=== PATIENT | male | born 1955 | race Caucasian/White ===

== ENCOUNTER 2020-05-30 18:34 | Emergency (ER) | payer OTHER ==
[2020-05-30] MEDS ORDERED: ACETAMINOPHEN 500 MG TAB ONE (20:31)
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
--- NOTE | 2020-05-30 21:30 | RAD REPORT ---
EXAM DESCRIPTION: CT - Thoracic Spine W/o Cont - 05/30/2020 9:15 pm CLINICAL HISTORY: Radiculopathy. trauma COMPARISON: Head C Spine Mpr Wo Con dated 05/30/2020 TECHNIQUE: Axial CT imaging through the thoracic spine was performed with coronal and sagittal re-fo rmatted images. All CT scans are performed using dose optimization technique as appropriate and may include automated exposure control or mA/KV adjustment according to patient size. FINDINGS: The examination is significantly limited by body habitus artifact. Vertebral body heights are largely maintained. No evidence of a compression fracture or significant m alalignment. Thoracic spine alignment is within normal limits. No paraspinal masses or hematoma. IMPRESSION: No gross acute abnormality seen.
--- NOTE | 2020-05-30 21:32 | RAD REPORT ---
EXAM DESCRIPTION: CT - Spine Lumbar Wo Con - 05/30/2020 9:15 pm CLINICAL HISTORY: Radiculopathy. trauma COMPARISON: No comparisons TECHNIQUE: Axial noncontrast CT imaging of the lumbar spine was performed with coronal and sagittal re-formatted images. All CT scans are performed using dose optimization technique as appropriate and may include automated exposure control or mA/KV adjustment according to patient size. FINDINGS: Examination is limited by body habitus artifact. No gross acute lumbar spine fracture seen. No aggressive marrow pattern or malalignment. Paraspinal tissues are normal in thickness. No paraspinal abscess or hematoma seen. Moderate lower janet mbar spondylosis. IMPRESSION: No gross acute abnormality seen.
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
[2020-05-30 22:25] VITALS: TEMP 98
[2020-05-30 22:26] VITALS: BP 179/79; O2SAT 98
--- OUTSIDE RECORDS SUMMARY | 2020-06-02 09:03 | XMS REPORT | Continuity of Care Document ---
:[address] [facility] t Address [address] [place] [address] Care Team Providers Name Role Phone UNKNOWN Primary Care Physician Unavailable MAGAN Attending Clinician Unavailable MAGAN Admitting Clinician Unavailable Problems This patient has no known problems. Allergies, Adverse Reactions, Alerts This patient has no known allergies or adverse reactions. Medications This patient has no known medications. Procedures This patient has no known procedures. Results Test Description Test Time Test Comments Results Result Comments Source POC Glucose, Blood 2017-03-29 08:04:00 Test Item Value Reference Range Interpretation Comme nts POC Glucose (test code = 119 mg/dL 70-115 H Not bola RN or MDIf you consider your POCGLUC) patient critica manuela ill, the [employer] Accu-Chek Infor mII metershould not be used for Glucos e determinations.Draw a venous Glucose and send to the Main Lab for Analysi s.
== END 2020-05-30 22:12 | disposition home or self-care (01) ==
LOC: ER 18:34
DX: S16.1XXA Strain of muscle, fascia and tendon at neck level, initial encounter (principal); S20.229A Contusion of unspecified back wall of thorax, initial encounter; S90.02XA Contusion of left ankle, initial encounter; I10 Essential (primary) hypertension; E11.9 Type 2 diabetes mellitus without complications; I50.9 Heart failure, unspecified; W17.89XA Other fall from one level to another, initial encounter; Y93.89 Activity, other specified; Y92.9 Unspecified place or not applicable; Z79.4 Long term (current) use of insulin; Z79.01 Long term (current) use of anticoagulants; Z88.1 Allergy status to other antibiotic agents; Z88.3 Allergy status to other anti-infective agents; Z88.8 Allergy status to other drugs, medicaments and biological substances; Z86.718 Personal history of other venous thrombosis and embolism
CPT/HCPCS: 70450; 72125; 72128; 72131; 99284

== ENCOUNTER 2021-06-20 23:39 | Inpatient (IN) | payer OTHER ==
[2021-06-21 00:35] LABS: Absolute Lymphocytes (CBC) 1.9 K/uL (0.7-4.9); Basophils % 0.6 % (0-1.3); Hematocrit 27.9 % (39.6-49.0); Lymphocytes % 15.1 % (15.3-44.8); MPV 7.5 fL (7.6-11.3); RBC Red Blood Cell Count 3.11 M/uL (4.33-5.43)
[2021-06-21 00:36] LABS: Protime INR 2.83
--- NOTE | 2021-06-21 00:59 | ER ---
Nurse's Notes [facility] Name: Shaheen Dos Santos Age: 66 yrs Sex: Male : 1955 Arrival Date: 06/20/2021 Time: 23:45 Bed 13 Private MD: Diagnosis: Chest pain, unspecified;Anemia, unspecified;Weakness;Obesity, unspecified;Other acute kidney failure Presentation: 06/21 00:02 Chief complaint:. df1 00:14 Chief complaint: Spouse and/or significant other states: Spouse states weakness/N/V x 3 df1 days. Coronavirus screen: Vaccine status: Patient reports receiving the 2nd dose of the covid vaccine. At this time, the client does not indicate any symptoms associated with coronavirus-19. The client reports previous COVID testing was negative. Date of collection: August 2020. Ebola Screen: Patient negative for fever greater than or equal to 101.5 degrees Fahrenheit, and additional compatible Ebola Virus Disease symptoms Patient denies exposure to infectious person. Patient denies travel to an Ebola-affected area in the 21 days before illness onset. Initial Sepsis Screen: Does the patient meet any 2 criteria? No. Patient's initial sepsis screen is negative. Does the patient have a suspected source of infection? Yes: Bone or joint infection. Risk Assessment: Do you want to hurt yourself or someone else? Patient reports no desire to harm self or others. Note Spouse stated pt being treated for wound to LLE x 1 year. Pt started taking terbinafine for this wound 3 days ago. Onset of symptoms was June 18, 2021. 00:14 Method Of Arrival: EMS: [facility] df1 00:14 Acuity: SAMINA 3 df1 02:57 Note Pt resting with eyes closed. Spouse at bedside. Pt has tried to give urine sample df1 but unable to at this time. Pt refusing straight cath and Gibson. Pt has h/o PTSD and states previous bad experience with catheters. RN on second floor informed. Triage Assessment: 00:24 General: Appears in no apparent distress. Behavior is calm, cooperative. Pain: Denies df1 pain. Historical: - Allergies: 00:24 Bactrim; df1 00:24 Erythromycin; df1 00:24 Zocor; df1 00:24 Zofran; df1 02:13 cholecalciferol (vit D3)(bulk); df1 02:13 cholecalciferol (vitamin D3); df1 - Home Meds: 00:47 quetiapine 100 mg oral tab 1 tab nightly [Active]; df1 00:49 cetirizine 10 mg Oral tab 1 tab once daily [Active]; cyanocobalamin (vitamin B-12) 500 df1 mcg Oral tab [Active]; gabapentin 100 mg Oral cap 2 caps twice a day [Active]; hydralazine 50 mg Oral tab 1 tab 2 times per day [Active]; metoprolol tartrate 100 mg Oral tab 1 tab 2 times per day [Active]; Novolin N 100 unit/mL Sub-Q susp 55 unit twice a day [Active]; tramadol 50 mg Oral tab 1 tab every 4-6 hours [Active]; 02:13 B complex-minerals Oral [Active]; Eliquis 5 mg Oral tab 1 tab 2 times per day [Active]; df1 Lasix 40 mg Oral tab 1 tab once daily [Active]; nifedipine 90 mg Oral TbER 1 tab once daily [Active]; allopurinol 100 mg Oral tab 1 tab nightly [Active]; omeprazole 20 mg oral TbEC 20 mg twice a day [Active]; - PMHx: 00:24 CHF; COPD; Diabetes - IDDM; DVT; Hypertension; Myocardial infarction; PE; IVC Filter; df1 02:27 renal failure; GERD; Gout; df1 - PSHx: 00:24 Cholecystectomy; left foot surgery x 2 for infection to bone; df1 - Immunization history:: Client reports receiving the 2nd dose of the Covid vaccine, Last tetanus immunization: up to date Pneumococcal vaccine is up to date, Flu vaccine is not up to date. - Social history:: Smoking status: Patient denies any tobacco usage or history of. - Family history:: not pertinent. Screenin:23 Abuse screen: Denies threats or abuse. Nutritional screening: No deficits noted. df1 Tuberculosis screening: No symptoms or risk factors identified. Fall Risk None identified. Assessment: 02:28 General: Appears uncomfortable, Behavior is calm, cooperative, Smells of. Pain: Denies df1 pain. Neuro: Level of Consciousness is awake, alert, obeys commands, Oriented to person, place, time, situation, Emergency Manager are weak bilaterally Weakness Gait is Did not ambulate. Speech is normal, Facial symmetry appears normal, Pupils are PERRLA, Intact Reports weakness. Cardiovascular: Rhythm is first degree block on EKG. Respiratory: Airway is patent Trachea midline Respiratory effort is even, unlabored, Respiratory pattern is regular, symmetrical, Breath sounds are diminished. GI: Abdomen is round obese, Bowel sounds present X 4 quads. Abd is soft and non tender Reports nausea. : No deficits noted. Derm: Wound noted left calf, left Achilles, left mckoy and anterior aspect of left ankle. Vital Signs: 00:14 BP 118 / 50; Pulse 69; Resp 18; Temp 98.3; Pulse Ox 96% on R/A; Weight 182.8 kg; Height df1 6 ft. 1 in. (185.42 cm); Pain 0/10; 01:00 BP 120 / 58; Pulse 65; Resp 18; Pulse Ox 98% on R/A; df1 02:24 BP 127 / 54; Pulse 68; Resp 18; Pulse Ox 96% on R/A; df1 02:56 BP 123 / 51; Pulse 65; Resp 18; Pulse Ox 95% on R/A; df1 00:14 Body Mass Index 53.17 (182.80 kg, 185.42 cm) df1 ED Course: 06/20 23:45 Patient arrived in ED. cs9 06/21 00:01 Harper Fierro is Primary Nurse. df1 00:04 Can Pena MD is Attending Physician. [facility] 00:23 Triage completed. df1 00:23 Patient has correct armband on for positive identification. Placed in gown. Bed in low df1 position. Call light in reach. Side rails up X 1. Adult w/ patient. boilermaker loftsman on. Pulse ox on. NIBP on. Noise minimized. Lights dimmed. Warm blanket given. 00:24 Arm band placed on right wrist. df1 00:24 No provider procedures requiring assistance completed. df1 00:37 Liver (Hepatic) Function Sent. df1 00:37 Magnesium Sent. df1 00:37 NT PRO-BNP Sent. df1 00:37 Basic Metabolic Panel Sent. df1 00:37 CBC with Automated Diff Sent. df1 00:38 Lipase Sent. df1 00:38 Lactate Sent. df1 00:38 Basic Metabolic Panel Sent. df1 00:38 NT PRO-BNP Sent. df1 00:40 Magnesium Sent. df1 00:40 LFT's Sent. df1 00:40 CBC with Diff Sent. df1 00:41 Inserted saline lock: 20 gauge in right antecubital area, using aseptic technique. df1 00:49 XRAY Chest (1 view) In Process Unspecified. EDMS 00:57 Alexander Hernandez DO is Hospitalizing Provider. carmen 01:10 AMMONIA Sent. df1 02:26 Head Brain Wo Cont Sent. df1 02:58 Patient admitted, IV remains in place. df1 Administered Medications: 01:19 Drug: NS 0.9% 1000 ml Route: IV; Rate: 125 ml/hr; Site: right antecubital; df1 01:19 Drug: Rocephin (cefTRIAXone) 1 grams Route: IV; Rate: per protocol; Site: right df1 antecubital; 02:26 Follow up: Response: No adverse reaction df1 01:19 Drug: Pepcid (famotidine) 20 mg Route: IVP; Site: right antecubital; df1 02:26 Follow up: Response: No adverse reaction df1 Outcome: 00:59 Decision to Hospitalize by Provider. carmen 02:58 Admitted to Tele accompanied by tech. df1 02:58 Condition: stable 02:58 Instructed on the need for admit. 03:36 Patient left the ED. df1 Signatures: Dispatcher [employer] EDMS Can Pena MD MD cha Furlich, Dawn df1 Rosina Ruiz cs9 Corrections: (The following items were deleted from the chart) 00:50 00:24 Home Meds: allopurinol 100 mg Oral tab 1 tab 2 times per day [Inactive]; df1 df1 00:50 00:24 Home Meds: cetirizine 10 mg Oral tab 1 tab once daily [Inactive]; df1 df1 00:50 00:24 Home Meds: cyanocobalamin (vitamin B-12) 500 mcg Oral tab [Inactive]; df1 df1 00:50 00:24 Home Meds: Eliquis 5 mg Oral tab 1 tab 2 times per day [Inactive]; df1 df1 00:50 00:24 Home Meds: gabapentin 100 mg Oral cap 2 caps twice a day [Inactive]; df1 df1 00:50 00:24 Home Meds: hydralazine 50 mg Oral tab 1 tab 2 times per day [Inactive]; df1 df1 00:50 00:24 Home Meds: Lasix 40 mg Oral tab 1 tab 2 times per day [Inactive]; df1 df1 00:50 00:24 Home Meds: metoprolol tartrate 50 mg Oral tab 1 tab 2 times per day [Inactive]; df1 df1 00:50 00:24 Home Meds: nifedipine 90 mg Oral TbER 1 tab once daily [Inactive]; df1 df1 00:50 00:24 Home Meds: Novolin N 100 unit/mL Sub-Q susp [Inactive]; df1 df1 00:50 00:24 Home Meds: omeprazole 10 mg Oral cpDR 2 caps once daily [Inactive]; df1 df1 00:50 00:24 Home Meds: tramadol 50 mg Oral tab [Inactive]; df1 df1 00:50 00:41 Home Meds: allopurinol 100 mg Oral tab 1 tab nightly [Inactive]; df1 df1 00:50 00:41 Home Meds: hydralazine 50 mg Oral tab 1 tab 2 times per day [Inactive]; df1 df1 00:50 00:41 Home Meds: metoprolol tartrate 100 mg oral tab 1 tab 2 times per day [Inactive]; df1 df1 00:50 00:41 Home Meds: Novolin N 100 unit/mL Sub-Q susp 55 unit twice a day [Inactive]; df1 df1 00:50 00:41 Home Meds: tramadol 50 mg Oral tab 1 tab every 4-6 hours [Inactive]; df1 df1 00:50 00:41 Home Meds: quetiapine 100 mg oral tab 1 tab nightly; df1 df1 02:20 00:24 Home Meds: amitriptyline 10 mg Oral tab 2 tabs at bedtime [Inactive]; df1 df1 02:20 00:24 Home Meds: B complex-minerals oral Oral [Inactive]; df1 df1 02:20 00:24 Home Meds: escitalopram oxalate 10 mg Oral tab 1 tab once daily [Inactive]; df1 df1 02:20 00:24 Home Meds: esomeprazole magnesium 40 mg Oral cpDR 1 cap once daily [Inactive]; df1df1 02:20 00:24 Home Meds: glipizide 5 mg Oral tr24 2 tabs once daily [Inactive]; df1 df1 02:20 00:24 Home Meds: losartan 50 mg Oral tab 1 tab once daily [Inactive]; df1 df1 02:20 00:24 Home Meds: metformin 850 mg Oral tab 1 tab 2 times per day [Inactive]; df1 df1 02:20 00:24 Home Meds: Novolog 100 unit/mL Sub-Q soln [Inactive]; df1 df1 02:20 00:24 Home Meds: potassium chloride 20 mEq Oral TbER 1 tab once daily [Inactive]; df1 df1 02:20 00:41 Home Meds: Eliquis 5 mg Oral tab 1 tab 2 times per day [Inactive]; df1 df1 02:20 00:41 Home Meds: Lasix 40 mg Oral tab 1 tab once daily [Inactive]; df1 df1 02:20 00:41 Home Meds: nifedipine 90 mg Oral TbER 1 tab once daily [Inactive]; df1 df1 02:20 00:47 Home Meds: allopurinol 100 mg Oral tab 1 tab nightly [Inactive]; df1 df1 02:20 00:49 Home Meds: omeprazole 10 mg Oral cpDR 2 caps once daily; df1 df1
--- NOTE | 2021-06-21 00:59 | EDPHYS ---
Physician Documentation [facility] Name: Shaheen Dos Santos Age: 66 yrs Sex: Male : 1955 Arrival Date: 06/20/2021 Time: 23:45 Bed 13 Private MD: ED Physician Can Pena HPI: 06/21 00:50 This 66 yrs old Male presents to ER via EMS with complaints of cp, weakness. carmen 00:50 The patient or guardian reports chest pain that is located primarily in the substernal carmen area. Onset: last night. weak, increased urination, weakntss. The patient presents with confusion, trouble concentrating. Onset: The symptoms/episode began/occurred last night. Possible causes: CVA or TIA, head injury, low blood sugar, sepsis. Associated signs and symptoms: Pertinent positives: chest pain, dizziness, gait abnormality. Associated signs and symptoms: Pertinent positives: cough, nausea, shortness of breath. Historical: - Allergies: 00:24 Bactrim; df1 00:24 Erythromycin; df1 00:24 Zocor; df1 00:24 Zofran; df1 02:13 cholecalciferol (vit D3)(bulk); df1 02:13 cholecalciferol (vitamin D3); df1 - Home Meds: 00:47 quetiapine 100 mg oral tab 1 tab nightly [Active]; df1 00:49 cetirizine 10 mg Oral tab 1 tab once daily [Active]; cyanocobalamin (vitamin B-12) 500 df1 mcg Oral tab [Active]; gabapentin 100 mg Oral cap 2 caps twice a day [Active]; hydralazine 50 mg Oral tab 1 tab 2 times per day [Active]; metoprolol tartrate 100 mg Oral tab 1 tab 2 times per day [Active]; Novolin N 100 unit/mL Sub-Q susp 55 unit twice a day [Active]; tramadol 50 mg Oral tab 1 tab every 4-6 hours [Active]; 02:13 B complex-minerals Oral [Active]; Eliquis 5 mg Oral tab 1 tab 2 times per day [Active]; df1 Lasix 40 mg Oral tab 1 tab once daily [Active]; nifedipine 90 mg Oral TbER 1 tab once daily [Active]; allopurinol 100 mg Oral tab 1 tab nightly [Active]; omeprazole 20 mg oral TbEC 20 mg twice a day [Active]; - PMHx: 00:24 CHF; COPD; Diabetes - IDDM; DVT; Hypertension; Myocardial infarction; PE; IVC Filter; df1 02:27 renal failure; GERD; Gout; df1 - PSHx: 00:24 Cholecystectomy; left foot surgery x 2 for infection to bone; df1 - Immunization history:: Client reports receiving the 2nd dose of the Covid vaccine, Last tetanus immunization: up to date Pneumococcal vaccine is up to date, Flu vaccine is not up to date. - Social history:: Smoking status: Patient denies any tobacco usage or history of. - Family history:: not pertinent. ROS: 00:50 Constitutional: Negative for fever, chills, and weight loss, Eyes: Negative for injury, carmen pain, redness, and discharge, ENT: Negative for injury, pain, and discharge, Neck: Negative for injury, pain, and swelling, Cardiovascular: Negative for chest pain, palpitations, and edema, Abdomen/GI: Negative for abdominal pain, nausea, vomiting, diarrhea, and constipation, Back: Negative for injury and pain, : Negative for injury, bleeding, discharge, and swelling, MS/Extremity: Negative for injury and deformity, Skin: Negative for injury, rash, and discoloration, Psych: Negative for depression, anxiety, suicide ideation, homicidal ideation, and hallucinations, Allergy/Immunology: Negative for hives, rash, and allergies, Endocrine: Negative for neck swelling, polydipsia, polyuria, polyphagia, and marked weight changes, Hematologic/Lymphatic: Negative for swollen nodes, abnormal bleeding, and unusual bruising. 00:50 Respiratory: Positive for cough, shortness of breath. 00:50 Neuro: Positive for altered mental status, weakness. Exam: 00:50 Constitutional: This is a well developed, well nourished patient who is awake, alert, carmen and in no acute distress. Head/Face: Normocephalic, atraumatic. Eyes: Pupils equal round and reactive to light, extra-ocular motions intact. Lids and lashes normal. Conjunctiva and sclera are non-icteric and not injected. Cornea within normal limits. Periorbital areas with no swelling, redness, or edema. ENT: Nares patent. No nasal discharge, no septal abnormalities noted. Tympanic membranes are normal and external auditory canals are clear. Oropharynx with no redness, swelling, or masses, exudates, or evidence of obstruction, uvula midline. Mucous membranes moist. Neck: Trachea midline, no thyromegaly or masses palpated, and no cervical lymphadenopathy. Supple, full range of motion without nuchal rigidity, or vertebral point tenderness. No Meningismus. Chest/axilla: Normal chest wall appearance and motion. Nontender with no deformity. No lesions are appreciated. Cardiovascular: Regular rate and rhythm with a normal S1 and S2. No gallops, murmurs, or rubs. Normal PMI, no JVD. No pulse deficits. Respiratory: Lungs have equal breath sounds bilaterally, clear to auscultation and percussion. No rales, rhonchi or wheezes noted. No increased work of breathing, no retractions or nasal flaring. Back: No spinal tenderness. No costovertebral tenderness. Full range of motion. Male : Normal genitalia with no discharge or lesions. Skin: Warm, dry with normal turgor. Normal color with no rashes, no lesions, and no evidence of cellulitis. Psych: Awake, alert, with orientation to person, place and time. Behavior, mood, and affect are within normal limits. 00:50 ECG was reviewed by the Attending Physician. 00:50 Abdomen/GI: Inspection: distension, Bowel sounds: normal, Liver: no appreciated palpable abnormalities, Hernia: not appreciated. Vital Signs: 00:14 BP 118 / 50; Pulse 69; Resp 18; Temp 98.3; Pulse Ox 96% on R/A; Weight 182.8 kg; Height df1 6 ft. 1 in. (185.42 cm); Pain 0/10; 01:00 BP 120 / 58; Pulse 65; Resp 18; Pulse Ox 98% on R/A; df1 02:24 BP 127 / 54; Pulse 68; Resp 18; Pulse Ox 96% on R/A; df1 02:56 BP 123 / 51; Pulse 65; Resp 18; Pulse Ox 95% on R/A; df1 00:14 Body Mass Index 53.17 (182.80 kg, 185.42 cm) df1 MDM: 00:04 Patient medically screened. [facility] 00:54 Differential diagnosis: abnormal EKG, acute myocardial infarction, anxiety, coronary carmen artery disease chest wall pain, cholecystitis, hiatal hernia, pancreatitis, pleurisy, pneumonia, pulmonary embolus, stable angina, unstable angina. Differential Diagnosis altered mental status, sepsis. HEART Score: History: Slightly Suspicious (0), ECG: Non specific repolarization disturbance / LBTB / PM (1), Age: > or = 65 years (2), Risk Factors: > or = 3 Risk factors for atherosclerotic disease (2), [Hypercholesterolemia] [Hypertension] [DM] [+ Family HX] [Obesity] Troponin: < or = 1 x Normal Limit (0). Differential Diagnosis: CVA, electrolyte abnormality, hypoglycemia, pneumonia, sepsis, TIA, UTI, volume depletion. The patient was not given aspirin in the Emergency Department. Not indicated due to patient's past medical history. The patient's deep vein thrombosis risk score was calculated as follows: Total Score: 0. This patient was found to be at low risk for a deep vein thrombosis by using the Well's assessment criteria. The patient's pulmonary embolism risk score was calculated as follows: Total Score: 0-2 points. This patient was found to be at low risk for a pulmonary embolism by using the Well's assessment criteria. AMANDA Risk Score: 1 - patient's age is greater or equal to 65 years, 1 - Three or more CAD risk factors, 1- Known CAD, TOTAL SCORE = 3. Data reviewed: vital signs, nurses notes, lab test result(s), EKG, radiologic studies, CT scan, plain films. Data interpreted: teletypesetter monitor: rate is 69 beats/min, rhythm is regular, Pulse oximetry: on room air is 96 %. Test interpretation: by ED physician or midlevel provider: ECG, plain radiologic studies. Counseling: I had a detailed discussion with the patient and/or guardian regarding: the historical points, exam findings, and any diagnostic results supporting the discharge/admit diagnosis, lab results, radiology results, the need for further work-up and treatment in the hospital. 06/21 00:14 Order name: Basic Metabolic Panel carmen 06/21 00:14 Order name: CBC with Diff carmen 06/21 00:14 Order name: LFT's carmen 06/21 00:14 Order name: Magnesium carmen 06/21 00:14 Order name: NT PRO-BNP carmen 06/21 00:14 Order name: PT-INR; Complete Time: 00:48 [facility] 06/21 00:14 Order name: Troponin (emerg Dept Use Only); Complete Time: 01:24 [facility] 06/21 00:14 Order name: Blood Culture Adult (2) [facility] 06/21 00:14 Order name: Lipase; Complete Time: 01:24 [facility] 06/21 00:14 Order name: Lactate; Complete Time: 01:24 [facility] 06/21 00:14 Order name: SARS-COV-2 RT PCR (Document "Date of Onset" if Symptomatic) [facility] 06/21 00:15 Order name: Basic Metabolic Panel; Complete Time: 01:24 EDME 06/21 00:15 Order name: CBC with Automated Diff; Complete Time: 00:48 EDME 06/21 00:15 Order name: Liver (Hepatic) Function; Complete Time: 01:24 EDME 06/21 00:14 Order name: XRAY Chest (1 view) [facility] 06/21 00:14 Order name: EKG; Complete Time: 00:15 [facility] 06/21 00:14 Order name: Cardiac monitoring; Complete Time: 00:38 [facility] 06/21 00:14 Order name: EKG - Nurse/Tech; Complete Time: 00:38 [facility] 06/21 00:14 Order name: IV Saline Lock; Complete Time: 00:38 [facility] 06/21 00:14 Order name: Labs collected and sent; Complete Time: 00:38 [facility] 06/21 00:14 Order name: O2 Per Protocol; Complete Time: 00:38 [facility] 06/21 00:14 Order name: O2 Sat Monitoring; Complete Time: 00:38 [facility] 06/21 00:14 Order name: Urine Dipstick-Ancillary (obtain specimen) [facility] 06/21 00:15 Order name: Magnesium; Complete Time: 01:24 [facility] 06/21 00:15 Order name: NT PRO-BNP; Complete Time: 01:24 EDME 06/21 00:49 Order name: AMMONIA [facility] 06/21 00:52 Order name: Head Brain Wo Cont EDMS EC:50 Rate is 70 beats/min. Rhythm is regular. QRS [place] is Normal. [place] interval is prolonged carmen at 300 msec. QRS interval is normal. QT interval is normal. No Q waves. T waves are Normal. No ST changes noted. Clinical impression: Normal ECG and No evidence of ischemia. Interpreted by me. Reviewed by me. Administered Medications: :19 Drug: NS 0.9% 1000 ml Route: IV; Rate: 125 ml/hr; Site: right antecubital; df1 01:19 Drug: Rocephin (cefTRIAXone) 1 grams Route: IV; Rate: per protocol; Site: right df1 antecubital; 02:26 Follow up: Response: No adverse reaction df1 01:19 Drug: Pepcid (famotidine) 20 mg Route: IVP; Site: right antecubital; df1 02:26 Follow up: Response: No adverse reaction df1 Disposition Summary: 06/21/21 00:59 Hospitalization Ordered Hospitalization Status: Observation carmen Provider: Alexander Hernandez cha Location: Telemetry/MedSurg (observation) carmen Condition: Stable carmen Problem: new carmen Symptoms: have improved carmen Bed/Room Type: Standard [facility] Room Assignment: 215(06/21/21 01:59) mw Diagnosis - Chest pain, unspecified carmen - Anemia, unspecified carmen - Weakness carmen - Obesity, unspecified carmen - Other acute kidney failure carmen Forms: - Medication Reconciliation Form carmen - SBAR form carmen Signatures: Dispatcher [employer] EDMS Carli Rhodes RN RN mw Anderson, Corey, MD MD cha Attema, Lee, CIVIL ENGINEERING SPECIALIST-C CIVIL ENGINEERING SPECIALIST-Harper Barreto df1 Corrections: (The following items were deleted from the chart) 00:50 00:24 Home Meds: allopurinol 100 mg Oral tab 1 tab 2 times per day [Inactive]; df1 df1 00:50 00:24 Home Meds: cetirizine 10 mg Oral tab 1 tab once daily [Inactive]; df1 df1 00:50 00:24 Home Meds: cyanocobalamin (vitamin B-12) 500 mcg Oral tab [Inactive]; df1 df1 00:50 00:24 Home Meds: Eliquis 5 mg Oral tab 1 tab 2 times per day [Inactive]; df1 df1 00:50 00:24 Home Meds: gabapentin 100 mg Oral cap 2 caps twice a day [Inactive]; df1 df1 00:50 00:24 Home Meds: hydralazine 50 mg Oral tab 1 tab 2 times per day [Inactive]; df1 df1 00:50 00:24 Home Meds: Lasix 40 mg Oral tab 1 tab 2 times per day [Inactive]; df1 df1 00:50 00:24 Home Meds: metoprolol tartrate 50 mg Oral tab 1 tab 2 times per day [Inactive]; df1 df1 00:50 00:24 Home Meds: nifedipine 90 mg Oral TbER 1 tab once daily [Inactive]; df1 df1 00:50 00:24 Home Meds: Novolin N 100 unit/mL Sub-Q susp [Inactive]; df1 df1 00:50 00:24 Home Meds: omeprazole 10 mg Oral cpDR 2 caps once daily [Inactive]; df1 df1 00:50 00:24 Home Meds: tramadol 50 mg Oral tab [Inactive]; df1 df1 00:50 00:41 Home Meds: allopurinol 100 mg Oral tab 1 tab nightly [Inactive]; df1 df1 00:50 00:41 Home Meds: hydralazine 50 mg Oral tab 1 tab 2 times per day [Inactive]; df1 df1 00:50 00:41 Home Meds: metoprolol tartrate 100 mg oral tab 1 tab 2 times per day [Inactive]; df1 df1 00:50 00:41 Home Meds: Novolin N 100 unit/mL Sub-Q susp 55 unit twice a day [Inactive]; df1 df1 00:50 00:41 Home Meds: tramadol 50 mg Oral tab 1 tab every 4-6 hours [Inactive]; df1 df1 00:50 00:41 Home Meds: quetiapine 100 mg oral tab 1 tab nightly; df1 df1 01:59 00:59 carmen mw 02:20 00:24 Home Meds: amitriptyline 10 mg Oral tab 2 tabs at bedtime [Inactive]; df1 df1 02:20 00:24 Home Meds: B complex-minerals oral Oral [Inactive]; df1 df1 02:20 00:24 Home Meds: escitalopram oxalate 10 mg Oral tab 1 tab once daily [Inactive]; df1 df1 02:20 00:24 Home Meds: esomeprazole magnesium 40 mg Oral cpDR 1 cap once daily [Inactive]; df1df1 02:20 00:24 Home Meds: glipizide 5 mg Oral tr24 2 tabs once daily [Inactive]; df1 df1 02:20 00:24 Home Meds: losartan 50 mg Oral tab 1 tab once daily [Inactive]; df1 df1 02:20 00:24 Home Meds: metformin 850 mg Oral tab 1 tab 2 times per day [Inactive]; df1 df1 02:20 00:24 Home Meds: Novolog 100 unit/mL Sub-Q soln [Inactive]; df1 df1 02:20 00:24 Home Meds: potassium chloride 20 mEq Oral TbER 1 tab once daily [Inactive]; df1 df1 02:20 00:41 Home Meds: Eliquis 5 mg Oral tab 1 tab 2 times per day [Inactive]; df1 df1 02:20 00:41 Home Meds: Lasix 40 mg Oral tab 1 tab once daily [Inactive]; df1 df1 02: 00:41 Home Meds: nifedipine 90 mg Oral TbER 1 tab once daily [Inactive]; df1 df1 02:20 00:47 Home Meds: allopurinol 100 mg Oral tab 1 tab nightly [Inactive]; df1 df1 02:20 00:49 Home Meds: omeprazole 10 mg Oral cpDR 2 caps once daily; df1 df1
[2021-06-21 01:03] LABS: ALT/SGPT 24 U/L (12-78); AST/SGOT 21 U/L (15-37); Albumin 2.4 g/dL (3.4-5.0); Alkaline Phosphatase 87 U/L (45-117); BUN Blood Urea Nitrogen 50 mg/dL (7-18); Bicarbonate 22 mmol/L (21-32); Bilirubin Direct 0.3 mg/dL (0-0.2); Bilirubin Total 0.8 mg/dL (0.2-1.0); Glucose Level 216 mg/dL (74-106); Lipase 34 U/L (73-393); Magnesium 1.8 mg/dL (1.8-2.4); NT PRO-BNP 1902 pg/mL (<125); Potassium 3.6 mmol/L (3.5-5.1); Protein, Total 7.7 g/dL (6.4-8.2); Sodium Level 137 mmol/L (136-145); Troponin (Emerg Dept Use Only) < 0.02 ng/mL (0.0-0.045)
[2021-06-21] MEDS ORDERED: FAMOTIDINE 20 MG/2 ML VIAL IV ONE (01:29)
[2021-06-21] MEDS ORDERED: CEFTRIAXONE 1000 MG/VIAL ONE (01:29)
[2021-06-21] MEDS ORDERED: NA CHLORIDE 0.9% 1,000 ML ONE (01:29)
--- NOTE | 2021-06-21 04:26 | P.HP ---
Certification for Inpatient Patient admitted to: Observation With expected LOS: <2 Midnights Patient will require the following post-hospital care: None Practitioner: I am a practitioner with admitting privileges, knowledge of patient current condition, hospital course, and medical plan of care. Services: Services provided to patient in accordance with Admission requirements found in Title 42 Section 412.3 of the Code of Federal Regulations Patient History Date of Service: 06/21/21 Reason for admission: Chest pain History of Present Illness: 66-year-old on chronic anticoagulation therapy with IVC filter in place, hypertension, CKD 3 presents the emergency department for chest pain and weakness. Patient reports that he has been having intermittent chest pain over the course of last few days as well as feeling very weak and unable to get out of bed. 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 Black. Patient was evaluated in the emergency department, labs were significant for INR 2.83 white blood cell count 12.8 hemoglobin 9.0 hematocrit 27.9 creatinine 2.26 GFR 29 BUN 50 glucose 216 BNP 1902 EKG without acute changes chest x-ray without significant findings pending radiology interpretation. Patient with mild acute kidney injury superimposed on his CKD 3, baseline creatinine 1.9 currently 2.2. Patient also with some chest pain, ED provider wishes to admit under observation for ACS rule out. Allergies erythromycin base Allergy (Verified 02/03/21 14:29) Nausea/Vomiting ondansetron [From Zofran] Allergy (Verified 02/03/21 14:29) Nausea/Vomiting simvastatin Allergy (Verified 02/03/21 14:29) Nausea/Vomiting sulfamethoxazole [From Bactrim] Allergy (Verified 02/03/21 14:29) Nausea/Vomiting trimethoprim [From Bactrim] Allergy (Verified 02/03/21 14:29) Nausea/Vomiting Home Medications: Acetaminophen with Codeine [Acetaminophen-Cod #3 Tablet] 60 mg PO BID PRN 02/03/21 Apixaban [Eliquis] 5 mg PO BID 02/03/21 Cyanocobalamin [B12 Injection] 1,000 mcg IM SEECOM 02/03/21 Ergocalciferol (Vitamin D2) [Drisdol] 1,250 mcg PO EVERY 7TH DAY 02/03/21 Escitalopram Oxalate 10 mg PO DAILY 02/03/21 Furosemide 80 mg PO DAILY 02/03/21 Insulin -Regular Human [Novolin -R*] 30 unit SQ BID 02/03/21 Metoprolol Tartrate 50 mg PO BID 02/03/21 NIFEdipine [Nifedipine ER] 60 mg PO DAILY 02/03/21 Omeprazole 40 mg PO DAILY 02/03/21 Potassium Gluconate [Potassium] 99 mg PO DAILY 02/03/21 Quetiapine Fumarate [Seroquel] 50 mg PO BEDTIME 02/03/21 Tramadol HCl [Ultram] 50 mg PO BID PRN 02/03/21 - Past Medical/Surgical History -: Diabetes mellitus type 2 -: CHFunknown EF -: COPD -: 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 moist/pink, EOMI, Sclerae nonicteric Neck: Supple, 2+ carotid pulse no bruit, No LAD, Without JVD or thyroid abnormality Respiratory: Clear to auscultation bilaterally, Normal air movement Cardiovascular: Regular rate/rhythm, Normal S1 S2 Gastrointestinal: Normal bowel sounds, No tenderness Musculoskeletal: No tenderness Integumentary: No rashes Neurological: Normal speech, Normal strength at 5/5 x4 extr, Normal tone, Normal affect - Studies Laboratory Data (last 24 hrs) 06/21/21 00:22: WBC 12.80 H, Hgb 9.0 L, Hct 27.9 L, Plt Count 240 06/21/21 00:22: Sodium 137, Potassium 3.6, BUN 50 H, Creatinine 2.26 H, Glucose 216 H, Magnesium 1.8, Total Bilirubin 0.8, AST 21, ALT 24, Alkaline Phosphatase 87, Lipase 34 L 06/21/21 00:14: PT 32.9 H, INR 2.83 Assessment and Plan - Plan Assessment: Chest pain rule out ACS Acute on chronic CHFunknown EF Diabetes mellitus type 2 NAV superimposed on CKD 3 Normocytic anemiasuspect anemia of chronic disease 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 Cardiology consult in place. Continue home medications including Eliquis, possibly related to exacerbation of CHF, give IV Lasix for diuresis as well. Appreciate further input from cardiology. Acute on chronic CHFunknown EF: No previous echocardiogram available for review, will order echocardiogram to determine patient's function, cardiology consult also in place. Continue other home medications, 1500 cc/day flu restriction, daily weights. Diabetes mellitus type 2: A [facility] Accu-Chek, sliding scale insulin therapy. Obtain and continue patient's home dose insulin when obtained. NAV superimposed on CKD 3: Nephrology consulted, will continue with diuresis for now, only mild increase in creatinine from previous. Appreciate further input from nephrology. Normocytic anemiasuspect anemia of chronic disease: Transfuse to maintain hemoglobin greater than 8. 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 DVT PPX: Eliquis Code status: Full Discharge Plan: Home Plan to discharge in: 24 Hours - Advance Directives Does patient have a Living Will: No Does patient have a Durable POA for Healthcare: No - Code Status/Comfort Care Code Status Assessed: Yes (full code) Critical Care: No Time Spent Managing Pts Care (In Minutes): 55
[2021-06-21] MEDS ORDERED: TRAMADOL HCL 50 MG TAB PO PRN (05:26)
[2021-06-21] MEDS ORDERED: GLUCAGON 1 MG/VIAL IM PRN (05:26)
[2021-06-21] MEDS ORDERED: D50W 25 GM/50 ML SYRINGE IV PRN (05:26)
--- NOTE | 2021-06-21 06:04 | P.PN ---
Subjective Date of Service: 06/21/21 Primary Care Provider: [facility] Chief Complaint: Chest pain Subjective: Improving, Doing well Physical Examination - Vital Signs Temperature: 98.3 F Blood Pressure: 123/51 Pulse: 65 Respirations: 18 - Studies Laboratory Data (last 24 hrs) 06/21/21 00:22: WBC 12.80 H, Hgb 9.0 L, Hct 27.9 L, Plt Count 240 06/21/21 00:22: Sodium 137, Potassium 3.6, BUN 50 H, Creatinine 2.26 H, Glucose 216 H, Magnesium 1.8, Total Bilirubin 0.8, AST 21, ALT 24, Alkaline Phosphatase 87, Lipase 34 L 06/21/21 00:14: PT 32.9 H, INR 2.83 Assessment & Plan Discharge Plan: Home Plan to discharge in: 24 Hours Physician Review Additional Text: COVID: negative CXR: COMPARISON: No comparisons FINDINGS: Lines: None. Lungs: No evidence of edema or pneumonia. Pleural: No significant pleural effusions or pneumothorax. Cardiac: The heart size is within normal limits. Bones: No acute fractures. IMPRESSION: No acute cardiopulmonary disease. CT head: Unremarkable Physical exam: General: Alert, In no apparent distress, Oriented x3 HEENT: Atraumatic, PERRLA, Mucous membr. moist/pink, EOMI, Sclerae nonicteric Neck: Supple, 2+ carotid pulse no bruit, No LAD, Without JVD or thyroid abnormality Respiratory: Clear to auscultation bilaterally, Normal air movement Cardiovascular: Regular rate/rhythm, Normal S1 S2 Gastrointestinal: Normal bowel sounds, No tenderness Musculoskeletal: No tenderness Integumentary: No rashes Neurological: Normal speech, Normal strength at 5/5 x4 extr, Normal tone, Normal affect Assessment: Chest pain rule out ACS Acute on chronic CHFunknown EF Diabetes mellitus type 2 NAV superimposed on CKD 3 Normocytic anemia likely of chronic disease Depression Gout Chronic pain GERD 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 Echocardiogram pending. Case discussed at length with cardiology. No intervention required at this time. Teach on CHF. Recommend 1500 cc/day fluid restriction and low-salt diet. Continue with diuresis. Will discharge home today. Acute on chronic CHFunknown EF: Obtain echocardiogram. Teach on CHF and fluid restriction. Continue 1500 cc/day fluid restriction. Monitor daily weight. Continue with diuresisLasix. Diabetes mellitus type 2: Continue Accu-Cheks and sliding scale. Hypertension: Restart home medications of nifedipine ER 90 mg daily, hydralazine 50 mg 1 pill twice daily, and metoprolol 100 mg 1 pill twice daily. NAV superimposed on CKD 3: This appears stable at this time. Nephrology consulted. Await recommendations. Normocytic anemia likely of chronic disease: Overall stable. Will monitor closely. 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 Patient with history of IVC filter. Depression: Continue with Seroquel 100 mg at bedtime Gout: Continue with allopurinol 100 mg daily. Chronic pain: Continue with tramadol 50 mg every 6 hours as needed for pain. GERD: Continue with Prilosec 20 mg daily. Obesity, BMI 50.8: Continue with lifestyle modification education. DVT PPX: Eliquis Code status: Full Discharge Plan: Home Time Spent Managing Pts Care (In Minutes): 55
[2021-06-21 06:18] LABS: Urine Appearance CLEAR (Clear); Urine Bilirubin NEGATIVE (Negative); Urine Blood NEGATIVE (Negative); Urine Color YELLOW (Yellow); Urine Glucose NEGATIVE (Negative); Urine Protein NEGATIVE (Negative); Urine Urobilinogen 0.2 mg/dL (0.2-1.0)
[2021-06-21 06:39] LABS: Urine Microscopic Reflex NO UMIC
[2021-06-21 06:50] LABS: HDL Cholesterol 37 mg/dL (40-60); LDL Cholesterol, Calculated 60 (<130); Thyroid Stimulating Hormone 0.979 uIU/mL (0.360-3.740); Troponin I < 0.02 ng/mL (0.0-0.045)
--- NOTE | 2021-06-21 07:10 | RAD REPORT ---
EXAM DESCRIPTION: RAD - Chest Single View - 06/21/2021 12:49 am CLINICAL HISTORY: COUGH COMPARISON: No comparisons FINDINGS: Lines: None. Lungs: No evidence of edema or pneumonia. Pleural: No significant pleural effusions or pneumothorax. Cardiac: The heart size is within normal limits. Bones: No acute fractures. Other: IMPRESSION: No acute cardiopulmonary disease.
[2021-06-21] MEDS: INSULIN -REGULAR HUMAN 50 UNIT/0.5 ML ML SQ SCH ×4 (07:30→19:36)
[2021-06-21] MEDS ORDERED: PNEUMOCOCCAL VACCINE 0.5 ML IMVAC ONE (08:00)
[2021-06-21] MEDS ORDERED: INFLUENZA VACCINE (for 6+ mo) 0.5 ML DOSE IMVAC ONE (08:00)
--- NOTE | 2021-06-21 08:56 | P.DS ---
Admission Date: 06/21/21 Discharge Date: 06/22/21 Primary Care Provider: [facility] Disposition: ROUTINE DISCHARGE Discharge Condition: GOOD Reason for Admission: Chest pain Consultations: Cardiology-Dr. Garces Nephrology-Dr. Huffman Procedures: COVID: negative CXR: COMPARISON: No comparisons FINDINGS: Lines: None. Lungs: No evidence of edema or pneumonia. Pleural: No significant pleural effusions or pneumothorax. Cardiac: The heart size is within normal limits. Bones: No acute fractures. IMPRESSION: No acute cardiopulmonary disease. CT head: COMPARISON: 05/30/2020 FINDINGS: Multiple transaxial tomograms of the brain were obtained from the base of the skull to the vertex without contrast. 2-D multiplanar reformats and the coronal and sagittal plane were performed and reviewed. This exam was performed according to our departmental dose-optimization protocol, which includes automated exposure control, adjustment of the mA and/or kV according to patient size and/or use of iterative reconstruction technique. Brain parenchyma demonstrate mild prominence of this was and gyri are corresponding to cerebral and cerebellar atrophy. There is minimal periventricular white matter changes of microvascular ischemia. There is no midline shift and/or mass effect. There is no evidence for acute hemorrhage. Lateral ventricles and cisterns displace normal appearance. No intra or extra axial fluid collections were seen. The calvarium is intact with no evidence for fracture. The visualized portions of the paranasal sinuses and orbits demonstrate to be clear. IMPRESSION: No acute intracranial hemorrhage identified. Mild brain atrophy with minimal periventricular white matter changes of microvascular ischemia. 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 Patient has had chest pain for several days. Patient reports last heart catheterization 3 years ago which was unremarkable. He sees cardiologyDr. Black. In the ER patient was evaluated. Patient was admitted for evaluation and treatment. Hospital Course: Patient presented with chest pain. Patient with history of diabetes, hypertension, chronic renal disease and CHF. Patient was monitored overnight. Patient given IV Lasix for his CHF along with the addition of Aldactone. Patient seen and evaluated by cardiology. Cardiology recommends echocardiogram to further evaluate his CHF. No further intervention cardiac crane needed at this time. Recommend to continue with home medications. Recommend follow-up with cardiology in 1 to 2 weeks to follow-up his hospitalization and continue his care. Patient may require outpatient cardiac stress test to further evaluate. Patient with acute on chronic CHF likely diastolic. Echocardiogram to be obtained. Compliance with 1500 cc/day fluid restriction addressed in detail. Patient is to monitor his weight daily. If his weight increases by more than 5 pounds he is to contact his PCP for further recommendation. Further changes can be done by cardiology as well. At discharge recommend to continue Lasix 40 mg 1 pill twice daily and Aldactone 25 mg daily. Recommend follow-up with cardiology or nephrology to further monitor and adjust his medication. Patient with diabetes mellitus type 2. Overall stable. At discharge patient will continue with Novolin N 55 units subcu twice daily. Recommend to maintain blood sugar less than 140 fasting and less than 200 after meals. If blood sugar remains above 200 consistently further adjustment may be required. This can be done with the help of his PCP. Recommend to recheck hemoglobin A1c every 3 months to monitor his progress. Recommend follow-up with PCP within 1 week to further monitor his care. Patient with hypertension. Overall stable. At discharge patient will continue with nifedipine ER 90 mg daily, hydralazine 50 mg 1 pill twice daily, and metopr olol 100 mg 1 pill twice daily. Recommend to maintain blood pressure less than 130/80. If blood pressure remains above 140/90 consistently further adjustment may be required. This can be done with the help of his PCP. Patient with chronic renal disease stage III. Overall stable. Nephrology consulted to further evaluate. No further use of nonsteroidal anti- inflammatories. Future medications may to be renally dosed. Recommend to recheck labBMP in 1 week to monitor his progress. Follow-up with nephrology as directed. Patient with depression. At discharge patient will continue with Seroquel 100 mg at bedtime. Patient with gout. At discharge patient will continue with allopurinol 100 mg daily. Patient with chronic pain. At discharge patient may continue with tramadol 50 mg 3 times a day as needed for pain. Patient with GERD. At discharge patient will continue with Prilosec 20 mg daily. Patient with history of DVT/PE on chronic anticoagulation therapy with prior IVC filter in place. At discharge patient will continue with Eliquis 5 mg 1 pill twice daily. Patient with obesity, BMI 50.8. Lifestyle modification education provided. Vital Signs/Physical Exam: Temp Pulse Resp BP Pulse Ox 98.3 F 65 18 123/51 L 06/21/21 08:55 06/21/21 08:55 06/21/21 08:55 06/21/21 08:55 General: Alert, In no apparent distress, Oriented x3, Cooperative HEENT: Atraumatic Neck: Supple Respiratory: Clear to auscultation bilaterally, Normal air movement Cardiovascular: Normal pulses, Regular rate/rhythm Gastrointestinal: Normal bowel sounds, No ascites, No tenderness, No masses, No rebound, No guarding Musculoskeletal: No erythema, No tenderness, No warmth Integumentary: No tenderness/swelling, No erythema Neurological: Normal speech, Normal strength at 5/5 x4 extr, Normal tone Laboratory Data at Discharge: WBC 12.80 K/uL (4.3-10.9) H 06/21/21 00:22 Hgb 9.0 g/dL (13.6-17.9) L 06/21/21 00:22 Hct 27.9 % (39.6-49.0) L 06/21/21 00:22 Plt Count 240 K/uL (152-406) 06/21/21 00:22 PT 32.9 SECONDS (9.5-12.5) H 06/21/21 00:14 INR 2.83 06/21/21 00:14 Sodium 137 mmol/L (136-145) 06/21/21 00:22 Potassium 3.6 mmol/L (3.5-5.1) 06/21/21 00:22 BUN 50 mg/dL (7-18) H 06/21/21 00:22 Creatinine 2.26 mg/dL (0.55-1.3) H 06/21/21 00:22 Glucose 216 mg/dL (74-106) H 06/21/21 00:22 Magnesium 1.8 mg/dL (1.8-2.4) 06/21/21 00:22 Total Bilirubin 0.8 mg/dL (0.2-1.0) 06/21/21 00:22 AST 21 U/L (15-37) 06/21/21 00:22 ALT 24 U/L (12-78) 06/21/21 00:22 Alkaline Phosphatase 87 U/L (45-117) 06/21/21 00:22 Troponin I < 0.02 ng/mL (0.0-0.045) 06/21/21 06:17 Triglycerides 62 mg/dL (<150) 06/21/21 06:17 Cholesterol 109 mg/dL (<200) 06/21/21 06:17 HDL Cholesterol 37 mg/dL (40-60) L 06/21/21 06:17 Cholesterol/HDL Ratio 2.95 06/21/21 06:17 Lipase 34 U/L (73-393) L 06/21/21 00:22 Home Medications: Apixaban [Eliquis] 5 mg PO BID 02/03/21 Metoprolol Tartrate 100 mg PO BID 02/03/21 Omeprazole 20 mg PO DAILY 02/03/21 Quetiapine Fumarate [Seroquel] 100 mg PO BEDTIME 02/03/21 Tramadol HCl [Ultram] 50 mg PO Q4HP PRN 02/03/21 Allopurinol 100 mg PO BEDTIME 06/21/21 Cholecalciferol (Vitamin D3) [Vitamin D3] 50 mcg PO DAILY 06/21/21 Hydralazine HCl [Apresoline] 50 mg PO BID 06/21/21 Insulin NPH Human Isophane [Novolin N] 55 unit SQ BID 06/21/21 NIFEdipine [Nifedipine ER] 90 mg PO DAILY 06/21/21 Triamcinolone 0.1% Crm [Kenalog 0.1% Cream*] 1 appl TOP DAILY 06/21/21 Vitamin B Complex [Vitamin B Complex*] 1 cap PO DAILY 06/21/21 Furosemide [Lasix] 40 mg PO BIDL #60 tab 06/22/21 Spironolactone [Aldactone*] 25 mg PO DAILY #30 tab 06/22/21 New Medications: Spironolactone [Aldactone*] 25 mg PO DAILY #30 tab Furosemide [Lasix] 40 mg PO BIDL #60 tab Physician Discharge Instructions: Patient presented with chest pain. Patient with history of diabetes, hypertension, chronic renal disease and CHF. Patient was monitored overnight. Patient given IV Lasix for his CHF along with the addition of Aldactone. Patient seen and evaluated by cardiology. Cardiology recommends echocardiogram to further evaluate his CHF. No further intervention cardiac crane needed at this time. Recommend to continue with home medications. Recommend follow-up with cardiology in 1 to 2 weeks to follow-up his hospitalization and continue his care. Patient may require outpatient cardiac stress test to further evaluate. Patient with acute on chronic CHF likely diastolic. Echocardiogram to be obtained. Compliance with 1500 cc/day fluid restriction addressed in detail. Patient is to monitor his weight daily. If his weight increases by more than 5 pounds he is to contact his PCP for further recommendation. Further changes can be done by cardiology as well. At discharge recommend to continue Lasix 40 mg 1 pill twice daily and Aldactone 25 mg daily. Recommend follow-up with cardio logy or nephrology to further monitor and adjust his medication. Patient with diabetes mellitus type 2. Overall stable. At discharge patient will continue with Novolin N 55 units subcu twice daily. Recommend to maintain blood sugar less than 140 fasting and less than 200 after meals. If blood sugar remains above 200 consistently further adjustment may be required. This can be done with the help of his PCP. Recommend to recheck hemoglobin A1c every 3 months to monitor his progress. Recommend follow-up with PCP within 1 week to further monitor his care. Patient with hypertension. Overall stable. At discharge patient will continue with nifedipine ER 90 mg daily, hydralazine 50 mg 1 pill twice daily, and metoprolol 100 mg 1 pill twice daily. Recommend to maintain blood pressure less than 130/80. If blood pressure remains above 140/90 consistently further adjustment may be required. This can be done with the help of his PCP. Patient with chronic renal disease stage III. Overall stable. Nephrology consulted to further evaluate. No further use of nonsteroidal anti- inflammatories. Future medications may to be renally dosed. Recommend to recheck labBMP in 1 week to monitor his progress. Follow-up with nephrology as directed. Patient with depression. At discharge patient will continue with Seroquel 100 mg at bedtime. Patient with gout. At discharge patient will continue with allopurinol 100 mg daily. Patient with chronic pain. At discharge patient may continue with tramadol 50 mg 3 times a day as needed for pain. Patient with GERD. At discharge patient will continue with Prilosec 20 mg daily. Patient with history of DVT/PE on chronic anticoagulation therapy with prior IVC filter in place. At discharge patient will continue with Eliquis 5 mg 1 pill twice daily. Patient with obesity, BMI 50.8. Lifestyle modification education provided. Diet: AHA Activity: Fall precautions Followup: NONE,NONE [Primary Care Provider] - Time spent managing pt's care (in minutes): 55
[2021-06-21] MEDS: FUROSEMIDE 40 MG/4 ML VIAL IV SCH ×2 (09:44→16:43)
[2021-06-21] MEDS: APIXABAN 5 MG TABLET PO SCH ×2 (09:45→20:37)
[2021-06-21] MEDS: VITAMIN D 1000 UNIT TAB PO SCH (09:45)
[2021-06-21] MEDS: VITAMIN B COMPLEX 1 CAP PO SCH (09:45)
[2021-06-21] MEDS: HYDRALAZINE HCL 25 MG TABLET PO SCH ×2 (09:45→20:37)
[2021-06-21] MEDS: METOPROLOL TAR 50 MG TAB PO SCH ×2 (09:46→20:37)
[2021-06-21] MEDS: NIFEDIPINE XL 90 MG TABLET PO SCH (09:46)
[2021-06-21] MEDS: PANTOPRAZOLE 40MG TABLET PO SCH (09:46)
[2021-06-21] MEDS: TRAMADOL HCL 50 MG TAB PO PRN ×3 (09:51→21:58)
[2021-06-21 11:08] VITALS: O2SAT 97
--- NOTE | 2021-06-21 12:28 | RAD REPORT ---
EXAM DESCRIPTION: CT - Head Brain Wo Cont - 06/21/2021 7:21 am CLINICAL HISTORY: 66 years, Male, altered mental status COMPARISON: 05/30/2020 FINDINGS: Multiple transaxial tomograms of the brain were obtained from the base of the skull to the vertex without contrast. 2-D multiplanar reformats and the coronal and sagittal plane were performed and reviewed. This exam was performed according to our departmental dose-optimization protocol, which includes auto mated exposure control, adjustment of the mA and/or kV according to patient size and/or use of iterat caden reconstruction technique. Brain parenchyma demonstrate mild prominence of this was and gyri are corresponding to cerebral and c erebellar atrophy. There is minimal periventricular white matter changes of microvascular ischemia. T here is no midline shift and/or mass effect. There is no evidence for acute hemorrhage. Lateral gris tricles and cisterns displace normal appearance. No intra or extra axial fluid collections were see n. The calvarium is intact with no evidence for fracture. The visualized portions of the paranasal si nuses and orbits demonstrate to be clear. IMPRESSION: No acute intracranial hemorrhage identified. Mild brain atrophy with minimal periventricular white matter changes of microvascular ischemia. Electronically signed by: Devonte Andrade MD 06/21/2021 2:02 AM CDT Due to temporary technical issues with the PACS/Fluency reporting system, reports are being signed by the in house radiologists without review as a courtesy to insure prompt reporting. The interpreting radiologist is fully responsible for the content of the report.
--- NOTE | 2021-06-21 13:32 | CON ---
Reason For Consultation: Fluid management. History Of Present Illness: This is a 66-year-old gentleman with significant past medical history of hypertension, hyperlipidemia, chronic lymphedema, chronic kidney disease stage 3, baseline creatinine 1.9 as by lab this month, vitamin D deficiency, iron deficiency anemia, congestive heart failure secondary to hypertension and nonischemic according to the family, follows up with Dr. Black, Cardiology at [facility]. The patient was in his regular state of health. According to the family, the patient was started on Terbinafine for fungus infection and also visit with [facility] few days ago. At that time, compression wrap has been applied for both legs. The patient continued on the same dose of Lasix. Gradually, the patient started developing some shortness of breath and worsening his orthopnea. For that reason, he reported to the hospital. Upon arrival to the hospital, creatinine was 2.6 with GFR 29, which is slightly lower than 2 weeks ago when it was 1.9 with GFR of 34. The patient denied taking any nonsteroidal. No recent IV contrast exposure. Past Medical History: Includes; 1. Diabetes complicated with retinopathy and nephropathy. 2. Congestive heart failure, nonischemic. 3. COPD. 4. DVT with IVC filter. 5. Vitamin D deficiency. 6. Iron deficiency anemia. Home Medications: Include Tylenol, Eliquis, B12, ergocalciferol, citalopram, Lasix 80 daily, insulin, nifedipine, omeprazole, KCl, and tramadol. Family History: Positive for cancer. Social History: Denied smoking. Denied drinking. Denied drug abuse. Review of Systems: Head and Neck: No red eye. No ear pain. GI: No nausea. No vomiting. : No polyuria. No dysuria. No hematuria. Supervisory Geographer: Not applicable. Respiratory: Has shortness of breath. Cardiovascular: Has orthopnea. Neuro: Has neuropathy and altered mental status. Musculoskeletal: Low back pain. Physical Examination: Vital Signs: When I saw the patient; blood pressure 123/51, pulse of 65, afebrile. Chest: Crackles bilateral. Heart: S1, S2. Systolic murmur. Abdomen: Soft, nontender. Extremity: +2 edema with varicose vein in both lower extremities, compression dressing on the right leg. Neurologic: Alert. No focality. Laboratory Data: Chest x-ray; cardiomegaly with congestion, bilateral. WBC 12.8, H and H 05/22.9. Sodium 137, potassium 3.6, bicarb 22, BUN 50, creatinine 2.2, GFR 29, glucose 216, calcium 8.6. BNP 1900. TSH 0.9. Current Medications: The patient on include; 1. Nifedipine. 2. Metoprolol. 3. Hydralazine. 4. Eliquis. 5. Pantoprazole. 6. Allopurinol. 7. Tramadol. 8. Cholecalciferol. Assessment And Plan: 1. Acute kidney injury on chronic kidney disease secondary to cardiorenal, over volume. I agree with current increment on the Lasix dose and we will watch the patient for 24 hours. If kidney function stays around this range, the patient okay to be discharged on the 80 mg orally after establishing better fluid status. 2. Hypertension. We will utilize blood pressure for more diuresis. 3. Hypokalemia. Given the history of peripheral edema, morbid obesity, possible component of pulmonary hypertension, supported with the insist of Cardiology to have calcium channel clarisse, I am going to go ahead and start the patient on Aldactone and we will continue to monitor the patient. We will follow up the patient as outpatient. We will request the Cardiology report of from Dr. Black. 4. Anasarca mostly secondary to venous stasis and pulmonary hypertension. Continue calcium channel clarisse for the time being and we will add spironolactone. TSH and protein were within normal limit. We will send for PC ratio to evaluate. 5. Chronic obstructive pulmonary disease. Continue as by primary. Thank you, Dr. Hernandez for allowing us to participate in the care of your patient. time spent exam the patient face to face placing order , reviewing the date lab and radiology , discussing with nursing stafe and discussing the case with other child development consultant ICU and hospitalist [employer] CELINA Voice ID: [id number] Report ID: [id number] ALMAS
--- NOTE | 2021-06-21 16:08 | EKG ---
Test Date: 2021-06-20 Test Time: 23:54:32 Statistical Machine Mechanic: BAIRON MEASUREMENT RESULTS: Intervals: Rate: 70 GA: 300 QRSD: 92 QT: 424 QTc: 457 [place]: P: 32 GA: 300 QRS: -13 T: 35 INTERPRETIVE STATEMENTS: Sinus rhythm with 1st degree AV block Cannot rule out Anterior infarct, age undetermined Abnormal ECG No previous ECG available for comparison Electronically Signed On 06-21-21 16:07:03 CDT by Ty Garces
[2021-06-21] MEDS: ACETAMINOPHEN 500 MG TAB PO PRN (18:02)
[2021-06-21] MEDS ORDERED: QUETIAPINE 100MG TAB PO SCH (21:00)
[2021-06-21] MEDS ORDERED: allopurinoL 100 MG TAB PO SCH (21:00)
[2021-06-22] MEDS: TRAMADOL HCL 50 MG TAB PO PRN ×2 (04:08→09:08)
[2021-06-22 04:54] VITALS: BP 137/65
[2021-06-22 04:57] LABS: Absolute Lymphocytes (CBC) 1.6 K/uL (0.7-4.9); Basophils % 0.5 % (0-1.3); Hematocrit 27.1 % (39.6-49.0); Lymphocytes % 11.6 % (15.3-44.8); MPV 7.3 fL (7.6-11.3); Protime INR 2.34; RBC Red Blood Cell Count 3.07 M/uL (4.33-5.43)
[2021-06-22 05:21] LABS: Albumin 2.2 g/dL (3.4-5.0); Bilirubin Total 0.6 mg/dL (0.2-1.0); Phosphorus 3.3 mg/dL (2.5-4.9); Potassium 3.6 mmol/L (3.5-5.1); Protein, Total 7.5 g/dL (6.4-8.2)
[2021-06-22 05:25] VITALS: BMI 50.7
--- NOTE | 2021-06-22 07:21 | ECHO ---
HEIGHT: 6 ft 1 in WEIGHT: 384 lb 4.8 oz DATE OF STUDY: 06/21/[address]: Hunter Garduno NP 2-DIMENSIONAL: YES M.MODE: YES DOPPLER: YES COLOR FLOW: YES TDS: YES PORTABLE: NO DEFINITY: NO BUBBLE STUDY: NO DIAGNOSIS: CONGESTIVE HEART FAILURE CARDIAC HISTORY: CATHERIZATION: SURGERY: PROSTHETIC VALVE: PACEMAKER: MEASUREMENTS (cm) DIASTOLIC (NORMALS) SYSTOLIC (NORMALS) IVSd 1.2 (0.6-1.2) LA Diam 4.6 (1.9-4.0) LVEF 69% LVIDd 5.3 (3.5-5.7) LVIDs 3.2 (2.0-3.5) %FS 39% LVPWd 1.3 (0.6-1.2) Ao Diam 3.4 (2.0-3.7) 2 DIMENSIONAL ASSESSMENT: RIGHT ATRIUM: NORMAL LEFT ATRIUM: DILATED RIGHT VENTRICLE: NORMAL LEFT VENTRICLE: NORMAL TRICUSPID VALVE: NORMAL MITRAL VALVE: MITRAL ANNLUAR CALCIFICATION PULMONIC VALVE: NORMAL AORTIC VALVE: NORMAL PERICARDIAL EFFUSION: NONE AORTIC ROOT: NORMAL LEFT VENTRICULAR WALL MOTION: NORMAL DOPPLER/COLOR FLOW: NORMAL COMMENTS: NORMAL LEFT VENTRICULAR SIZE AND FUNCTION. NO WALL MOTION ABNORMALITY. NO EFFSUION. MITRAL ANNLUAR CALCIFICATION. TECHNOLOGIST: Susan RODRIGEZ
[2021-06-22] MEDS: INSULIN -REGULAR HUMAN 50 UNIT/0.5 ML ML SQ SCH (07:30)
[2021-06-22] MEDS ORDERED: SPIRONOLACTONE 25 MG TABLET PO SCH (09:00)
[2021-06-22] MEDS: FUROSEMIDE 40 MG/4 ML VIAL IV SCH (09:07)
[2021-06-22] MEDS: APIXABAN 5 MG TABLET PO SCH (09:07)
[2021-06-22] MEDS: PANTOPRAZOLE 40MG TABLET PO SCH (09:07)
[2021-06-22] MEDS: NIFEDIPINE XL 90 MG TABLET PO SCH (09:07)
[2021-06-22] MEDS: VITAMIN D 1000 UNIT TAB PO SCH (09:07)
[2021-06-22] MEDS: METOPROLOL TAR 50 MG TAB PO SCH (09:07)
[2021-06-22] MEDS: HYDRALAZINE HCL 25 MG TABLET PO SCH (09:07)
[2021-06-22] MEDS: ACETAMINOPHEN 500 MG TAB PO PRN (09:08)
[2021-06-22] MEDS: VITAMIN B COMPLEX 1 CAP PO SCH (09:08)
[2021-06-22 10:36] VITALS: TEMP 97.9
--- NOTE | 2021-06-22 12:36 | PN ---
Date of Progress Note: 06/22/2021 Subjective: The patient was admitted with acute kidney injury secondary to cardiorenal, over volume. After diuresis, kidney function has been improved. The patient had good urine output. Yesterday placed the patient on Lasix 40 b.i.d. IV and adding spironolactone. Physical Examination: Vital Signs: Blood pressure 137/67, pulse of 77, afebrile. The patient lost almost 20 pounds since admission. Chest: Decreased entry bilateral base. Heart: S1, S2. Systolic murmur. Abdomen: Morbidly obese. Could not appreciate any organomegaly. Extremity: Varicose vein, bilateral trace edema, compression dressing on the right leg. Laboratory Data: Chest x-ray; cardiomegaly with congestion. WBC 13.8, H and H 9.1/27.1. Sodium 138, potassium 3.6, bicarb 24, BUN 40, creatinine 1.9, GFR of 39, calcium 8.3, phosphorus 3.3. Echocardiogram; ejection fraction of 69, no significant pulmonary hypertension was mentioned. Assessment And Plan: 1. Acute kidney injury on chronic kidney disease secondary to cardiorenal, over volume, recovering very well, back to baseline. I am going to back to Lasix 40 b.i.d. and spironolactone 25 daily and we will continue to monitor the patient. 2. Hypokalemia. The patient was placed on spironolactone. We will follow up as outpatient. 3. Vitamin D deficiency. We will start the patient on supplement. 4. Edema secondary to venous stasis, varicose vein. We will continue on the diuresis. 5. Coronary artery disease, congestive heart failure diastolic as by Cardiology. The patient cleared from the Renal standpoint for discharge planning to follow up in the office in 2-3 weeks. time spent exam the patient face to face placing order , reviewing the date lab and radiology , discussing with nursing stafe and discussing the case with other farm consultant ICU and hospitalist [employer] ERICA/GWENDOLYN Voice ID: [id number] Report ID: [id number] ALMAS
--- NOTE | 2021-06-25 10:28 | CON ---
Date of Consultation: 06/21/[address] Hernandez' service on 06/21/2021. I saw the patient on 06/21/2021. Reason For Consultation: Possible congestive heart failure. History Of Present Illness: Mr. Dos Santos is a 66-year-old gentleman has a history of chronic lymphedema , chronic renal disease, stage 3. Basically at baseline creatinine of 1.9. Has hypertension, dyslip idemia, anemia, vitamin D deficiency. He has pulmonary hypertension. He sees Dr. Black for chronic diastolic congestive heart failure and nonischemic cardiomyopathy according to the patient and the fa jesus. He has been using compression wrap for both of his legs. Came in with shortness of breath, or thopnea, worsening kidney function with a creatinine of 2.6 and a GFR of 29. Denied any chest pain. Denied any nausea, vomiting, diaphoresis, PND, or OP or palpitation. Denied any syncope or fever or chills. Past Medical History: Include; 1.Diabetes. 2.Chronic congestive heart failure, diastolic. 3.COPD. 4.DVT with IVC filter. 5.Vitamin D deficiency. 6.Iron deficiency. 7.Hypertension. 8.Dyslipidemia. Medications: At home include Tylenol, Eliquis, B12, citalopram, Lasix 80 daily, insulin, nifedipine, omeprazole, potassium, and tramadol, metoprolol, hydralazine, pantoprazole, allopurinol. Social History: Negative. Review of Systems: Negative. Family History: Noncontributory. Physical Examination: Vital Signs: Stable. Afebrile. HEENT: Negative. Neck: Supple without any bruit, lymphadenopathy, JVD, or thyromegaly. Chest: Clear to auscultation and percussion. Cardiac: Revealed a regular rhythm and rate. No murmurs, gallops, or rubs. Abdomen: Benign. Extremities: Revealed severe edema. Diagnostic Data: Include echocardiogram that showed normal ejection fraction with some mitral annula r calcification. EKG was unremarkable. Head CT was unremarkable. Chest x-ray was unremarkable. Impression And Plan: Congestive heart failure, acute on chronic diastolic with edema. I think it is secondary to venous insufficiency, pulmonary hypertension. Dr. Huffman is following the patient. Again his echocardiogram showed a normal ejection fraction. The patient is known to have a nonischem ic cardiomyopathy with normal catheterization in the past by Dr. Black. I agree with his present reg imen and he need to be diuresed, and need to see the [facility] for his c hronic edema. I do not recommend any further cardiac workup on him at this point. I will continue t o follow him on an as-needed basis. REDD/GWENDOLYN Voice ID: [id number] Report ID: [id number]
== END 2021-06-22 11:59 | disposition home or self-care (01) | DRG 291 ==
LOC: ER 23:39 → 2ND 06-21 05:19 → OBSVTOIN 06-21 14:51
PROVIDERS: ADMIT Family Medicine; ATTEND Family Medicine
DX: I13.0 Hypertensive heart and chronic kidney disease with heart failure and stage 1 through stage 4 chronic kidney disease, or unspecified chronic kidney disease (principal); I50.33 Acute on chronic diastolic (congestive) heart failure; N17.9 Acute kidney failure, unspecified; Z68.43 Body mass index [BMI] 50.0-59.9, adult; N18.30 Chronic kidney disease, stage 3 unspecified; E11.22 Type 2 diabetes mellitus with diabetic chronic kidney disease; R07.9 Chest pain, unspecified; D63.1 Anemia in chronic kidney disease; F32.A Depression, unspecified; E66.9 Obesity, unspecified; E11.21 Type 2 diabetes mellitus with diabetic nephropathy; E87.6 Hypokalemia; J44.9 Chronic obstructive pulmonary disease, unspecified; I25.10 Atherosclerotic heart disease of native coronary artery without angina pectoris; M10.9 Gout, unspecified; G89.29 Other chronic pain; K21.9 Gastro-esophageal reflux disease without esophagitis; Z86.718 Personal history of other venous thrombosis and embolism; Z79.01 Long term (current) use of anticoagulants; Z20.822 Contact with and (suspected) exposure to COVID-19
CPT/HCPCS: 36415; 70450; 71045; 80048; 80053; 80061; 80069; 80076; 81003; 82140; 82947; 83605; 83690; 83735; 83880; 84439; 84443; 84484; 85025; 85610; 87040; 93005; 93306; 96374; 96375; 97116; 97161; 99285; G0378; J1940; J7030; U0003

== ENCOUNTER 2021-06-27 08:43 | Emergency (ER) | payer OTHER ==
--- NOTE | 2021-06-27 09:21 | RAD REPORT ---
EXAM DESCRIPTION: CT - CTHCSPWOC - 06/27/2021 9:05 am CLINICAL HISTORY: Trauma, head and neck injury. PAIN COMPARISON: Thoracic Spine W/o Cont dated 05/30/2020; Head C Spine Mpr Wo Con dated 05/30/2020 TECHNIQUE: Axial 5 mm thick images of the head were obtained. Axial 2 mm thick images of the cervical spine were obtained with sagittal and coronal reconstruction images generated and reviewed. All CT scans are performed using dose optimization technique as appropriate and may include automated exposure control or mA/KV adjustment according to patient size. FINDINGS: CT HEAD WITHOUT CONTRAST: No acute hemorrhage, hydrocephalus or extra-axial collection is identified.No areas of brain edema or midline shift. The paranasal sinuses and mastoids are clear.The calvarium is intact. CT CERVICAL SPINE WITHOUT CONTRAST: No fracture or subluxation.No prevertebral soft tissues swelling is identified. IMPRESSION: No acute intracranial or cervical spine findings.
[2021-06-27 09:32] LABS: Absolute Lymphocytes (CBC) 1.4 K/uL (0.7-4.9); Basophils % 0.8 % (0-1.3); Hematocrit 27.8 % (39.6-49.0); Lymphocytes % 12.1 % (15.3-44.8); MPV 7.2 fL (7.6-11.3); RBC Red Blood Cell Count 3.16 M/uL (4.33-5.43)
[2021-06-27 09:36] LABS: Albumin 1.9 g/dL (3.4-5.0); Bilirubin Total 0.3 mg/dL (0.2-1.0); Potassium 3.9 mmol/L (3.5-5.1); Protein, Total 7.9 g/dL (6.4-8.2)
--- NOTE | 2021-06-27 10:05 | EDPHYS ---
Physician Documentation [facility] Name: Shaheen Dos Santos Age: 66 yrs Sex: Male : 1955 Arrival Date: 06/27/2021 Time: 08:47 Bed 4 Private MD: ED Physician Can Pena HPI: 06/27 09:53 This 66 yrs old Male presents to ER via EMS with complaints of fall getting carmen in the car, hit head on the concrete. 09:53 The patient or guardian complains of decreased range of motion. The symptoms are carmen located on the back of neck. Onset: The symptoms/episode began/occurred just prior to arrival. Context: The problem was sustained at home, outdoors. The patient complains of pain to the right side of the back of head, right occipital area and right base of the skull. The patient describes the headache as aching, constant. Onset: The symptoms/episode began/occurred just prior to arrival. Details of fall: The patient fell from an upright position, while standing. Associated injuries: The patient sustained injury to the head, neck injury. Historical: - Allergies: 08:56 Bactrim; jd3 08:56 cholecalciferol (vit D3)(bulk); jd3 08:56 cholecalciferol (vitamin D3); jd3 08:56 Erythromycin; jd3 08:56 Zocor; jd3 08:56 Zofran; jd3 - Home Meds: 08:56 allopurinol 100 mg Oral tab 1 tab nightly [Active]; B complex-minerals Oral [Active]; jd3 cetirizine 10 mg Oral tab 1 tab once daily [Active]; Eliquis 5 mg Oral tab 1 tab 2 times per day [Active]; cyanocobalamin (vitamin B-12) 500 mcg Oral tab [Active]; hydralazine 50 mg Oral tab 1 tab 2 times per day [Active]; metoprolol tartrate 100 mg Oral tab 1 tab 2 times per day [Active]; gabapentin 100 mg Oral cap 2 caps twice a day [Active]; nifedipine 90 mg Oral TbER 1 tab once daily [Active]; omeprazole 20 mg Oral chew 20 mg twice a day [Active]; Novolin N 100 unit/mL Sub-Q susp 55 unit twice a day [Active]; Lasix 40 mg Oral tab 1 tab once daily [Active]; quetiapine 100 mg Oral tab 1 tab nightly [Active]; tramadol 50 mg Oral tab 1 tab every 4-6 hours [Active]; - PMHx: 08:56 Hypertension; Myocardial infarction; GERD; Gout; DVT; COPD; RENAL FAILURE; PE; Diabetes jd3 - IDDM; CHF; IVC filter; - PSHx: 08:56 Cholecystectomy; 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 - Social history:: Smoking status: Patient denies any tobacco usage or history of. - Immunization history: Last tetanus immunization: unknown. - Family history:: not pertinent. ROS: 09:53 Constitutional: Negative for fever, chills, and weight loss, Eyes: Negative for injury, carmen pain, redness, and discharge, ENT: Negative for injury, pain, and discharge, Neck: Negative for injury, pain, and swelling, Cardiovascular: Negative for chest pain, palpitations, and edema, Respiratory: Negative for shortness of breath, cough, wheezing, and pleuritic chest pain, Abdomen/GI: Negative for abdominal pain, nausea, vomiting, diarrhea, and constipation, Back: Negative for injury and pain, : Negative for injury, bleeding, discharge, and swelling, MS/Extremity: Negative for injury and deformity, Skin: Negative for injury, rash, and discoloration, Psych: Negative for depression, anxiety, suicide ideation, homicidal ideation, and hallucinations, Allergy/Immunology: Negative for hives, rash, and allergies, Endocrine: Negative for neck swelling, polydipsia, polyuria, polyphagia, and marked weight changes, Hematologic/Lymphatic: Negative for swollen nodes, abnormal bleeding, and unusual bruising. 09:53 Neuro: Positive for hearing loss. Exam: 09:53 Constitutional: This is a well developed, well nourished patient who is awake, alert, carmen and in no acute distress. Eyes: Pupils equal round and reactive to light, extra-ocular motions intact. Lids and lashes normal. Conjunctiva and sclera are non-icteric and not injected. Cornea within normal limits. Periorbital areas with no swelling, redness, or edema. ENT: Nares patent. No nasal discharge, no septal abnormalities noted. Tympanic membranes are normal and external auditory canals are clear. Oropharynx with no redness, swelling, or masses, exudates, or evidence of obstruction, uvula midline. Mucous membranes moist. Chest/axilla: Normal chest wall appearance and motion. Nontender with no deformity. No lesions are appreciated. Cardiovascular: Regular rate and rhythm with a normal S1 and S2. No gallops, murmurs, or rubs. Normal PMI, no JVD. No pulse deficits. Respiratory: Lungs have equal breath sounds bilaterally, clear to auscultation and percussion. No rales, rhonchi or wheezes noted. No increased work of breathing, no retractions or nasal flaring. Abdomen/GI: Soft, non-tender, with normal bowel sounds. No distension or tympany. No guarding or rebound. No evidence of tenderness throughout. Back: No spinal tenderness. No costovertebral tenderness. Full range of motion. Skin: Warm, dry with normal turgor. Normal color with no rashes, no lesions, and no evidence of cellulitis. MS/ Extremity: Pulses equal, no cyanosis. Neurovascular intact. Full, normal range of motion. Neuro: Awake and alert, GCS 15, oriented to person, place, time, and situation. Cranial nerves II-XII grossly intact. Motor strength 5/5 in all extremities. Sensory grossly intact. Cerebellar exam normal. Normal gait. Psych: Awake, alert, with orientation to person, place and time. Behavior, mood, and affect are within normal limits. 09:53 Head/face: Noted is contusion, that is superficial, of the right side of the back of head, right occipital area and right base of the skull. Vital Signs: 08:57 BP 118 / 50; Pulse 74; Resp 18 S; Temp 98.2(O); Pulse Ox 97% on R/A; Weight 178.72 kg jd3 (R); Height 6 ft. 0 in. (182.88 cm) (R); Pain 9/10; 09:44 BP 123 / 64; Pulse 70; Resp 17 S; Pulse Ox 95% on R/A; jd3 10:51 BP 133 / 57; Pulse 73; Resp 17 S; Pulse Ox 95% on R/A; as6 08:57 Body Mass Index 53.44 (178.72 kg, 182.88 cm) jd3 Aayan Coma Score: 09:03 Eye Response: spontaneous(4). Verbal Response: oriented(5). Motor Response: obeys jd3 commands(6). Total: 15. 10:01 Eye Response: spontaneous(4). Verbal Response: oriented(5). Motor Response: obeys carmen commands(6). Total: 15. 10:52 Eye Response: spontaneous(4). Verbal Response: oriented(5). Motor Response: obeys as6 commands(6). Total: 15. Trauma Score (Adult): 09:03 Eye Response: spontaneous(1); Verbal Response: oriented(1); Motor Response: obeys jd3 commands(2); Systolic BP: > 89 mm Hg(4); Respiratory Rate: 10 to 29 per min(4); [place] Score: 15; Trauma Score: 12 10:52 Eye Response: spontaneous(1); Verbal Response: oriented(1); Motor Response: obeys as6 commands(2); Systolic BP: > 89 mm Hg(4); Respiratory Rate: 10 to 29 per min(4); Ayaan Score: 15; Trauma Score: 12 MDM: 08:48 Patient medically screened. [facility] 10:01 Differential diagnosis: C-Spine Fracture Cervical Raiculopathy cerebral vascular carmen accident, hyponatremia, subarachnoid bleed, traumatic injuries, Degenerative Disc Disease fracture, Neck Contusion Osteoarthritis. Differential diagnosis: abrasion, closed head injury, contusion, fracture, laceration, multiple trauma, sprain, strain. Data reviewed: vital signs, nurses notes, lab test result(s), EKG, radiologic studies, CT scan. Data interpreted: conveyor monitor: rate is 70 beats/min, rhythm is regular, Pulse oximetry: on room air is 95 %. Test interpretation: by ED physician or midlevel provider: ECG. Counseling: I had a detailed discussion with the patient and/or guardian regarding: the historical points, exam findings, and any diagnostic results supporting the discharge/admit diagnosis, lab results, radiology results, the need for outpatient follow up, for definitive care, 06/27 08:50 Order name: CBC with Diff; Complete Time: 09:44 [facility] 06/27 08:50 Order name: Comprehensive Metabolic Panel; Complete Time: 09:44 [facility] 06/27 08:48 Order name: CT Head C Spine; Complete Time: 09:44 [facility] 06/27 08:50 Order name: EKG; Complete Time: 08:50 carmen 06/27 08:50 Order name: EKG - Nurse/Tech; Complete Time: 09:04 carmen 06/27 08:50 Order name: Ice pack; Complete Time: 09:04 carmen Administered Medications: No medications were administered Disposition Summary: 06/27/21 10:04 Discharge Ordered Location: Home carmen Problem: new carmen Symptoms: have improved carmen Condition: Stable carmen Diagnosis - Acute kidney failure, unspecified - on chronic carmen - Fall on same level, unspecified carmen - Unspecified injury of head, initial encounter carmen - Strain of muscle, fascia and tendon at neck level, initial encounter carmen Followup: carmen - With: Private Physician - When: 2 - 3 days - Reason: Recheck today's complaints, Continuance of care, Re-evaluation by your physician Discharge Instructions: - Discharge Summary Sheet carmen - Head Injury, Adult carmen - Acute Kidney Injury, Adult carmen - Head Injury, Adult, [id number] carmen - Chronic Kidney Disease, Adult, [id number] carmen Forms: - Medication Reconciliation Form [facility] - Thank You Letter carmen - Antibiotic Education carmen - Prescription Opioid Use [facility] Prescriptions: - Tylenol 325 mg Oral Tablet - take 2 tablets by ORAL route every 6 hours as needed; 1 bottle; Refills: 0, carmen Product Selection Permitted Signatures: Dispatcher [employer] Can Wylie MD MD cha Davies, Jonathon RN RN jd3
--- NOTE | 2021-06-27 10:05 | ER ---
Nurse's Notes [facility] Name: Shaheen Dos Santos Age: 66 yrs Sex: Male : 1955 Arrival Date: 06/27/2021 Time: 08:47 Bed 4 Private MD: Diagnosis: Acute kidney failure, unspecified-on chronic;Fall on same level, unspecified;Unspecified injury of head, initial encounter;Strain of muscle, fascia and tendon at neck level, initial encounter Presentation: 06/27 08:51 Chief complaint: EMS states: "pt had a mechanical fall today. he went to step up into [facility] the car and over stepped and fell backwards landing on his backside then all the way back and hit his head. he is currently on Eliquis. denies LOC, but does report head, neck, and back pain related to this fall. he also reports dizziness and a slight change with his peripheral vision.". Coronavirus screen: At this time, the client does not indicate any symptoms associated with coronavirus-19. Ebola Screen: Patient negative for fever greater than or equal to 101.5 degrees Fahrenheit, and additional compatible Ebola Virus Disease symptoms. Initial Sepsis Screen: Does the patient meet any 2 criteria? No. Patient's initial sepsis screen is negative. Does the patient have a suspected source of infection? No. Patient's initial sepsis screen is negative. Risk Assessment: Do you want to hurt yourself or someone else? Patient reports no desire to harm self or others. Onset of symptoms was June 27, 2021. 08:51 Method Of Arrival: EMS: [facility] j 08:51 Acuity: SAMINA 3 jd3 08:58 Care prior to arrival: None. Mechanism of Injury: Fall from standing position. Trauma jd3 event details: Injury occurred in the [facility], Injury occurred: at home. Injury occurred: June 27, 2021. Trauma Activation: Alert Physician: ED Physician; Name: magno; Notified At: 08:50; Arrived At: 08:50 Physician: General Surgeon; Name: ; Notified At: 08:50; Arrived At: Physician: Radiology; Name: Xray and CT techs; Notified At: 08:50; Arrived At: 08:50 Physician: Respiratory; Name: ; Notified At: 08:50; Arrived At: Physician: Lab; Name: ; Notified At: 08:50; Arrived At: Historical: - Allergies: 08:56 Bactrim; jd3 08:56 cholecalciferol (vit D3)(bulk); jd3 08:56 cholecalciferol (vitamin D3); jd3 08:56 Erythromycin; jd3 08:56 Zocor; jd3 08:56 Zofran; jd3 - Home Meds: 08:56 allopurinol 100 mg Oral tab 1 tab nightly [Active]; B complex-minerals Oral [Active]; jd3 cetirizine 10 mg Oral tab 1 tab once daily [Active]; Eliquis 5 mg Oral tab 1 tab 2 times per day [Active]; cyanocobalamin (vitamin B-12) 500 mcg Oral tab [Active]; hydralazine 50 mg Oral tab 1 tab 2 times per day [Active]; metoprolol tartrate 100 mg Oral tab 1 tab 2 times per day [Active]; gabapentin 100 mg Oral cap 2 caps twice a day [Active]; nifedipine 90 mg Oral TbER 1 tab once daily [Active]; omeprazole 20 mg Oral chew 20 mg twice a day [Active]; Novolin N 100 unit/mL Sub-Q susp 55 unit twice a day [Active]; Lasix 40 mg Oral tab 1 tab once daily [Active]; quetiapine 100 mg Oral tab 1 tab nightly [Active]; tramadol 50 mg Oral tab 1 tab every 4-6 hours [Active]; - PMHx: 08:56 Hypertension; Myocardial infarction; GERD; Gout; DVT; COPD; RENAL FAILURE; PE; Diabetes jd3 - IDDM; CHF; IVC filter; - PSHx: 08:56 Cholecystectomy; 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 - Social history:: Smoking status: Patient denies any tobacco usage or history of. - Immunization history: Last tetanus immunization: unknown. - Family history:: not pertinent. Screenin:03 Abuse screen: Denies threats or abuse. Nutritional screening: No deficits noted. jd3 Tuberculosis screening: No symptoms or risk factors identified. 09:04 Fall Risk Fall in past 12 months (25 points). Ambulatory Aid- None/Bed Rest/Nurse jd3 Assist (0 pts). Gait- Weak (10 pts.). Mental Status- Oriented to own ability (0 pts). Total Granados Fall Scale indicates Low Risk Score (25-44 pts). Fall prevention measures have been instituted. Side Rails Up X 2 Placed close to Nursing Station Frequent Obs/Assesments occuring Family Present and informed to notify staff if they need to leave bedside. Primary Survey: 09:02 NO uncontrolled hemorrhage observed. A: The patient is alert. Airway: patent, No jd3 supplemental oxygen in use on arrival. Oral cavity: clear, Trachea midline. Breathing/Chest: Respiratory pattern: regular, Respiratory effort: spontaneous, unlabored, Chest inspection: symmetrical rise and fall of the chest. Circulation: Cardiac rhythm: sinus rhythm Pulses: palpable right radial artery and left radial artery. Skin color: pink, Skin temperature: warm. Disability Alert. Exposure/Environment: All clothing and personal items were removed. Forensic evidence collection is not deemed to be indicated at this time. Items placed in patient belonging bag. There is no evidence of uncontrolled external bleeding. No obvious injuries are noted at this time. A warming method has been applied: A warm blanket has been provided to the patient. 09:43 Reassessment Airway Airway Patent Oxygen No O2 Oral cavity Clear Trachea Midline jd3 Breathing/Chest Respiratory pattern Regular Respiratory effort Spontaneous Unlabored Chest inspection Symmetrical Circulation Heart rhythm Sinus rhythm Pulses Palpable Color [place] Temperature Warm Disability Alert. Secondary Survey: 09:02 HEENT: Head Other small hematoma noted to the back of the head. Gastrointestinal: jd3 Abdomen is soft, Palpation No deficit noted. : No signs and/or symptoms were reported regarding the genitourinary system. Musculoskeletal: Circulation, motion, and sensation intact. Range of motion: intact in all extremities. Assessment: 08:59 General: Appears uncomfortable, Behavior is calm, cooperative, appropriate for age. jd3 Pain: Complains of pain in head, back of neck, low back area and mid back area Quality of pain is described as aching, tender. Neuro: Level of Consciousness is awake, alert, obeys commands, Oriented to person, place, time, situation, Reports headache blurred/changes in peripheral vision. EENT: No signs and/or symptoms were reported regarding the EENT system. Cardiovascular: Denies chest pain, Capillary refill < 3 seconds Patient's skin is warm and dry. Rhythm is regular. Respiratory: Airway is patent Respiratory effort is even, unlabored, Respiratory pattern is regular, symmetrical, Denies cough, shortness of breath. GI: No signs and/or symptoms were reported involving the gastrointestinal system. : No signs and/or symptoms were reported regarding the genitourinary system. Derm: Skin is intact, Skin is dry, Skin is normal, Skin temperature is warm. Musculoskeletal: Circulation, motion, and sensation intact. Range of motion: intact in all extremities. 09:42 Reassessment: Patient appears in no apparent distress at this time. No changes from jd3 previously documented assessment. Patient and/or family updated on plan of care and expected duration. Pain level reassessed. Patient is alert, oriented x 3, equal unlabored respirations, skin warm/dry/pink. 10:50 Reassessment: Patient appears in no apparent distress at this time. No changes from as6 previously documented assessment. Patient and/or family updated on plan of care and expected duration. Pain level reassessed. Patient is alert, oriented x 3, equal unlabored respirations, skin warm/dry/pink. Vital Signs: 08:57 BP 118 / 50; Pulse 74; Resp 18 S; Temp 98.2(O); Pulse Ox 97% on R/A; Weight 178.72 kg jd3 (R); Height 6 ft. 0 in. (182.88 cm) (R); Pain 9/10; 09:44 BP 123 / 64; Pulse 70; Resp 17 S; Pulse Ox 95% on R/A; jd3 10:51 BP 133 / 57; Pulse 73; Resp 17 S; Pulse Ox 95% on R/A; as6 08:57 Body Mass Index 53.44 (178.72 kg, 182.88 cm) jd3 [place] Coma Score: 09:03 Eye Response: spontaneous(4). Verbal Response: oriented(5). Motor Response: obeys jd3 commands(6). Total: 15. 10:01 Eye Response: spontaneous(4). Verbal Response: oriented(5). Motor Response: obeys carmen commands(6). Total: 15. 10:52 Eye Response: spontaneous(4). Verbal Response: oriented(5). Motor Response: obeys as6 commands(6). Total: 15. Trauma Score (Adult): 09:03 Eye Response: spontaneous(1); Verbal Response: oriented(1); Motor Response: obeys jd3 commands(2); Systolic BP: > 89 mm Hg(4); Respiratory Rate: 10 to 29 per min(4); [place] Score: 15; Trauma Score: 12 10:52 Eye Response: spontaneous(1); Verbal Response: oriented(1); Motor Response: obeys as6 commands(2); Systolic BP: > 89 mm Hg(4); Respiratory Rate: 10 to 29 per min(4); [place] Score: 15; Trauma Score: 12 ED Course: 08:47 Patient arrived in ED. carmen 08:47 Can Pena MD is Attending Physician. carmen 08:51 Billy Desir, RN is Primary Nurse. jd3 08:55 Triage completed. jd3 08:57 Arm band placed on. jd3 09:03 Patient has correct armband on for positive identification. Bed in low position. Call jd3 light in reach. Side rails up X2. Adult w/ patient. youth nutritional monitor on. Pulse ox on. NIBP on. 09:04 Patient maintains SpO2 saturation greater than 95% on room air. Thermoregulation: warm jd3 blanket given to patient. 09:05 CT Head C Spine In Process Unspecified. EDMS 09:11 Inserted saline lock: 18 gauge in right antecubital area, using aseptic technique. as6 09:18 EKG done, by ED staff, reviewed by Can Pena MD. jd3 10:50 No provider procedures requiring assistance completed. IV discontinued, intact, as6 bleeding controlled, No redness/swelling at site. Pressure dressing applied. Administered Medications: No medications were administered Intake: 10:51 PO: 0ml; Total: 0ml. as6 Output: 10:51 Urine: 300ml (Voided); Total: 300ml. as6 Outcome: 10:04 Discharge ordered by . carmen 10:50 Discharged to home via wheelchair, with family. as6 10:50 Condition: stable 10:50 Discharge instructions given to patient, family, Instructed on discharge instructions, follow up and referral plans. medication usage, Demonstrated understanding of instructions, follow-up care, medications, Prescriptions given X 1. 10:52 Patient's length of stay in the Emergency Department was greater than 2 hours. waiting as6 on results and disposition.Patient's length of stay extended due to 10:53 Patient left the ED. as6 Signatures: Dispatcher [employer] EDCan Woodall MD MD cha Davies, Jonathon, RN RN jd3 Jae Mata RN RN as6
[2021-06-27 11:01] VITALS: TEMP 98.2
[2021-06-27 11:03] VITALS: O2SAT 95
[2021-06-27 11:04] VITALS: BP 133/57
--- NOTE | 2021-06-28 13:15 | EKG ---
Test Date: 2021-06-27 Test Time: 09:15:17 [employer] Patrolman: ROBERT MEASUREMENT RESULTS: Intervals: Rate: 72 MT: 284 QRSD: 92 QT: 408 QTc: 446 [place]: P: 63 MT: 284 QRS: 11 T: 62 INTERPRETIVE STATEMENTS: Sinus rhythm with 1st degree AV block Otherwise normal ECG Compared to ECG 06/20/2021 23:54:32 Myocardial infarct finding no longer present Electronically Signed On 06-28-21 13:10:46 CDT by Ty Garces
== END 2021-06-27 10:53 | disposition home or self-care (01) ==
LOC: ER 08:43
DX: S16.1XXA Strain of muscle, fascia and tendon at neck level, initial encounter (principal); W18.39XA Other fall on same level, initial encounter; E11.22 Type 2 diabetes mellitus with diabetic chronic kidney disease; I13.0 Hypertensive heart and chronic kidney disease with heart failure and stage 1 through stage 4 chronic kidney disease, or unspecified chronic kidney disease; N18.9 Chronic kidney disease, unspecified; I50.9 Heart failure, unspecified; N17.9 Acute kidney failure, unspecified; Z79.4 Long term (current) use of insulin; Z79.01 Long term (current) use of anticoagulants
CPT/HCPCS: 36415; 70450; 72125; 80053; 85025; 93005; 99285

== ENCOUNTER 2022-04-08 16:42 | Emergency (ER) | payer OTHER ==
--- OUTSIDE RECORDS SUMMARY | 2022-04-08 16:44 | XMS REPORT | Continuity of Care Document ---
:1955 Author Organization [facility] t Address [address] [place] [address] Care Team Providers Name Role Phone UNKNOWN, REFFERING Primary Care Physician Unavailable Ry Sanches Attending Clinician Unavailable Magdalena Prajapati Attending Clinician Unavailable Randall Attending Clinician Unavailable Matthew Cherry Attending Clinician [phone] DR LÓPEZ VERONICA Attending Clinician Unavailable Luiz Attending Clinician Unavailable LILLIANA CARRERO Attending Clinician Unavailable Physician, No Primary or Family Admitting Clinician Unavailvon Pereira Admitting Clinician Unavailable DR LÓPEZ VERONICA Admitting Clinician Unavailable Luiz Admitting Clinician Unavailable LILLIANA CARRERO Admitting Clinician Unavailable Payers Payer Name Policy Type Policy Number Effective Date Expiration Date S halle [facility] [id number] REGION 4 [facility] ([facility]) [id number] [place]IC[place]: [id number] 2014 [employer] 00:00:00 [facility] - [id number] 2015 OPTIONS 00:00:00 Problems This patient has no known problems. Allergies, Adverse Reactions, Alerts Allergy Allergy Status Severity Reaction(s) Onset Inactive Treating Comm ents Source Name Type Date Date Clinician Sulfa DA Active SV RASH [facility] (Sulfona 06 Clear mide 00:00: Sloan Antibiot 00 [facility] erythrom DA Active SV RASH 0 [facility] ycin 08-31 Clear base 00:00: Sloan 00 [facility] simvasta DA Active U [facility]NCOPE [facility] tin 08-31 Clear 00:00: Sloan 00 [facility] ondanset DA Active MO RASH [facility] kleber 08-31 Clear 00:00: Sloan 00 [facility] Ondanset DA Active Unknown [facility] kleber 12 Medical 00:00: Center 00 Sulfa DA Active Unknown [facility] (Sulfona 09-06 Medical mides) 00:00: Center 00 Hmg-Coa DA Active Unknown [facility] Reductas 09-06 Medical e 00:00: Center Inhibito 00 rs (Statins ) Erythrom DA Active Unknown [facility] ycin 09-06 Medical Base 00:00: Center 00 Medications This patient has no known medications. Vital Signs Vital Name Observation Time Observation Value Comments Source Height 2020-09-06 13:06:00 182.88 CM Weight 2020-09-06 13:06:00 199.58 KG Procedures Procedure Date / Time Performed Performing Clinician Daniel e EXCISION OF LEFT 2020-09-07 00:00:00 Kaden Med ical METATARSAL OPEN Center RPL LT FT SKN NAUTO SB 2020-09-07 00:00:00 Asha pr Medical FULL THK EXT Center Encounters Start End Encounter Admission Attending Care Care Encounter Source Date/Time Date/Time Type Type Clinicians Facility Department ID 2022-03-26 Inpatient MEGHAN SanchesJAMES MHYP [id number] [facility] 00:06:00 [facility] 77 [facility] 2021-10-24 Inpatient MEGHAN YoderstumoyJAMES MHYP [id number] [facility] 10:01:00 [facility] [id number] [facility] 2021-09-26 Inpatient MEGHAN SanchesJAMES MHYP [id number] [facility] 00:05:00 [facility] [id number] [facility] 2021-08-31 Inpatient Magdalena Mane CARINA ENDO [id number] [facility] 09:00:00 [id number] [facility] 2021-08-26 Inpatient EL Kocurek, HCAMN MHYP [id number] [facility] 00:00:00 [facility] [id number] [facility] 2021-07-26 Inpatient EL Kocurek, HCAMN MHYP [id number] [facility] 00:05:00 [place] [id number] [facility] 2021-06-26 Inpatient EL Kocurek, HCAMN MHYP [id number] [facility] 00:03:00 [place] 80 [facility] 2021-06-26 Inpatient EL Kocurek, HCAMN MHYP [id number] [facility] 00:03:00 [place] [id number] [facility] 2021-05-26 Inpatient EL Kocurek, HCAMN MHYP [id number] [facility] 00:07:00 Lucama [facility] 2021-05-18 Inpatient EL Kocurek, HCAMN MHYP [id number] [facility] 14:29:00 [place] [id number] [facility] 2022-03-08 2022-03-25 Outpatient EL Kocurek, HCAMN MHYP [id number] [facility] 09:30:00 00:00:00 [facility] 49 [facility] 2022-02-15 2022-02-22 Outpatient EL Kocurek, HCAMN MHYP [id number] [facility] 09:00:00 00:00:00 [facility] 28 [facility] 2022-01-18 2022-01-23 Outpatient EL Kocurek, HCAMN MHYP [id number] [facility] 09:00:00 00:00:00 [facility] 29 [facility] 2022-01-04 2022-01-04 Outpatient Kocurek, HCACL LABO [id number] [facility] 14:42:00 14:42:00 [facility] 97 [facility] 2021-12-21 2021-12-23 Outpatient EL Kocurek, HCAMN MHYP [id number] [facility] 09:00:00 00:00:00 [facility] 86 [facility] 2021-12-21 2021-12-21 Outpatient EL Kocurek, HCAMN MHYP [id number] [facility] 09:00:00 09:00:00 Ry [id number] [facility] 2021-10-19 2021-10-23 Outpatient EL Kocurek, HCAMN MHYP [id number] [facility] 09:12:00 00:00:00 Ry [id number] [facility] 2021-10-05 2021-10-05 Outpatient EL Kocurek, HCAMN MHYP [id number] [facility] 09:30:00 09:30:00 Ry [id number] [facility] 2021-09-07 2021-09-25 Outpatient EL Kocurek, HCAMN MHYP [id number] [facility] 09:00:00 00:00:00 Ry [id number] [facility] 2021-09-05 2021-09-05 Outpatient Magdalena Mane HCAPM ENDO [id number] [facility] 12:53:00 12:53:00 [id number] [facility] 2021-09-05 2021-09-05 Outpatient Magdalena Mane HCAPM HCAPM [id number] [facility] 12:53:00 12:53:00 92 [facility] 2021-08-22 2021-08-25 Outpatient EL Pareshrek, HCAMN MHYP [id number] [facility] 09:48:00 00:00:00 Ry [id number] [facility] 2021-07-25 2021-07-25 Outpatient EL Kocurek, HCAMN MHYP [id number] [facility] 09:00:00 00:00:00 Ry [id number] [facility] 2021-07-11 2021-07-11 Outpatient EL Kocurek, HCAMN MHYP [id number] [facility] 09:00:00 09:00:00 Freddie [id number] [facility] 2021-06-13 2021-06-25 Outpatient EL Kocurek, HCAMN MHYP [id number] [facility] 09:30:00 00:00:00 Freddie [id number] [facility] 2021-06-13 2021-06-25 Outpatient EL Kocurek, HCAMN MHYP [id number] [facility] 09:30:00 00:00:00 Freddie 31 [facility] 2021-05-30 2021-05-30 Outpatient MEGHAN Sanches, CARINAMN MHYP [id number] [facility] 09:00:00 09:00:00 Freddie [id number] [facility] 2021-05-18 2021-05-25 Outpatient MEGHAN Sanches, JAMES YP [id number] [facility] 09:30:00 00:00:00 Freddie 70 [facility] 2021-04-26 2021-04-26 Outpatient Ogletree_C HMU [facility]U [id number] [place] 01:53:00 01:53:00 [id number] [facility] 2021-04-25 2021-04-25 Outpatient Ogletree_C HMU HMU [id number] [place] 02:33:00 02:33:00 [id number] [facility] 2021-04-25 2021-04-25 Outpatient Dilip, HMU HMU [id number] 00:00:00 00:00:00 Matthew Woodruff [id number] 2021-04-10 2021-04-10 Outpatient Ogletree_C HMU HMU [id number] [place] 11:54:00 11:54:00 [id number] [facility] 2021-02-28 2021-02-28 Outpatient Ogletree_C HMU HMU [id number] [place] 10:46:00 10:46:00 [id number] [facility] 2021-02-18 2021-02-18 Outpatient Ogletree_C HMU HMU [id number] [place] 03:25:00 03:25:00 [id number] [facility] 2021-02-16 2021-02-16 Outpatient Ogletree_C HMU HMU [id number] [place] 12:23:00 12:23:00 [id number] [facility] 2021-02-16 2021-02-16 Outpatient Dilip, HMU HMU [id number] 00:00:00 00:00:00 Matthew Woodruff [id number] 2021-02-15 2021-02-15 Outpatient Ogletree_C [facility] [id number] [place] 02:05:00 02:05:00 [id number] [facility] 2021-01-27 2021-01-27 Outpatient Ogletree_C [facility] [id number] [place] 11:40:00 11:40:00 [id number] [facility] 2020-09-07 2020-09-07 Outpatient Sloan VERONICA [facility] WWU [id number] [facility] 08:08[facility]45[facility] 2018-03-11 2018-03-11 Outpatient cMcDonceci MMG [facility] [id number] [place] 04:07:00 04:07:00 0226 [facility] Results Test Description Test Time Test Comments Results Result Comments Source COMPREHENSIVE METABOLIC PANEL 2022-01-18 11:39:00 Test Item Value Reference Range Interpretation Comme nts SODIUM (test code = NA) 134 mmol/l 134.0-147.0 N POTASSIUM (test code = K) 4.0 mmol/L 3.6-5.2 N CHLORIDE (test code = CL) 100 mmol/l 98.0-107.0 N CARBON DIOXIDE (test code = CO2) 24.5 mmol/l 21.0-33.0 N ANION GAP (test code = GAP) 13.5 0-20 N GLUCOSE (test code = GLU) 170 mg/dl 70.0-110.0 H BLOOD UREA NITROGEN (test code = BUN) 41 mg/dl 7.0-18.0 H CREATININE (test code = CREAT) 1.83 mg/dL 0.60-1.30 H GFR NON BLACK (test code = GFRNONBLACK) 39 mL/min 80-90 L GFR BLACK (test code = GFRBLACK) 47 mL/min 97-109 L TOTAL PROTEIN (test code = PROT) 8.4 gm/dL 6.4-8.2 H ALBUMIN (test code = ALB) 3.1 gm/dl 3.2-4.7 L CALCIUM (test code = CA) 9.0 mg/dl 8.0-10.5 N BILIRUBIN TOTAL (test code = BILT) 0.3 mg/dl 0.0-1.0 N SGOT/AST (test code = AST) 17 Units/L 15-37 N SGPT/ALT (test code = ALT) 18 Units/L 12.0-78.0 N ALKALINE PHOSPHATASE TOTAL (test code = ALKP) 88 Units/L 50.0-136 .0 N CBC W/AUTO [id number] 11:26:00 Test Item Value Reference Range Interpretation Comments WHITE BLOOD CELL (test code = 9.4 K/mm3 4.5-11.0 N WBC) RED BLOOD CELL (test code = 3.59 M/mm3 4.40-5.90 L RBC) HEMOGLOBIN (test code = HGB) 10.5 gm/dL 13.0-17.0 L HEMATOCRIT (test code = HCT) 32.7 % 36.0-48.0 L MEAN CELL VOLUME (test code = 91.1 UM3 80.0-94.0 N MCV) MEAN CELL HGB (test code = MCH) 29.2 UUG 25.5-32.5 N MEAN CELL HGB CONCETRATION 32.1 gm/dL 29.0-35.5 N (test code = MCHC) RED CELL DISTRIBUTION WIDTH 15.7 % 11.5-15.0 H (test code = RDW) RED CELL DISTRIBUTION WIDTH SD 52.3 fL 34.8-50.2 H (test code = RDW-SD) PLATELET COUNT (test code = 247 K/mm3 150-400 N PLT) MEAN PLATELET VOLUME (test code 9.3 fl 7.4-10.4 N = MPV) NEUTROPHIL % (test code = NT%) 65.5 % 49.0-76.0 N IMMATURE GRANULOCYTE % (test 0.4 % 0.0-0.4 N code = IG%) LYMPHOCYTE % (test code = LY%) 17.3 % 23.0-38.0 L MONOCYTE % (test code = MO%) 8.8 % 1.0-10.0 N EOSINOPHIL % (test code = EO%) 6.8 % 1.0-5.0 H BASOPHIL % (test code = BA%) 1.2 % 0.0-1.0 H NUCLEATED RBC % (test code = 0.0 % 0.0-0.1 N NRBC%) NEUTROPHIL # (test code = NT#) 6.2 K/mm3 2.4-6.3 N IMMATURE GRANULOCYTE # (test 0.04 x10 3/uL 0.00-0.07 N code = IG#) LYMPHOCYTE # (test code = LY#) 1.6 K/mm3 1.2-4.0 N MONOCYTE # (test code = MO#) 0.8 K/mm3 0.0-0.6 H EOSINOPHIL # (test code = EO#) 0.6 K/MM3 0.0-0.7 N BASOPHIL # (test code = BA#) 0.1 K/mm3 0.0-0.2 N NUCLEATED RBC # (test code = 0.00 X10 3uL 0.00-0.01 N NRBC#) GLUCOSE BEDSIDE [id number] 13:40:00 Test Item Value Reference Range Interpretation Comments GLUCOSE BEDSIDE TESTING (test code 157 mg/dL 70-110 H = GLUBED) COVID 19 INHOUSE [id number] 10:38:00 Test Item Value Reference Range Interpretation Comments COVID 19 INHOUSE AG NEGATIVE Negative Per manu facturer, (test code = negative result s should [id number]) be treated aspr esumptive and, if inconsi stent with clinical signs andsymptoms or necessary for patient man agement, should betested with an alternative mol ecular assay. Negative resultsdo not preclude SA RS-CoV-2 infection and s hould not be usedas the s ole basis for patient man agement decisions. Nega tive results should be considered in t he context of apatient's r ecent exposures, hist ory, presence of cli nicalsigns and symptoms co nsistent with COVID-19. BASIC METABOLIC [id number] 10:35:00 Test Item Value Reference Range Interpretation Comments SODIUM (test code = NA) 139 mmol/L 134-147 N POTASSIUM (test code = K) 4.0 mmol/L 3.4-5.0 N CHLORIDE (test code = CL) 105 mmol/L 100-108 N CARBON DIOXIDE (test code = CO2) 28 mmol/L 21-32 N ANION GAP (test code = GAP) 6.0 GAP calc 4.0-15.0 N GLUCOSE (test code = GLU) 136 MG/DL 70-110 H BLOOD UREA NITROGEN (test code = 41 MG/DL 7-18 H BUN) GLOMERULAR FILTRATION RATE (test 43 estGFR >60 L code = GFR) CREATININE (test code = CREAT) 1.7 MG/DL 0.8-1.3 H CALCIUM (test code = CA) 8.9 MG/DL 8.5-10.1 N PROTHROMBIN [id number] 10:34:00 Test Item Value Reference Range Interpretation Comments PT PATIENT (test 19.7 SECONDS 9.3-12.9 H code = PTP) INTERNATIONAL NORMAL 1.74 INR Unit 0.8-1.2 H TARGE T INR BY RATIO (test code = INDICATIO N Indication INR) INR1. Prophylax is of venous thrombos is 2.0 - 3.0 (orthoped ic surgery), Proph ylaxis of venous throm bosis (other than hig h-risk surgery), Treat ment of Deep Vein Thrombosis/Pulm onary Embolism, Preve ntion of systemic emb olism - Tissue heart va lves, Acute Myocardia l Infarction (to prevent systemic emboli sm), Valvular heart disease, Acute Myocardial Infa rction (to prevent sys temic embolism), Valv ular heart disease, Atrial Fibrillation, Bileaflet mecha nical valve in aortic position.2. Mec hanical prosthetic valv es (high risk), 2. 5 - 3.5 Presence of Lup us Anticoagulant o r Antiphospholipi d Antibodies, Pre vention of systemic emb olism - Acute Myocardia l Infarction (to prevent recurrent infar ct). THROMBOPLASTIN TIME [id number] 10:34:00 Test Item Value Reference Range Interpretation Comments THROMBOPLASTIN TIME PARTIAL 43.6 SECONDS 26-35 H (test code = PTT) CBC W/AUTO [id number] 10:23:00 Test Item Value Reference Range Interpretation Comments WHITE BLOOD CELL (test code = 9.0 K/mm3 3.5-11.0 N WBC) RED BLOOD CELL (test code = 3.51 M/mm3 4.70-6.10 L RBC) HEMOGLOBIN (test code = HGB) 10.3 G/DL 12.3-15.9 L HEMATOCRIT (test code = HCT) 32.3 % 35.8-46.7 L MEAN CELL VOLUME (test code = 92.0 Fl 86.3-98.9 N MCV) MEAN CELL HGB (test code = MCH) 29.3 pg 28.9-34.4 N MEAN CELL HGB CONCETRATION 31.9 G/DL 32.1-34.5 L (test code = MCHC) RED CELL DISTRIBUTION WIDTH 15.4 SD 11.5-14.5 H (test code = RDW) PLATELET COUNT (test code = 214 K/mm3 150-450 N PLT) MEAN PLATELET VOLUME (test code 9.70 fL 7.0-9.6 H = MPV) NEUTROPHIL % (test code = NT%) 59.2 % 40-76 N IMMATURE GRANULOCYTE % (test 0.6 % 0.0-5.0 N code = IG%) LYMPHOCYTE % (test code = LY%) 22.2 % 20.5-51.1 N MONOCYTE % (test code = MO%) 8.0 % 1.7-9.3 N EOSINOPHIL % (test code = EO%) 9.1 % 0.0-6.0 H BASOPHIL % (test code = BA%) 0.9 % 0.0-2.0 N NUCLEATED RBC % (test code = 0.0 /100WBC% 0.0-1.0 N NRBC%) NEUTROPHIL # (test code = NT#) 5.3 K/mm3 1.8-7.6 N IMMATURE GRANULOCYTE # (test 0.05 x10 3/uL 0.00-0.03 H code = IG#) LYMPHOCYTE # (test code = LY#) 2.0 K/mm3 0.6-3.0 N MONOCYTE # (test code = MO#) 0.7 K/mm3 0.2-1.5 N EOSINOPHIL # (test code = EO#) 0.8 K/mm3 0.0-0.4 H BASOPHIL # (test code = BA#) 0.1 K/mm3 0.0-0.2 N NUCLEATED RBC # (test code = 0.0 K/mm3 0.00-0.01 N NRBC#) MANUAL DIFF REQUIRED (test code NO DIFF/SCN CRITERIA = MDIFF) - XR CALCANEUS 2+V [id number] 11:30:00 [facility] : 1955 Sex: M FAX: Freddie Martin [phone] [place]: St: REG Name: LUIS MENDOZA [facility] : 1955 Age/S: 66/M [address] [facility] Unit #: [id number] Loc: [place], [place] Phys: [place] [id number] Acct: [id number] Dis Date: Status: REG RCR PHONE #: [phone] Exam Date: 06/13/20211120 FAX #: [phone] Reason: PAIN EXAMS: CPT CODE: [id number] XR CALCANEUS 2+[place] [id number] REASON FOR EXAM: Wound care, calcaneal pain. Two-view calcaneus. The calcaneus is well mineralized. Bony spurs seen at the plantar aponeurosis and minimally at the insertion of the calcaneus. No bony destructive changes, fractures or erosions. Vascular calcification seen prominently evidence small vessels. IMPRESSION: No acute abnormality at the calcaneus. Cortical margins intact with no findings of osteomyelitis. Location: U 19 at 1130 Reported and signed by: Victor Hugo Rosales MD CC: Freddie Sanches MD Technologist: CHANCE ASTUDILLO Trnscrd Date/Time/By: 06/13/2021 (1130) : By: [email or web address] PAGE 1 Signed Report FAX: Freddie Martin [phone] [place]: St: REG Name: LUIS MENDOZA [facility] : 1955 Age/S: 66/M [address] [facility] Unit #: [id number] Loc: [place], [place] Phys: [place] [id number] Acct: [id number] Dis Date: Status: REG RCR PHONE #: [phone] Exam Date: 06/13/20211120 FAX #: [phone] Reason: PAIN EXAMS: CPT CODE: [id number] XR CALCANEUS 2+[place] [id number] <Continued> Orig Print D/T: S: 06/13/2021 (1139) PAGE 2 Signed Report [id number] 09:53:00 Test Item Value Reference Range Interpretation Comments GLUBED (test code = GLUBED) 109 mg/dL 70-110 N [id number] 10:50:00 Test Item Value Reference Range Interpretation Comments GLUBED (test code = GLUBED) 73 mg/dL 70-110 N WOUND/SKIN/ABS.&GRAMSTAIN [id number] 10:27:00 Test Item Value Reference Range Interpretation Comments Culture Observations NO GROWTH AFTER 5 (test code = COB1) DAYS Direct Exam (test code = RARE WHITE BLOOD DE1) CELLS SEEN Direct Exam (test code = NO ORGANISMS SEEN DE2) ANAEROBIC [id number] 08:20:00 Test Item Value Reference Range Interpretation Comments Culture Observations NO ANAEROBES ISOLATED (test code = COB1) AT 5 DAYS. CULTURE HELD FOR 5 DAYS ANAEROBIC [id number] 08:19:00 Test Item Value Reference Range Interpretation Comments Culture Observations NO ANAEROBES ISOLATED (test code = COB1) AT 5 DAYS. CULTURE HELD FOR 5 DAYS WOUND/SKIN/ABS.&GRAMSTAIN [id number] 09:20:00 Test Item Value Reference Range Interpretation Comments Culture Observations NORMAL SKIN JESUS (test code = COB1) Direct Exam (test code RARE WHITE BLOOD CELLS = DE1) SEEN Direct Exam (test code NO ORGANISMS SEEN = DE2) Isolate 1 (test code = Iman parapsilosis ISO1) SARS-CoV (RAPID ANTIGEN) [id number] 09:01:00 Test Item Value Reference Range Interpretation Comments SARS-CoV (ANTIGEN) NEGATIVE NEGATIVE (test code = COVAG) COVID AG (test This test has been code = COVAGC) marketed under the FDA Emergency Use Authorization (EUA) to meet challenges of the COVID-19 pandemic. The validation standards normally enforced by the FDA and the College of the [place] [employer] (CAP) are more stringent than those required for this test. Therefore, the result should be interpreted with caution and close attention to other clinical and epidemiological data GLUCOMETER GLUCOSE- LAB USE [id number] 09:00:00 Test Item Value Reference Range Interpretation Comments GLUCOMETER (test code = 135 mg/dL 70-100 H Mete r ID: GMG) [id number] tor: [id number] SUBI AZEB FRAGOSO POC Glucose, [id number] 08:04:00 Test Item Value Reference Range Interpretation Comments POC Glucose (test 119 mg/dL 70-115 H Notify RN or MDIf you code = POCGLUC) consider you r patient critically ill, the [employer] Accu-Chek InformII metershould not be used for Glucose determinations. Draw a venous Glucose and send to the Main Lab for Analysis.
[2022-04-08] MEDS ORDERED: LIDOCAINE 1% W/EPI 1:100,000 MDV 50 ML VIAL ONE (17:48)
[2022-04-08] MEDS ORDERED: TETANUS & DIPHTHERIA TOX,ADULT 0.5 ML VIAL ONE (18:32)
--- NOTE | 2022-04-08 19:22 | ER ---
Nurse's Notes [facility] Name: Shaheen Dos Santos Age: 67 yrs Sex: Male : 1955 Arrival Date: 04/08/2022 Time: 16:52 Bed 27 Private MD: Diagnosis: Cutaneous Laceration of the Right Lower Leg Presentation: 04/08 16:52 Chief complaint: EMS states: fell from standing and cut leg on metal bed. 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 Coronavirus screen: Vaccine status: Patient reports receiving the 2nd dose of the covid vaccine. Ebola Screen: Patient negative for fever greater than or equal to 101.5 degrees Fahrenheit, and additional compatible Ebola Virus Disease symptoms Patient denies exposure to infectious person. Patient denies travel to an Ebola-affected area in the 21 days before illness onset. Initial Sepsis Screen: Does the patient meet any 2 criteria? No. Patient's initial sepsis screen is negative. Does the patient have a suspected source of infection? No. Patient's initial sepsis screen is negative. Risk Assessment: Do you want to hurt yourself or someone else? Patient reports no desire to harm self or others. Onset of symptoms was April 08, 2022. 16:52 Method Of Arrival: EMS: [facility] 16:52 Acuity: SAMINA 4 jh6 Triage Assessment: 16:57 General: Appears in no apparent distress. Behavior is calm, cooperative. Pain: 6 Complains of pain in right mckoy Pain currently is 4 out of 10 on a pain scale. Quality of pain is described as aching, Pain began suddenly, Is continuous, Aggravated by increased activity. Historical: - Allergies: 16:55 Bactrim; jh6 16:55 cholecalciferol (vit D3)(bulk); jh6 16:55 cholecalciferol (vitamin D3); 6 16:55 Erythromycin; 6 16:55 Zocor; 6 16:55 Zofran; 6 - PMHx: 16:55 CHF; COPD; Diabetes - IDDM; DVT; GERD; Gout; Hypertension; IVC filter; Myocardial jh6 infarction; PE; RENAL FAILURE; - Immunization history:: Adult Immunizations up to date. - Social history:: Smoking status: Patient denies any tobacco usage or history of. Screenin:57 Abuse screen: Denies threats or abuse. Denies injuries from another. Nutritional 6 screening: No deficits noted. Tuberculosis screening: No symptoms or risk factors identified. Fall Risk Gait- Impaired (20 pts.). Assessment: 16:59 Derm: Skin laceration noted to rt lower extremity, bandaged tug captain by EMS and bleeding 6 controlled. Vital Signs: 16:52 BP 104 / 61; Pulse 82; Resp 20; Temp 97.7; Pulse Ox 96% ; Weight 170.55 kg; Height 6 [facility] ft. 0 in. (182.88 cm); Pain 2/10; 16:52 Body Mass Index 50.99 (170.55 kg, 182.88 cm) [facility] ED Course: 16:52 Patient arrived in ED. 6 16:55 Triage completed. 6 16:55 Bed in low position. Call light in reach. Side rails up X 1. Adult w/ patient. [facility] 16:57 Arm band placed on right wrist. Patient placed in the treatment room, on a stretcher, 6 on pulse oximetry. 17:15 Roque Amin PA is PHCP. jyoti 17:15 Can Pena MD is Attending Physician. [facility] 18:20 Almita Galan, RN is Primary Nurse. vg1 19:35 Assisted to bathroom. tw5 19:35 No provider procedures requiring assistance completed. IV discontinued, intact, tw5 bleeding controlled, No redness/swelling at site. Pressure dressing applied. Administered Medications: 18:00 Drug: Lidocaine-Epinephrine -1%: (1:100,000) 20 ml {Note: administered by Roque HOOVER.} vg1 Volume: 20 ml; Route: Infiltration; 18:37 Not Given (Patient Refused): Tetanus-Diphtheria Toxoid Adult 0.5 ml IM once; Provide vg1 Vaccine Information Statement (VIS). Medication: 18:37 VIS not applicable for this client. vg1 Outcome: 19:22 Discharge ordered by . [facility] 19:36 Discharged to home via wheelchair, with family. tw5 19:36 Condition: good 19:36 Discharge instructions given to patient, Instructed on discharge instructions, follow up and referral plans. medication usage, Demonstrated understanding of instructions, follow-up care, medications, Prescriptions given X 1. 19:36 Patient left the ED. tw5 Signatures: MicRoque major PA PA jmm Garcia, Victoria RN RN vg1 Talisha Bills tw5 Heidi Oswald RN RN jh6 Corrections: (The following items were deleted from the chart) 16:57 16:55 PSHx: Cholecystectomy; 6 jh6 16:57 16:55 PSHx: left foot surgery x 2 for infection to bone; jh6 jh6 18:37 18:26 Vaccine Information Statement (VIS) provided today. Questions and/or concerns vg1 addressed. VIS edition date: March 31, 2021 vg1
--- NOTE | 2022-04-08 19:23 | EDPHYS ---
Physician Documentation [facility] Name: Shaheen Dos Santos Age: 67 yrs Sex: Male : 1955 Arrival Date: 04/08/2022 Time: 16:52 Bed 27 Private MD: ED Physician Can Pena HPI: 04/08 17:22 This 67 yrs old Male presents to ER via EMS with complaints of Laceration To Leg. [facility] 17:22 Onset: The symptoms/episode began/occurred acutely, just prior to arrival. Is a [facility] 67-year-old male with history of CHF, COPD, diabetes mellitus, gout, hypertension the presents emerged department with complaints of laceration to his right lower leg which occurred after falling out of bed. Patient states his leg hit a stool. Denies head injury, denies LOC. Denies other known injury.. Historical: - Allergies: 16:55 Bactrim; jh6 16:55 cholecalciferol (vit D3)(bulk); 6 16:55 cholecalciferol (vitamin D3); 6 16:55 Erythromycin; 6 16:55 Zocor; 6 16:55 Zofran; jh6 - PMHx: 16:55 CHF; COPD; Diabetes - IDDM; DVT; GERD; Gout; Hypertension; IVC filter; Myocardial jh6 infarction; PE; RENAL FAILURE; - Immunization history:: Adult Immunizations up to date. - Social history:: Smoking status: Patient denies any tobacco usage or history of. ROS: 17:22 Constitutional: Negative for fever, chills, and weight loss, Cardiovascular: Negative [facility] for chest pain, palpitations, and edema, Respiratory: Negative for shortness of breath, cough, wheezing, and pleuritic chest pain. 17:22 Skin: Positive for laceration(s). 17:22 All other systems are negative. Exam: 17:22 Constitutional: This is a well developed, well nourished patient who is awake, alert, jmm and in no acute distress. Head/Face: atraumatic. Eyes: EOMI, no conjunctival erythema appreciated ENT: Moist Mucus Membranes Neck: Trachea midline, Supple Chest/axilla: Normal chest wall appearance and motion. Cardiovascular: Regular rate and rhythm. No edema appreciated Respiratory: Normal respirations, no respiratory distress appreciated Abdomen/GI: Non distended Back: Normal ROM 17:22 Skin: 8 cm laceration noted to the right lower leg, no active bleeding appreciated. 17:22 Neuro: Orientation: is normal, Mentation: is normal, Memory: is normal. 17:22 Psych: Behavior/mood is pleasant, cooperative. Vital Signs: 16:52 BP 104 / 61; Pulse 82; Resp 20; Temp 97.7; Pulse Ox 96% ; Weight 170.55 kg; Height 6 jh6 ft. 0 in. (182.88 cm); Pain 2/10; 16:52 Body Mass Index 50.99 (170.55 kg, 182.88 cm) jh6 Laceration: 19:44 Wound Repair of 8cm ( 3.1in ) subcutaneous laceration to lateral aspect of right calf. jmm Distal neuro/vascular/tendon intact. Anesthesia: Local anesthetic administered with 10 mls of 1% lidocaine w/ Epi. Wound prep: Moderate cleansing with betadine by me. Skin closed with 11 2-0 Prolene using simple sutures and sterile technique. Patient tolerated well. MDM: 17:22 Patient medically screened. [facility] 19:21 Data reviewed: vital signs, nurses notes. Counseling: I had a detailed discussion with jyoti the patient and/or guardian regarding: the historical points, exam findings, and any diagnostic results supporting the discharge/admit diagnosis, the need for outpatient follow up, to return to the emergency department if symptoms worsen or persist or if there are any questions or concerns that arise at home. ED course: Patient given wound infection return precautions. Patient understood and agrees with the plan of care. . 04/08 18:17 Order name: Wound Care; Complete Time: 18:19 [facility] Administered Medications: 18:00 Drug: Lidocaine-Epinephrine -1%: (1:100,000) 20 ml {Note: administered by Roque LORD} vg1 Volume: 20 ml; Route: Infiltration; 18:37 Not Given (Patient Refused): Tetanus-Diphtheria Toxoid Adult 0.5 ml IM once; Provide vg1 Vaccine Information Statement (VIS). Disposition Summary: 04/08/22 19:22 Discharge Ordered Location: Home [facility] Condition: Stable [facility] Diagnosis - Cutaneous Laceration of the Right Lower Leg [facility] Followup: [facility] - With: Private Physician - When: 14 days - Reason: Recheck today's complaints, Continuance of care, Re-evaluation by your physician Discharge Instructions: - Discharge Summary Sheet [facility] - Laceration Care, Adult [facility] Forms: - Medication Reconciliation Form [facility] - Thank You Letter heidy - Antibiotic Education [facility] - Prescription Opioid Use [facility] Prescriptions: - Cephalexin 500 mg Oral Capsule - take 1 capsule by ORAL route every 6 hours for 10 days; 40 capsule; Refills: 0, jm Product Selection Permitted Signatures: Roque Amin PA PA jmm Garcia, Victoria RN RN vg1 Heidi Oswald RN RN jh6 Corrections: (The following items were deleted from the chart) 16:57 16:55 PSHx: Cholecystectomy; [facility] jh6 16:57 16:55 PSHx: left foot surgery x 2 for infection to bone; [facility] jh6
[2022-04-08 21:54] VITALS: BP 104/61; TEMP 97.7; O2SAT 96
== END 2022-04-08 19:36 | disposition home or self-care (01) ==
LOC: ER 16:42
PROC: 0JQN0ZZ Repair Right Lower Leg Subcutaneous Tissue and Fascia, Open Approach (ICD-10-PCS; principal; 2022-04-08)
DX: S81.811A Laceration without foreign body, right lower leg, initial encounter (principal); I10 Essential (primary) hypertension; Z88.1 Allergy status to other antibiotic agents; Z88.3 Allergy status to other anti-infective agents; Z88.8 Allergy status to other drugs, medicaments and biological substances
CPT/HCPCS: 90714; 99284

== ENCOUNTER 2022-04-25 11:19 | Inpatient (IN) | payer OTHER ==
--- OUTSIDE RECORDS SUMMARY | 2022-04-25 11:27 | XMS REPORT | Continuity of Care Document ---
:1955 Author Organization [facility] t Address [facility] [place] [address] Care Team Providers Name Role Phone UNKNOWN, REFFERING Primary Care Physician Unavailable Ry Sanches Attending Clinician Unavailable Magdalena Prajapati Attending Clinician Unavailable OgletreeBabatunde Attending Clinician Unavailable Matthew Cherry Attending Clinician [phone] DR LÓPEZ VERONICA Attending Clinician Unavailable Luiz Attending Clinician Unavailable LILLIANA CARRERO Attending Clinician Unavailable Physician, No Primary or Family Admitting Clinician Unavaila ble Ogmargie_Sloan Admitting Clinician Unavailable DR LÓPEZ VERONICA Admitting Clinician Unavailable Luiz Admitting Clinician Unavailable LILLIANA CARRERO Admitting Clinician Unavailable Payers Payer Name Policy Type Policy Number Effective Date Expiration Date S halle [facility] [id number] REGION 4 () [id number] [place]IC[place]: [id number] 2014 [facility] SOLUTIONS 00:00:00 [facility] - [id number] 2015 OPTIONS 00:00:00 Problems This patient has no known problems. Allergies, Adverse Reactions, Alerts Allergy Allergy Status Severity Reaction(s) Onset Inactive Treating Comm ents Source Name Type Date Date Clinician Sulfa DA Active SV RASH [facility] (Sulfona - Clear mide 00:00: [place] Antibiot 00 [facility] erythrom DA Active SV RASH 2021-0 [facility] ycin 06 Clear base 00:00: [place] 00 [facility] simvasta DA Active U SYNCOPE [facility] tin 08-31 Clear 00:00: [place]loan 00 [facility] ondanset DA Active MO RASH [facility] kleber 08-31 Clear 00:00: Sloan 00 [facility] Ondanset DA Active Unknown [facility] kleber 09-06 Medical 00:00: Center 00 Sulfa DA Active Unknown [facility] (Sulfona 12 Medical mides) 00:00: Center 00 [facility] DA [...] FT SKN NAUTO SB 2020-09-07 00:00:00 [facility] FULL THK EXT Center Encounters Start End Encounter Admission Attending Care Care Encounter Source Date/Time Date/Time Type Type Clinicians Facility Department ID 2021-10-24 Inpatient MEGHAN YoderJAMES everett [facility] [id number] [facility] 10:01:00 yR [id number] [facility] 2021-09-26 Inpatient MEGHAN YoderstumoyJAMES MHYP [id number] [facility] 00:05:00 Ry [id number] [facility] 2021-08-31 Inpatient Magdalena Mane CARINA ENDO [id number] [facility] 09:00:00 [id number] [facility] 2021-08-26 Inpatient CARINA RuddMN MHYP [id number] [facility] 00:00:00 Ry [id number] [facility] 2021-07-26 Inpatient EL Kocurek, HCAMN MHYP [id number] [facility] 00:05:00 [place] [id number] [facility] 2021-06-26 Inpatient EL Kocurek, HCAMN MHYP [id number] [facility] 00:03:00 Freddie 80 [facility] 2021-06-26 Inpatient EL Kocurek, HCAMN MHYP [id number] [facility] 00:03:00 [place] [id number] [facility] 2021-05-26 Inpatient EL Kocurek, HCAMN MHYP [id number] [facility] 00:07:00 [place] [id number] [facility] 2021-05-18 Inpatient EL Kocurek, HCAMN MHYP [id number] [facility] 14:29:00 [place] [id number] [facility] 2022-04-12 2022-04-12 Outpatient EL Kocurek, HCAMN MHYP [id number] [facility] 09:00:00 09:00:00 [facility] 77 [facility] 2022-03-08 2022-03-25 Outpatient EL Kocurek, HCAMN MHYP [id number] [facility] 09:30:00 00:00:00 [facility] 49 [facility] 2022-02-15 2022-02-22 Outpatient EL Kocurek, HCAMN MHYP [id number] [facility] 09:00:00 00:00:00 [facility] 28 [facility] 2022-01-18 2022-01-23 Outpatient EL Kocurek, HCAMN MHYP [id number] [facility] 09:00:00 00:00:00 [facility] 29 [facility] 2022-01-04 2022-01-04 Outpatient Kocurek, HCACL LABO [id number] [facility] 14:42:00 14:42:00 [facility] 97 [facility] 2021-12-21 2021-12-23 Outpatient EL Kocurek, HCAMN MHYP [id number] [facility] 09:00:00 00:00:00 [facility] 86 [facility] 2021-12-21 2021-12-21 Outpatient EL Kocurek, HCAMN MHYP [id number] [facility] 09:00:00 09:00:00 Ry [id number] [facility] 2021-10-19 2021-10-23 Outpatient EL Kocurek, HCAMN MHYP [id number] [facility] 09:12:00 00:00:00 Ry [id number] [facility] 2021-10-05 2021-10-05 Outpatient EL Kocurek, HCAMN MHYP [id number] [facility] 09:30:00 09:30:00 Ry [id number] [facility] 2021-09-07 2021-09-25 Outpatient EL Kocurek, HCAMN MHYP [id number] [facility] 09:00:00 00:00:00 Ry [id number] [facility] 2021-09-05 2021-09-05 Outpatient Magdalena Mane HCAPM ENDO [id number] [facility] 12:53:00 12:53:00 [id number] [facility] 2021-09-05 2021-09-05 Outpatient Magdalena Mane HCAPM HCAPM [id number] [facility] 12:53:00 12:53:00 92 [facility] 2021-08-22 2021-08-25 Outpatient EL Kocurek, HCAMN MHYP [id number] [facility] 09:48:00 00:00:00 Ry [id number] [facility] 2021-07-25 2021-07-25 Outpatient EL Kocurek, HCAMN MHYP [id number] [facility] 09:00:00 00:00:00 Ry [id number] [facility] 2021-07-11 2021-07-11 Outpatient EL Kocurek, HCAMN MHYP [id number] [facility] 09:00:00 09:00:00 Freddie [id number] [facility] 2021-06-13 2021-06-25 Outpatient EL Kocurek, HCAMN MHYP [id number] [facility] 09:30:00 00:00:00 Freddie [id number] [facility] 2021-06-13 2021-06-25 Outpatient EL Kocurek, HCAMN MHYP [id number] [facility] 09:30:00 00:00:00 Freddie 31 [facility] 2021-05-30 2021-05-30 Outpatient CARINA RuddMN MHYP [id number] [facility] 09:00:00 09:00:00 Freddie [id number] [facility] 2021-05-18 2021-05-25 Outpatient CARINA RuddMN MHYP [id number] [facility] 09:30:00 00:00:00 Freddie 70 [facility] 2021-04-26 2021-04-26 Outpatient Ogletree_C HMU HMU [id number] [place] 01:53:00 01:53:00 [id number] [facility] 2021-04-25 2021-04-25 Outpatient Ogletree_C HMU HMU [id number] [place] 02:33:00 02:33:00 [id number] [facility] 2021-04-25 2021-04-25 Outpatient Dilip, HMU HMU [id number] 00:00:00 00:00:00 Matthew Woodruff [id number] 2021-04-10 2021-04-10 Outpatient Ogletree_C HMU HMU [id number] [place] 11:54:00 11:54:00 [id number] [facility] 2021-02-28 2021-02-28 Outpatient Ogletree_C HMU HMU [id number] [place] 10:46:00 10:46:00 [id number] [facility] 2021-02-18 2021-02-18 Outpatient Ogletree_C HMU HMU [id number] [place] 03:25:00 03:25:00 [id number] [facility] 2021-02-16 2021-02-16 Outpatient Ogletree_C HMU HMU [id number] [place] 12:23:00 12:23:00 [id number] [facility] 2021-02-16 2021-02-16 Outpatient Dilip, HMU HMU [id number] 00:00:00 00:00:00 Matthew Woodruff [id number] 2021-02-15 2021-02-15 Outpatient Ogletree_C HMU [facility] [id number] [place] 02:05:00 02:05:00 [id number] [facility] 2021-01-27 2021-01-27 Outpatient Ogletree_C HMU [facility] 4033 [place] 11:40:00 11:40:00 [id number] [facility] 2020-09-07 2020-09-07 Outpatient Sloan VERONICA [facility] WWACU [id number] [facility] 08:08:00 13:45:00 ALPASH [facility] 2018-03-11 2018-03-11 Outpatient Luiz MMG MMG [id number] [place] 04:07:00 04:07:00 0226 [facility] [...] 88 Units/L 50.0-136 .0 N CBC W/AUTO [id number] 11:26:00 Test Item Value Reference Range Interpretation [...] X10 3uL 0.00-0.01 N NRBC#) GLUCOSE BEDSIDE [id number] 13:40:00 Test Item Value Reference Range Interpretation Comments GLUCOSE BEDSIDE TESTING (test code 157 mg/dL 70-110 H = GLUBED) COVID 19 INHOUSE [id number] 10:38:00 Test Item Value Reference Range Interpretation Comments COVID 19 INHOUSE AG NEGATIVE Negative Per manu facturer, (test code = negative result s should [id number]) be treated aspr esumptive and, if inconsi [...] symptoms co nsistent with COVID-19. BASIC METABOLIC [id number] 10:35:00 Test Item Value Reference Range Interpretation [...] = CA) 8.9 MG/DL 8.5-10.1 N PROTHROMBIN [id number] 10:34:00 Test Item Value Reference Range Interpretation [...] (to prevent recurrent infar ct). THROMBOPLASTIN TIME [id number] 10:34:00 Test Item Value Reference Range Interpretation Comments THROMBOPLASTIN TIME PARTIAL 43.6 SECONDS 26-35 H (test code = PTT) CBC W/AUTO [id number] 10:23:00 Test Item Value Reference Range Interpretation [...] CRITERIA = MDIFF) - XR CALCANEUS 2+V [id number] 11:30:00 [facility] : 1955 Sex: M FAX: Freddie Martin [phone] [place]: St: REG Name: LUIS MENDOZA [facility] : 1955 Age/S: 66/M [address] [facility] Unit #: [id number] Loc: [place], [place] Phys: [place] [id number] Acct: [id number] Dis Date: Status: REG RCR PHONE #: [phone] Exam Date: 06/13/2021 1121 FAX #: [phone] Reason: PAIN EXAMS: CPT CODE: [id number] XR CALCANEUS 2+[place] [id number] REASON FOR EXAM: Wound care, calcaneal pain. [...] By: [email or web address] PAGE 1 Signed Report FAX: Neville Martin [phone] [place]: St: REG Name: LUIS MENDOZA [facility] : 1955 Age/S: 66/M [address] [facility] Unit #: [id number] Loc: [place], [place]: [place] [id number] Acct: [id number] Dis Date: Status: REG RCR PHONE #: [phone] Exam Date: 06/13/20211120 FAX #: [phone] Reason: PAIN EXAMS: CPT CODE: [id number] XR CALCANEUS 2+V RT [id number] (Continued) Orig Print D/T: S: 06/13/2021 (1133) PAGE 2 Signed [id number] 09:53:00 Test Item Value Reference Range Interpretation Comments GLUBED (test code = GLUBED) 109 mg/dL 70-110 N [id number] 10:50:00 Test Item Value Reference Range Interpretation Comments GLUBED (test code = GLUBED) 73 mg/dL 70-110 N WOUND/SKIN/ABS.&GRAMSTAIN [id number] 10:27:00 Test Item Value Reference Range Interpretation Comments Culture Observations NO GROWTH AFTER 5 (test code = COB1) DAYS Direct Exam (test code = RARE WHITE BLOOD DE1) CELLS SEEN Direct Exam (test code = NO ORGANISMS SEEN DE2) ANAEROBIC [id number] 08:20:00 Test Item Value Reference Range Interpretation Comments Culture Observations NO ANAEROBES ISOLATED (test code = COB1) AT 5 DAYS. CULTURE HELD FOR 5 DAYS ANAEROBIC [id number] 08:19:00 Test Item Value Reference Range Interpretation Comments Culture Observations NO ANAEROBES ISOLATED (test code = COB1) AT 5 DAYS. CULTURE HELD FOR 5 DAYS WOUND/SKIN/ABS.&GRAMSTAIN [id number] 09:20:00 Test Item Value Reference Range Interpretation [...] the FDA and the [employer] the [employer] (CAP) are more stringent than those required for this test. Therefore, the result should be interpreted with caution and close attention to other clinical and epidemiological data GLUCOMETER GLUCOSE- LAB USE [id number] 09:00:00 Test Item Value Reference Range Interpretation Comments GLUCOMETER (test code = 135 mg/dL 70-100 H Mete r ID: GMG) [id number] tor: [id number] SUBI AZEB FRAGOSO POC Glucose, [id number] 08:04:00 Test Item Value Reference Range Interpretation Comments POC Glucose (test 119 mg/dL 70-115 H Notify RN or MDIf you code = POCGLUC) consider you r patient critically ill, the [employer] Accu-Chek InformII metershould not be used for Glucose determinations. Draw a venous Glucose and send to the Main Lab for Analysis.
[2022-04-25 14:35] LABS: Absolute Lymphocytes (CBC) 0.7 K/uL (0.7-4.9); Hematocrit 26.5 % (39.6-49.0); Lymphocytes % 15.8 % (15.3-44.8); MCV 94.9 fL (80-100); MPV 7.7 fL (7.6-11.3); RBC Red Blood Cell Count 2.79 M/uL (4.33-5.43)
[2022-04-25 14:37] LABS: Magnesium 1.9 mg/dL (1.8-2.4); Potassium 3.9 mmol/L (3.5-5.1)
--- NOTE | 2022-04-25 15:41 | ER ---
Nurse's Notes [facility] Name: Shaheen Dos Santos Age: 67 yrs Sex: Male : 1955 Arrival Date: 04/25/2022 Time: 11:24 Bed 19 Private MD: Diagnosis: Leg Laceration/ Open wound of lower leg-right;Cellulitis of right lower limb Presentation: 04/25 11:25 Chief complaint: Patient states: stitches on leg from fall on 04/08 and has been tp1 bleeding since. PT fell again 04/11. today bleeding has increased. Ebola Screen: Patient negative for fever greater than or equal to 101.5 degrees Fahrenheit, and additional compatible Ebola Virus Disease symptoms Patient denies exposure to infectious person. Patient denies travel to an Ebola-affected area in the 21 days before illness onset. Initial Sepsis Screen: Does the patient meet any 2 criteria? No. Patient's initial sepsis screen is negative. Does the patient have a suspected source of infection? No. Patient's initial sepsis screen is negative. Risk Assessment: Do you want to hurt yourself or someone else? Patient reports no desire to harm self or others. Onset of symptoms was April 08, 2022. 11:25 Method Of Arrival: Wheelchair tp1 11:25 Coronavirus screen: Vaccine status: Patient reports receiving the 2nd dose of the covid tp1 vaccine. 11:25 Acuity: SAMINA 3 tp1 Triage Assessment: 11:25 General: Appears in no apparent distress. comfortable, Behavior is calm, cooperative. tp1 Pain: Complains of pain in right leg Pain currently is 9 out of 10 on a pain scale. Quality of pain is described as throbbing, Pain began 04/08/22. Musculoskeletal: Swelling present in right leg and left leg. Injury Description: suture site to the right lower leg is red, warm, and swollen, with serosanguinous discharge. Historical: - Allergies: 11:34 Bactrim; tp1 11:34 Erythromycin; tp1 11:34 Zocor; tp1 11:34 Zofran; tp1 - Home Meds: 11:34 Eliquis oral [Active]; tp1 - PMHx: 11:34 CHF; COPD; Diabetes - IDDM; DVT; GERD; Gout; Hypertension; IVC filter; Myocardial tp1 infarction; PE; RENAL FAILURE; - Immunization history:: Client reports receiving the 2nd dose of the Covid vaccine. - Social history:: Smoking status: Patient denies any tobacco usage or history of. Screenin:11 Abuse screen: Denies threats or abuse. Nutritional screening: No deficits noted. jd3 Tuberculosis screening: No symptoms or risk factors identified. Fall Risk Ambulatory Aid- None/Bed Rest/Nurse Assist (0 pts). Gait- Normal/Bed Rest/Wheelchair (0 pts) Mental Status- Oriented to own ability (0 pts). Total Granados Fall Scale indicates No Risk (0-24 pts). Assessment: 14:06 General: Appears in no apparent distress. uncomfortable, Behavior is calm, cooperative, jd3 appropriate for age. Pain: Complains of pain in PRINCESS lower legs Quality of pain is described as sharp, shooting. Neuro: Bates Agitation-Sedation Scale (RASS): 0 - Alert and Calm Level of Consciousness is awake, alert, obeys commands, Oriented to person, place, time, situation. Cardiovascular: Denies chest pain, Capillary refill < 3 seconds Patient's skin is warm and dry. Rhythm is regular. Respiratory: Airway is patent Respiratory effort is even, unlabored, Respiratory pattern is regular, symmetrical, Denies cough, shortness of breath. GI: No signs and/or symptoms were reported involving the gastrointestinal system. : No signs and/or symptoms were reported regarding the genitourinary system. EENT: No signs and/or symptoms were reported regarding the EENT system. Derm: Wound noted lateral aspect of right calf Wound is red, closed wound. stitches noted. sings of infection noted. exudate noted. Derm: Wound noted lateral aspect of left calf Wound is open wound noted. pt reported wound is a popped blister. redness with a small amount of drainage noted. Derm: Rash noted that is red, on right leg and left leg. Musculoskeletal: Circulation, motion, and sensation intact. Range of motion: limited in left leg and right leg Swelling present in right leg and left leg. 16:00 Reassessment: Patient appears in no apparent distress at this time. No changes from jd3 previously documented assessment. Patient and/or family updated on plan of care and expected duration. Pain level reassessed. Patient is alert, oriented x 3, equal unlabored respirations, skin warm/dry/pink. 16:47 Reassessment: report given to [facility] HOLD nurse. jd3 Vital Signs: 11:25 BP 123 / 57; Pulse 80; Resp 16; Temp 98.8; Pulse Ox 98% on R/A; tp1 15:59 BP 114 / 54; Pulse 80; Resp 16; Pulse Ox 98% on R/A; jd3 ED Course: 11:24 Patient arrived in ED. rg4 11:32 Can Paredes PA is PHCP. cp 11:32 Montrell Wiggins DO is Attending Physician. cp 11:34 Triage completed. tp1 11:34 Arm band placed on. tp1 14:05 Initial lab(s) drawn, by me, sent to lab. First set of blood cultures drawn RAC. jw7 14:06 Billy Desir, RUBENS is Primary Nurse. jd3 14:11 Inserted saline lock: 20 gauge in right antecubital area, using aseptic technique. jw7 Blood collected. 14:12 Patient has correct armband on for positive identification. Bed in low position. Call j light in reach. Side rails up X2. Adult w/ patient. environmental monitoring technician on. Pulse ox on. NIBP on. 14:12 Basic Metabolic Panel Sent. jw7 14:12 CBC with Diff Sent. jw7 14:12 Magnesium Sent. jw7 14:12 Procalcitonin Sent. jw7 14:12 Lactate Sent. jw7 14:50 Second set of blood cultures drawn RForearm. jw7 14:53 Inserted saline lock: 20 gauge in right forearm, using aseptic technique. Blood jw7 collected. 14:53 Blood Culture Adult (2) Sent. jw7 15:38 Victor Hugo Cui MD is Hospitalizing Provider. cp 16:47 No provider procedures requiring assistance completed. Patient admitted, IV remains in jd3 place. Administered Medications: 15:58 Drug: vancoMYCIN 1.5 grams Route: IVPB; Rate: calculated rate; Site: right forearm; jd3 16:36 Follow up: Response: No adverse reaction; IV Status: Infusion continued upon admission jd3 15:58 Drug: fentaNYL (PF) 25 mcg Route: IVP; Site: right antecubital; jd3 16:36 Follow up: Response: No adverse reaction; RASS: Alert and Calm (0) jd3 15:58 Drug: Viscous Lidocaine Liquid (4 %) 10 ml Route: Mucous Membrane; jd3 16:36 Follow up: Response: No adverse reaction jd3 17:05 Drug: [place] (HYDROcodone-acetaminophen) 10 mg-325 mg 1 tabs Route: PO; jd3 04/26 00:42 Not Given (Duplicate Order): SEROquel (QUEtiapine) 100 mg PO once; nighttime med, asif hernandez give at 9 pm Medication: 04/25 14:11 VIS not applicable for this client. jd3 Outcome: 15:40 Decision to Hospitalize by Provider. cp 16:47 Admitted to ER Hold. Please see [facility] for further documentation. jd3 16:47 Condition: stable 16:47 Instructed on the need for admit, Demonstrated understanding of instructions. 04/26 18:23 Patient left the ED. jh6 Signatures: Can Paredes PA PA cp Garcia, Sosa rg4 Billy Desir RN RN jd3 Heidi Oswald RN RN jh6 Talisha Jane RN RN tp1 Maude Brewer7 Molina Huddleston RN ja4 Corrections: (The following items were deleted from the chart) 04/25 11:37 11:34 Allergies: cholecalciferol (vit D3)(bulk); tp1 tp1 11:37 11:34 Allergies: cholecalciferol (vitamin D3); tp1 tp1 04/26 12:42 04/25 14:06 Musculoskeletal: Circulation, motion, and sensation intact. Range of jd3 motion: limited in left leg and right leg jd3
--- NOTE | 2022-04-25 15:41 | EDPHYS ---
Physician Documentation [facility] Name: Shaheen Dos Santos Age: 67 yrs Sex: Male : 1955 Arrival Date: 04/25/2022 Time: 11:24 Bed 19 Private MD: ED Physician Montrell Wiggins HPI: 04/25 11:30 This 67 yrs old Male presents to ER via Wheelchair with complaints of Bleeding From Leg.cp 11:30 The patient presents with infection. The complaints affect the lateral aspect of right cp calf. Context: resulted from laceration that occurred about 2 weeks ago. Associated signs and symptoms: Pertinent positives: calf tenderness, swelling, warmth, drainage from laceration, Pertinent negatives fever. Historical: - Allergies: 11:34 Bactrim; tp1 11:34 Erythromycin; tp1 11:34 Zocor; tp1 11:34 Zofran; tp1 - Home Meds: 11:34 Eliquis oral [Active]; tp1 - PMHx: 11:34 CHF; COPD; Diabetes - IDDM; DVT; GERD; Gout; Hypertension; IVC filter; Myocardial tp1 infarction; PE; RENAL FAILURE; - Immunization history:: Client reports receiving the 2nd dose of the Covid vaccine. - Social history:: Smoking status: Patient denies any tobacco usage or history of. ROS: 11:35 Constitutional: Negative for body aches, chills, fever, poor PO intake. cp 11:35 Eyes: Negative for injury, pain, redness, and discharge. cp 11:35 ENT: Negative for drainage from ear(s), ear pain, sore throat, difficulty swallowing, difficulty handling secretions. 11:35 Cardiovascular: Positive for edema, Negative for chest pain, palpitations. 11:35 Respiratory: Negative for cough, shortness of breath, wheezing. 11:35 Abdomen/GI: Negative for abdominal pain, nausea, vomiting, and diarrhea. 11:35 MS/extremity: Positive for erythema, pain, swelling, tenderness, of the right lower leg and left lower leg. 11:35 Neuro: Negative for altered mental status, dizziness, headache, weakness. 11:35 All other systems are negative. Exam: 11:40 Constitutional: The patient appears in no acute distress, alert, awake, cp non-diaphoretic, non-toxic, well developed, well nourished, obese. 11:40 Head/Face: Normocephalic, atraumatic. cp 11:40 Eyes: Periorbital structures: appear normal, Conjunctiva: normal, no exudate, no injection, Sclera: no appreciated abnormality, Lids and lashes: appear normal, bilaterally. 11:40 ENT: External ear(s): are unremarkable, Nose: is normal, Mouth: Lips: moist, Oral mucosa: pink and intact, moist, Posterior pharynx: Airway: no evidence of obstruction, patent. 11:40 Chest/axilla: Inspection: normal. 11:40 Cardiovascular: Rate: normal, Rhythm: regular, Edema: pedal edema, that is moderate, ankle edema, that is moderate, JVD: is not appreciated. 11:40 Respiratory: the patient does not display signs of respiratory distress, Respirations: normal, no use of accessory muscles, no retractions, labored breathing, is not present, Breath sounds: are clear throughout, no stridor, no wheezing. 11:40 Abdomen/GI: Inspection: obese Palpation: abdomen is soft and non-tender, in all quadrants. 11:40 Skin: cellulitis, well demarcated, on the right lower leg and left lower leg, Wound recheck: Suture laceration closure: marked dehiscence, marked drainage, marked erythema, marked swelling, laceration noted to lateral right lower leg. 11:40 Neuro: Orientation: to person, place \T\ time. Mentation: is normal. 13:55 ECG was reviewed by the Attending Physician. cp Vital Signs: 11:25 BP 123 / 57; Pulse 80; Resp 16; Temp 98.8; Pulse Ox 98% on R/A; tp1 15:59 BP 114 / 54; Pulse 80; Resp 16; Pulse Ox 98% on R/A; jd3 Procedures: 17:12 Suture/Staple removal: Removed 9 sutures, from lateral aspect of right calf, site cp appears reddened, swelling, drainage, Patient tolerated well. MDM: 12:58 Patient medically screened. cp 15:40 Data reviewed: vital signs, nurses notes, lab test result(s), EKG, I have discussed the cp patient's presentation/case with the attending Emergency Department Physician; and as a result, I will admit patient. 15:40 Test interpretation: by ED physician or midlevel provider: ECG. Counseling: I had a cp detailed discussion with the patient and/or guardian regarding: the historical points, exam findings, and any diagnostic results supporting the discharge/admit diagnosis, lab results, the need for further work-up and treatment in the hospital. 04/25 13:23 Order name: Basic Metabolic Panel; Complete Time: 14:56 04/25 14:57 Interpretation: Normal except: GLUC 132; BUN 39; CRE 1.96; GFR 36; CA 8.0. 04/25 13:23 Order name: CBC with Diff; Complete Time: 14:56 04/25 14:57 Interpretation: Normal except: RBC 2.79; HGB 8.6; HCT 26.5; MCV 94.9; RDW 17.7. 04/25 13:23 Order name: Magnesium; Complete Time: 14:56 04/25 13:23 Order name: Blood Culture Adult (2) 04/25 13:23 Order name: Procalcitonin; Complete Time: 15:14 04/25 13:23 Order name: Lactate; Complete Time: 14:56 04/25 14:58 Interpretation: Reviewed. 04/25 13:23 Order name: Wound Culture 04/25 16:24 Order name: Vancomycin Level Trough [facility] 04/25 16:24 Order name: SARS RAPID; Complete Time: 18:11 04/25 16:27 Order name: NT PRO-BNP; Complete Time: 18:11 [facility] 04/25 16:27 Order name: Protime (+INR); Complete Time: 18:11 [facility] 04/25 16:27 Order name: Urinalysis [facility] 04/25 16:27 Order name: Basic Metabolic Panel [facility] 04/25 16:27 Order name: Basic Metabolic Panel [facility] 04/25 13:23 Order name: EKG; Complete Time: 13:24 04/25 13:23 Order name: Cardiac monitoring; Complete Time: 14:12 04/25 13:23 Order name: EKG - Nurse/Tech; Complete Time: 14:12 04/25 16:27 Order name: 60g Consistent Carbohydrate (ADA 1800/2000) EDMO 04/25 16:27 Order name: CBC with Automated Diff [facility] 04/25 16:27 Order name: CBC with Automated Diff [facility] 04/25 17:06 Order name: Glucose, Ancillary Testing; Complete Time: 18:11 EDMS 04/25 22:41 Order name: Glucose, Ancillary Testing EDMS 04/26 07:56 Order name: Glucose, Ancillary Testing EDMS 04/26 12:26 Order name: Glucose, Ancillary Testing EDMS 04/26 16:47 Order name: Glucose, Ancillary Testing EDMS 04/25 13:23 Order name: IV Saline Lock; Complete Time: 14:12 cp 04/25 13:23 Order name: Labs collected and sent; Complete Time: 14:12 cp 04/25 13:23 Order name: O2 Per Protocol; Complete Time: 14:12 cp 04/25 13:23 Order name: O2 Sat Monitoring; Complete Time: 14:12 cp 04/25 13:23 Order name: Suture Removal; Complete Time: 16:48 cp EC:55 Rate is 72 beats/min. Rhythm is regular. GA interval is prolonged at 366 msec. QRS cp interval is normal. QT interval is normal. T waves are Inverted in lead aVR. Interpreted by me. Reviewed by me. Administered Medications: 15:58 Drug: vancoMYCIN 1.5 grams Route: IVPB; Rate: calculated rate; Site: right forearm; jd3 16:36 Follow up: Response: No adverse reaction; IV Status: Infusion continued upon admission jd3 15:58 Drug: fentaNYL (PF) 25 mcg Route: IVP; Site: right antecubital; jd3 16:36 Follow up: Response: No adverse reaction; RASS: Alert and Calm (0) jd3 15:58 Drug: Viscous Lidocaine Liquid (4 %) 10 ml Route: Mucous Membrane; jd3 16:36 Follow up: Response: No adverse reaction jd3 17:05 Drug: [place] (HYDROcodone-acetaminophen) 10 mg-325 mg 1 tabs Route: PO; jd3 04/26 00:42 Not Given (Duplicate Order): SEROquel (QUEtiapine) 100 mg PO once; nighttime asif muniz give at 9 pm Disposition: 04/25 14:37 Co-signature as Attending Physician, Montrell Wiggins DO PA/FULL STACK SOFTWARE ENGINEER's history reviewed, patient ms3 interviewed, and examined. HPI: 67-year-old male presents for right leg wound with erythema. Patient states he recently had a laceration in the leg was healing well. Patient last saw wound care on April 12 and the erythema that is present today was not present at that time. My personal exam of patient reveals: Patient is alert and oriented x4, in no apparent distress, nontoxic appearing, obese. Heart rate and rhythm are regular without murmurs rubs or gallops. Lungs clear to station bilaterally. Abdomen is obese, nontender palpation, bowel sounds present. Right leg significant for wound and erythema with swelling. Disposition Summary: 04/25/22 15:40 Hospitalization Ordered Hospitalization Status: Inpatient Admission cp Provider: Victor Hugo Cui cp Condition: Stable cp Problem: new cp Symptoms: have improved cp Bed/Room Type: Standard cp Location: Telemetry/MedSurg (Inpatient)(04/26/22 16:20) ja1 Room Assignment: 408(04/26/22 16:20) carina Diagnosis - Leg Laceration/ Open wound of lower leg - right cp - Cellulitis of right lower limb cp Forms: - Medication Reconciliation Form cp - SBAR form cp Signatures: Dispatcher [employer] EDMS Can Paredes PA PA cp Lu Briones RN RN ted7 Billy Desir RN RN jd3 Stanford Menjivar RN RN ja1 Montrell Wiggins DO DO ms3 Talisha Jane RN RN ashely1 Molina Huddleston RN ja4 Corrections: (The following items were deleted from the chart) 11:37 11:34 Allergies: cholecalciferol (vit D3)(bulk); tp1 tp1 11:37 11:34 Allergies: cholecalciferol (vitamin D3); tp1 tp1 17:31 15:40 Telemetry/MedSurg (Inpatient) cp jl7 17:31 15:40 cp jl7 17:31 17:31 jl7 jl7 04/26 16:20 04/25 17:31 [facility] ER HOLD jl7 ja1 04/26 16:20 04/25 17:31 ERHOLD- jl7 1
[2022-04-25] MEDS ORDERED: LIDOCAINE VISCOUS 2% SOLN 15 ML UDC ONE (15:50)
[2022-04-25] MEDS ORDERED: FENTANYL CITR 100 MCG/2 ML ONE (15:50)
[2022-04-25] MEDS ORDERED: VANCOMYCIN 1.5 GM in NA CHLORIDE 0.9% 500 ML IVPB ONE (16:00)
[2022-04-25] MEDS ORDERED: ONDANSETRON 4 MG/2 ML VIAL IV PRN (16:22)
[2022-04-25] MEDS ORDERED: ACETAMINOPHEN 500 MG TAB PO PRN (16:22)
[2022-04-25] MEDS ORDERED: D50W 25 GM/50 ML SYRINGE IV PRN (16:26)
[2022-04-25] MEDS ORDERED: GLUCAGON 1 MG/VIAL IM PRN (16:26)
[2022-04-25] MEDS: INSULIN -REGULAR HUMAN 50 UNIT/0.5 ML ML SQ SCH ×2 (16:30→21:00)
--- NOTE | 2022-04-25 16:32 | P.HP ---
Certification for Inpatient Patient admitted to: Inpatient With expected LOS: >2 Midnights Patient will require the following post-hospital care: None Practitioner: I am a practitioner with admitting privileges, knowledge of patient current condition, hospital course, and medical plan of care. Services: Services provided to patient in accordance with Admission requirements found in Title 42 Section 412.3 of the Code of Federal Regulations <Marli Bass - Last Filed: 04/25/22 20:16> Patient History Date of Service: 04/25/22 Reason for admission: Infected right lower extremity wound, BLE cellulitis. History of Present Illness: Patient is a 67-year-old male with a past medical history significant for CHF, COPD, DM2, GERD, hypertension, gout, IN, PE who presents with complaint of infected right lower extremity wound. Patient had a fall with a deep laceration on April 08, 2022 and patient had stitches in the ER. Family reported that a couple days later patient started having serosanguineous drainage that has become worse over time. Family also reported that patient had a blister on the left lower extremity which later turned into an open wound. Patient also reports bilateral lower extremity redness\pain\swelling which became worse over time. Family also reported that patient had some pressure ulcers in the sacrum and has been following up with [place] [facility] [place]. Spouse reported that ulcers have shrunk in size. Patient rated bilateral extremity pain as 9/10 in severity and described pain as aching quality. Patient denies any other signs and symptoms. Symptoms are aggravated or relieved by nothing. Patient decided to present to the hospital due to worsening symptoms. - Past Medical/Surgical History -: Diabetes mellitus type 2 -: CHFunknown EF -: COPD -: 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 -: CKD 3 -: Left foot surgery -: IVC filter -: Cholecystectomy Psychosocial/ Personal History: Patient lives at home with his - Family History Mother -: Cancer Sister -: Cancer - Social History Smoking Status: Never smoker Alcohol use: No CD- Drugs: No Caffeine use: Yes <Marli Bass - Last Filed: 04/25/22 20:16> Date of Service: 04/25/22 <Vicotr Hugo Cui - Last Filed: 04/25/22 20:40> Allergies erythromycin base Allergy (Verified 02/03/21 14:29) Nausea/Vomiting ondansetron [From Zofran] Allergy (Verified 02/03/21 14:29) Nausea/Vomiting simvastatin Allergy (Verified 02/03/21 14:29) Nausea/Vomiting sulfamethoxazole [From Bactrim] Allergy (Verified 02/03/21 14:29) Nausea/Vomiting trimethoprim [From Bactrim] Allergy (Verified 02/03/21 14:29) Nausea/Vomiting Home Medications: Apixaban [Eliquis] 5 mg PO BID 02/03/21 Metoprolol Tartrate 100 mg PO BID 02/03/21 Omeprazole 20 mg PO DAILY 02/03/21 Quetiapine Fumarate [Seroquel] 100 mg PO BEDTIME 02/03/21 Tramadol HCl [Ultram] 50 mg PO Q4HP PRN 02/03/21 Allopurinol 100 mg PO BEDTIME 06/21/21 Cholecalciferol (Vitamin D3) [Vitamin D3] 50 mcg PO DAILY 06/21/21 Hydralazine HCl [Apresoline] 50 mg PO BID 06/21/21 Insulin NPH Human Isophane [Novolin N] 55 unit SQ BID 06/21/21 NIFEdipine [Nifedipine ER] 90 mg PO DAILY 06/21/21 Triamcinolone 0.1% Crm [Kenalog 0.1% Cream*] 1 appl TOP DAILY 06/21/21 Vitamin B Complex [Vitamin B Complex*] 1 cap PO DAILY 06/21/21 Furosemide [Lasix] 40 mg PO BIDL #60 tab 06/22/21 Spironolactone [Aldactone*] 25 mg PO DAILY #30 tab 06/22/21 Review of Systems General: Unremarkable Eyes: Unremarkable ENT: Unremarkable Respiratory: Unremarkable Cardiovascular: Unremarkable Gastrointestinal: Unremarkable Genitourinary: Unremarkable Musculoskeletal: Other (BLE swelling and pain ) Integumentary: Other (Right LE wound, BLE redness ) Neurological: Unremarkable Lymphatics: Unremarkable <Marli Bass - Last Filed: 04/25/22 20:16> Physical Examination - Physical Exam General: Alert, Oriented x3, Cooperative HEENT: Atraumatic, Normocephalic, PERRLA Neck: Supple, 2+ carotid pulse no bruit, JVD not distended Respiratory: Clear to auscultation bilaterally, Normal air movement Cardiovascular: Normal pulses, Edema Capillary refill: <2 Seconds Gastrointestinal: Normal bowel sounds, Soft and benign Musculoskeletal: Swelling, Erythema, Tenderness Integumentary: Skin breakdown, Tenderness/swelling, Erythema, Pressure ulcer Neurological: Normal speech, Sensation intact, Normal affect, Abnormal gait Lymphatics: No axilla or inguinal lymphadenopathy - Studies Laboratory Data (last 24 hrs) 04/25/22 14:05: WBC 4.50, Hgb 8.6 L, Hct 26.5 L, Plt Count 161 04/25/22 14:05: Sodium 139, Potassium 3.9, BUN 39 H, Creatinine 1.96 H, Glucose 132 H, Magnesium 1.9 <Marli Bass - Last Filed: 04/25/22 20:16> - Studies Laboratory Data (last 24 hrs) 04/25/22 14:05: WBC 4.50, Hgb 8.6 L, Hct 26.5 L, Plt Count 161 04/25/22 14:05: Sodium 139, Potassium 3.9, BUN 39 H, Creatinine 1.96 H, Glucose 132 H, Magnesium 1.9 <Victor Hugo Cui - Last Filed: 04/25/22 20:40> Assessment and Plan - Plan -Infected right lower extremity wound. Wound and blood cultures pending. Patient has a history of venous stasis ulcer. Wound care consult initiated. Continue antibiotics. --Bilateral lower extremity cellulitis. Blood cultures pending. Continue antibiotics. -Pressure ulcers. Wound care team on board. Continue supportive care --History of PE. Patient has an IVC filter in place. Continue Eliquis. --hx of Afib. Continue eliquis. Telemetry to monitor for any malignant arrhythmia. --Anemia of chronic disease. H&H stable. We will continue to monitor hemoglobin and transfuse if less than 7.0. --CKD 3B. Improvement in renal functions noted compared to levels 9 months ago. We will continue to monitor renal functions. --DM2. BS monitoring with sliding scale insulin and NPH. --Hypertension. Stable. Continue home medications --Hx of IN. Continue aspirin and Eliquis --Depression. Continue home medication. --Gout. Continue allopurinol. --COPD. Stable. Continue neb treatment as needed. --Super obesity. Likely secondary to sedentary lifestyle and excess calories intake. Patient counseled on weight reduction, diet and exercise therapy. --Acute on chronic diastolic CHF exacerbation. Continue diuresis Lasix. Daily weight and strict I/O. Continue supportive care -- DVT prophylaxis with Eliquis. Discharge Plan: Home Plan to discharge in: Greater than 2 days - Advance Directives Does patient have a Living Will: No Does patient have a Durable POA for Healthcare: No Physician Review: Patient Assessed, Agree with Above Assessment and Plan <Marli Bass - Last Filed: 04/25/22 20:16> Physician Review: Patient Assessed, Agree with Above Assessment and Plan <Victor Hugo Cui - Last Filed: 04/25/22 20:40>
[2022-04-25] MEDS ORDERED: DEXTROSE 10%-WATER 125 ML IV PRN (16:55)
[2022-04-25] MEDS: CEFEPIME 1 GM in NA CHLORIDE 0.9% 100 ML IV SCH (17:00)
[2022-04-25] MEDS ORDERED: HEPARIN 5000 UNIT/ML 1 ML VIAL SQ SCH (17:00)
[2022-04-25] MEDS ORDERED: HYDROCODONE/APAP 10/325 TAB ONE (17:09)
[2022-04-25 17:16] LABS: SARS-CoV-2 Antigen Rapid Res Negative (Negative)
[2022-04-25 17:46] LABS: Protime INR 1.33
[2022-04-25] MEDS ORDERED: ALBUTEROL 2.5 MG/3 ML NEB SOL NEB PRN (20:25)
[2022-04-25] MEDS: HYDRALAZINE HCL 25 MG TABLET PO SCH (21:00)
[2022-04-25] MEDS: NPH (HUMAN) 100 UNITS/ML INSULIN SQ SCH (21:00)
[2022-04-25] MEDS: QUETIAPINE 100MG TAB PO SCH (21:00)
[2022-04-25] MEDS: APIXABAN 5 MG TABLET PO SCH (21:00)
[2022-04-25] MEDS: METOPROLOL TAR 50 MG TAB PO SCH (21:00)
[2022-04-25] MEDS ORDERED: CEFEPIME 1 GM in NA CHLORIDE 0.9% 100 ML IV SCH (21:00)
[2022-04-25] MEDS: allopurinoL 100 MG TAB PO SCH (21:00)
[2022-04-25] MEDS ORDERED: METOPROLOL TAR 50 MG TAB ONE (22:31)
[2022-04-25] MEDS ORDERED: APIXABAN 5 MG TABLET ONE (22:31)
[2022-04-25] MEDS ORDERED: HYDRALAZINE HCL 25 MG TABLET ONE (22:31)
[2022-04-25] MEDS ORDERED: QUETIAPINE 25 MG TAB ONE (23:42)
[2022-04-25] MEDS ORDERED: allopurinoL 100 MG TAB ONE (23:42)
[2022-04-26] MEDS ORDERED: HYDROCODONE/APAP 10/325 TAB ONE ×2 (02:20→12:31)
[2022-04-26 02:25] LABS: Absolute Lymphocytes (CBC) 0.7 K/uL (0.7-4.9); Hematocrit 23.9 % (39.6-49.0); Lymphocytes % 16.6 % (15.3-44.8); MCV 94.7 fL (80-100); MPV 7.4 fL (7.6-11.3); RBC Red Blood Cell Count 2.53 M/uL (4.33-5.43)
[2022-04-26 02:31] LABS: Potassium 3.7 mmol/L (3.5-5.1)
[2022-04-26] MEDS: CEFEPIME 1 GM in NA CHLORIDE 0.9% 100 ML IV SCH ×2 (05:00→18:27)
[2022-04-26] MEDS: PANTOPRAZOLE 40MG TABLET PO SCH (05:45)
[2022-04-26] MEDS ORDERED: PANTOPRAZOLE 40MG TABLET PO ONE (05:47)
[2022-04-26] MEDS ORDERED: CEFEPIME 2 GM VIAL ONE (05:47)
[2022-04-26] MEDS ORDERED: NA CHLORIDE 0.9% 100 ML ONE (05:48)
[2022-04-26] MEDS ORDERED: CEFEPIME 1 GM/VIAL ONE (05:52)
[2022-04-26] MEDS: INSULIN -REGULAR HUMAN 50 UNIT/0.5 ML ML SQ SCH ×5 (07:30→21:23)
[2022-04-26] MEDS ORDERED: FUROSEMIDE 20 MG/ 2ML VIAL ONE (08:18)
[2022-04-26] MEDS ORDERED: THIAMINE HCL 100 MG TABLET ONE (08:18)
[2022-04-26] MEDS ORDERED: METOPROLOL TAR 50 MG TAB ONE (08:18)
[2022-04-26] MEDS ORDERED: ASPIRIN 81 MG CHEWABLE TABLET ONE (08:18)
[2022-04-26] MEDS ORDERED: HYDRALAZINE HCL 25 MG TABLET ONE (08:19)
[2022-04-26] MEDS ORDERED: APIXABAN 5 MG TABLET ONE (08:19)
[2022-04-26] MEDS ORDERED: VITAMIN D 1000 UNIT TAB ONE (08:19)
[2022-04-26] MEDS: NPH (HUMAN) 100 UNITS/ML INSULIN SQ SCH ×3 (09:00→21:22)
[2022-04-26] MEDS: VITAMIN B COMPLEX 1 CAP PO SCH (09:00)
[2022-04-26] MEDS: VITAMIN D 1000 UNIT TAB PO SCH (09:00)
[2022-04-26] MEDS: NIFEDIPINE XL 90 MG TABLET PO SCH (09:00)
[2022-04-26] MEDS ORDERED: ALBUTEROL 2.5 MG/3 ML NEB SOL NEB PRN (09:00)
[2022-04-26] MEDS: HYDRALAZINE HCL 25 MG TABLET PO SCH ×2 (09:00→21:22)
[2022-04-26] MEDS: METOPROLOL TAR 50 MG TAB PO SCH ×2 (09:00→21:22)
[2022-04-26] MEDS: TRIAMCINOLONE 0.1% CREAM 15GM TOP SCH (09:00)
[2022-04-26] MEDS: APIXABAN 5 MG TABLET PO SCH (09:00)
[2022-04-26] MEDS: ASPIRIN EC 81 MG TAB PO SCH (09:00)
[2022-04-26] MEDS: FUROSEMIDE 20 MG/ 2ML VIAL IV SCH ×2 (09:00→18:26)
[2022-04-26] MEDS: SPIRONOLACTONE 25 MG TABLET PO SCH (09:00)
[2022-04-26] MEDS: HYDROCODONE/APAP 10/325 TAB PO PRN (12:29)
[2022-04-26] MEDS ORDERED: INSULIN -REGULAR HUMAN 50 UNIT/0.5 ML ML ONE (12:31)
--- NOTE | 2022-04-26 13:58 | EKG ---
Test Date: 2022-04-25 Test Time: 13:53:55 Hand Stonecutter: ROBERT MEASUREMENT RESULTS: Intervals: Rate: 72 AR: 366 QRSD: 88 QT: 416 QTc: 455 [place]: P: 62 AR: 366 QRS: 9 T: 27 INTERPRETIVE STATEMENTS: Sinus rhythm with 1st degree AV block Otherwise normal ECG Compared to ECG 06/27/2021 09:15:17 No significant changes Electronically Signed On 04-26-22 13:57:08 CDT by Shailesh Chand
[2022-04-26] MEDS: allopurinoL 100 MG TAB PO SCH (21:22)
[2022-04-26] MEDS: QUETIAPINE 100MG TAB PO SCH (21:24)
--- NOTE | 2022-04-26 23:08 | P.PN ---
Subjective Date of Service: 04/26/22 Chief Complaint: Infected right lower extremity wound, BLE cellulitis. Subjective: No new changes No acute events overnight. He denies any change in the erythema, swelling, or drainage from his RLE. He states that his pain has improved from a 9-10/10 to a 5-6/10 in severity. Review of Systems 10-point ROS is otherwise unremarkable Integumentary: Rash (BLE, right > left. RLE with stitches from recent laceration repair) Physical Examination - Vital Signs Temperature: 97.5 F Blood Pressure: 137/53 Pulse: 78 Respirations: 18 Pulse Ox (%): 96 - Physical Exam General: Alert, In no apparent distress, Oriented x3 HEENT: Atraumatic, PERRLA, EOMI Neck: Supple, JVD not distended Respiratory: Clear to auscultation bilaterally, Normal air movement Cardiovascular: Regular rate/rhythm, Normal S1 S2, No gallops, No rubs, No murmurs, Edema (2+ BLE) Gastrointestinal: Normal bowel sounds, Soft and benign, Non-distended, No tenderness, No rebound, No guarding Musculoskeletal: No clubbing Integumentary: Skin breakdown, Skin lesion, Tenderness/swelling, Erythema, Warmth, Pressure ulcer, Other (laceration repair on RLE is with significant erythema, warmth, tenderness, and drainage) Neurological: Normal speech, Normal tone, Normal affect Lymphatics: No axilla or inguinal lymphadenopathy Assessment And Plan - Plan # Bilateral Lower Extremity Cellulitis (Right > Left) Superimposed on Venous Stasis Ulcer # Morbid Obesity - BMI 50.7 kg/m2 - No evidence of sepsis at this time - Continue Vancomycin + Cefepime for now - Ordered x-rays to evaluate for osteomyelitis - Consulted General Surgery for debridement - Apixaban on hold pending surgery recs - Consulted wound care # Possible Mild Acute on Chronic Decompensated Congestive Heart Failure -Improved, continue furosemide - Continue home meds - Strict I/O - 2 L, 2g Na restricted diet # Atrial Fibrillation # History of Pulmonary Embolism s/p IVC - Continue home metoprolol - Apixaban on hold pending surgery recs # Chronic Kidney Disease Stage III # Likely Anemia of Chronic Kidney Disease - Renal function stable - Monitor creatinine and urine output - Renally dose medications # Type II Diabetes Mellitus - Correction scale insulin ordered # Chronic Obstructive Pulmonary Disease - No evidence of acute exacerbation - continue home meds # History of Coronary Artery Disease complicated by GA # Hypertension - Denies any chest pain - Continue aspirin, metoprolol - Not on statin due to allergy - Consider starting ALIX-I/ARB if creatinine improves # Gout # Depression - Continue home meds Victor Hugo Cui M.D.
[2022-04-27 01:53] LABS: Specific Gravity 1.009 (1.005-1.030); Urine Bacteria <20 /HPF (<20); Urine Bilirubin NEGATIVE (Negative); Urine Blood Negative (Negative); Urine Clarity Clear (Clear); Urine Color Colorless (Yellow); Urine Glucose NEGATIVE (Negative); Urine Mucus Slight /HPF (None Seen); Urine Protein NEGATIVE (Negative); Urine RBC <5 /HPF (None Seen); Urine Urobilinogen Normal (Normal); Urine pH 5.5 (5.0-7.0)
[2022-04-27] MEDS ORDERED: VANCOMYCIN 1 GM/VIAL ONE (05:39)
[2022-04-27] MEDS: HYDROCODONE/APAP 10/325 TAB PO PRN ×3 (05:48→18:17)
[2022-04-27] MEDS: CEFEPIME 1 GM in NA CHLORIDE 0.9% 100 ML IV SCH ×2 (05:49→16:18)
[2022-04-27] MEDS: VANCOMYCIN 1.75 GM in NA CHLORIDE 0.9% 500 ML IVPB SCH (06:03)
[2022-04-27] MEDS: PANTOPRAZOLE 40MG TABLET PO SCH (06:30)
[2022-04-27 06:43] LABS: Absolute Lymphocytes (CBC) 0.8 K/uL (0.7-4.9); Hematocrit 24.7 % (39.6-49.0); MCV 93.8 fL (80-100); MPV 7.3 fL (7.6-11.3); RBC Red Blood Cell Count 2.63 M/uL (4.33-5.43)
[2022-04-27 07:10] LABS: Albumin 1.8 g/dL (3.4-5.0); Bilirubin Total 0.6 mg/dL (0.2-1.0); Potassium 3.8 mmol/L (3.5-5.1)
[2022-04-27] MEDS: INSULIN -REGULAR HUMAN 50 UNIT/0.5 ML ML SQ SCH ×4 (07:30→21:00)
[2022-04-27] MEDS: FUROSEMIDE 20 MG/ 2ML VIAL IV SCH ×2 (08:24→16:18)
[2022-04-27] MEDS: TRIAMCINOLONE 0.1% CREAM 15GM TOP SCH (09:00)
[2022-04-27] MEDS: NPH (HUMAN) 100 UNITS/ML INSULIN SQ SCH ×3 (09:00→22:45)
[2022-04-27] MEDS: COLLAGENASE 30 GM OINTMENT TOP SCH (09:00)
[2022-04-27] MEDS ORDERED: POTASSIUM CL SA 10 MEQ TAB PO ONE (09:16)
--- NOTE | 2022-04-27 12:47 | RAD REPORT ---
EXAM DESCRIPTION: RAD - Tib Fib Right - 04/27/2022 7:21 am CLINICAL HISTORY: Right leg pain and swelling FINDINGS: No fracture is seen No bony destructive lesions seen. Soft tissue swelling If patient's strong clinical suspicion for osteomyelitis MRI would be recommended
[2022-04-27] MEDS: METOPROLOL TAR 50 MG TAB PO SCH ×2 (12:49→22:33)
[2022-04-27] MEDS: SPIRONOLACTONE 25 MG TABLET PO SCH (12:49)
[2022-04-27] MEDS: VITAMIN D 1000 UNIT TAB PO SCH (12:50)
[2022-04-27] MEDS: HYDRALAZINE HCL 25 MG TABLET PO SCH ×2 (12:50→22:33)
[2022-04-27] MEDS: NIFEDIPINE XL 90 MG TABLET PO SCH (12:50)
[2022-04-27] MEDS: VITAMIN B COMPLEX 1 CAP PO SCH (12:50)
--- NOTE | 2022-04-27 12:50 | P.CNS ---
Date of Consult: 04/27/22 PC: I was asked to see this 67-year-old male in regards to a wound on the right lateral aspect of his leg, and a varicose ulcer centrally on his left lower leg HPC: This morbidly obese gentleman, with diabetes, was getting off of a step that goes into his bed. He slipped and fell. He sustained a abrasion type injury to the lateral aspect of his left leg. He was brought to the hospital for evaluation and treatment. Coincidentally he had an eruption of a varicose ulcer on his left leg. PSHx: Cholecystectomy, IVC filter placed for chronic DVTs PMHx: Diabetes, PTSD, CHF Social Hx: Allergic to erythromycin base, Zofran, simvastatin Sys R: No cough, wheeze, shortness of breath. No chest pain or palpitations. Denies any urinary complaints. Finds it difficult to get out of bed due to chronic weakness and his weight. Occasional balance issues. Also is hard of hearing and has some mild memory issues. O/E: Awake alert vital signs are stable HEENT: Nonicteric Chest: Chest movement equal bilaterally Abd: Negative Goodman: On the lateral aspect of his right leg, 3 fingers below the head of the fibula, there is an abrasion extending down to just above the ankle. It is approximately 1 inch wide. The the epidermis is split along this. The underlying tissue shows bruising but appears viable. It is dark stained but that is most likely due to bleeding from the Eliquis. On the anterior portion of his left leg, he has a traditional venous ulcer measuring approximately 3 inches in diameter. Data: Patient appears to be chronically anemic, as well as marked hypoalbuminemia Impression: Open wound to the right lower leg lateral aspect, venous ulcer left lower leg Plan: At the current time the patient does not require debridement in the OR. We will treat with Silvadene to the wounds daily. ABD on top of that with an Gabriel wrap. The patient is in a wound care center in [place], however I would like to see him in our wound care center next Saturday. Have asked social group worker to see the patient in regards to home health care. Patient has obvious venous insufficiency, hypoalbuminemia, and diabetes as well as limited mobility with morbid obesity. Thank you for the consult
[2022-04-27] MEDS: ASPIRIN EC 81 MG TAB PO SCH (12:51)
[2022-04-27 15:39] VITALS: BMI 50.8
[2022-04-27] MEDS: QUETIAPINE 100MG TAB PO SCH (22:33)
[2022-04-27] MEDS: allopurinoL 100 MG TAB PO SCH (22:34)
--- NOTE | 2022-04-27 22:35 | RAD REPORT ---
EXAM DESCRIPTION: RADTib Magdalena Left04/27/2022 7:21 am CLINICAL HISTORY: Left leg pain and swelling FINDINGS: No fracture is seen. No bony destruction is seen. Diffuse edema within the soft tissue. If patient has strong clinical suspicion for osteomyelitis MRI would be recommended
--- NOTE | 2022-04-27 23:52 | P.PN ---
Subjective Date of Service: 04/27/22 Chief Complaint: Infected right lower extremity wound, BLE cellulitis. No acute events overnight. He states that his pain is tolerable today. He states that he is hungry as he has been NPO in anticipation for a possible debridement. Review of Systems 10-point ROS is otherwise unremarkable Integumentary: Rash (BL lower extremity wounds (right > left)) Physical Examination - Vital Signs Temperature: 98.7 F Blood Pressure: 133/51 Pulse: 70 Respirations: 20 Pulse Ox (%): 93 Assessment And Plan - Plan - Physical Exam General: Alert, In no apparent distress, Oriented x3 HEENT: Atraumatic, PERRLA, EOMI Neck: Supple, JVD not distended Respiratory: Clear to auscultation bilaterally, Normal air movement Cardiovascular: Regular rate/rhythm, Normal S1 S2, No gallops, No rubs, No murmurs, Edema (2+ BLE) Gastrointestinal: Normal bowel sounds, Soft and benign, Non-distended, No tenderness, No rebound, No guarding Musculoskeletal: No clubbing Integumentary: Skin breakdown, Skin lesion, Tenderness/swelling, Erythema, Warmth, Pressure ulcer, Other (laceration repair on RLE is with significant erythema, warmth, tenderness, and drainage) Neurological: Normal speech, Normal tone, Normal affect Lymphatics: No axilla or inguinal lymphadenopathy Assessment And Plan - Plan # Bilateral Lower Extremity Cellulitis (Right > Left) Superimposed on Venous Stasis Ulcer # Morbid Obesity - BMI 50.7 kg/m2 - No evidence of sepsis at this time - Continue Vancomycin + Cefepime for now - Ordered x-rays to evaluate for osteomyelitis - do not appear consistent with osteomyelitis - Consulted General Surgery for possible debridement - Apixaban on hold pending surgery recs - Consulted wound care # Possible Mild Acute on Chronic Decompensated Congestive Heart Failure -Improved, continue furosemide - Continue home meds - Strict I/O - 2 L, 2g Na restricted diet # Atrial Fibrillation # History of Pulmonary Embolism s/p IVC - Continue home metoprolol - Apixaban on hold pending surgery recs # Chronic Kidney Disease Stage III # Likely Anemia of Chronic Kidney Disease - Renal function stable - Monitor creatinine and urine output - Renally dose medications # Type II Diabetes Mellitus - Correction scale insulin ordered # Chronic Obstructive Pulmonary Disease - No evidence of acute exacerbation - continue home meds # History of Coronary Artery Disease complicated by [place] # Hypertension - Denies any chest pain - Continue aspirin, metoprolol - Not on statin due to allergy - Consider starting ALIX-I/ARB if creatinine improves # Gout # Depression - Continue home meds Victor Hugo Cui M.D. Physician Review: Patient Assessed, Agree with Above Assessment and Plan
[2022-04-28 04:27] LABS: Absolute Lymphocytes (CBC) 0.8 K/uL (0.7-4.9); MCV 93.8 fL (80-100); MPV 7.4 fL (7.6-11.3); RBC Red Blood Cell Count 2.56 M/uL (4.33-5.43)
[2022-04-28 04:44] LABS: Albumin 1.8 g/dL (3.4-5.0); Bilirubin Total 0.4 mg/dL (0.2-1.0); Potassium 3.8 mmol/L (3.5-5.1)
[2022-04-28] MEDS: CEFEPIME 1 GM in NA CHLORIDE 0.9% 100 ML IV SCH ×2 (05:27→17:15)
[2022-04-28] MEDS: PANTOPRAZOLE 40MG TABLET PO SCH (05:28)
[2022-04-28] MEDS ORDERED: CEFEPIME 1 GM/VIAL ONE ×2 (05:34→17:15)
[2022-04-28] MEDS ORDERED: NA CHLORIDE 0.9% 100 ML ONE ×2 (05:36→22:28)
[2022-04-28] MEDS: HYDROCODONE/APAP 10/325 TAB PO PRN (06:53)
[2022-04-28] MEDS: INSULIN -REGULAR HUMAN 50 UNIT/0.5 ML ML SQ SCH ×4 (07:30→21:58)
[2022-04-28] MEDS ORDERED: POTASSIUM CL SA 10 MEQ TAB PO ONE (09:00)
[2022-04-28] MEDS: NPH (HUMAN) 100 UNITS/ML INSULIN SQ SCH ×2 (09:00→21:00)
[2022-04-28] MEDS: COLLAGENASE 30 GM OINTMENT TOP SCH (09:00)
[2022-04-28] MEDS: TRIAMCINOLONE 0.1% CREAM 15GM TOP SCH (09:00)
[2022-04-28] MEDS: HYDRALAZINE HCL 25 MG TABLET PO SCH ×2 (10:58→21:57)
[2022-04-28] MEDS: VITAMIN D 1000 UNIT TAB PO SCH (10:58)
[2022-04-28] MEDS: METOPROLOL TAR 50 MG TAB PO SCH ×2 (10:59→21:57)
[2022-04-28] MEDS: NIFEDIPINE XL 90 MG TABLET PO SCH (10:59)
[2022-04-28] MEDS: APIXABAN 5 MG TABLET PO SCH ×2 (10:59→21:57)
[2022-04-28] MEDS: FUROSEMIDE 20 MG/ 2ML VIAL IV SCH ×2 (10:59→17:15)
[2022-04-28] MEDS: ASPIRIN EC 81 MG TAB PO SCH (10:59)
[2022-04-28] MEDS: SPIRONOLACTONE 25 MG TABLET PO SCH (11:14)
[2022-04-28] MEDS: VITAMIN B COMPLEX 1 CAP PO SCH (11:14)
[2022-04-28] MEDS: VANCOMYCIN 1.75 GM in NA CHLORIDE 0.9% 500 ML IVPB SCH (18:00)
--- NOTE | 2022-04-28 19:21 | P.PN ---
Subjective Date of Service: 04/28/22 Chief Complaint: Infected right lower extremity wound, BLE cellulitis. No acute events overnight. He states that his pain has improved significantly today. Dr. Ortega recommended no surgical intervention. Awaiting speciation and sensitivities of his wound Review of Systems 10-point ROS is otherwise unremarkable Integumentary: Other (BLE wounds) Physical Examination - Vital Signs Temperature: 97.5 F Blood Pressure: 133/60 Pulse: 60 Respirations: 14 Pulse Ox (%): 93 Assessment And Plan - Plan - Physical Exam General: Alert, In no apparent distress, Oriented x3 HEENT: Atraumatic, PERRLA, EOMI Neck: Supple, JVD not distended Respiratory: Clear to auscultation bilaterally, Normal air movement Cardiovascular: Regular rate/rhythm, Normal S1 S2, No gallops, No rubs, No murmurs, Edema (1-2+ BLE) Gastrointestinal: Normal bowel sounds, Soft and benign, Non-distended, No ten derness, No rebound, No guarding Musculoskeletal: No clubbing Integumentary: Skin breakdown, Skin lesion, Tenderness/swelling, Erythema, Warmth, Pressure ulcer, Other (laceration repair on RLE is with significant erythema, warmth, tenderness, and drainage) Neurological: Normal speech, Normal tone, Normal affect Lymphatics: No axilla or inguinal lymphadenopathy Assessment And Plan - Plan # Gram-Negative Bilateral Lower Extremity Cellulitis (Right > Left) Superimposed on Venous Stasis Ulcer # Morbid Obesity - BMI 50.7 kg/m2 - No evidence of sepsis at this time - Continue Vancomycin + Cefepime for now - Ordered x-rays to evaluate for osteomyelitis - do not appear consistent with osteomyelitis - Consulted General Surgery and spoke with Dr. Ortega - no need for debridement - Resume home apixaban - Consulted wound care - Wound culture - positive for gram-negative rods, awaiting speciation and sensitivities # Possible Mild Acute on Chronic Decompensated Congestive Heart Failure -Improved, continue furosemide - Continue home meds - Strict I/O - 2 L, 2g Na restricted diet # Atrial Fibrillation # History of Pulmonary Embolism s/p IVC - Continue home metoprolol - Apixaban on hold pending surgery recs # Chronic Kidney Disease Stage III # Likely Anemia of Chronic Kidney Disease - Renal function stable - Monitor creatinine and urine output - Renally dose medications # Type II Diabetes Mellitus - Correction scale insulin ordered # Chronic Obstructive Pulmonary Disease - No evidence of acute exacerbation - continue home meds # History of Coronary Artery Disease complicated by [place] # Hypertension - Denies any chest pain - Continue aspirin, metoprolol - Not on statin due to allergy - Consider starting ALIX-I/ARB if creatinine improves # Gout # Depression - Continue home meds Victor Hugo Cui M.D.
[2022-04-28] MEDS: QUETIAPINE 100MG TAB PO SCH (21:57)
[2022-04-28] MEDS: allopurinoL 100 MG TAB PO SCH (21:57)
[2022-04-28] MEDS ORDERED: AMPICILLIN/SULBACT 1.5GM VIAL ONE (22:28)
[2022-04-28] MEDS: AMPICILLIN/SULBACT 1.5 GM in NA CHLORIDE 0.9% 100 ML IVPB SCH (23:21)
[2022-04-29] MEDS: HYDROCODONE/APAP 10/325 TAB PO PRN (00:26)
[2022-04-29] MEDS: AMPICILLIN/SULBACT 1.5 GM in NA CHLORIDE 0.9% 100 ML IVPB SCH ×2 (01:00→08:30)
[2022-04-29] MEDS: PANTOPRAZOLE 40MG TABLET PO SCH (05:43)
[2022-04-29] MEDS: INSULIN -REGULAR HUMAN 50 UNIT/0.5 ML ML SQ SCH (07:30)
--- NOTE | 2022-04-29 08:02 | P.DS ---
Admission Date: 04/25/22 Discharge Date: 04/29/22 Disposition: ROUTINE DISCHARGE Discharge Condition: GOOD Reason for Admission: Infected right lower extremity wound, BLE cellulitis. Consultations: 1. General Surgery Hospital Course: DIAGNOSES: # Gonzalez-Sensitive Proteus Mirabilis Right Lower Extremity Cellulitis Superimposed on Venous Stasis Ulcer # Morbid Obesity - BMI 50.7 kg/m2 # Possible Mild Acute on Chronic Decompensated Congestive Heart Failure # Chronic Atrial Fibrillation # History of Pulmonary Embolism s/p IVC Filter # Chronic Kidney Disease Stage III # Likely Anemia of Chronic Kidney Disease # Type II Diabetes Mellitus # Chronic Obstructive Pulmonary Disease # History of Coronary Artery Disease complicated by [place] # Hypertension # Gout # Depression HOSPITAL COURSE: Mr. Shaheen Dos Santos is a pleasant 67 year old male with a past medical history significant for chronic congestive heart failure, chronic atrial fibrillation, history of pulmonary embolism s/p IVC filter, chronic kidney disease stage III, type 2 diabetes mellitus, chronic obstructive pulmonary disease, coronary artery disease complicated by [place], hypertension, gout, and depression who was admitted to the [facility] on 04/25/2022 for right lower extremity cellulitis. He was admitted to the Medicine service. He did not meet sepsis criteria. He was started on vancomycin and cefepime and his wound was cultured. Bilateral tibula/fibula x-rays were not consistent with osteomyelitis. General Surgery was consulted and he was seen by Dr. Ortega, who recommended outpatient wound care. He did not feel that debridement was necessary. His wound culture returned positive for gonzalez-sensitive Proteus Mirabilis. I discussed this with Dr. Sanchez (Infectious Diseases), who recommended 7 additional days of amoxicilln- clavulanate. On 04/29/2022, he was seen on morning rounds and deemed medically stable for d ischarge. He was discharged with instructions to schedule follow-up appointments with his PCP in 3-5 days and with General Surgery (Dr. Ortega) in 3-5 days for wound care. He was provided a prescription for amoxicillin-clavulanate. He was given the opportunity to ask questions and reported no further questions. Furthermore, all questions were answered to the best of my ability. Today, I personally spent 20 minutes on his case, of which greater than 50% of the time was spent in patient education, counseling, and coordination of care as described above. - Physical Exam General: Alert, In no apparent distress, Oriented x3 HEENT: Atraumatic, PERRLA, EOMI Neck: Supple, JVD not distended Respiratory: Clear to auscultation bilaterally, Normal air movement Cardiovascular: Regular rate/rhythm, Normal S1 S2, No gallops, No rubs, No murmurs, Edema (1-2+ BLE) Gastrointestinal: Normal bowel sounds, Soft and benign, Non-distended, No tenderness, No rebound, No guarding Musculoskeletal: No clubbing Integumentary: Skin breakdown, Skin lesion, Tenderness/swelling, Erythema, Warmth, Pressure ulcer, Other (laceration repair on RLE is with significant erythema, warmth, tenderness, and drainage) Neurological: Normal speech, Normal tone, Normal affect Lymphatics: No axilla or inguinal lymphadenopathy Vital Signs/Physical Exam: Temp Pulse Resp BP Pulse Ox 98.3 F 58 18 126/60 97 04/29/22 04:00 04/29/22 04:00 04/29/22 04:00 04/29/22 04:00 04/29/22 04:00 Laboratory Data at Discharge: WBC 3.80 K/uL (4.3-10.9) L 04/28/22 04:10 Hgb 8.0 g/dL (13.6-17.9) L 04/28/22 04:10 Hct 24.0 % (39.6-49.0) L 04/28/22 04:10 Plt Count 149 K/uL (152-406) L 04/28/22 04:10 PT 14.7 SECONDS (9.5-12.5) H 04/25/22 17:21 INR 1.33 04/25/22 17:21 Sodium 142 mmol/L (136-145) 04/28/22 04:10 Potassium 3.8 mmol/L (3.5-5.1) 04/28/22 04:10 BUN 30 mg/dL (7-18) H 04/28/22 04:10 Creatinine 1.77 mg/dL (0.55-1.3) H 04/28/22 04:10 Glucose 123 mg/dL (74-106) H 04/28/22 04:10 Magnesium 1.9 mg/dL (1.8-2.4) 04/25/22 14:05 Total Bilirubin 0.4 mg/dL (0.2-1.0) 04/28/22 04:10 AST 18 U/L (15-37) 04/28/22 04:10 ALT 11 U/L (12-78) L 04/28/22 04:10 Alkaline Phosphatase 53 U/L (45-117) 04/28/22 04:10 Home Medications: Apixaban [Eliquis] 5 mg PO BID 02/03/21 Metoprolol Tartrate 100 mg PO BID 02/03/21 Omeprazole 20 mg PO DAILY 02/03/21 Quetiapine Fumarate [Seroquel] 100 mg PO BEDTIME 02/03/21 Tramadol HCl [Ultram] 50 mg PO Q4HP PRN 02/03/21 Allopurinol 100 mg PO BEDTIME 06/21/21 Cholecalciferol (Vitamin D3) [Vitamin D3] 50 mcg PO DAILY 06/21/21 Hydralazine HCl [Apresoline] 50 mg PO BID 06/21/21 Insulin NPH Human Isophane [Novolin N] 55 unit SQ BID 06/21/21 NIFEdipine [Nifedipine ER] 90 mg PO DAILY 06/21/21 Triamcinolone 0.1% Crm [Kenalog 0.1% Cream*] 1 appl TOP DAILY 06/21/21 Vitamin B Complex [Vitamin B Complex*] 1 cap PO DAILY 06/21/21 Furosemide [Lasix*] 40 mg PO BIDL #60 tab 06/22/21 Spironolactone [Aldactone*] 25 mg PO DAILY #30 tab 06/22/21 Amox/Clavulanate [Augmentin 875-125 Tab] 875 mg PO BID 7 Days #14 tab 04/29/22 Collagenase [Santyl Ointment*] 1 appl TOP DAILY tube 04/29/22 New Medications: Amox/Clavulanate [Augmentin 875-125 Tab] 875 mg PO BID 7 Days #14 tab Physician Discharge Instructions: 1. Please schedule a follow-up appointment with your PCP in 3-5 days 2. Please schedule a follow-up appointment with Surgery (Dr. Ortega) in 3-5 days for wound care management Diet: [facility] Activity: Ad angélica Followup: Carlos Ortega MD [ACTIVE - CAN ADMIT] - (Follow up in wound healing, call [phone] to schedule an appointment) Time spent managing pt's care (in minutes): 20
[2022-04-29 08:16] VITALS: BP 140/52; TEMP 98.6
[2022-04-29] MEDS: VITAMIN B COMPLEX 1 CAP PO SCH (08:31)
[2022-04-29] MEDS: VITAMIN D 1000 UNIT TAB PO SCH (08:31)
[2022-04-29] MEDS: SPIRONOLACTONE 25 MG TABLET PO SCH (08:32)
[2022-04-29] MEDS: NIFEDIPINE XL 90 MG TABLET PO SCH (08:32)
[2022-04-29] MEDS: HYDRALAZINE HCL 25 MG TABLET PO SCH (08:32)
[2022-04-29] MEDS: ASPIRIN EC 81 MG TAB PO SCH (08:32)
[2022-04-29] MEDS: FUROSEMIDE 20 MG/ 2ML VIAL IV SCH (08:32)
[2022-04-29] MEDS: APIXABAN 5 MG TABLET PO SCH (08:32)
[2022-04-29] MEDS: METOPROLOL TAR 50 MG TAB PO SCH (08:32)
[2022-04-29] MEDS: TRIAMCINOLONE 0.1% CREAM 15GM TOP SCH (09:00)
[2022-04-29] MEDS: COLLAGENASE 30 GM OINTMENT TOP SCH (09:00)
[2022-04-29] MEDS: NPH (HUMAN) 100 UNITS/ML INSULIN SQ SCH (09:00)
[2022-04-29 09:39] VITALS: O2SAT 94
== END 2022-04-29 10:23 | disposition home or self-care (01) | DRG 602 ==
LOC: ER 11:19 → ERHOLD 16:17 → 4TH 04-26 17:55
PROVIDERS: ADMIT Internal Medicine; ATTEND Internal Medicine
DX: L03.116 Cellulitis of left lower limb (principal); I50.33 Acute on chronic diastolic (congestive) heart failure; Z68.43 Body mass index [BMI] 50.0-59.9, adult; I48.20 Chronic atrial fibrillation, unspecified; I13.0 Hypertensive heart and chronic kidney disease with heart failure and stage 1 through stage 4 chronic kidney disease, or unspecified chronic kidney disease; L97.919 Non-pressure chronic ulcer of unspecified part of right lower leg with unspecified severity; L03.115 Cellulitis of right lower limb; M10.9 Gout, unspecified; F32.A Depression, unspecified; E66.01 Morbid (severe) obesity due to excess calories; B96.4 Proteus (mirabilis) (morganii) as the cause of diseases classified elsewhere; E11.22 Type 2 diabetes mellitus with diabetic chronic kidney disease; N18.30 Chronic kidney disease, stage 3 unspecified; J44.9 Chronic obstructive pulmonary disease, unspecified; I83.019 Varicose veins of right lower extremity with ulcer of unspecified site; D63.1 Anemia in chronic kidney disease; I25.10 Atherosclerotic heart disease of native coronary artery without angina pectoris; Z79.01 Long term (current) use of anticoagulants; Z86.711 Personal history of pulmonary embolism; I25.2 Old myocardial infarction; Z20.822 Contact with and (suspected) exposure to COVID-19
CPT/HCPCS: 36415; 80048; 80053; 80202; 81001; 82947; 83605; 83735; 83880; 84145; 85025; 85610; 87040; 87070; 87077; 87186; 87205; 87811; 93005; 96365; 96375; 99251; 99285; J0295; J0692; J1815; J1940; J3010; J3370; J3590; J7040

== ENCOUNTER 2022-08-28 03:42 | Emergency (ER) | payer OTHER ==
--- OUTSIDE RECORDS SUMMARY | 2022-08-28 03:45 | XMS REPORT | Continuity of Care Document ---
:1955 Author Organization [facility] t Address [address] [place] [address] Care Team Providers Name Role Phone UNKNOWN, REFFERING Primary Care Physician Unavailable Ry Sanches Attending Clinician Unavailable Magdalena Prajapati Attending Clinician Unavailable Randall Attending Clinician Unavailable Matthew Cherry Attending Clinician [phone] DR LÓPEZ VERONICA Attending Clinician Unavailable Luiz Attending Clinician Unavailable LILLIANA CARRERO Attending Clinician Unavailable Physician, No Primary or Family Admitting Clinician Unavaila jena Pereira Admitting Clinician Unavailable DR LÓPEZ VERONICA Admitting Clinician Unavailable Luiz Admitting Clinician Unavailable LILLIANA CARRERO Admitting Clinician Unavailable Payers Payer Name Policy Type Policy Number Effective Date Expiration Date S ourlilia FORMERLY [facility] [id number] REGION 4 [facility] ([facility] [id number] [place]: [id number] 2014 [employer] 00:00:00 [facility] - [id number] 2015 OPTIONS 00:00:00 Problems Condition Condition Condition Status Onset Resolution Last Treating Co mments Source Name Details Category Date Date Treatment Clinician Date Urinary Urinary Problem Active [place] incontinen Incontinen 04-25 Me tro ce ce 00:00: Urology 00 Microscopi Microscopi Problem Active 2020- [place] c c 6-24 [facility] hematuria Hematuria 00:00: Urol ogy 00 Allergies, Adverse Reactions, Alerts Allergy Allergy Status Severity Reaction(s) Onset Inactive Treating Comm ents Source Name Type Date Date Clinician Sulfa DA Active SV RASH 0 [facility] (Sulfona 08-31 Clear mide 00:00: [place] Antibiot 00 [facility] erythrom DA Active SV RASH [facility] ycin 08-31 Clear base 00:00: [place] 00 [facility] simvasta DA Active U SYNCOPE [facility] tin 08-31 Clear 00:00: [place] 00 [facility] ondanset DA Active MO RASH [facility] kleber 08-31 Clear 00:00: [place] 00 [facility] Ondanset DA Active Unknown 0 [facility] kleber 09-06 Medical 00:00: [place] 00 Sulfa DA Active Unknown 0 [facility] (Sulfona 09-06 Medical mides) 00:00: [place] 00 Hmg-Coa DA Active Unknown [facility] Reductas 09-06 Medical e 00:00: [place] Inhibito 00 rs (Statins ) Erythrom DA Active Unknown 0 [facility] ycin 09-06 Medical Base 00:00: [place] 00 Biaxin Allergy Active [place] to [facility] substanc Urology e Erythrom Allergy Active [facility] to [facility] Base substanc Urology e Zocor Allergy Active [place] to [facility] sub[facility]anc Urology e Zofran Allergy [facility] e Social History Smoking Status Start Date Stop Date Source Never Smoker [facility] Ur ology Medications Ordered Filled Start Stop Current Ordering Indication Dosage Frequency Signature Comments Components Source Medication Medication Date Date Medication? Clinician (SIG) Name Name Vitamin B12 Vitamin B12 No Vitamin [place] B12 [facility] allopurinol allopurinol No 1 Q1D allopurino [place] 100 mg 100 mg l 100 mg [facility] tablet Take tablet Take tablet Urology 1 tablet 1 tablet Take 1 every day every day tablet by oral by oral every day route. route. by oral route. cholecalcif cholecalcif No cholecalci [place] keesha keesha ferol Met (vitamin (vitamin (vitamin Uro logy D3) 50 mcg D3) 50 mcg D3) 50 mcg (2,000 (2,000 (2,000 unit) unit) unit) tablet Take tablet Take tablet by oral by oral Take by route. route. oral route. Eliquis 5 Eliquis 5 No 1 BID Eliquis 5 Leon mg tablet mg tablet mg tablet [facility] Take 1 Take 1 Take 1 Urology tablet tablet tablet twice a day twice a day twice a by oral by oral day by route. route. oral route. ergocalcife ergocalcife No ergocalcif [place] rol rol keesha [facility] (vitamin (vitamin (vitamin Uro logy D2) D2) D2) furosemide furosemide No 1 Q1D furosemide [place] 40 mg 40 mg 40 mg [facility] tablet Take tablet Take tablet Urology 1 tablet 1 tablet Take 1 every day every day tablet by oral by oral every day route. route. by oral route. metoprolol metoprolol No 1 BID metoprolol [place] tartrate tartrate tartrate Met ro 100 mg 100 mg 100 mg Urology tablet Take tablet Take tablet 1 tablet 1 tablet Take 1 twice a day twice a day tablet by oral by oral twice a route. route. day by oral route. nifedipine nifedipine No 1 Q1D nifedipine [place] ER 90 mg ER 90 mg ER 90 mg Met ro tablet,exte tablet,exte tablet,ext Urology nded nded ended release release release Take 1 Take 1 Take 1 tablet tablet tablet every day every day every day by oral by oral by oral route. route. route. omeprazole omeprazole [facility]razole [facility] quetiapine quetiapine No 1 BID quetiapine [place] 100 mg 100 mg 100 mg [facility] tablet Take tablet Take tablet Urology 1 tablet 1 tablet Take 1 twice a day twice a day tablet by oral by oral twice a route. route. day by oral route. tramadol 50 tramadol 50 No 1 Q6H tramadol [place] mg tablet mg tablet 50 mg Metr o Take 1 Take 1 tablet Urology tablet tablet Take 1 every 6 every 6 tablet hours by hours by every 6 oral route. oral route. hours by oral route. vitamin B vitamin B No vitamin B [place] complex complex complex [facility] Vitamin B12 Vitamin B12 No Vitamin [place] B12 [facility] allopurinol allopurinol No 1 Q1D allopurino [place] 100 mg 100 mg l 100 mg [facility] tablet Take tablet Take tablet Urology 1 tablet 1 tablet Take 1 every day every day tablet by oral by oral every day route. route. by oral route. cholecalcif cholecalcif No cholecalci [place] keesha keesha ferol [facility] (vitamin (vitamin (vitamin Uro logy D3) 50 mcg D3) 50 mcg D3) 50 mcg (2,000 (2,000 (2,000 unit) unit) unit) tablet Take tablet Take tablet by oral by oral Take by route. route. oral route. Eliquis 5 Eliquis 5 No 1 BID Eliquis 5 [place] mg tablet mg tablet mg tablet [facility] Take 1 Take 1 Take 1 Urology tablet tablet tablet twice a day twice a day twice a by oral by oral day by route. route. oral route. ergocalcife ergocalcife No ergocalcif [place] rol rol keesha [facility] (vitamin (vitamin (vitamin Uro logy D2) D2) D2) furosemide furosemide No 1 Q1D furosemide [place] 40 mg 40 mg 40 mg [facility] tablet Take tablet Take tablet Urology 1 tablet 1 tablet Take 1 every day every day tablet by oral by oral every day route. route. by oral route. Gemtesa 75 Gemtesa 75 No 1 Q1D [place] 75 [facility] tablet mg tablet mg tablet [facility] Take 1 Take 1 Take 1 Urology tablet tablet tablet every day every day every day by oral by oral by oral route. route. route. metoprolol metoprolol No 1 BID metoprolol [place] tartrate tartrate tartrate Met ro 100 mg 100 mg 100 mg Urology tablet Take tablet Take tablet 1 tablet 1 tablet Take 1 twice a day twice a day tablet by oral by oral twice a route. route. day by oral route. nifedipine nifedipine No 1 Q1D nifedipine [place] ER 90 mg ER 90 mg ER 90 mg Met ro tablet,exte tablet,exte tablet,ext Urology nded nded ended release release release Take 1 Take 1 Take 1 tablet tablet tablet every day every day every day by oral by oral by oral route. route. route. omeprazole omeprazole No omeprazole [facility] quetiapine quetiapine No 1 BID quetiapine [place] 100 mg 100 mg 100 mg [facility] tablet Take tablet Take tablet Urology 1 tablet 1 tablet Take 1 twice a day twice a day tablet by oral by oral twice a route. route. day by oral route. tramadol 50 tramadol 50 No 1 Q6H tramadol [place] mg tablet mg tablet 50 mg Metr o Take 1 Take 1 tablet Urology tablet tablet Take 1 every 6 every 6 tablet hours by hours by every 6 oral route. oral route. hours by oral route. vitamin B vitamin B No vitamin B [place] complex complex complex [facility] Vital Signs Vital Name Observation Time Observation Value Comments Source BP Diastolic 2021-04-25 00:00:00 79 mm[Hg] [facility] Urology Height 2021-04-25 00:00:00 72 [in_i] [facility] Urology BMI (Body Mass 2021-04-25 00:00:00 56 kg/m2 [place] [facility] Index) Urology BP Systolic 2021-04-25 00:00:00 132 mm[Hg] [facility] Urology Body Weight 2021-04-25 00:00:00 413 [lb_av] [facility] Urology BP Diastolic 2021-02-16 00:00:00 79 mm[Hg] [facility] Urology Height 2021-02-16 00:00:00 72 [in_i] [facility] Urology BMI (Body Mass 2021-02-16 00:00:00 56 kg/m2 [place] [facility] Index) Urology BP Systolic 2021-02-16 00:00:00 133 mm[Hg] [facility] Urology Body Weight 2021-02-16 00:00:00 413 [lb_av] [facility] Urology Height 2020-09-06 13:06:00 182.88 CM Weight 2020-09-06 13:06:00 199.58 KG Procedures Procedure Date / Time Performing Clinician Source Performed EXCISION OF LEFT 2020-09-07 00:00:00 Kaden Med ical METATARSAL OPEN Center RPL LT FT SKN NAUTO SB 2020-09-07 00:00:[address] [facility] FULL THK EXT Center MUSCU[facility] HEENT- Cataract Surgery [facility] Urology - Circumcision [facility] Urology Cholecystectomy [facility] Urolog Plan of Care Planned Activity Planned Date Details Comments Source Diagnostic Test 2021-02-16 culture, urine + [facility] Pending 00:00:00 sensitivity [code = Urology culture, urine + sensitivity] Encounters Start End Encounter Admission Attending Care Care Encounter Source Date/Time Date/Time Type Type Clinicians Facility Department ID 2022-04-26 Inpatient EL Kocurek, [facility]YP [id number] [facility] 00:07:00 [facility] 43 [facility] 2021-10-24 Inpatient EL Kocurek, [facility] [id number] [facility] 10:01:00 [facility] 53 [facility] 2022-04-12 2022-04-25 Outpatient EL Kocurek, [facility] [id number] [facility] 09:00:00 00:00:00 [facility] 77 [facility] 2022-03-08 2022-03-25 Outpatient EL Kocurek, [facility] [id number] [facility] 09:30:00 00:00:00 [facility] 49 [facility] 2022-02-15 2022-02-22 Outpatient EL Kocurek, [facility] [id number] [facility] 09:00:00 00:00:00 [facility] 28 [facility] 2022-01-18 2022-01-23 Outpatient EL Kocurek, [facility] [id number] [facility] 09:00:00 00:00:00 [facility] 29 [facility] 2022-01-04 2022-01-04 Outpatient Kocurek, HCACL LABO [id number] [facility] 14:42:00 14:42:00 [facility] 97 [facility] 2021-12-21 2021-12-21 Outpatient EL Kocurek, [facility] [id number] [facility] 09:00:00 09:00:00 [facility] 86 [facility] 2021-10-19 2021-10-23 Inpatient EL Kocurek, [facility] [id number] [facility] 09:12:00 00:00:00 [facility] 38 [facility] 2021-09-07 2021-09-25 Inpatient EL Kocurek, [facility] [id number] [facility] 09:00:00 00:00:00 [facility] 28 [facility] 2021-09-05 2021-09-05 Inpatient Magdalena Mane [facility] ENDO [id number] [id number] [facility] 12:53:00 12:53:00 92 [facility] 2021-08-22 2021-08-25 Inpatient EL Kocurek, [facility] [id number] [facility] 09:48:00 00:00:00 Ry 82 [facility] 2021-07-25 2021-07-25 Inpatient EL Kocurek, [facility] [id number] [facility] 09:00:00 00:00:00 Ry 80 [facility] 2021-06-13 2021-06-25 Inpatient EL Kocurek, [facility] [id number] [facility] 09:30:00 00:00:00 Freddie 31 [facility] 2021-05-18 2021-05-25 Inpatient EL Brnedencurek, [facility] [id number] [facility] 14:29:00 00:00:00 Freddie 70 [facility] 2021-04-26 2021-04-26 Outpatient Ogletree_C HMU HMU [id number] [place] 01:53:00 01:53:00 [id number] [facility] 2021-04-25 2021-04-25 Outpatient Ogletree_C HMU HMU [id number] [place] 02:33:00 02:33:00 [id number] [facility] 2021-04-25 2021-04-25 Outpatient Dilip, HMU HMU [id number] 00:00:00 00:00:00 Matthew Woodruff [id number] 2021-04-25 2021-04-25 Matthew [facility] [place] [facility] [id number] [facility] 00:00:00 Isabel Juárez Urolog y : [id number] [address] , Ph. 2021-04-10 2021-04-10 Outpatient Ogletree_C HMU HMU [id number] [place] 11:54:00 11:54:00 [id number] [facility] 2021-02-28 2021-02-28 Outpatient Ogletree_C HMU HMU [id number] [place] 10:46:00 10:46:00 [id number] [facility] 2021-02-18 2021-02-18 Outpatient Ogletree_C HMU U [id number] [place] 03:25:00 03:25:00 [id number] [facility] 2021-02-16 2021-02-16 Outpatient Ogletree_C HMU HMU [id number] [place] 12:23:00 12:23:00 [id number] [facility] 2021-02-16 2021-02-16 Outpatient Dilip, HMU [id number] 00:00:00 00:00:00 Matthew Woodruff [id number] 2021-02-16 2021-02-16 Matthew [facility] [place] - [id number] [facility] 00:00:00 00:00:00 Rajnan Leon Isabel Auguste Urolog y MD: [id number] [address] , Ph. 2021-02-15 2021-02-15 Outpatient Ogletree_C [facility]U U [id number] [place] 02:05:00 02:05:00 [id number] [facility] 2021-01-27 2021-01-27 Outpatient Ogletree_C HMU U [id number] [place] 11:40:00 11:40:00 [id number] [facility] 2020-09-07 2020-09-07 Outpatient [place] VERONICA [facility] WWACU [id number] [facility] 08:08:00 13:45:[facility] 2018-03-11 2018-03-11 Outpatient YarelisDonald MMG MMG [id number] [place] 04:07:00 04:07:00 0226 [facility] Results [...] 88 Units/L 50.0-136 .0 N CBC W/AUTO [id number] 11:26:00 Test Item Value Reference Range Interpretation [...] X10 3uL 0.00-0.01 N NRBC#) GLUCOSE BEDSIDE [id number] 13:40:00 Test Item Value Reference Range Interpretation Comments GLUCOSE BEDSIDE TESTING (test code 157 mg/dL 70-110 H = GLUBED) COVID 19 INHOUSE [id number] 10:38:00 Test Item Value Reference Range Interpretation Comments COVID 19 INHOUSE AG NEGATIVE Negative Per manu facturer, (test code = negative result s should [id number]) be treated aspr esumptive and, if inconsi [...] symptoms co nsistent with COVID-19. BASIC METABOLIC [id number] 10:35:00 Test Item Value Reference Range Interpretation [...] = CA) 8.9 MG/DL 8.5-10.1 N PROTHROMBIN [id number] 10:34:00 Test Item Value Reference Range Interpretation [...] (to prevent recurrent infar ct). THROMBOPLASTIN TIME [id number] 10:34:00 Test Item Value Reference Range Interpretation Comments THROMBOPLASTIN TIME PARTIAL 43.6 SECONDS 26-35 H (test code = PTT) CBC W/AUTO [id number] 10:23:00 Test Item Value Reference Range Interpretation [...] CRITERIA = MDIFF) - XR CALCANEUS 2+V [id number] 11:30:00 [facility] 1955 Sex: M FAX: Freddie Martin [phone] Island: EM St: REG Name: LUIS MENDOZA [facility] : 1955 Age/S: 66/M [address] [facility] Unit #: [id number] Loc: [place], [place]: [place] [id number] Acct: [id number] Dis Date: Status: REG RCR PHONE #: [phone] Exam Date: 06/13/20211120 FAX #: [phone] Reason: PAIN EXAMS: CPT CODE: [id number] XR CALCANEUS 2+[place] [address] REASON FOR EXAM: Wound care, calcaneal pain. Two-view calcaneus. The calcaneus is well mineralized. Bony spurs seen at the plantar aponeurosis and minimally at the insertion of the calcaneus. No bony destructive changes, fractures or erosions. Vascular calcification seen prominently evidence small vessels. IMPRESSION: No acute abnormality at the calcaneus. Cortical margins intact with no findings of osteomyelitis. Location: U 19 at 1130 Re ported and signed by: Victor Hugo Rosales MD CC: Freddie Sanches MD Technologist: CHANCE ASTUDILLO Trninrd Date/Time/By: 06/13/2021 (1130) : By: [email or web address] PAGE 1 Signed Report FAX: Neville Martin [phone] Island: St: REG Name: LUIS MENDOZA [facility] : 1955 Age/S: 66/M [address] [facility] Unit #: [id number] Loc: [place], [place]: [place] [id number] Acct: [id number] Dis Date: Status: REG RCR PHONE #: [phone] Exam Date: 06/13/20211120 FAX #: [phone] Reason: PAIN EXAMS: CPT CODE: [id number] XR CALCANEUS 2+V RT 47192 (Continued) Orig Print D/T: S: 06/13/2021 (1133) PAGE 2 Signed [id number] 09:53:00 Test Item Value Reference Range Interpretation Comments GLUBED (test code = GLUBED) 109 mg/dL 70-110 N [id number] 10:50:00 Test Item Value Reference Range Interpretation Comments GLUBED (test code = GLUBED) 73 mg/dL 70-110 N WOUND/SKIN/ABS.&GRAMSTAIN [id number] 10:27:00 Test Item Value Reference Range Interpretation Comments Culture Observations NO GROWTH AFTER 5 (test code = COB1) DAYS Direct Exam (test code = RARE WHITE BLOOD DE1) CELLS SEEN Direct Exam (test code = NO ORGANISMS SEEN DE2) ANAEROBIC [id number] 08:20:00 Test Item Value Reference Range Interpretation Comments Culture Observations NO ANAEROBES ISOLATED (test code = COB1) AT 5 DAYS. CULTURE HELD FOR 5 DAYS ANAEROBIC [id number] 08:19:00 Test Item Value Reference Range Interpretation Comments Culture Observations NO ANAEROBES ISOLATED (test code = COB1) AT 5 DAYS. CULTURE HELD FOR 5 DAYS WOUND/SKIN/ABS.&GRAMSTAIN [id number] 09:20:00 Test Item Value Reference Range Interpretation [...] the FDA and the [employer] (CAP) are more stringent than those required for this test. Therefore, the result should be interpreted with caution and close attention to other clinical and epidemiological data GLUCOMETER GLUCOSE- LAB USE [id number] 09:00:00 Test Item Value Reference Range Interpretation Comments GLUCOMETER (test code = 135 mg/dL 70-100 H Mete r ID: GMG) [id number] tor: [id number] SUBI AZEB FRAGOSO POC Glucose, [id number] 08:04:00 Test Item Value Reference Range Interpretation Comments POC Glucose (test 119 mg/dL 70-115 H Notify RN or MDIf you code = POCGLUC) consider you r patient critically ill, the [employer] Accu-Chek InformII metershould not be used for Glucose determinations. Draw a venous Glucose and send to the Main Lab for Analysis.
--- NOTE | 2022-08-28 04:23 | EDPHYS ---
Physician Documentation [facility] Name: Shaheen Dos Santos Age: 67 yrs Sex: Male : 1955 Arrival Date: 08/28/2022 Time: 03:54 Bed 20 Private MD: ED Physician Can Pena HPI: 08/28 04:14 This 67 yrs old Male presents to ER via EMS with complaints of fall out of the [facility] bed, left forearm pain. 04:14 The patient or guardian complains of decreased range of motion, a laceration. The the [facility] complaints affect the left antecubital area, dorsal aspect of left forearm, left elbow and palmar aspect of left forearm. Context: The problem was sustained at home, resulted from a fall, bed. Onset: The symptoms/episode began/occurred just prior to arrival. Treatment prior to arrival includes: no previous treatment. Modifying factors: The symptoms are alleviated by nothing. the symptoms are aggravated by nothing. Severity of symptoms: At their worst the symptoms were mild, in the emergency department the symptoms are unchanged. The patient has experienced similar episodes in the past, several times. Historical: - Allergies: 04:00 Bactrim; as6 04:00 Erythromycin; as6 04:00 Zocor; as6 04:00 Zofran; as6 - Home Meds: 04:00 Eliquis Oral [Active]; as6 - PMHx: 04:00 CHF; COPD; Diabetes - IDDM; DVT; GERD; Gout; Hypertension; IVC filter; Myocardial as6 infarction; PE; RENAL FAILURE; - Immunization history:: Client reports receiving the 2nd dose of the Covid vaccine, pfizer Flu vaccine is not up to date. - Social history:: Smoking status: Patient denies any tobacco usage or history of. - Family history:: not pertinent. ROS: 04:14 Constitutional: Negative for fever, chills, and weight loss, Eyes: Negative for injury, carmen pain, redness, and discharge, ENT: Negative for injury, pain, and discharge, Neck: Negative for injury, pain, and swelling, Cardiovascular: Negative for chest pain, palpitations, and edema, Respiratory: Negative for shortness of breath, cough, wheezing, and pleuritic chest pain, Abdomen/GI: Negative for abdominal pain, nausea, vomiting, diarrhea, and constipation, Back: Negative for injury and pain, : Negative for injury, bleeding, discharge, and swelling, Skin: Negative for injury, rash, and discoloration, Neuro: Negative for headache, weakness, numbness, tingling, and seizure, Psych: Negative for depression, anxiety, suicide ideation, homicidal ideation, and hallucinations, Allergy/Immunology: Negative for hives, rash, and allergies, Endocrine: Negative for neck swelling, polydipsia, polyuria, polyphagia, and marked weight changes, Hematologic/Lymphatic: Negative for swollen nodes, abnormal bleeding, and unusual bruising. 04:14 MS/extremity: Positive for injury or acute deformity, of the left antecubital area, dorsal aspect of left forearm, left elbow and palmar aspect of left forearm. Exam: 04:14 Constitutional: This is a well developed, well nourished patient who is awake, alert, carmen and in no acute distress. Head/Face: Normocephalic, atraumatic. Eyes: Pupils equal round and reactive to light, extra-ocular motions intact. Lids and lashes normal. Conjunctiva and sclera are non-icteric and not injected. Cornea within normal limits. Periorbital areas with no swelling, redness, or edema. ENT: Nares patent. No nasal discharge, no septal abnormalities noted. Tympanic membranes are normal and external auditory canals are clear. Oropharynx with no redness, swelling, or masses, exudates, or evidence of obstruction, uvula midline. Mucous membranes moist. Neck: Trachea midline, no thyromegaly or masses palpated, and no cervical lymphadenopathy. Supple, full range of motion without nuchal rigidity, or vertebral point tenderness. No Meningismus. Chest/axilla: Normal chest wall appearance and motion. Nontender with no deformity. No lesions are appreciated. Cardiovascular: Regular rate and rhythm with a normal S1 and S2. No gallops, murmurs, or rubs. Normal PMI, no JVD. No pulse deficits. Respiratory: Lungs have equal breath sounds bilaterally, clear to auscultation and percussion. No rales, rhonchi or wheezes noted. No increased work of breathing, no retractions or nasal flaring. Abdomen/GI: Soft, non-tender, with normal bowel sounds. No distension or tympany. No guarding or rebound. No evidence of tenderness throughout. Back: No spinal tenderness. No costovertebral tenderness. Full range of motion. Male : Normal genitalia with no discharge or lesions. Skin: Warm, dry with normal turgor. Normal color with no rashes, no lesions, and no evidence of cellulitis. MS/ Extremity: Pulses equal, no cyanosis. Neurovascular intact. Full, normal range of motion. Neuro: Awake and alert, GCS 15, oriented to person, place, time, and situation. Cranial nerves II-XII grossly intact. Motor strength 5/5 in all extremities. Sensory grossly intact. Cerebellar exam normal. Normal gait. Psych: Awake, alert, with orientation to person, place and time. Behavior, mood, and affect are within normal limits. Vital Signs: 03:58 BP 113 / 47; Pulse 67; Resp 19 A; Temp 98.4(O); Pulse Ox 94% on R/A; Weight 165.11 kg as6 (R); Height 6 ft. 0 in. (182.88 cm) (R); Pain 9/10; 03:58 Body Mass Index 49.37 (165.11 kg, 182.88 cm) as6 MDM: 03:55 Patient medically screened. carmen 04:19 Differential diagnosis: dislocation, closed fracture, contusion. Data reviewed: vital carmen signs, nurses notes, radiologic studies, plain films. Data interpreted: visual supervisor: rate is 67 beats/min, rhythm is regular. Test interpretation: by ED physician or midlevel provider: plain radiologic studies. Counseling: I had a detailed discussion with the patient and/or guardian regarding: the historical points, exam findings, and any diagnostic results supporting the discharge/admit diagnosis, radiology results, the need for outpatient follow up, for definitive care, a family practitioner. 08/28 04:02 Order name: Elbow Left 3 View XRAY as6 08/28 04:02 Order name: Forearm Left XRAY as6 08/28 04:11 Order name: Ice pack; Complete Time: 05:02 carmen Administered Medications: 05:02 Drug: Neosporin ([id number]) Ointment 1 application Route: Topical; as6 Site: affected area; 05:02 Follow up: Response: No adverse reaction as6 Disposition Summary: 08/28/22 04:22 Discharge Ordered Location: Home carmen Problem: new carmen Symptoms: have improved carmen Condition: Stable carmen Diagnosis - Fall (on) (from) other stairs and steps - bed carmen - Laceration without foreign body of left forearm carmen Followup: carmen - With: Private Physician - When: 2 - 3 days - Reason: Recheck today's complaints, Continuance of care, Re-evaluation by your physician Discharge Instructions: - Discharge Summary Sheet carmen - Contusion carmen - Skin Tear carmen - Contusion, [id number] carmen - Skin Tear, [id number] carmen - Fall Prevention in Hospitals, Adult carmen Forms: - Medication Reconciliation Form carmen - Thank You Letter carmen - Antibiotic Education carmen - Prescription Opioid Use carmen Signatures: Dispatcher [employer] EDCan Woodall MD MD cha Slawson, Ashby, RN RN as6
--- NOTE | 2022-08-28 04:23 | ER ---
Nurse's Notes [facility] Name: Shaheen Dos Santos Age: 67 yrs Sex: Male : 1955 Arrival Date: 08/28/2022 Time: 03:54 Bed 20 Private MD: Diagnosis: Fall (on) (from) other stairs and steps-bed;Laceration without foreign body of left forearm Presentation: 08/28 03:58 Chief complaint: EMS states: pt was in bed and was turning and rolled on the floor. pt as6 c/o left arm/elbow pain. Coronavirus screen: At this time, the client does not indicate any symptoms associated with coronavirus-19. Ebola Screen: No symptoms or risks identified at this time. Initial Sepsis Screen: Does the patient meet any 2 criteria? No. Patient's initial sepsis screen is negative. Does the patient have a suspected source of infection? No. Patient's initial sepsis screen is negative. Risk Assessment: Do you want to hurt yourself or someone else? Patient reports no desire to harm self or others. Onset of symptoms was August 28, 2022. 03:58 Method Of Arrival: EMS: [facility] as6 03:58 Acuity: SAMINA 4 as6 Historical: - Allergies: 04:00 Bactrim; as6 04:00 Erythromycin; as6 04:00 Zocor; as6 04:00 Zofran; as6 - Home Meds: 04:00 Eliquis Oral [Active]; as6 - PMHx: 04:00 CHF; COPD; Diabetes - IDDM; DVT; GERD; Gout; Hypertension; IVC filter; Myocardial as6 infarction; PE; RENAL FAILURE; - Immunization history:: Client reports receiving the 2nd dose of the Covid vaccine, pfizer Flu vaccine is not up to date. - Social history:: Smoking status: Patient denies any tobacco usage or history of. - Family history:: not pertinent. Screenin:26 [facility] ED Fall Risk Assessment (Adult) History of falling in the last 3 months, as6 including since admission Yes- single mechanical fall (1 pt) Confusion or Disorientation No (0 pts) Intoxicated or Sedated No (0 pts) Impaired Gait Yes (1 pt) Mobility Assist Device Used No (0 pt) Altered Elimination No (0 pt) Score/Fall Risk Level 0 - 2 = Low Risk. Abuse screen: Denies threats or abuse. Denies injuries from another. Nutritional screening: No deficits noted. Tuberculosis screening: No symptoms or risk factors identified. Assessment: 04:00 General: Appears in no apparent distress. Behavior is calm, cooperative. General: as6 Appears obese. Pain: Complains of pain in left arm. Neuro: Level of Consciousness is awake, alert, obeys commands, Oriented to person, place, time, situation. Cardiovascular: Capillary refill < 3 seconds Patient's skin is warm and dry. Respiratory: Respiratory effort is even, unlabored, Respiratory pattern is regular, symmetrical. Derm: Wound noted dorsal aspect of left forearm Wound is skin tear. 04:34 General: discharge pending transportation . as6 Vital Signs: 03:58 BP 113 / 47; Pulse 67; Resp 19 A; Temp 98.4(O); Pulse Ox 94% on R/A; Weight 165.11 kg as6 (R); Height 6 ft. 0 in. (182.88 cm) (R); Pain 9/10; 03:58 Body Mass Index 49.37 (165.11 kg, 182.88 cm) as6 ED Course: 03:54 Patient arrived in ED. mw2 03:55 Can Pena MD is Attending Physician. [facility] 03:58 Jae Mata, RUBENS is Primary Nurse. as6 04:00 Triage completed. as6 04:01 Arm band placed on. as6 04:01 Bed in low position. Call light in reach. Side rails up X2. Adult w/ patient. as6 04:23 Elbow Left 3 View XRAY In Process Unspecified. EDMS 04:23 Forearm Left XRAY In Process Unspecified. EDMS 04:26 No provider procedures requiring assistance completed. Patient did not have IV access as6 during this emergency room visit. 05:03 Dressings: Kerlix X 1; dorsal aspect of left forearm non-adherent dressing x 2 dorsal as6 aspect of left forearm. Administered Medications: 05:02 Drug: Neosporin ([id number]) Ointment 1 application Route: Topical; as6 Site: affected area; 05:02 Follow up: Response: No adverse reaction as6 Medication: 04:26 VIS not applicable for this client. as6 Outcome: 04:22 Discharge ordered by . carmen 05:02 Discharged to home via ambulance. as6 05:02 Condition: stable 05:02 Discharge instructions given to patient, significant other, Instructed on discharge instructions, follow up and referral plans. wound care, Demonstrated understanding of instructions, follow-up care, wound care. 05:03 Patient left the ED. as6 Signatures: Dispatcher [employer] EDCan Woodall MD MD cha Gatti, Sabrina mw2 Jae Mata, RN RN as6
[2022-08-28 05:13] VITALS: BP 113/47; TEMP 98.4; O2SAT 94
--- NOTE | 2022-08-28 12:42 | RAD REPORT ---
EXAM DESCRIPTION: RAD - Forearm Left - 08/28/2022 4:21 am CLINICAL HISTORY: The patient is 67 years old and is Male; PAIN TECHNIQUE: Frontal and 2 oblique views of the left elbow. Frontal and lateral views of the left forearm. COMPARISON: No relevant prior studies available. FINDINGS: BONES/JOINTS: For this, there is subtle cortical irregularity involving the coronoid pr ocess of the left ulna, possibly reflecting a nondisplaced fracture. Otherwise, no acute osseous abnormality of the left elbow or forearm. Evaluation for left elbow joint effusion is degraded due to lack of true lateral view. No dislocation. SOFT TISSUES: Unremarkable. VASCULATURE: Vascular calcifications. IMPRESSION: 1. Subtle cortical irregularity involving the coronoid process of the left ulna, possibl y reflecting a nondisplaced fracture. Correlation with point tenderness recommended. Consider further characterization by true lateral view of the left elbow to evaluate for left elbow joint effusion or better characterize the left coronoid process. 2. Otherwise, no acute osseous abnormality of the left elbow or forearm. Electronically signed by: Sean Moralez MD 08/28/2022 4:40 AM CASH APPLICATIONS SPECIALIST Due to temporary technical issues with the PACS/Fluency reporting system, reports are being signed by the in house radiologists without review as a courtesy to insure prompt reporting. The interpreting radiologist is fully responsible for the content of the report.
--- NOTE | 2022-08-28 12:51 | RAD REPORT ---
EXAM DESCRIPTION: RAD - Elbow Left 3 View - 08/28/2022 4:21 am CLINICAL HISTORY: The patient is 67 years old and is Male; PAIN TECHNIQUE: Frontal and 2 oblique views of the left elbow. Frontal and lateral views of the left forearm. COMPARISON: No relevant prior studies available. FINDINGS: BONES/JOINTS: For this, there is subtle cortical irregularity involving the coronoid pr ocess of the left ulna, possibly reflecting a nondisplaced fracture. Otherwise, no acute osseous abnormality of the left elbow or forearm. Evaluation for left elbow joint effusion is degraded due to lack of true lateral view. No dislocation. SOFT TISSUES: Unremarkable. VASCULATURE: Vascular calcifications. IMPRESSION: 1. Subtle cortical irregularity involving the coronoid process of the left ulna, possibl y reflecting a nondisplaced fracture. Correlation with point tenderness recommended. Consider further characterization by true lateral view of the left elbow to evaluate for left elbow joint effusion or better characterize the left coronoid process. 2. Otherwise, no acute osseous abnormality of the left elbow or forearm. Electronically signed by: Sean Moralez MD 08/28/2022 4:40 AM C[employer] COMPLIANCE SPECIALIST Due to temporary technical issues with the PACS/Fluency reporting system, reports are being signed by the in house radiologists without review as a courtesy to insure prompt reporting. The interpreting radiologist is fully responsible for the content of the report.
== END 2022-08-28 05:03 | disposition home or self-care (01) ==
LOC: ER 03:42
DX: S51.812A Laceration without foreign body of left forearm, initial encounter (principal); W06.XXXA Fall from bed, initial encounter; Z88.1 Allergy status to other antibiotic agents; Z88.3 Allergy status to other anti-infective agents; Z88.8 Allergy status to other drugs, medicaments and biological substances
CPT/HCPCS: 99283

== ENCOUNTER 2022-09-15 06:42 | Inpatient (IN) | payer OTHER ==
--- OUTSIDE RECORDS SUMMARY | 2022-09-15 06:46 | XMS REPORT | Continuity of Care Document ---
:1955 Author Organization [facility] t Address [address] [place] [address] Care Team Providers Name Role Phone UNKNOWN, REFFERING Primary Care Physician Unavailable Ry Sanches Attending Clinician Unavailable Magdalena Prajapati Attending Clinician Unavailable Randall Attending Clinician Unavailable Matthew Cherry Attending Clinician [phone] DR LÓPEZ VERONICA Attending Clinician Unavailable Luiz Attending Clinician Unavailable LILLIANA CARRERO Attending Clinician Unavailable Physician, No Primary or Family Admitting Clinician Unavaila jena Pereira Admitting Clinician Unavailable DR LÓPEZ VERONICA Admitting Clinician Unavailable Luiz Admitting Clinician Unavailable LILLIANA CARRERO Admitting Clinician Unavailable Payers Payer Name Policy Type Policy Number Effective Date Expiration Date S ourlilia FORMERLY [facility] [id number] REGION 4 [facility] ([facility]) [id number] [place]: [id number] 2014 [employer] 00:00:00 [facility] - [id number] 2015 OPTIONS 00:00:00 Problems Condition Condition Condition Status Onset Resolution Last Treating Co mments Source Name Details Category Date Date Treatment Clinician Date Urinary Urinary Problem Active [facility] incontinen Incontinen 8 Me tro ce ce 00:00: Urology 00 Microscopi Microscopi Problem Active 2020- [place] c 6-24 [facility] hematuria Hematuria 00:00: Urol ogy 00 Allergies, Adverse Reactions, Alerts Allergy Allergy Status Severity Reaction(s) Onset Inactive Treating Comm ents Source Name Type Date Date Clinician Sulfa DA Active SV RASH 0 [facility] (Sulfona 08-31 Clear mide 00:00: [place] Antibiot 00 [facility] erythrom DA Active SV RASH [facility] ycin 08-31 Clear base 00:00: [place] 00 [facility] simvasta DA Active U SYNCOPE [facility] tin 08-31 Clear 00:00: [place] 00 [facility] ondanset DA Active MO RASH [facility] kleber 08-31 Clear 00:00: [place] 00 [facility] Ondanset DA Active Unknown 0 [facility] kleber 09-06 Medical 00:00: [place] 00 Sulfa DA Active Unknown [facility] (Sulfona 09-06 Medical mides) 00:00: [place] 00 Hmg-Coa DA Active Unknown [facility] Reductas 09-06 Medical e 00:00: [place] Inhibito 00 rs (Statins ) Erythrom DA Active Unknown 0 [facility] ycin 09-06 Medical Base 00:00: [place] 00 Biaxin Allergy Active [facility] substanc Urology e Erythrom Allergy Active [facility] to [facility] Base substanc Urology e Zocor Allergy Active [facility] Urology e Zofran Allergy Active [facility] Urology e Social History Smoking Status Start Date Stop Date Source Never Smoker [facility] Medications Ordered Filled Start Stop Current Ordering Indication Dosage Frequency Signature Comments Components Source Medication Medication Date Date Medication? Clinician (SIG) Name Name Gemtesa 75 Gemtesa 75 No 1 Q1D Gemtesa 75 [place] mg tablet mg tablet mg tablet [facility] Take 1 Take 1 Take 1 Urology tablet tablet tablet every day every day every day by oral by oral by oral route. route. route. metoprolol metoprolol No 1 BID metoprolol [facility] tartrate tartrate tartrate Met ro 100 mg 100 mg 100 mg Urology tablet Take tablet Take tablet 1 tablet 1 tablet Take 1 twice a day twice a day tablet by oral by oral twice a route. route. day by oral route. nifedipine nifedipine No 1 Q1D nifedipine [facility] ER 90 mg ER 90 mg ER 90 mg Met ro tablet,exte tablet,exte tablet,ext Urology nded nded ended release release release Take 1 Take 1 Take 1 tablet tablet tablet every day every day every day by oral by oral by oral route. route. route. omeprazole omeprazole [facility] quetiapine quetiapine No 1 BID quetiapine [facility] 100 mg 100 mg 100 mg [facility] tablet Take tablet Take tablet Urology 1 tablet 1 tablet Take 1 twice a day twice a day tablet by oral by oral twice a route. route. day by oral route. tramadol 50 tramadol 50 No 1 Q6H tramadol [facility] mg tablet mg tablet 50 mg Metr o Take 1 Take 1 tablet Urology tablet tablet Take 1 every 6 every 6 tablet hours by hours by every 6 oral route. oral route. hours by oral route. vitamin B vitamin B No vitamin B [facility] Vitamin B12 Vitamin B12 No Vitamin [facility] allopurinol allopurinol No 1 Q1D allopurino [facility] 100 mg 100 mg l 100 mg [facility] tablet Take tablet Take tablet Urology 1 tablet 1 tablet Take 1 every day every day tablet by oral by oral every day route. route. by oral route. cholecalcif cholecalcif No cholecalci [facility] keesha keesha ferol [facility] (vitamin (vitamin (vitamin [...] route. oral route. ergocalcife ergocalcife No ergocalcif [facility] rol rol keesha [facility] (vitamin (vitamin (vitamin Uro logy D2) D2) D2) furosemide furosemide No 1 Q1D furosemide [facility] 40 mg 40 mg 40 mg [facility] tablet Take tablet Take tablet Urology 1 tablet 1 tablet Take 1 every day every day tablet by oral by oral every day route. route. by oral route. metoprolol metoprolol No 1 BID metoprolol [facility] tartrate tartrate tartrate Met ro 100 mg 100 mg 100 mg Urology tablet Take tablet Take tablet 1 tablet 1 tablet Take 1 twice a day twice a day tablet by oral by oral twice a route. route. day by oral route. nifedipine nifedipine No 1 Q1D nifedipine [facility] ER 90 mg ER 90 mg ER 90 mg Met ro tablet,exte tablet,exte tablet,ext Urology nded nded ended release release release Take 1 Take 1 Take 1 tablet tablet tablet every day every day every day by oral by oral by oral route. route. route. omeprazole omeprazole No omeprazole [facility] quetiapine quetiapine No 1 BID quetiapine [facility] 100 mg 100 mg 100 mg [facility] tablet Take tablet Take tablet Urology 1 tablet 1 tablet Take 1 twice a day twice a day tablet by oral by oral twice a route. route. day by oral route. tramadol 50 tramadol 50 No 1 Q6H tramadol [facility] mg tablet mg tablet 50 mg Met[facility] o Take 1 Take 1 tablet Urology tablet tablet Take 1 every 6 every 6 tablet hours by hours by every 6 oral route. oral route. hours by oral route. vitamin B vitamin B No vitamin B [facility] complex complex complex [facility] Vitamin B12 Vitamin B12 No Vitamin [facility] B12 [facility] allopurinol allopurinol No 1 Q1D allopurino [facility] 100 mg 100 mg l 100 mg [facility] tablet Take tablet Take tablet Urology 1 tablet 1 tablet Take 1 every day every day tablet by oral by oral every day route. route. by oral route. cholecalcif cholecalcif No cholecalci [facility] keesha keesha ferol [facility] (vitamin (vitamin (vitamin [...] route. oral route. ergocalcife ergocalcife No ergocalcif [facility] rol rol keesha [facility] (vitamin (vitamin (vitamin Uro logy D2) D2) D2) furosemide furosemide No 1 Q1D furosemide [facility] 40 mg 40 mg 40 mg [facility] tablet Take tablet Take tablet Urology 1 tablet 1 tablet Take 1 every day every day tablet by oral by oral every day route. route. by oral route. Vital Signs Vital Name Observation Time Observation Value Comments Source BP Diastolic 2021-04-25 00:00:00 79 mm[Hg] [facility] Height 2021-04-25 00:00:00 72 [in_i] [facility] BMI (Body Mass 2021-04-25 00:00:00 56 kg/m2 [place] [facility] Index) Urology BP Systolic 2021-04-25 00:00:00 132 mm[Hg] [facility] Body Weight 2021-04-25 00:00:00 413 [lb_av] [facility] BP Diastolic 2021-02-16 00:00:00 79 mm[Hg] [facility] Height 2021-02-16 00:00:00 72 [in_i] [facility] BMI (Body Mass 2021-02-16 00:00:00 56 kg/m2 [place] [facility] Index) Urology BP Systolic 2021-02-16 00:00:00 133 mm[Hg] [facility] Body Weight 2021-02-16 00:00:00 413 [lb_av] [facility] Height 2020-09-06 13:06:00 182.88 CM Weight 2020-09-06 13:06:00 199.58 KG Procedures Procedure Date / Time Performing Clinician Source Performed EXCISION OF LEFT 2020-09-07 00:00:00 Kaden Med ical METATARSAL OPEN Center RPL LT FT SKN NAUTO SB 2020-09-07 00:00:00 Asha [facility] FULL THK EXT Center MUSCU- Foot Surgery [facility] HEENT- Cataract Surgery [facility] U[facility] - Circumcision [facility] Cholecystectomy [facility] Plan of Care Planned Activity Planned Date Details Comments Source Diagnostic Test 2021-02-16 culture, urine + [facility] Pending 00:00:00 sensitivity [code = Urology culture, urine + sensitivity] Encounters Start End Encounter Admission Attending Care Care Encounter Source Date/Time Date/Time Type Type Clinicians Facility Department ID 2022-04-26 Inpatient EL Kocurek, [facility] [id number] [facility] 00:07:00 [facility] 43 [facility] 2021-10-24 Inpatient EL Kocurek, [facility] [id number] [facility] 10:01:00 [facility] 53 [facility] 2022-04-12 2022-04-25 Outpatient EL Kocurek, [facility] [id number] [facility] 09:00:00 00:00:00 [facility] 77 [facility] 2022-03-08 2022-03-25 Outpatient EL Kocurek, [facility] [id number] [facility] 09:30:00 00:00:00 [facility] 49 [facility] 2022-02-15 2022-02-22 Outpatient EL Kocurek, [facility] [id number] [facility] 09:00:00 00:00:00 [facility] 28 [facility] 2022-01-18 2022-01-23 Outpatient EL Kocurek, [facility] [id number] [facility] 09:00:00 00:00:00 [facility] 29 [facility] 2022-01-04 2022-01-04 Outpatient Kocurek, HCACL LABO [id number] [facility] 14:42:00 14:42:00 [facility] 97 [facility] 2021-12-21 2021-12-21 Outpatient EL Kocurek, [facility] [id number] [facility] 09:00:00 09:00:00 [facility] 86 [facility] 2021-10-19 2021-10-23 Inpatient EL Kocurek, [facility] [id number] [facility] 09:12:00 00:00:00 [facility] 38 [facility] 2021-09-07 2021-09-25 Inpatient EL Kocurek, [facility] [id number] [facility] 09:00:00 00:00:00 [facility] 28 [facility] 2021-09-05 2021-09-05 Inpatient Magdalena Mane [facility] ENDO [id number] [facility] 12:53:00 12:53:00 92 [facility] 2021-08-22 2021-08-25 Inpatient EL Kocurek, [facility] [id number] [facility] 09:48:00 00:00:00 Ry 82 [facility] 2021-07-25 2021-07-25 Inpatient EL Kocurek, [facility] [id number] [facility] 09:00:00 00:00:00 Ry 80 [facility] 2021-06-13 2021-06-25 Inpatient EL Kocurek, [facility] [id number] [facility] 09:30:00 00:00:00 Freddie 31 [facility] 2021-05-18 2021-05-25 Inpatient EL Brendencurek, [facility] [id number] [facility] 14:29:00 00:00:00 Freddie 70 [facility] 2021-04-26 2021-04-26 Outpatient Ogletree_C HMU HMU [id number] [facility] 01:53:00 01:53:00 [id number] [facility] 2021-04-25 2021-04-25 Outpatient Ogletree_C HMU HMU [id number] [facility] 02:33:00 02:33:00 [id number] [facility] 2021-04-25 2021-04-25 Outpatient Dilip, HMU HMU [id number] 00:00:00 00:00:00 Matthew Woodruff [id number] 2021-04-25 2021-04-25 Matthew [facility] [place] [id number] [facility] 00:00:00 Isabel Juárez Urolog y : [id number] [address] , Ph. 2021-04-10 2021-04-10 Outpatient Ogletree_C HMU HMU [id number] [facility] 11:54:00 11:54:00 [id number] [facility] 2021-02-28 2021-02-28 Outpatient Ogletree_C HMU HMU [id number] [facility] 10:46:00 10:46:00 [id number] [facility] 2021-02-18 2021-02-18 Outpatient Ogletree_C HMU U [id number] [facility] 03:25:00 03:25:00 [id number] [facility] 2021-02-16 2021-02-16 Outpatient Ogletree_C HMU HMU [id number] [facility] 12:23:00 12:23:00 [id number] [facility] 2021-02-16 2021-02-16 Outpatient Dilip, HMU [id number] 00:00:00 00:00:00 Matthew Woodruff [id number] 2021-02-16 2021-02-16 Matthew [facility] [place] [facility] [id number] [facility] 00:00:00 00:00:00 Ranjan Leon Isabel Auguste Urolog y MD: [id number] [address] , Ph. 2021-02-15 2021-02-15 Outpatient Ogletree_C HMU U [id number] [facility] 02:05:00 02:05:00 [id number] [facility] 2021-01-27 2021-01-27 Outpatient Ogletree_C HMU U [id number] [facility] 11:40:00 11:40:00 [id number] [facility] 2020-09-07 2020-09-07 Outpatient [place] VERONICA [facility] [id number] [facility] 08:08:00 [facility]45[facility] 2018-03-11 2018-03-11 Outpatient YarelisDonald MMG MMG [id number] [place] 04:07:00 04:07:00 0226 [facility] [...] 88 Units/L 50.0-136 .0 N CBC W/AUTO [id number] 11:26:00 Test Item Value Reference Range Interpretation [...] X10 3uL 0.00-0.01 N NRBC#) GLUCOSE BEDSIDE [id number] 13:40:00 Test Item Value Reference Range Interpretation Comments GLUCOSE BEDSIDE TESTING (test code 157 mg/dL 70-110 H = GLUBED) COVID 19 INHOUSE [id number] 10:38:00 Test Item Value Reference Range Interpretation Comments COVID 19 INHOUSE AG NEGATIVE Negative Per manu facturer, (test code = negative result s should [id number]) be treated aspr esumptive and, if inconsi [...] symptoms co nsistent with COVID-19. BASIC METABOLIC [id number] 10:35:00 Test Item Value Reference Range Interpretation [...] = CA) 8.9 MG/DL 8.5-10.1 N PROTHROMBIN [id number] 10:34:00 Test Item Value Reference Range Interpretation [...] (to prevent recurrent infar ct). THROMBOPLASTIN TIME [id number] 10:34:00 Test Item Value Reference Range Interpretation Comments THROMBOPLASTIN TIME PARTIAL 43.6 SECONDS 26-35 H (test code = PTT) CBC W/AUTO [id number] 10:23:00 Test Item Value Reference Range Interpretation [...] CRITERIA = MDIFF) - XR CALCANEUS 2+V [id number] 11:30:00 [facility] : 1955 Sex: M FAX: Freddie Martin [phone] [place]: EM St: REG Name: LUIS [facility]END[facility] : 1955 Age/S: 66/M [address] [facility] Unit #: [id number] Loc: [place], [place]: [place] [id number] Acct: [id number] Dis Date: Status: REG RCR PHONE #: [phone] Exam Date: 06/13/20211120 FAX #: [phone] Reason: PAIN EXAMS: CPT CODE: [id number] XR CALCANEUS 2+[place] [id number] REASON FOR EXAM: Wound care, calcaneal pain. [...] CC: Freddie Sanches MD Technologist: CHANCE ASTUDILLO [place] Date/Time/By: 06/13/2021 (1130) : By: [email or web address] PAGE 1 Signed Report FAX: Neville Martin [phone] [place]: St: REG Name: LUIS MENDO[facility] : 1955 Age/S: 66/M [address] [facility] Unit #: [id number] Loc: [place], [place]: [place] [id number] Acct: [id number] Dis Date: Status: REG RCR PHONE #: [phone] Exam Date: 06/13/20211120 FAX #: [phone] Reason: PAIN EXAMS: CPT CODE: [id number] XR CALCANEUS 2+V [place] [id number] (Continued) Orig Print D/T: S: 06/13/2021 (1133) PAGE 2 Signed [id number] 09:53:00 Test Item Value Reference Range Interpretation Comments GLUBED (test code = GLUBED) 109 mg/dL 70-110 N [id number] 10:50:00 Test Item Value Reference Range Interpretation Comments GLUBED (test code = GLUBED) 73 mg/dL 70-110 N WOUND/SKIN/ABS.&GRAMSTAIN [id number] 10:27:00 Test Item Value Reference Range Interpretation Comments Culture Observations NO GROWTH AFTER 5 (test code = COB1) DAYS Direct Exam (test code = RARE WHITE BLOOD DE1) CELLS SEEN Direct Exam (test code = NO ORGANISMS SEEN DE2) ANAEROBIC [id number] 08:20:00 Test Item Value Reference Range Interpretation Comments Culture Observations NO ANAEROBES ISOLATED (test code = COB1) AT 5 DAYS. CULTURE HELD FOR 5 DAYS ANAEROBIC [id number] 08:19:00 Test Item Value Reference Range Interpretation Comments Culture Observations NO ANAEROBES ISOLATED (test code = COB1) AT 5 DAYS. CULTURE HELD FOR 5 DAYS WOUND/SKIN/ABS.&GRAMSTAIN [id number] 09:20:00 Test Item Value Reference Range Interpretation [...] the FDA and the [employer] the [place] (CAP) are more stringent than those required for this test. Therefore, the result should be interpreted with caution and close attention to other clinical and epidemiological data GLUCOMETER GLUCOSE- LAB USE [id number] 09:00:00 Test Item Value Reference Range Interpretation Comments GLUCOMETER (test code = 135 mg/dL 70-100 H Mete r ID: GMG) [id number] tor: [id number] SUBI AZEB FRAGOSO POC Glucose, [id number] 08:04:00 Test Item Value Reference Range Interpretation Comments POC Glucose (test 119 mg/dL 70-115 H Notify RN or MDIf you code = POCGLUC) consider you r patient critically ill, the [employer] Accu-Chek InformII metershould not be used for Glucose determinations. Draw a venous Glucose and send to the Main Lab for Analysis.
[2022-09-15 07:19] LABS: Absolute Lymphocytes (CBC) 1.2 K/uL (0.7-4.9); Hematocrit 25.5 % (39.6-49.0); Lymphocytes % 20.7 % (15.3-44.8); MCV 91.8 fL (80-100); MPV 6.8 fL (7.6-11.3); RBC Red Blood Cell Count 2.78 M/uL (4.33-5.43)
[2022-09-15] MEDS ORDERED: PROMETHAZINE INJ 25 MG/ML AMP ONE (07:28)
[2022-09-15] MEDS ORDERED: FENTANYL CITR 100 MCG/2 ML ONE (07:29)
[2022-09-15] MEDS ORDERED: NA CHLORIDE 0.9% 500 ML ONE (07:30)
[2022-09-15 07:39] LABS: Albumin 1.9 g/dL (3.4-5.0); Bilirubin Total 0.4 mg/dL (0.2-1.0); Potassium 4.1 mmol/L (3.5-5.1); Protein, Total 9.4 g/dL (6.4-8.2)
--- NOTE | 2022-09-15 07:48 | RAD REPORT ---
EXAM DESCRIPTION: RAD - Chest Single View - 09/15/2022 7:35 am CLINICAL HISTORY: COUGH, fall with chest trauma COMPARISON: Portable 06/21/2021 TECHNIQUE: AP portable chest image was obtained 09/15/2022 7:35 am . FINDINGS: Lung volumes are low, further reduced from an already low lung volume seen on the comparis on study. No peripheral mass, consolidation or suspicion for pulmonary contusion. Heart, vasculature and lung markings are accentuated by large body habitus and shallow inspiration. A minimal failure or volume overload could be masked. No significant pulmonary edema. No measurable pleural effusion and no pneumothorax. No acute bony abnormality seen. No acute aortic findings suspected. IMPRESSION: Limited portable study without acute cardiopulmonary finding.
--- NOTE | 2022-09-15 08:19 | RAD REPORT ---
EXAM DESCRIPTION: CT - Head C Spine Cap Wo Con - 09/15/2022 8:01 am CLINICAL HISTORY: weakness, fall, head, neck, chest and abdomen pain COMPARISON: No comparisons TECHNIQUE: Axial [address] head images were obtained. Axial [address] cervical spine images were obtain ed with sagittal and coronal reconstruction images reviewed. Axial 5 mm images of the chest, abdomen and pelvis were obtained without IV contrast. Sagittal and coronal reconstruction of the chest, abdo men and pelvis performed. Oral contrast: None All CT scans are performed using dose optimization technique as appropriate and may include automated exposure control or mA/KV adjustment according to patient size. FINDINGS: No intracranial hemorrhage, mass or edema. No midline shift or abnormal fluid collection. Mastoid air cells and paranasal sinuses are clear. No skull fracture. CT cervical spine shows normal height and alignment. No fracture or acute finding. No disc space narr owing. Central canal detail is inherently limited. Innumerable small bilateral lymph nodes are seen in the soft tissues of the neck. These are in the duarte perficial and deeper soft tissues. A pharyngeal mass is not identified. Epiglottis is normal. No tons il enlargement. Patient is mostly edentulous with numerous teeth lost from the mandible and maxilla. Condyles of the intact mandible are normally positioned. No pneumothorax, pulmonary contusion or acute lung parenchymal process seen. There is a small left pl eural effusion present. No rib fractures are identifiable. Aorta and pulmonary artery assessment is l imited in the absence of contrast. Mediastinal hematoma is not seen. No pericardial effusion. Patient has numerous large and bulky axillary lymph nodes. Numerous subpectoral lymph nodes are present as w ell. Mediastinal and hilar regions are filled with multiple lobulated and bulky lymph nodes. No traumatic injury to the liver identified. Splenomegaly is present. A primary pancreatic process is not suspected. Pancreatic detail was limited. Cholecystectomy clips are present. No biliary tree dil atation. No acute bowel injury is suspected. No acute urinary bladder finding. No free air or pneumat osis. Patient has innumerable variably sized mesenteric lymph nodes and large bulky periaortic/pericaval ly mph nodes. Large confluent mass of lymph nodes noted along each inguinal chain in the pelvis measurin g approximately 13 x 6 cm on the right and 12 x 5 cm on the left. Numerous bulky inguinal lymph nodes are present as well. Disc and bone degenerative changes are present. No acute pathologic or posttraumatic bone process see n. IMPRESSION: Patient has a very extensive abnormal lymphadenopathy pattern that extends from the top of the neck to the inguinal canals. No history of malignancy detailed. Lymphoma would be a primary co nsideration. No hemorrhage, edema or acute traumatic CT Head finding. No acute posttraumatic change to the cervical spine. Degenerative changes are mild for age. No traumatic injury to the chest. No traumatic injury to the bowel or solid abdominal viscera. No free fluid or other indication of sig nificant traumatic injury.
--- NOTE | 2022-09-15 08:44 | RAD REPORT ---
EXAM DESCRIPTION: US - Extrem Venous W Compress Reji - 09/15/2022 8:37 am CLINICAL HISTORY: PAIN, history of PE and placement of IVC filter COMPARISON: None. TECHNIQUE: Real-time sonographic evaluation of the bilateral lower extremity common femoral, superfi cial femoral, popliteal and posterior tibial veins was performed. FINDINGS: Normal compressibility, flow augmentation, phasic flow and spontaneous flow are identified in the left and right lower extremity common femoral, superficial femoral, popliteal and posterior t ibial veins. No intraluminal filling defects seen. Exam was limited and difficult to perform due to body habitus affects and level of patient pain. IMPRESSION: No DVT identifiable in either lower extremity.
[2022-09-15 09:28] LABS: Anisocytosis 1+; Blood Morphology Comment NOTED (NOT SEEN); Platelet Estimate ADEQ
--- NOTE | 2022-09-15 11:33 | EDPHYS ---
Physician Documentation [facility] Name: Shaheen Dos Santos Age: 67 yrs Sex: Male : 1955 Arrival Date: 09/15/2022 Time: 06:44 Bed 4 Private MD: ED Physician Stepan Dao HPI: 09/15 06:58 This 67 yrs old Male presents to ER via EMS with complaints of Fall Injury. carmen 06:58 Details of fall: The patient fell from an upright position. Onset: The symptoms/episode carmen began/occurred just prior to arrival. Associated injuries: The patient sustained left hand, laceration, 3.5 cm(s). Severity of symptoms: At their worst the symptoms were mild, in the emergency department the symptoms are unchanged. The patient has not experienced similar symptoms in the past. Historical: - Allergies: 06:59 Bactrim; lg3 06:59 Erythromycin; lg3 06:59 Zocor; lg3 06:59 Zofran; lg3 - Home Meds: 06:59 nifedipine 60 mg Oral TbER 1 tab once daily [Active]; Allopurinol Oral [Active]; lg3 Eliquis Oral [Active]; Metoprolol Tartrate Oral [Active]; gabapentin 300 mg oral cap 1 cap 3 times per day [Active]; acyclovir 400 mg Oral tab 1 tab 2 times per day [Active]; - PMHx: 06:59 CHF; COPD; Diabetes - IDDM; DVT; GERD; Gout; Hypertension; IVC filter; Myocardial lg3 infarction; PE; RENAL FAILURE; - Immunization history: Last tetanus immunization: - up to date. < 5 years ago. - Social history:: Smoking status: Patient denies any tobacco usage or history of. Patient/guardian denies using alcohol, street drugs. - Family history:: not pertinent. ROS: 06:58 Constitutional: Negative for fever, chills, and weight loss, Eyes: Negative for injury, carmen pain, redness, and discharge, ENT: Negative for injury, pain, and discharge, Neck: Negative for injury, pain, and swelling, Cardiovascular: Negative for chest pain, palpitations, and edema, Respiratory: Negative for shortness of breath, cough, wheezing, and pleuritic chest pain, Abdomen/GI: Negative for abdominal pain, nausea, vomiting, diarrhea, and constipation, Back: Negative for injury and pain, : Negative for injury, bleeding, discharge, and swelling, Skin: Negative for injury, rash, and discoloration, Neuro: Negative for headache, weakness, numbness, tingling, and seizure, Psych: Negative for depression, anxiety, suicide ideation, homicidal ideation, and hallucinations, Allergy/Immunology: Negative for hives, rash, and allergies, Endocrine: Negative for neck swelling, polydipsia, polyuria, polyphagia, and marked weight changes, Hematologic/Lymphatic: Negative for swollen nodes, abnormal bleeding, and unusual bruising. 06:58 MS/extremity: Positive for pain, of the left hand. Exam: 06:58 Constitutional: This is a well developed, well nourished patient who is awake, alert, carmen and in no acute distress. Head/Face: Normocephalic, atraumatic. Eyes: Pupils equal round and reactive to light, extra-ocular motions intact. Lids and lashes normal. Conjunctiva and sclera are non-icteric and not injected. Cornea within normal limits. Periorbital areas with no swelling, redness, or edema. ENT: Nares patent. No nasal discharge, no septal abnormalities noted. Tympanic membranes are normal and external auditory canals are clear. Oropharynx with no redness, swelling, or masses, exudates, or evidence of obstruction, uvula midline. Mucous membranes moist. Neck: Trachea midline, no thyromegaly or masses palpated, and no cervical lymphadenopathy. Supple, full range of motion without nuchal rigidity, or vertebral point tenderness. No Meningismus. Chest/axilla: Normal chest wall appearance and motion. Nontender with no deformity. No lesions are appreciated. Cardiovascular: Regular rate and rhythm with a normal S1 and S2. No gallops, murmurs, or rubs. Normal PMI, no JVD. No pulse deficits. Respiratory: Lungs have equal breath sounds bilaterally, clear to auscultation and percussion. No rales, rhonchi or wheezes noted. No increased work of breathing, no retractions or nasal flaring. Abdomen/GI: Soft, non-tender, with normal bowel sounds. No distension or tympany. No guarding or rebound. No evidence of tenderness throughout. Back: No spinal tenderness. No costovertebral tenderness. Full range of motion. Male : Normal genitalia with no discharge or lesions. Neuro: Awake and alert, GCS 15, oriented to person, place, time, and situation. Cranial nerves II-XII grossly intact. Motor strength 5/5 in all extremities. Sensory grossly intact. Cerebellar exam normal. Normal gait. Psych: Awake, alert, with orientation to person, place and time. Behavior, mood, and affect are within normal limits. 06:58 ECG was reviewed by the Attending Physician. 06:58 Skin: injury, laceration(s), the wound is approximately 3.5 cm(s), with a depth of .025 cm(s), lesion(s), vesicle(s) noted, located on the left quadriceps. Vital Signs: 06:45 BP 132 / 61; Pulse 74; Resp 20; Temp 98.4; Pulse Ox 96% on R/A; Weight 165.11 kg (R); lg3 Height 6 ft. (182.88 cm) (R); Pain 9/10; 07:30 BP 152 / 56; Pulse 72; Resp 18; Pulse Ox 96% on R/A; Pain 9/10; db 11:01 BP 164 / 79; Pulse 80; Resp 16; Pulse Ox 98% on R/A; db 12:30 BP 169 / 68; Pulse 84; Resp 16; Pulse Ox 95% on R/A; db 06:45 Body Mass Index 49.37 (165.11 kg, 182.88 cm) lg3 Ayaan Coma Score: 06:45 Eye Response: spontaneous(4). Verbal Response: oriented(5). Motor Response: obeys lg3 commands(6). Total: 15. Trauma Score (Adult): 06:45 Eye Response: spontaneous(1); Verbal Response: oriented(1); Motor Response: obeys lg3 commands(2); Systolic BP: > 89 mm Hg(4); Respiratory Rate: 10 to 29 per min(4); [place] Score: 15; Trauma Score: 12 MDM: 06:48 Patient medically screened. [facility] 07:03 Differential diagnosis: abrasion, contusion, laceration, sprain, strain. Data reviewed: [facility] vital signs, nurses notes, lab test result(s), CBC, electrolytes, hepatic panel, EKG, radiologic studies, plain films. Consideration of Admission/Observation Patient was admitted/placed on observation. Escalation of care including admission/observation considered. Independent interpretation of the following test(s) in the Emergency Department X-Ray: My interpretation is cough. Test considered but Not performed: X-ray: xray hand. Care significantly affected by the following chronic conditions: Diabetes, Hypertension, Congestive Heart Failure, Obesity, Liver Disease. 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 . Counseling: I had a detailed discussion with the patient and/or guardian regarding: the historical points, exam findings, and any diagnostic results supporting the discharge/admit diagnosis, lab results, radiology results, the need for further work-up and treatment in the hospital. Response to treatment: the patient's symptoms have mildly improved after treatment, and as a result, I will admit patient. ED course: Pt with neg traumatic w/u, attempted to get him up and ambulate, could not even sit up, fell back in bed, concerned with inability to care for him at home as patient > 400 pounds and she cannot lift him or care for him. + worsening renal function on labs. Most likely over medicated and gabapentin just recently increased. Will admit to hospitalist service for further care and evaluation.. 09/15 06:48 Order name: CBC with Diff; Complete Time: 11:43 [facility] 09/15 06:48 Order name: Comprehensive Metabolic Panel; Complete Time: 08:17 [facility] 09/15 06:48 Order name: Troponin High Sensitivity; Complete Time: 08:17 [facility] 09/15 07:23 Order name: AMMONIA; Complete Time: 08:17 [facility] 09/15 07:23 Order name: Urine Microscopic Only [facility] 09/15 09:28 Order name: Manual Differential; Complete Time: 11:43 [facility] 09/15 06:48 Order name: Chest Single View XRAY; Complete Time: 08:17 [facility] 09/15 07:23 Order name: CT Traumagram (Head C Spine CAP wo con); Complete Time: 08:23 [facility] 09/15 07:23 Order name: US Extremity Venous W Compression Reji; Complete Time: 08:53 [facility] 09/15 11:45 Order name: Glucose, Ancillary Testing [facility] 09/15 12:32 Order name: SARS RAPID eb 09/15 06:48 Order name: Wound Care; Complete Time: 07:17 carmen 09/15 06:48 Order name: EKG; Complete Time: 06:48 carmen 09/15 06:48 Order name: EKG - Nurse/Tech; Complete Time: 07:17 carmen EC:58 Rate is 73 beats/min. Rhythm is regular. QRS [place] is Normal. MA interval is prolonged carmen at 250 msec. QRS interval is normal. QT interval is normal. No Q waves. T waves are Normal. No ST changes noted. Clinical impression: NSR w/ Non-specific ST/T Changes, 1st degree heart block, and No evidence of ischemia. Interpreted by me. Reviewed by me. Administered Medications: 07:39 Drug: fentaNYL (PF) 25 mcg Route: IVP; Site: right antecubital; db 09:59 Follow up: Response: Pain is decreased db 07:39 Drug: Phenergan (promethazine) 12.5 mg Route: IVP; Site: right antecubital; db 09:59 Follow up: Response: No adverse reaction; Nausea is decreased db 07:40 Drug: NS 0.9% 500 ml Route: IV; Rate: bolus; Site: right antecubital; db 08:30 Follow up: Response: No adverse reaction; IV Status: Completed infusion; IV Intake: db 500ml 07:55 Drug: fentaNYL (PF) 25 mcg Route: IVP; Site: right antecubital; db 09:59 Follow up: Response: No adverse reaction; Pain is decreased db Disposition Summary: 09/15/22 11:32 Hospitalization Ordered Hospitalization Status: Observation rn Condition: Stable rn Problem: new rn Symptoms: are unchanged rn Bed/Room Type: Standard rn Provider: Haroon Dao(09/15/22 11:33) rn Location: Telemetry/MedSurg (Inpatient)(09/15/22 13:01) aa5 Room Assignment: [facility](09/15/22 13:01) aa5 Diagnosis - Fall on same level, unspecified rn - Muscle weakness (generalized) rn - Dehydration rn - 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 Instructions: - Discharge Summary Sheet carmen - Laceration Care, Adult carmen - Obesity, Adult carmen - Shingles carmen - Weakness carmen - Shingles, [id number] carmen - Laceration Care, Adult, [id number] carmen - Weakness, [id number]-[id number] carmen - Deconditioning carmen Forms: - Medication Reconciliation Form rn - SBAR form rn Signatures: Dispatcher [employer] EDAmaris Elizabeth, RN RN Can Castaneda MD MD cha Nieto, Roman, MD MD rn Calderon, Audri, RN RN aa5 Mery Ferrell, RN RN lg3 Lakia Hood, RN RN db Corrections: (The following items were deleted from the chart) 08:03 07:20 Head C Spine MPR Wo Con+CT.RAD.BRZ ordered. EDDC EDDC 11:33 11:32 Victor Hugo Cui rn rn 12:40 11:32 kishor estrada 12:43 11:32 Telemetry/MedSurg (observation) kishor 12:43 12:40 204 dw 13: 12:43 [facility] ER HOLD aa5 13: 12:43 aa5
--- NOTE | 2022-09-15 11:33 | ER ---
Nurse's Notes [facility] Name: Shaheen Dos Santos Age: 67 yrs Sex: Male : 1955 Arrival Date: 09/15/2022 Time: 06:44 Bed 4 Private MD: Diagnosis: Fall on same level, unspecified;Muscle weakness (generalized);Dehydration;Acute kidney injury Presentation: 09/15 06:45 Chief complaint: EMS states: mechanical fall from standing position. denies LOC or lg3 hitting head. skin tear to left hand noted. Care prior to arrival: None. Mechanism of Injury: Fall from standing position. Trauma event details: Injury occurred in the [facility], Injury occurred: at home. Injury occurred: September 15, 2022 Injury occurred at: 06:00. 06:45 Acuity: SAMINA 2 lg3 06:45 Method Of Arrival: EMS: [facility] lg3 06:59 Coronavirus screen: Client denies travel out of the [place] in the last 14 days. At this lg3 time, the client does not indicate any symptoms associated with coronavirus-19. Ebola Screen: No symptoms or risks identified at this time. Initial Sepsis Screen: Does the patient meet any 2 criteria? No. Patient's initial sepsis screen is negative. Does the patient have a suspected source of infection? No. Patient's initial sepsis screen is negative. Risk Assessment: Do you want to hurt yourself or someone else? Patient reports no desire to harm self or others. Onset of symptoms was September 15, 2022. Trauma Activation: Physician: ED Physician; Name: Jean; Notified At: 06:40; Arrived At: Physician: General Surgeon; Name: ; Notified At: 06:40; Arrived At: Physician: Radiology; Name: ; Notified At: 06:40; Arrived At: Physician: Respiratory; Name: ; Notified At: 06:40; Arrived At: Physician: Lab; Name: ; Notified At: 06:40; Arrived At: Historical: - Allergies: 06:59 Bactrim; lg3 06:59 Erythromycin; lg3 06:59 Zocor; lg3 06:59 Zofran; lg3 - Home Meds: 06:59 nifedipine 60 mg Oral TbER 1 tab once daily [Active]; Allopurinol Oral [Active]; lg3 Eliquis Oral [Active]; Metoprolol Tartrate Oral [Active]; gabapentin 300 mg oral cap 1 cap 3 times per day [Active]; acyclovir 400 mg Oral tab 1 tab 2 times per day [Active]; - PMHx: 06:59 CHF; COPD; Diabetes - IDDM; DVT; GERD; Gout; Hypertension; IVC filter; Myocardial lg3 infarction; PE; RENAL FAILURE; - Immunization history: Last tetanus immunization: - up to date. < 5 years ago. - Social history:: Smoking status: Patient denies any tobacco usage or history of. Patient/guardian denies using alcohol, street drugs. - Family history:: not pertinent. Screenin:45 Abuse screen: Denies threats or abuse. Denies injuries from another. Tuberculosis lg3 screening: No symptoms or risk factors identified. 07:02 [facility] ED Fall Risk Assessment (Adult) History of falling in the last 3 months, lg3 including since admission Yes- single mechanical fall (1 pt) Confusion or Disorientation No (0 pts) Intoxicated or Sedated No (0 pts) Impaired Gait Yes (1 pt) Mobility Assist Device Used Yes (1 pt) Altered Elimination No (0 pt) Score/Fall Risk Level 3 or more points = High Risk Oriented to surroundings, Maintained a safe environment, Educated pt \T\ family on fall prevention, incl call for assistance when getting out of bed, Assessed \T\ reinforced patient's understanding of fall precautions, Provided non-skid footwear, Utilized family, sitter, or virtual art educator as indicated. Nutritional screening: No deficits noted. Primary Survey: :45 NO uncontrolled hemorrhage observed. A: The client is awake and alert. The airway is lg3 patent. The client responds to verbal stimuli. Airway: patent. Breathing/Chest: Spontaneous respiratory effort, equal unlabored respirations, breath sounds clear bilaterally, regular pattern, symmetrical chest rise and fall. Respiratory effort: spontaneous, unlabored, Respiratory pattern: regular. Circulation: No external hemorrhage present. Regular and strong central pulse, skin warm/dry/normal color. Disability Pupils are equal, round, reactive to light and accommodation. Client is alert. Client responds to verbal stimuli. Exposure/Environment: All clothing and personal items were removed. Forensic evidence collection is not deemed to be indicated at this time. Items placed in patient belonging bag. A warming method has been applied: A warm blanket has been provided to the patient. 13:39 Reassessment Breathing: Spontaneous respiratory effort, equal unlabored respirations, db breath sounds clear bilaterally, regular pattern with symmetrical chest rise and fall. Respiratory effort Spontaneous. Assessment: 06:45 General: Appears in no apparent distress. comfortable, Behavior is calm, cooperative. lg3 Pain: Complains of pain in left hand Pain currently is 9 out of 10 on a pain scale. Neuro: No deficits noted. Bates Agitation-Sedation Scale (RASS): 0 - Alert and Calm Level of Consciousness is awake, alert, obeys commands, Oriented to person, place, time, situation. EENT: No deficits noted. No signs and/or symptoms were reported regarding the EENT system. Cardiovascular: No deficits noted. Denies chest pain, lightheadedness. Respiratory: No deficits noted. Airway is patent Trachea midline Respiratory effort is even, unlabored, Respiratory pattern is regular, symmetrical. GI: No deficits noted. Abdomen is round non-distended, obese. : No deficits noted. No signs and/or symptoms were reported regarding the genitourinary system. Derm: Wound noted left hand and left knee. Musculoskeletal: Circulation, motion, and sensation intact. Swelling present in right leg and left leg Reports pain in buttocks. 06:55 General: Appears in no apparent distress. comfortable, obese, well groomed, well pf1 developed, Behavior is calm, cooperative, appropriate for age, quiet. 06:55 Pain: Complains of pain in left leg and left knee and left hand Pain currently is 9 out pf1 of 10 on a pain scale. Neuro: No deficits noted. Level of Consciousness is awake, alert, obeys commands, Oriented to person, place, time, situation. Cardiovascular: No deficits noted. Denies chest pain, lightheadedness. Respiratory: No deficits noted. Airway is patent Trachea midline Respiratory effort is even, unlabored, Respiratory pattern is regular, symmetrical. GI: No deficits noted. Abdomen is round non-distended, obese. : No deficits noted. No signs and/or symptoms were reported regarding the genitourinary system. EENT: No deficits noted. No signs and/or symptoms were reported regarding the EENT system. Derm: Wound noted left hand 6cm x 3cm skin tear patient has shingles noted to left leg. 07:40 Reassessment: Patient appears in no apparent distress at this time. Patient and/or db family updated on plan of care and expected duration. Pain level reassessed. Patient is alert, oriented x 3, equal unlabored respirations, skin warm/dry/pink. PATIENT TO CT. AT BEDSIDE. General: Appears in no apparent distress. comfortable, Behavior is calm, cooperative. Neuro: Level of Consciousness is awake, alert, 07:50 Reassessment: CT STAFF CALLED FOR ASSIST HELP TO HELP MOVE PATIENT ONTO CT TABLE. db 08:30 Reassessment: Patient appears in no apparent distress at this time. No changes from db previously documented assessment. Patient and/or family updated on plan of care and expected duration. Pain level reassessed. Patient is alert, oriented x 3, equal unlabored respirations, skin warm/dry/pink. 09:00 Reassessment: Patient appears in no apparent distress at this time. No changes from db previously documented assessment. Patient and/or family updated on plan of care and expected duration. Pain level reassessed. Patient is alert, oriented x 3, equal unlabored respirations, skin warm/dry/pink. 10:00 Reassessment: Patient appears in no apparent distress at this time. Patient and/or db family updated on plan of care and expected duration. Pain level reassessed. Patient is alert, oriented x 3, equal unlabored respirations, skin warm/dry/pink. PATIENT RESTING. AT BEDSIDE. 11:01 Reassessment: Patient appears in no apparent distress at this time. Patient and/or db family updated on plan of care and expected duration. Pain level reassessed. Patient is alert, oriented x 3, equal unlabored respirations, skin warm/dry/pink. PATIENT RESTING. DENIES COMPLAINT AT THIS TIME Patient denies pain at this time. 11:20 Reassessment: PATIENT ASSISTED UP STATES UPON SITTING UP WAS DIZZY. PATIENT TOO WEAK TO db GET TO THE EDGE OF THE BED AND STAND. NOTIFIED DR. DAO. 11:36 Reassessment: GLUCOSE 99. db 12:30 Reassessment: Patient appears in no apparent distress at this time. No changes from db previously documented assessment. Patient and/or family updated on plan of care and expected duration. Pain level reassessed. Patient is alert, oriented x 3, equal unlabored respirations, skin warm/dry/pink. FAMILY AT BEDSIDE. Vital Signs: 06:45 BP 132 / 61; Pulse 74; Resp 20; Temp 98.4; Pulse Ox 96% on R/A; Weight 165.11 kg (R); lg3 Height 6 ft. (182.88 cm) (R); Pain 9/10; 07:30 BP 152 / 56; Pulse 72; Resp 18; Pulse Ox 96% on R/A; Pain 9/10; db 11:01 BP 164 / 79; Pulse 80; Resp 16; Pulse Ox 98% on R/A; db 12:30 BP 169 / 68; Pulse 84; Resp 16; Pulse Ox 95% on R/A; db 06:45 Body Mass Index 49.37 (165.11 kg, 182.88 cm) lg3 Ayaan Coma Score: 06:45 Eye Response: spontaneous(4). Verbal Response: oriented(5). Motor Response: obeys lg3 commands(6). Total: 15. Trauma Score (Adult): 06:45 Eye Response: spontaneous(1); Verbal Response: oriented(1); Motor Response: obeys lg3 commands(2); Systolic BP: > 89 mm Hg(4); Respiratory Rate: 10 to 29 per min(4); [place] Score: 15; Trauma Score: 12 ED Course: 06:44 Patient arrived in ED. wm 06:45 Can Pena MD is Attending Physician. carmen 06:45 Patient has correct armband on for positive identification. Placed in gown. Bed in low lg3 position. Call light in reach. Side rails up X2. Family accompanied patient. Client placed on continuous cardiac and pulse oximetry monitoring. NIBP monitoring applied. school lunch monitor on. 06:45 Patient maintains SpO2 saturation greater than 95% on room air. Thermoregulation: warm lg3 blanket given to patient. 06:47 Triage completed. lg3 06:59 Arm band placed on left wrist. lg3 07:04 Lakia Hood RN is Primary Nurse. db 07:05 Inserted saline lock: 20 gauge in right antecubital area, using aseptic technique. pf1 Blood collected. 07:10 Dressings: non-adherent dressing x 1 left hand 4X4s with gauze wrap. pf1 07:17 Troponin High Sensitivity Sent. pf1 07:17 Comprehensive Metabolic Panel Sent. pf1 07:17 CBC with Diff Sent. pf1 07:35 Attending Physician role handed off by Can Pena MD rn 07:35 Stepan Dao MD is Attending Physician. rn 07:37 Chest Single View XRAY In Process Unspecified. EDMS 07:40 Warm blanket given. db 07:40 Flushed right antecubital saline lock. db 08:03 CT Traumagram (Head C Spine CAP wo con) In Process Unspecified. EDMS 08:31 US Extremity Venous W Compression Reji Sent. bp 08:39 US Extremity Venous W Compression Reji In Process Unspecified. EDMS 11:32 Victor Hugo Cui MD is Hospitalizing Provider. rn 11:33 Haroon Dao MD is Hospitalizing Provider. rn 13:05 No provider procedures requiring assistance completed. Patient admitted, IV remains in aa5 place. Administered Medications: 07:39 Drug: fentaNYL (PF) 25 mcg Route: IVP; Site: right antecubital; db 09:59 Follow up: Response: Pain is decreased db 07:39 Drug: Phenergan (promethazine) 12.5 mg Route: IVP; Site: right antecubital; db 09:59 Follow up: Response: No adverse reaction; Nausea is decreased db 07:40 Drug: NS 0.9% 500 ml Route: IV; Rate: bolus; Site: right antecubital; db 08:30 Follow up: Response: No adverse reaction; IV Status: Completed infusion; IV Intake: db 500ml 07:55 Drug: fentaNYL (PF) 25 mcg Route: IVP; Site: right antecubital; db 09:59 Follow up: Response: No adverse reaction; Pain is decreased db Medication: 13:40 VIS not applicable for this client. db Intake: 08:30 IV: 500ml; Total: 500ml. db Outcome: 11:32 Decision to Hospitalize by Provider. rn 13:05 Admitted to Med/surg accompanied by tech, via stretcher, with oxygen, with chart, aa5 Report called to RUBENS Vu 13:05 Condition: stable 13:05 Instructed on the need for admit, Demonstrated understanding of instructions. 13:06 Patient left the ED. aa5 Signatures: Dispatcher [employer] EDTN Can Pena MD MD cha Nieto, Roman, MD MD rn Kohli, Leona, RN RN aa5 Oswaldo Garcia, RN RN bp Mery Ferrell, RN RN lg3 Traci Mariano Danielle, RN RN db Celeste diamond RN RN pf1 Corrections: (The following items were deleted from the chart) 11:36 11:35 Reassessment: PATIENT ASSISTED UP STATES UPON SITTING UP WAS DIZZY. PATIENT TOO db WEAK TO GET TO THE EDGE OF THE BED AND STAND. NOTIFIED DR. LAUREN bee
[2022-09-15] MEDS ORDERED: ONDANSETRON 4 MG/2 ML VIAL IV PRN (12:42)
[2022-09-15 13:14] LABS: SARS-CoV-2 Antigen Rapid Res Negative (Negative)
[2022-09-15] MEDS: D5 0.9 NS 1,000 ML IV SCH (14:22)
--- NOTE | 2022-09-15 14:49 | RAD REPORT ---
EXAM DESCRIPTION: RAD - Abdomen 1 View (KUB) - 09/15/2022 2:41 pm CLINICAL HISTORY: ABD pain COMPARISON: Head C Spine Cap Wo Con dated 09/15/2022 FINDINGS: Nonobstructive bowel gas pattern. No acute osseous abnormality.Visualized lungs are unrema rkable.No abnormal calcifications. IVC filter. Surgical clips in the right upper quadrant. IMPRESSION: Nonobstructive bowel gas pattern.
[2022-09-15 14:52] VITALS: BMI 48.2
[2022-09-15] MEDS ORDERED: HEPARIN 5000 UNIT/ML 1 ML VIAL SQ SCH (17:00)
--- NOTE | 2022-09-15 17:05 | P.HP ---
Certification for Inpatient Patient admitted to: Observation With expected LOS: <2 Midnights Patient will require the following post-hospital care: None Practitioner: I am a practitioner with admitting privileges, knowledge of patient current condition, hospital course, and medical plan of care. Services: Services provided to patient in accordance with Admission requirements found in Title 42 Section 412.3 of the Code of Federal Regulations Patient History Date of Service: 09/15/22 Reason for admission: AMS, Fall History of Present Illness: Patient is a 67-year-old male with a past medical history significant for CHF, COPD, DM2, GERD, hypertension, gout, [place], PE who presents with complaint of fall, AMS and left leg shingle. Patient was evaluated in the ER, with at bedside. Patient is alert and oriented x3 but very lethargic, and slow to respond. Per , patient developed shingles to his left lower extremity, and was prescribed gabapentin to help with the pain. stated that patient's confusion started after taking his gabapentin on Saturday, he was also prescribed steroids, tramadol and Tylenol. On Saturday, he started to become weaker with associated symptoms of dizziness and increased altered mental status. This morning he went to use the bathroom, and was having a hard time getting off the toilet. The and the son attempted to get him up but patient slid down on the floor. reports that patient had 3 falls this past year. When ambulating he uses a walker. She also reports shortness of breath on exertion. And patient cannot lay flat. She also reported loss between 75 to 100 pounds last year due to decreased appetite. No injuries were sustained. Per , patient developed a laceration resulting to the EMS handling her . Patient denies any other signs and symptoms. Symptoms are aggravated or relieved by nothing. Allergies erythromycin base Allergy (Verified 02/03/21 14:29) Nausea/Vomiting ondansetron [From Zofran] Allergy (Verified 02/03/21 14:29) Nausea/Vomiting simvastatin Allergy (Verified 02/03/21 14:29) Nausea/Vomiting sulfamethoxazole [From Bactrim] Allergy (Verified 02/03/21 14:29) Nausea/Vomiting trimethoprim [From Bactrim] Allergy (Verified 02/03/21 14:29) Nausea/Vomiting Home Medications: Apixaban [Eliquis] 5 mg PO BID 02/03/21 Metoprolol Tartrate 100 mg PO BID 02/03/21 Omeprazole 20 mg PO DAILY 02/03/21 Quetiapine Fumarate [Seroquel] 100 mg PO BEDTIME 02/03/21 Tramadol HCl [Ultram] 50 mg PO BID 02/03/21 Allopurinol 100 mg PO BEDTIME 06/21/21 Cholecalciferol (Vitamin D3) [Vitamin D3] 50 mcg PO DAILY 06/21/21 Hydralazine HCl [Apresoline] 50 mg PO BID 06/21/21 Insulin NPH Human Isophane [Novolin N] 55 unit SQ BID 06/21/21 NIFEdipine [Nifedipine ER] 90 mg PO DAILY 06/21/21 Triamcinolone 0.1% Crm [Kenalog 0.1% Cream*] 1 appl TOP DAILY 06/21/21 Vitamin B Complex [Vitamin B Complex*] 1 cap PO DAILY 06/21/21 Spironolactone [Aldactone*] 25 mg PO DAILY #30 tab 06/22/21 Furosemide [Lasix*] 60 mg PO DAILY 05/17/22 - Past Medical/Surgical History Has patient received pneumonia vaccine in the past: Yes Diabetic: Yes -: Diabetes mellitus type 2 -: CHFunknown EF -: COPD -: 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 -: CKD 3 -: MRSA -: [place] -: Left foot surgery -: IVC filter -: Cholecystectomy Psychosocial/ Personal History: Patient lives at home with his - Family History Mother -: Diabetes Sister -: Cancer - Social History Smoking Status: Never smoker Alcohol use: No CD- Drugs: No Caffeine use: Yes Place of Residence: Home Review of Systems General: Weakness Respiratory: Shortness of Breath, SOB with Excertion Physical Examination - Vital Signs Temperature: 98.3 F Blood Pressure: 148/72 Pulse: 86 Respirations: 20 Pulse Ox (%): 97 - Physical Exam General: Alert, Oriented x3, Other (Lethargic) HEENT: Atraumatic, Normocephalic, PERRLA Neck: Supple, 2+ carotid pulse no bruit Respiratory: Diminished Cardiovascular: Edema Capillary refill: <2 Seconds Gastrointestinal: Normal bowel sounds, Tenderness Musculoskeletal: Swelling Integumentary: Skin breakdown, Skin lesion, Erythema, Warmth Neurological: Other (Lethargic) - Studies Laboratory Data (last 24 hrs) 09/15/22 07:10: Sodium 137, Potassium 4.1, BUN 59 H, Creatinine 2.37 H, Glucose 120 H, Total Bilirubin 0.4, AST 21, ALT 11 L, Alkaline Phosphatase 64 09/15/22 07:10: WBC 5.70, Hgb 8.3 L, Hct 25.5 L, Plt Count 161 Assessment and Plan - Plan Assessment AMS with hx of falls Shingle to LLE BLE Cellulitis Hx afib CKD3 DM2 HTN Hx MA Gout COPD CHF ABD pain Plan -AMS with hx of falls- most likely drug related, continue to monitor, hold Gabapentin or any sedating drugs -Left leg shingle- Wound and blood cultures pending --Bilateral lower extremity cellulitis- wound culture pending, patient has a history of venous stasis ulcer. Wound care consult initiated --History of PE. Patient has an IVC filter in place. Continue Eliquis. --hx of Afib. Continue eliquis. Telemetry to monitor --CKD 3- continue to monitor renal functions. --DM2- BS monitoring with sliding scale insulin, Carb control diet --HTN- Stable, resume home medications --Hx of MA- Continue aspirin and Eliquis --Gout-Resume allopurinol when appropriate --COPD- Stable, continue neb treatment as needed. --CHF- Contiue Lasix, Daily weight and strict I/O. Continue supportive care -ABD pain- CT/pelvis and KUB negative -- DVT prophylaxis with Eliquis. Discharge Plan: Home Plan to discharge in: 48 Hours - Advance Directives Does patient have a Living Will: No Does patient have a Durable POA for Healthcare: No - Code Status/Comfort Care Code Status Assessed: Yes (Full code) Critical Care: No Time Spent Managing Pts Care (In Minutes): 50
[2022-09-15] MEDS: FUROSEMIDE 20 MG TABLET PO SCH (17:12)
[2022-09-15] MEDS: ACETAMINOPHEN 500 MG TAB PO PRN (17:12)
[2022-09-15 20:40] LABS: Albumin 1.7 g/dL (3.4-5.0); Bilirubin Direct 0.2 mg/dL (0-0.2); Bilirubin Total 0.4 mg/dL (0.2-1.0); Protein, Total 8.6 g/dL (6.4-8.2)
[2022-09-15] MEDS: APIXABAN 5 MG TABLET PO SCH (20:53)
[2022-09-15] MEDS: METOPROLOL TARTRATE 5 MG/5 ML INJ IV PRN (20:54)
[2022-09-16] MEDS: ACETAMINOPHEN 500 MG TAB PO PRN ×2 (04:09→12:55)
[2022-09-16] MEDS: D5 0.9 NS 1,000 ML IV SCH ×2 (04:10→21:02)
[2022-09-16 06:22] LABS: Absolute Lymphocytes (CBC) 1.1 K/uL (0.7-4.9); Hematocrit 24.3 % (39.6-49.0); Lymphocytes % 22.2 % (15.3-44.8); MCV 91.1 fL (80-100); MPV 7.2 fL (7.6-11.3); RBC Red Blood Cell Count 2.67 M/uL (4.33-5.43)
[2022-09-16 07:13] LABS: C-Reactive Protein 32.4 mg/L (<3.00); Carcinoembryonic Antigen 0.9 ng/mL (0-5.0); Magnesium 1.9 mg/dL (1.6-2.4); Phosphorus 3.4 mg/dL (2.5-4.9); Potassium 4.2 mmol/L (3.5-5.1); Thyroid Stimulating Hormone 1.38 uIU/mL (0.358-3.740)
[2022-09-16 07:51] LABS: Blood Morphology Comment NOT SEEN (NOT SEEN); Platelet Estimate ADEQ; Platelets, Giant FEW
[2022-09-16] MEDS: FUROSEMIDE 20 MG TABLET PO SCH ×2 (08:23→16:53)
[2022-09-16] MEDS: ASPIRIN EC 81 MG TAB PO SCH (08:23)
[2022-09-16] MEDS: APIXABAN 5 MG TABLET PO SCH (08:23)
[2022-09-16 12:01] LABS: Urine Bilirubin NEGATIVE (Negative); Urine Blood Negative (Negative); Urine Clarity Clear (Clear); Urine Color Light-Yellow (Yellow); Urine Glucose NEGATIVE (Negative); Urine Protein NEGATIVE (Negative); Urine Urobilinogen Normal (Normal); Urine pH 5.5 (5.0-7.0)
[2022-09-16] MEDS ORDERED: PROMETHAZINE INJ 25 MG/ML AMP IV PRN (14:36)
--- NOTE | 2022-09-16 16:03 | P.PN ---
Date of Service: 09/16/22 Subjective: ROS: 10 point ROS as noted above, otherwise negative Physical exam GEN: Alert, oriented, NAD HEENT: Normal conjunctiva, sclera anicteric CV: Regular rate and rhythm, no edema Pulm: Nonlabored respirations on room air ABD: Soft, nontender, nondistended MSK: No joint tenderness Integumentary: No rashes Neuro: Normal speech, normal affect Problem List Generalized weakess, falls diffuse lymphadenopathy, unclear etiology Shingles - LLE b/l intertrigo chronic wounds h/o afib Shingles to LLE NAV on CKD3 NIDDM2 HTN Hx MD Gout COPD CHF ABD pain weakness/fall, felt to be secondary to drug use - recently prescribed gabapentin and steroids for shingles shingles improving hold gabapentin check UA diffuse lymphadenopathy unclear etiology diffuse, bulky concern for malignancy last c-scope ~1 yr ago and was reportedly normal sister with lymphoma; pt with possible chemical / oncogenic exposure in past LLE shingles - improving continue treatment, steroids intertrigo ketoconazole chronic wounds wound care consulted NAV on CKD 3 - resolved NIDDM2 - sliding scale / accucheks HTN Hx MD COPD confirm home med Code: full Dispo: home, ~2-3 days Time Spent Managing Pts Care (In Minutes): 35
[2022-09-16] MEDS ORDERED: HYDROCODONE/APAP 5/325 MG TAB PO PRN (16:34)
[2022-09-16] MEDS: KETOCONAZOLE CREAM 15 GM TUBE TOP SCH (21:00)
[2022-09-16] MEDS: QUETIAPINE 100MG TAB PO SCH (21:02)
[2022-09-16] MEDS ORDERED: GLUCAGON 1 MG/VIAL IM PRN (21:25)
[2022-09-16] MEDS ORDERED: D50W 25 GM/50 ML SYRINGE IV PRN (21:25)
[2022-09-16] MEDS ORDERED: D10W 125 ML IV PRN (21:37)
[2022-09-16] MEDS: ALBUTEROL 2.5 MG/3 ML NEB SOL NEB PRN (21:50)
[2022-09-16] MEDS: METOPROLOL TARTRATE 5 MG/5 ML INJ IV PRN (21:51)
[2022-09-17] MEDS: D5 0.9 NS 1,000 ML IV SCH (05:00)
[2022-09-17] MEDS: ALBUTEROL 2.5 MG/3 ML NEB SOL NEB PRN (05:45)
[2022-09-17 06:39] LABS: C-Reactive Protein 51.9 mg/L (<3.00); Potassium 3.7 mmol/L (3.5-5.1)
[2022-09-17] MEDS ORDERED: PROCHLORPERAZINE 5 MG TAB PO PRN (06:41)
[2022-09-17 06:43] LABS: Lymphocytes % 25.6 % (15.3-44.8); MCV 91.2 fL (80-100); MPV 7.2 fL (7.6-11.3); RBC Red Blood Cell Count 2.74 M/uL (4.33-5.43)
--- NOTE | 2022-09-17 06:46 | P.PN ---
Date of Service: 09/17/22 Subjective: 2nd degree type 1 block o/n, self-resolved, lastign ~30min afebrile feels he is more awake/alert, strength improved increased nausea, continues with shortness of breath ROS: 10 point ROS as noted above, otherwise negative Physical exam GEN: Alert, oriented, 3 HEENT: Normal conjunctiva, sclera anicteric CV: Regular rate and rhythm, b/l lower extremity edema Pulm: mild labored respirations on O2, diminished bilaterally ABD: Soft, nontender, nondistended Integumentary: LLE: healed lesions following dermatome, no drainage (+shingles) Neuro: Normal speech, normal affect, generalized weakness, intermittent tremor Problem List Generalized weakess, falls diffuse lymphadenopathy, unclear etiology Shingles - LLE b/l intertrigo chronic wounds h/o afib Shingles to LLE NAV on CKD3 NIDDM2 HTN Hx ME Gout COPD CHF ABD pain weakness/fall, felt to be secondary to drug use - recently prescribed gabapentin (300mg TID) and steroids for shingles shingles improving pt reporting increased burning / neuropathic pain, on steroids; start gabapentin at 100mg BID, uptitrate based on symptoms/side effects patient and concerned 300mg TID gabapentin caused his weakness/confusion UA clear diffuse lymphadenopathy unclear etiology diffuse, bulky concern for malignancy / lymphoma blood smear sent to path ENT consulted for LN biopsy hold eliquis for biopsy, tentative planned for 09/18 cardiology consulted for clearance; o/n with 2nd degree type 1 heart last c-scope ~1 yr ago and was reportedly normal sister with lymphoma; pt with possible chemical / oncogenic exposure in past LLE shingles - improving continue treatment, steroids intertrigo ketoconazole chronic wounds wound care consulted NAV on CKD 3 - resolved NIDDM2 - sliding scale / accucheks HTN Hx ME COPD confirm home med, restart Code: full Dispo: home, ~2-3 days possibly would benefit from rehab given progressive weakness; will discuss further with patient/
[2022-09-17] MEDS: INSULIN -REGULAR HUMAN 50 UNIT/0.5 ML ML SQ SCH ×4 (07:30→20:13)
--- NOTE | 2022-09-17 08:02 | P.CNS ---
Date of Consult: 09/17/22 Reason for Consult: Lymph node biopsy Requesting Physician: Haroon Dao Chief Complaint: AMS, Fall History of Present Illness: The patient presented after a fall at home with acute ill appearance, low-grade fever, weight loss and significant diffuse lymphadenopathy from the neck to the inguinal region. Clinical concern is high for lymphoma and ENT consultation was requested to provide surgical biopsy. The patient's sister had lymphoma though the specifics type is unknown at this time. The patient has a complex medical history as documented below including long-term anticoagulants for pulmonary embolus, heart disease managed by Dr. Black in [place] and diabetes. Allergies erythromycin base Allergy (Verified 02/03/21 14:29) Nausea/Vomiting ondansetron [From Zofran] Allergy (Verified 02/03/21 14:29) Nausea/Vomiting simvastatin Allergy (Verified 02/03/21 14:29) Nausea/Vomiting sulfamethoxazole [From Bactrim] Allergy (Verified 02/03/21 14:29) Nausea/Vomiting trimethoprim [From Bactrim] Allergy (Verified 02/03/21 14:29) Nausea/Vomiting Home Medications: Allopurinol 1 tab PO DAILY 09/16/22 Apixaban [Eliquis] 5 mg PO BID 09/16/22 Ascorbic Acid 1,000 mg PO DAILY 09/16/22 Cholecalciferol (Vitamin D3) [Vitamin D3] 100 mcg PO DAILY 09/16/22 Escitalopram [Lexapro*] 10 mg PO DAILY 09/16/22 Fluticasone/Umeclidin/Vilanter [Trelegy Ellipta 100-62.5-25] 1 puff IN DAILY 09/16/22 Furosemide 40 mg PO DAILY 09/16/22 Hydralazine HCl 50 mg PO BID 09/16/22 Mecobalamin [B12 Active] 500 mcg PO DAILY 09/16/22 Metoprolol Tartrate 50 mg PO BID 09/16/22 NIFEdipine [Nifedipine ER] 1 tab PO BEDTIME 09/16/22 Pantoprazole Sodium 40 mg PO DAILY 09/16/22 Quetiapine Fumarate [Seroquel] 150 mg PO BEDTIME 09/16/22 Tramadol HCl [Ultram] 100 mg PO DAILY 09/16/22 Vitamin B Complex [B-Complex] 1 tab PO DAILY 09/16/22 - Past Medical/Surgical History Diabetic: Yes -: Diabetes mellitus type 2 -: CHFunknown EF -: COPD -: 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 -: CKD 3 -: MRSA -: [place] -: Left foot surgery -: IVC filter -: Cholecystectomy Psychosocial/ Personal History: Patient lives at home with his - Family History Mother Medical History: Diabetes Sister Medical History: Cancer - Social History Alcohol use: No CD- Drugs: No Caffeine use: Yes Place of Residence: Home Physical Examination Temp Pulse Resp BP Pulse Ox 98.3 F 87 18 155/62 H 94 09/17/22 04:00 09/17/22 04:00 09/17/22 04:00 09/17/22 04:00 09/17/22 04:00 General: Alert, Oriented x3, Mild distress HEENT: Atraumatic, Normocephalic Neck: LAD Respiratory: Other (Increased respiratory rate, shallow breathing) Imagings Data: I personally reviewed the CT images of the neck without contrast demonstrating diffuse multiple lymph nodes ranging in size and consistent with physical exam. - Problems (1) Lymphadenopathy of head and neck Current Visit: Yes Status: Acute Conclusions/Impression: I discussed the CT and physical exam findings and clinical concern for lymphoma. We discussed that surgical management of lymphoma is most commonly limited to assist in obtaining tissue for formal diagnosis. We discussed that there are many different types of lymphoma including Hodgkin's, non-Hodgkin's, T-cell, B- cell, acute, and chronic and that the specific treatment would depend on details of the type. The patient expressed understanding that additional treatment including chemotherapy would likely be necessary for his case. We discussed the risks and benefits of cervical lymph node biopsy including pain, bleeding, numbness, scarring, lip weakness, shoulder weakness, failure to obtain diagnosis, and need for further treatment. We discussed that in light of the patient's complex medical history, I would like to reach out to Dr. Black, his personal donor services team leader whom he last saw approximately 1 month ago to determine if any specific additional testing is required. If he cannot be adequately cleared, we may need to defer biopsy. It is my hope that we can contact Dr. Black's office, hold his blood thinner today and schedule his lymph node biopsy for tomorrow. Performance of biopsy will also depend on operating room availability and scheduling. We will continue to follow closely with him.
[2022-09-17] MEDS: Fluticasone/Umeclidin/Vilanter (Trelegy Ellipta) 100-62.5-25 Blst.W.Dev IH SCH (09:00)
[2022-09-17] MEDS ORDERED: POTASSIUM CL SA 10 MEQ TAB PO ONE (09:00)
--- NOTE | 2022-09-17 09:00 | CON ---
Date of Consultation: 09/17/2022 Reason For Consultation: Cardiac preoperative risk assessment. History Of Present Illness: This is a 67-year-old male with history of congestive heart failure, sandra betes, COPD, acid reflux, history of [place], pulmonary embolus, presented with altered mental status and shingles involving of low extremity. He apparently developed left lower extremity shingles and he wa s prescribed gabapentin for pain and the patient started to get confused on Saturday and became weak er. After using the restroom, he could not get up and he slid down to the floor. No loss of conscio usness. Denies having any chest pain. The patient apparently was found to have diffuse lymphadenopa thy and does plan for a lymph node biopsy, hence cardiac risk assessment was requested. The patient is very poor historian. He claimed that he had history of heart attacks in the past, but never had a ny stents or bypass surgery. Denies having active chest pain. Past Medical History: As outlined above in the HPI. Medications: Refer to reconciliation sheet for detailed list. Allergies: SIMVASTATIN, ERYTHROMYCIN, ONDANSETRON. Family History: No premature coronary artery disease or cancer. Social History: Does not smoke or drink. Does not use any drugs. Review of Systems: All systems reviewed and they were negative except what mentioned in HPI. Physical Examination: Vital Signs: Temperature is 98.3, pulse 87, breathing at 18, blood pressure is 155/62, saturating 94 %. General: This is a pleasant elderly male, in no apparent distress. Head and Neck: Pupils are equal, reactive to light. Intact eye movements. No cervical lymphadenopa thy. Neck is supple. Thyroid is not enlarged. Lungs: Decreased breathing sounds. No accessory muscle use or muscle retraction. Heart: Irregularly irregular. No extra sounds. Abdomen: Soft, nontender. Bowel sounds positive. No organomegaly. No masses or hernia. No rigidi ty or rebound. Extremities: No clubbing or cyanosis. Intact pulses. Skin: He has shingles in left lower extremities. Neurologic: Alert, awake, oriented x3. No acute focal deficits appreciated. Lymph Nodes: No cervical or axillary lymphadenopathy. Investigations: BUN is 40, creatinine 1.59, hemoglobin is 8.3. First troponin is negative. Assessment And Recommendations: 1.Cardiac preoperative risk assessment. This is a 67-year-old male with multiple medical issues. N o zoe history of coronary artery disease and he does not have any chest pain. Cardiac enzymes are negative. As far as the risk for lymph node biopsies, cardiac risk is low as this procedure is very low risk and no further cardiac workup is recommended prior to this procedure. 2.Atrial fibrillation. Rate is borderline and the patient is on Eliquis. Continue Eliquis and jerad mmend to start metoprolol 25 mg twice a day. 3.Acute on chronic renal failure, improving. Continue current management. SR/MODL Voice ID: [id number] Report ID: [id number]
[2022-09-17] MEDS: ASPIRIN EC 81 MG TAB PO SCH (09:13)
[2022-09-17] MEDS: VITAMIN D 1000 UNIT TAB PO SCH (09:13)
[2022-09-17] MEDS: ESCITALOPRAM 20 MG TAB PO SCH (09:13)
[2022-09-17] MEDS: FUROSEMIDE 20 MG TABLET PO SCH ×2 (09:13→17:30)
[2022-09-17] MEDS: KETOCONAZOLE CREAM 15 GM TUBE TOP SCH ×2 (09:14→20:12)
[2022-09-17 09:41] LABS: Anisocytosis SLIGHT; Blood Morphology Comment NOTED (NOT SEEN); Platelet Estimate DECR
--- NOTE | 2022-09-17 10:12 | P.CNS ---
Chief Complaint: AMS, Fall History of Present Illness: Patient is a 67-year-old male with a past medical history significant for CHF, C OPD, DM2, GERD, hypertension, gout, [place], PE who presents with complaint of fall, AMS and left leg shingle. Patient was evaluated in the ER, with at bedside. Patient is alert and oriented x3 but very lethargic, and slow to respond. Per , patient developed shingles to his left lower extremity, and was prescribed gabapentin to help with the pain. stated that patient's confusion started a fter taking his gabapentin on Saturday, he was also prescribed steroids, tramadol and Tylenol. On Saturday, he started to become weaker with associated symptoms of dizziness and increased altered mental status. This morning he went to use the bathroom, and was having a hard time getting off the toilet. The and the son attempted to get him up but patient slid down on the floor. reports that patient had 3 falls this past year. When ambulating he uses a walker. She also reports shortness of breath on exertion. And patient cannot lay flat. She also reported loss between 75 to 100 pounds last year due to decreased appetite. No injuries were sustained. Per , patient developed a laceration resulting to the EMS handling her . Patient denies any other signs and symptoms. Symptoms are aggravated or relieved by nothing. Given as AMS, fever, and CT result (Very extensive abnormal lymphadenopathy pattern that extends from the top of the neck to the inguinal canals.) ID has been consulted for recommendations of IV antibiotics and management Allergies erythromycin base Allergy (Verified 02/03/21 14:29) Nausea/Vomiting ondansetron [From Zofran] Allergy (Verified 02/03/21 14:29) Nausea/Vomiting simvastatin Allergy (Verified 02/03/21 14:29) Nausea/Vomiting sulfamethoxazole [From Bactrim] Allergy (Verified 02/03/21 14:29) Nausea/Vomiting trimethoprim [From Bactrim] Allergy (Verified 02/03/21 14:29) Nausea/Vomiting Home Medications: Allopurinol 1 tab PO DAILY 09/16/22 Apixaban [Eliquis] 5 mg PO BID 09/16/22 Ascorbic Acid 1,000 mg PO DAILY 09/16/22 Cholecalciferol (Vitamin D3) [Vitamin D3] 100 mcg PO DAILY 09/16/22 Escitalopram [Lexapro*] 10 mg PO DAILY 09/16/22 Fluticasone/Umeclidin/Vilanter [Trelegy Ellipta 100-62.5-25] 1 puff IN DAILY 09/16/22 Furosemide 40 mg PO DAILY 09/16/22 Hydralazine HCl 50 mg PO BID 09/16/22 Mecobalamin [B12 Active] 500 mcg PO DAILY 09/16/22 Metoprolol Tartrate 50 mg PO BID 09/16/22 NIFEdipine [Nifedipine ER] 1 tab PO BEDTIME 09/16/22 Pantoprazole Sodium 40 mg PO DAILY 09/16/22 Quetiapine Fumarate [Seroquel] 150 mg PO BEDTIME 09/16/22 Tramadol HCl [Ultram] 100 mg PO DAILY 09/16/22 Vitamin B Complex [B-Complex] 1 tab PO DAILY 09/16/22 - Past Medical/Surgical History Diabetic: Yes -: Diabetes mellitus type 2 -: CHFunknown EF -: COPD -: 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 -: CKD 3 -: MRSA -: [place] -: Left foot surgery -: IVC filter -: Cholecystectomy Psychosocial/ Personal History: Patient lives at home with his - Family History Mother Medical History: Diabetes Sister Medical History: Cancer - Social History Alcohol use: No CD- Drugs: No Caffeine use: Yes Place of Residence: Home Review of Systems General: Weakness ENT: Other (hearing impairment with hearing aids) Respiratory: SOB with Excertion Gastrointestinal: Nausea, Vomiting, Diarrhea Musculoskeletal: Other (uses walker) Neurological: Confusion Physical Examination Temp Pulse Resp BP Pulse Ox 97.2 F 101 H 18 170/62 H 95 09/17/22 08:00 09/17/22 08:00 09/17/22 08:00 09/17/22 08:00 09/17/22 08:00 General: Alert, Oriented x3 Respiratory: Clear to auscultation bilaterally Cardiovascular: No edema, Normal S1 S2 Gastrointestinal: Normal bowel sounds Integumentary: Skin breakdown (left hand skin tear), Skin lesion (left leg shingle), Tenderness/swelling (left leg shingle), Erythema (left leg shingle), Other (Stasis dermatitis bilateral legs;) Neurological: Normal speech, Normal tone Acetaminophen (Acetaminophen 500 Mg Tab) 500 mg PO Q6H PRN PRN Reason: Pain scale 2-4 (Mild) Last Admin: 09/16/22 12:55 Dose: 500 mg Albuterol Sulfate (Albuterol 2.5 Mg/3 Ml Neb Martha) 2.5 mg NEB [id number] PRN PRN Reason: WHEEZING Last Admin: 09/17/22 05:45 Dose: 2.5 mg Apixaban (Apixaban 5 Mg Tablet) 5 mg PO BID [facility] Last Admin: 09/16/22 08:23 Dose: 5 mg Aspirin (Aspirin Ec 81 Mg Tab) 81 mg PO DAILY [facility] Last Admin: 09/17/22 09:13 Dose: 81 mg Cholecalciferol (Vitamin D 1000 Unit Tab) 4,000 unit PO DAILY [facility] Last Admin: 09/17/22 09:13 Dose: 4,000 unit Escitalopram Oxalate (Escitalopram 20 Mg Tab) 10 mg PO DAILY [facility] Last Admin: 09/17/22 09:13 Dose: 10 mg Furosemide (Furosemide 20 Mg Tablet) 20 mg PO BIDL [facility] Last Admin: 09/17/22 09:13 Dose: 20 mg Glucagon (Glucagon 1 Mg/Vial) 1 mg IM 1X PRN; Protocol PRN Reason: HYPOGLYCEMIA Home Med (Fluticasone/Umeclidin/Vilanter [Trelegy Ellipta 100-62.5-25]) 1 puff IH DAILY [facility] Last Admin: 09/17/22 09:00 Dose: Not Given Dextrose/Sodium Chloride (D5w Ns 1-Liter Bag) 1,000 mls @ 50 mls/hr IV .Q20H [facility] Last Admin: 09/17/22 05:00 Dose: Not Given Dextrose (Dextrose 10% Water Iv Soln.) 125 mls @ 0 mls/hr IV PRN PRN; Protocol PRN Reason: HYPOGLYCEMIA Insulin Human Regular (Insulin -Regular Human 50 Unit/0.5 Ml Ml) 0 unit SQ ACHS [facility]; Protocol Last Admin: 09/17/22 07:30 Dose: Not Given Ketoconazole (Ketoconazole Cream 15 Gm Tube) 1 appl TOP BID [facility] Last Admin: 09/17/22 09:14 Dose: 1 appl Metoprolol Tartrate (Metoprolol Tar 25 Mg Tab) 25 mg PO BID 6AM 6PM [facility] Prochlorperazine (Prochlorperazine 5 Mg Tab) 5 mg PO Q8HP PRN PRN Reason: NAUSEA / VOMITING Quetiapine Fumarate (Quetiapine 100mg Tab) 150 mg PO BEDTIME [facility] Last Admin: 09/16/22 21:02 Dose: 150 mg Sodium Chloride (Flush Normal Saline 10 Ml) 10 ml IV BID [facility] Last Admin: 09/17/22 09:00 Dose: Not Given Tramadol HCl (Tramadol Hcl 50 Mg Tab) 100 mg PO Q8H PRN PRN Reason: Pain scale 5-7 (Moderate) Imagings Data: 09/15 Chest xray: IMPRESSION: Limited portable study without acute cardiopulmonary finding 09/15 US lower extremities: IMPRESSION: No DVT identifiable in either lower extremity 09/15 CT Head C Spine IMPRESSION: Patient has a very extensive abnormal lymphadenopathy pattern that extends from the top of the neck to the inguinal canals. No history of malignancy detailed. Lymphoma would be a primary consideration 09/15 Abd xray: IMPRESSION: Nonobstructive bowel gas pattern - Problems (1) Shingles Current Visit: Yes Status: Acute Plan: Shingle of LLE: Managed by primary team with steroid (2) Diffuse lymphadenopathy Current Visit: Yes Status: Acute Plan: Unclear etiology and concern for malignancy / lymphoma. Pending for biopsy. Managed by primary team. ID team would provide recommendations of antibiotic when needed. Conclusions/Impression: Generalized weakess, falls Diffuse lymphadenopathy, unclear etiology: Concerns for lymphoma and pending for biopsy Shingles - LLE Bilateral intertrigo chronic wounds h/o afib NAV on CKD3 NIDDM2 HTN Hx [place] Gout COPD CHF ABD pain ID will closely monitoring the signs of infection with fever and WBC trends Case has been discussed with Shantel Swift Thank you Dr. Dao for consult
[2022-09-17] MEDS: TRAMADOL HCL 50 MG TAB PO PRN (12:23)
[2022-09-17] MEDS: HYDRALAZINE HCL 25 MG TABLET PO SCH ×2 (14:37→21:00)
[2022-09-17] MEDS: GABAPENTIN 100 MG CAP PO SCH ×2 (14:38→20:11)
[2022-09-17] MEDS ORDERED: METOPROLOL TAR 25 MG TAB PO ONE (15:00)
--- NOTE | 2022-09-17 16:50 | EKG ---
Test Date: 2022-09-17 Test Time: 04:16:43 Mathematics Professor: BRITTNI MEASUREMENT RESULTS: Intervals: Rate: 95 [place]: QRSD: 76 QT: 328 QTc: 412 [place]: P: MA: QRS: 102 T: 23 INTERPRETIVE STATEMENTS: Normal sinus rhythm Rightward axis Nonspecific ST abnormality Abnormal ECG Compared to ECG 09/15/2022 07:01:03 Right-axis deviation now present ST (T wave) deviation now present First degree AV block no longer present Myocardial infarct finding no longer present Electronically Signed On 09-17-22 16:49:48 ASSOCIATE PROGRAMMER by Shailesh Chand
--- NOTE | 2022-09-17 16:58 | EKG ---
Test Date: 2022-09-15 Test Time: 07:01:03 Paper Pattern Folder: JESSENIA MEASUREMENT RESULTS: Intervals: Rate: 73 [place]: 250 QRSD: 88 QT: 384 QTc: 423 [place]: P: 37 [place]: 250 QRS: -15 T: 53 INTERPRETIVE STATEMENTS: Sinus rhythm with 1st degree AV block Cannot rule out Anterior infarct, age undetermined Abnormal ECG Compared to ECG 04/25/2022 13:53:55 Myocardial infarct finding now present Electronically Signed On 09-17-22 16:55:16 FIRMWARE ENGINEER by Shailesh Chand
[2022-09-17] MEDS ORDERED: METOPROLOL TAR 25 MG TAB PO SCH (18:00)
[2022-09-17] MEDS: ACETAMINOPHEN 500 MG TAB PO PRN (19:16)
[2022-09-17] MEDS: QUETIAPINE 100MG TAB PO SCH (20:11)
[2022-09-17] MEDS ORDERED: PANTOPRAZOLE 40MG TABLET PO ONE (20:11)
[2022-09-17] MEDS ORDERED: MORPHINE 4 MG/ML SYR IV ONE (20:11)
[2022-09-17] MEDS: METOPROLOL TAR 50 MG TAB PO SCH (20:11)
[2022-09-17] MEDS: AMINO ACIDS/PROTEIN HYDROLYS 30 ML LIQUID.PKT PO SCH (20:23)
[2022-09-17] MEDS ORDERED: HOME MED 1 EA UNK (Hydralazine Hcl [Hydralazine Hcl] 50 MG Tablet) PO SCH (21:00)
[2022-09-17] MEDS ORDERED: HOME MED 1 EA UNK (Metoprolol Tartrate [Metoprolol Tartrate] 100 MG Tablet) PO SCH (21:00)
--- NOTE | 2022-09-17 23:57 | CON ---
Date of Consultation: 09/17/2022 Chief Complaint: Abnormal renal function test. Nephrology consultation is requested for elevated BU N and creatinine. History Of Present Illness: The patient has history of chronic kidney disease stage 3. He has multi ple medical problems. He is admitted to the hospital for generalized weakness status post fall. Dif fuse lymphadenopathy was found and ENT consultation is requested for lymph node biopsy to rule out ly mphoma. Recently the patient had some lower extremity shingles and was complaining of severe pain an d was treated with Neurontin. Subsequently, he became drowsy and developed altered mental status. T he patient has history of coronary artery disease, congestive heart failure, and COPD. He was seen p reviously by his framing mechanic for complex history of coronary artery disease and history of myocardia l infarction. He has history of ria-nmntipu-jlyxmsbjx diabetes mellitus, atrial fibrillation, and ch ronic wounds. The patient cannot provide review of systems. He still remains lethargic. I discusse d his case with his at the bedside. Review of Systems: Unobtainable. Past Medical History: Diabetes mellitus type 2, congestive heart failure with unknown ejection fract ion. COPD, history of DVT and PE on Eliquis with IVC filter, chronic kidney disease stage 3, MRSA inf ection, myocardial infarction, left foot surgery, and cholecystectomy. Family History: Mother with diabetes. Sister with lymphoma. Social History: Denies tobacco, alcohol, and illicit drugs. Physical Examination: General: Not in acute distress. Eyes: Anicteric sclerae. EOMI. Ears, Nose, Mouth and Throat: Oral mucosa moist. No pallor. Neck: Supple. No bruits. Lungs: Few rhonchi. Heart: S1, S2. No pericardial friction or rub. Abdomen: Obese, soft, nontender. No rebound. No guarding. Extremities: Swelling present in both legs. There is chronic dermatitis, erythema and skin breakdow n. Neurological: Moving extremities. Cranial nerves intact. Laboratory Data: BUN 59, creatinine 2.37, glucose 120, potassium 4.1, and sodium 137. Hemoglobin 8. 3, WBC 5.7, and platelet count 151. Impression And Plan: 1.Dkpxo-ho-nwnrmzo kidney injury. The patient has underlying diabetic kidney disease and hypertensi on. Plan is to check urinalysis to screen for proteinuria and evaluate microscopic examination for p ossible abnormal urinary sediment and screen for rapidly progressive glomerulonephritis. 2.Gout. Resume allopurinol. Monitor uric acid. The patient may need colchicine for gout as well w hen allopurinol is resumed. 3.History of atrial fibrillation. The patient is on Eliquis per Primary Team. 4.Multiple medical problems including history of pulmonary embolism. The patient is on Eliquis. Fu rther workup by Primary Team. 5.Diabetes mellitus with renal manifestation. The patient has generalized edema. Continue to monit or fluid balance. The patient may benefit from Lasix. Currently, he has acute kidney injury on pension examiner delgado kidney disease and workup is pending to rule out glomerulonephritis. Likely underlying etiology is diabetic kidney disease. EB/MODL Voice ID: [id number] Report ID: [id number]
[2022-09-18 04:21] LABS: Absolute Lymphocytes (CBC) 1.6 K/uL (0.7-4.9); Hematocrit 23.3 % (39.6-49.0); MCV 92.1 fL (80-100); MPV 6.9 fL (7.6-11.3); RBC Red Blood Cell Count 2.53 M/uL (4.33-5.43)
[2022-09-18 04:32] LABS: Potassium 4.1 mmol/L (3.5-5.1); Uric Acid 9.2 mg/dL (3.5-7.2)
[2022-09-18] MEDS ORDERED: BUPIVACAINE 0.5% PF 10 ML VIAL ONE (06:19)
[2022-09-18] MEDS ORDERED: EPINEPHRINE/PF 1 MG/ML AMP ONE (06:19)
[2022-09-18] MEDS ORDERED: LIDOCAINE 1.5% W/EPI AMP 5 ML ONE (06:19)
[2022-09-18] MEDS: NA CHLORIDE 0.9% 1,000 ML ONE ×2 (06:45→06:59)
[2022-09-18] MEDS ORDERED: FENTANYL CITR 100 MCG/2 ML ONE (06:50)
[2022-09-18] MEDS ORDERED: ROCURONIUM 50 MG/5 ML VIAL IV ONE (06:50)
[2022-09-18] MEDS ORDERED: propofoL 200 MG/20 ML VIAL IV ONE (06:50)
[2022-09-18] MEDS ORDERED: MIDAZOLAM HCL 2 MG/2 ML INJ ONE (06:50)
[2022-09-18] MEDS ORDERED: LIDOCAINE 2% MPF 5 ML VIAL ONE (06:50)
[2022-09-18] MEDS ORDERED: SUCCINYLCHOLINE 20 MG/ML (10 ML) IV ONE (06:53)
--- NOTE | 2022-09-18 07:00 | P.PN ---
Date of Service: 09/18/22 Pre-op update: Attempted to contact Dr Black in [place] but no response received. Patient evaluated by Machinery Mover yesterday and cleared for LN bx. Met with and discussed R/B/A to surgery. She is in agreement with plan. She notes patient is often hard to wake up and responses to tapping on the sole of the foot after time in . He is also hard of hearing but is not currently wearing hearing aid. Patient less responsive and groggy this morning compared to yesterday. states he did not sleep much last night due to leg pain and then received some morphine. Exam: Breathing less labored this morning. Awakens with stimulation by voice but less conversive. neck exam stable. Assessment: diffuse LAD Plan: Open lymph node biopsy for diagnosis and suspected lymphoma. Plan to send specimen fresh/no formalin. Patient/ have my card for follow up or pathology results if needed/not communicated prior to discharge.
--- NOTE | 2022-09-18 07:13 | RAD REPORT ---
EXAM DESCRIPTION: US - Renal Ultrasound-Complete - 09/18/2022 5:33 am CLINICAL HISTORY: david COMPARISON: No comparisons FINDINGS: Kidneys are very poorly visualized. No accurate size measurements can't be made. Cortical thickness does appear to be appropriate for each kidney. No hydronephrosis is identified. Visualizati on of the kidneys was not sufficient to accurately evaluate for solid or cystic masses. No bladder wall thickening or mass. No intraluminal stone or mass. IMPRESSION: Very limited examination with poorly visualized kidneys. No hydronephrosis is identified. No accurate assessment can be made of renal size or masses. Follow-u p CT imaging can be obtained as warranted.
[2022-09-18] MEDS: INSULIN -REGULAR HUMAN 50 UNIT/0.5 ML ML SQ SCH ×4 (07:30→21:00)
[2022-09-18] MEDS ORDERED: ALBUTEROL INHALER 60 PUFF/8 GM IH ONE (07:44)
[2022-09-18] MEDS ORDERED: Phenylephrine HCl 10 MG/ML 1 ML VIAL ONE (07:45)
[2022-09-18] MEDS ORDERED: NS 0.9% VIAL 10 ML ONE (07:45)
[2022-09-18] MEDS ORDERED: Mastisol Adhesive Liq ONE (07:51)
[2022-09-18] MEDS ORDERED: GLYCOPYRROLATE 0.2 MG/ML SYR ONE ×2 (07:57→07:59)
[2022-09-18] MEDS ORDERED: NEOSTIGMINE 1 MG/ML -5 ML ONE (07:59)
--- NOTE | 2022-09-18 08:03 | P.OP ---
Outsole Skiver: Jamaal Humphreys Preoperative diagnosis: diffuse lymphadenopathy Postoperative diagnosis: same Primary procedure: open excision cervical lymph nodes Anesthesia: general Estimated blood loss: less than 5ml Specimen: level 1 bilateral lymph nodes, fresh Findings: promient lymph nodes in subplatymsal plane Operative Technique: The patient was positioned supine with moderate neck extension. The submental region was palpated and there were prominent lymph nodes consistent with pre- operative CT scan. The planned submental incision site was injected with 5ml of 1.5% lidocaine with epinephrine. The neck was prepped with Betadine and draped in a sterile fashion. A 4cm incision was made through the skin and subcutaneous tissues with spatula tip bovie cauterization. The skin was retracted with Sens and division of fat continued until the platysma was encountered. The platysma muscle was in the midline and retracted laterally. Gentle pressure and dissection in the fatty tissue revealed 4 prominent red fleshy appearing lymph node which were divided from surounding fatty tissues with the Ligasure. The lymph nodes were sent to pathology fresh for lymphoma evaluation and any other appropriate testing. The surgical field was examined and no bleeding was noted. The incision was closed in a layered fashion using 4-0 vicryl deep duarte tures and 5-0 Monocryl subcuticular sutures. The skin was cleaned and dried and the incision dressed with Mastisol and steri-strips. The patient was returned to care of anesthesia for awakening and extubation which proceeded without difficulty. The patient was transferred to the PACU in stable condition. Complications: None Implants: none Fluids & blood products: 400ml Transferred to: Recovery Room Condition: Good
[2022-09-18] MEDS ORDERED: ALBUTEROL 2.5 MG/3 ML NEB SOL ONE (08:12)
--- NOTE | 2022-09-18 08:50 | ECHO ---
HEIGHT: 6 ft 0 in WEIGHT: 359 lb 0 oz DATE OF STUDY: 09/17/[address]: Haroon Dao MD 2-DIMENSIONAL: YES M.MODE: YES DOPPLER: YES COLOR FLOW: YES TDS: YES PORTABLE: YES DEFINITY: NO BUBBLE STUDY: NO DIAGNOSIS: EVALUATE FUNCTION CARDIAC HISTORY: CATHERIZATION: SURGERY: PROSTHETIC VALVE: PACEMAKER: MEASUREMENTS (cm) DIASTOLIC (NORMALS) SYSTOLIC (NORMALS) IVSd 1.1 (0.6-1.2) LA Diam 4.5 (1.9-4.0) LVEF 55-60% LVIDd 5.1 (3.5-5.7) LVIDs 3.7 (2.0-3.5) %FS 26% LVPWd 1.5 (0.6-1.2) Ao Diam 3.4 (2.0-3.7) 2 DIMENSIONAL ASSESSMENT: RIGHT ATRIUM: NORMAL LEFT ATRIUM: ENLARGED RIGHT VENTRICLE: NORMAL LEFT VENTRICLE: NORMAL TRICUSPID VALVE: MILD TRICUSPID REGURGITATION MITRAL VALVE: MITRAL ANNULAR CALCIFICATION WITH MILD MITRAL STENOSIS PULMONIC VALVE: NOT WELL SEEN AORTIC VALVE: NORMAL PERICARDIAL EFFUSION: NONE AORTIC ROOT: NORMAL LEFT VENTRICULAR WALL MOTION: UNABLE TO EVALUATE. DOPPLER/COLOR FLOW: SEE BELOW. COMMENTS: 1. POOR WINDOWS 2. NORMAL LEFT VENTRICULAR EJECTION FRACTION 55-60%. 3. LEFT ATIAL ENLARGEMENT. 4. MILD MITRAL STENOSIS 5. MILD TRICUSPID REGURGITATION. TECHNOLOGIST: CELINA DRIVER
[2022-09-18] MEDS: Fluticasone/Umeclidin/Vilanter (Trelegy Ellipta) 100-62.5-25 Blst.W.Dev IH SCH (09:00)
[2022-09-18] MEDS: HYDRALAZINE HCL 25 MG TABLET PO SCH ×2 (09:00→21:26)
[2022-09-18] MEDS: KETOCONAZOLE CREAM 15 GM TUBE TOP SCH ×2 (09:00→21:00)
[2022-09-18] MEDS: AMINO ACIDS/PROTEIN HYDROLYS 30 ML LIQUID.PKT PO SCH ×2 (09:00→21:00)
[2022-09-18] MEDS: ESCITALOPRAM 20 MG TAB PO SCH (09:40)
[2022-09-18] MEDS: VITAMIN D 1000 UNIT TAB PO SCH (09:41)
[2022-09-18] MEDS: FUROSEMIDE 20 MG TABLET PO SCH (09:41)
[2022-09-18] MEDS: METOPROLOL TAR 50 MG TAB PO SCH (09:41)
[2022-09-18] MEDS: GABAPENTIN 100 MG CAP PO SCH ×2 (09:42→21:25)
[2022-09-18] MEDS: ASPIRIN EC 81 MG TAB PO SCH (09:42)
[2022-09-18] MEDS: APIXABAN 5 MG TABLET PO SCH ×2 (09:42→21:25)
--- NOTE | 2022-09-18 10:22 | P.PN ---
Subjective Date of Service: 09/18/22 Chief Complaint: AMS, Fall Patient lying in bed eating lunch with at the bedside. stated that the patient was more alert and less confused compared to prior. No major event upon examination Physical Examination - Vital Signs Temperature: 97.1 F Blood Pressure: 113/49 Pulse: 85 Respirations: 18 Pulse Ox (%): 93 - Physical Exam General: Alert, In no apparent distress, Oriented x3 Respiratory: Clear to auscultation bilaterally Cardiovascular: No edema, Normal S1 S2 Gastrointestinal: Hypoactive Musculoskeletal: Other (stasis dermatitis) Integumentary: Other (stasis dermatitis b/l LEs) Neurological: Normal speech, Normal tone, Normal affect - Studies Acetaminophen (Acetaminophen 500 Mg Tab) 500 mg PO Q6H PRN PRN Reason: Pain scale 2-4 (Mild) Last Admin: 09/17/22 19:16 Dose: 500 mg Albuterol Sulfate (Albuterol 2.5 Mg/3 Ml Neb Martha) 2.5 mg NEB [id number] PRN PRN Reason: WHEEZING Last Admin: 09/17/22 05:45 Dose: 2.5 mg Amino Acids (Amino Acids/Protein Hydrolys 30 Ml Liquid.Pkt) 30 ml PO BID [facility] Last Admin: 09/18/22 09:00 Dose: 30 ml Apixaban (Apixaban 5 Mg Tablet) 5 mg PO BID [facility] Last Admin: 09/18/22 09:42 Dose: 5 mg Aspirin (Aspirin Ec 81 Mg Tab) 81 mg PO DAILY [facility] Last Admin: 09/18/22 09:42 Dose: 81 mg Cholecalciferol (Vitamin D 1000 Unit Tab) 4,000 unit PO DAILY [facility] Last Admin: 09/18/22 09:41 Dose: 4,000 unit Escitalopram Oxalate (Escitalopram 20 Mg Tab) 10 mg PO DAILY [facility] Last Admin: 09/18/22 09:40 Dose: 10 mg Famotidine (Famotidine 20 Mg Tab) 20 mg PO BID [facility]; Protocol Furosemide (Furosemide 20 Mg Tablet) 20 mg PO BIDL [facility] Last Admin: 09/18/22 09:41 Dose: 20 mg Gabapentin (Gabapentin 100 Mg Cap) 100 mg PO BID [facility] Last Admin: 09/18/22 09:42 Dose: 100 mg Glucagon (Glucagon 1 Mg/Vial) 1 mg IM 1X PRN; Protocol PRN Reason: HYPOGLYCEMIA Home Med (Fluticasone/Umeclidin/Vilanter [Trelegy Ellipta 100-62.5-25]) 1 puff IH DAILY [facility] Last Admin: 09/17/22 09:00 Dose: Not Given Hydralazine HCl (Hydralazine Hcl 25 Mg Tablet) 50 mg PO BID [facility] Last Admin: 09/17/22 21:00 Dose: Not Given Dextrose (Dextrose 10% Water Iv Soln.) 125 mls @ 0 mls/hr IV PRN PRN; Protocol PRN Reason: HYPOGLYCEMIA Insulin Human Regular (Insulin -Regular Human 50 Unit/0.5 Ml Ml) 0 unit SQ ACHS [facility]; Protocol Last Admin: 09/17/22 20:13 Dose: Not Given Ketoconazole (Ketoconazole Cream 15 Gm Tube) 1 appl TOP BID [facility] Last Admin: 09/17/22 20:12 Dose: 1 appl Metoprolol Tartrate (Metoprolol Tar 50 Mg Tab) 50 mg PO BID [facility] Last Admin: 09/18/22 09:41 Dose: 50 mg Quetiapine Fumarate (Quetiapine 100mg Tab) 150 mg PO BEDTIME [facility] Last Admin: 09/17/22 20:11 Dose: 150 mg Sodium Chloride (Flush Normal Saline 10 Ml) 10 ml IV BID [facility] Last Admin: 09/18/22 09:42 Dose: 10 ml Tramadol HCl (Tramadol Hcl 50 Mg Tab) 100 mg PO Q8H PRN PRN Reason: Pain scale 5-7 (Moderate) Last Admin: 09/17/22 12:23 Dose: 100 mg Assessment And Plan - Current Problems (Diagnosis) (1) Shingles Current Visit: Yes Status: Acute Plan: Shingle of LLE: Managed by primary team with steroid (2) Diffuse lymphadenopathy Current Visit: Yes Status: Acute Plan: Unclear etiology and concern for malignancy / lymphoma. Pending for biopsy. Managed by primary team. 09/18 Biopsy performed by Marialuisa Christensen today. ID team would provide recommendations of antibiotic when needed. - Plan Generalized weakess, falls Diffuse lymphadenopathy, unclear etiology: Biopsy done, 09/18 Shingles - LLE Bilateral intertrigo chronic wounds h/o afib NAV on CKD3 NIDDM2 HTN Hx CA Gout COPD CHF ABD pain ID will closely monitoring the signs of infection with fever and WBC trends Case has been discussed with Dr. Sanchez, N
--- NOTE | 2022-09-18 11:55 | RAD REPORT ---
EXAM DESCRIPTION: RAD - Chest Single View - 09/18/2022 11:08 am CLINICAL HISTORY: COPD COMPARISON: Portable chest 09/15/2022 TECHNIQUE: AP portable chest image was obtained 09/18/2022 11:08 am . FINDINGS: Lung volumes are low which accentuates the baseline interstitial pattern. The pattern is s table from prior imaging. No peripheral mass or consolidation. Heart and vasculature are normal. No measurable pleural effusion and no pneumothorax. No acute bony abnormality seen. No acute aortic findings suspected. IMPRESSION: Limited portable study without acute cardiopulmonary finding.
--- NOTE | 2022-09-18 13:26 | PN ---
Date of Progress Note: 09/18/2022 Subjective: The patient was admitted to the hospital with weakness, fatigue. The patient had chroni c kidney disease, pain around his baseline, creatinine baseline around 1.9. The patient admitted to the hospital with creatinine of 1.7. The patient well known to me from the office, last seen in the office last year. The patient had history of PE, DVT, COPD, IVC filter, and PAD. The patient had ch ronic kidney disease with normal size kidney, baseline GFR around 40. At that time, the patient was rechallenged with Lasix. The patient came with new lymphadenopathy done, lymph node biopsy today. Physical Examination: Vital Signs: When I saw the patient; blood pressure 113/49, pulse of 85, afebrile. The patient had still good urine output. General: The patient lying flat. Chest: Decreased entry bilateral base. Heart: S1, S2. Systolic murmur. Abdomen: Soft, nontender. Extremity: +2 edema, erythema bilateral. Neuro: Alert. No focality. The patient almost bed-bound. Laboratory Data: Chest x-ray; cardiomegaly with congestion bilateral. Sodium 138, potassium 4.1, bi carb 25, BUN 44, creatinine 2.1. GFR of 33, calcium 8.2, uric acid 9.2, TSH of 1.3, hemoglobin 7.7. Current Medications: The patient on include; 1.Aspirin. 2.Eliquis. 3.Metoprolol 50 b.i.d. 4.Gabapentin 100 b.i.d. 5.Lasix 20 b.i.d. 6.Pepcid. 7.Pantoprazole. Assessment And Plan: 1.Acute kidney injury on chronic kidney disease, normal size kidney, chronic kidney disease stage 3, secondary to hypertension nephrosclerosis, normal size kidney, nonoliguric. Looked to me still on t he over volume side. I am going to go ahead and increase Lasix to 40 mg b.i.d. and we will monitor t he patient. 2.Hypertension. I will try to utilize blood pressure for more diuresis. We will decrease beta-bloc ker to 25 b.i.d. and we will follow up the patient. We will increase the Lasix to 40 b.i.d. 3.Anemia with the presence of acute kidney injury. I am going to go ahead and send for serum protei n electrophoresis. 4.Anasarca secondary to cardiorenal. We will optimize diuresis. 5.Congestive heart failure exacerbation. Continue diuresis as above. 6.Lymphadenopathy, status post lymph node biopsy. We will follow up pathology. CELINA Voice ID: [id number] Report ID: [id number]
--- NOTE | 2022-09-18 13:32 | PN ---
Date of Progress Note: 09/18/2022 Subjective: Seen by bedside. No new complaints. Status post lymph node biopsy. Review of Systems: No chest pain, shortness of breath, orthopnea, cough. All other systems reviewed and they were negat caden. Physical Examination: Vital Signs: Reviewed. Head and Neck: Pupils are equal, reactive to light. Intact eye movements. No JVD. No cervical lym phadenopathy. Neck is supple. Thyroid is not enlarged. Lungs: Clear to auscultation bilaterally. No rhonchi, wheezing, or crackles. No accessory muscle u se. Heart: Irregular. No extra sounds. Abdomen: Soft, nontender. Bowel sounds positive. No organomegaly. No masses or hernia. No rigidi ty or rebound. Extremities: No edema, clubbing, or cyanosis. Intact pulses. Skin: No rash. Neurologic: Alert, awake, oriented x3. No acute focal deficits appreciated. Investigations: BUN is 44, creatinine is 2.13, and hemoglobin 7.7. Assessment And Recommendations: Atrial fibrillation, rate now is much better controlled. Continue m etoprolol at the current dose 50 mg twice a day and continue Eliquis. SR/MODL Voice ID: [id number] Report ID: [id number]
--- NOTE | 2022-09-18 16:11 | P.PN ---
Subjective Date of Service: 09/18/22 Chief Complaint: AMS, Fall No major changes from yesterday. Status post excisional biopsy of omental lymph node. Spouse report poor oral intake. He has been afebrile. Physical Examination - Vital Signs Temperature: 97.1 F Blood Pressure: 113/49 Pulse: 85 Respirations: 18 Pulse Ox (%): 93 Assessment And Plan - Plan Physical exam GEN: Alert, oriented, 3 HEENT: Normal conjunctiva, sclera anicteric CV: Regular rate and rhythm, b/l lower extremity edema Pulm: mild labored respirations on O2, diminished bilaterally ABD: Soft, nontender, nondistended Integumentary: LLE: Blisters and few crusted lesions on the left thigh. Neuro: Normal speech, normal affect, globally weak. Problem List Generalized weakess, falls diffuse lymphadenopathy, unclear etiology Shingles - LLE b/l intertrigo chronic wounds h/o afib Shingles to LLE NAV on CKD3 NIDDM2 HTN Hx AL Gout COPD CHF ABD pain Weakness/fall, felt to be secondary to drug use - recently prescribed gabapentin (300mg TID) and steroids for shingles shingles improving pt reporting increased burning / neuropathic pain, on steroids; gabapentin restarted at 100mg BID, uptitrate based on symptoms/side effects UA clear. Nursing staff report urinary retention. Bladder scan revealed 400 mL of retained urine. Patient declined Gibson catheter insertion. Continue to monitor Diffuse lymphadenopathy unclear etiology diffuse, bulky concern for malignancy / lymphoma blood smear sent to path. Status post lymph node biopsy by ENT. Resume Eliquis. Cardiology input appreciated. Atrial fibrillation: Stable Continue metoprolol and Eliquis. LLE shingles - improving Supportive measures Intertrigo On ketoconazole chronic wounds wound care consulted NAV on CKD 3: Nephrology input appreciated. Lasix recommended. NIDDM2 - sliding scale / accucheks HTN Hx AL COPD confirm home med, restart Trelegy Bronchodilators as needed. Code: full
[2022-09-18] MEDS: TRAMADOL HCL 50 MG TAB PO PRN (17:31)
[2022-09-18] MEDS: METOPROLOL TAR 25 MG TAB PO SCH (21:24)
[2022-09-18] MEDS: FAMOTIDINE 20 MG TAB PO SCH (21:25)
[2022-09-18] MEDS: QUETIAPINE 100MG TAB PO SCH (21:25)
[2022-09-18] MEDS: ACETAMINOPHEN 500 MG TAB PO PRN (21:30)
[2022-09-19 04:18] LABS: Absolute Lymphocytes (CBC) 1.6 K/uL (0.7-4.9); Lymphocytes % 32.4 % (15.3-44.8); MCV 91.8 fL (80-100); MPV 7.1 fL (7.6-11.3); RBC Red Blood Cell Count 2.61 M/uL (4.33-5.43)
[2022-09-19 04:58] LABS: Albumin 1.8 g/dL (3.4-5.0); Ferritin 27.9 ng/mL (26-388); Phosphorus 4.4 mg/dL (2.5-4.9); Potassium 4.6 mmol/L (3.5-5.1); Thyroid Stimulating Hormone 2.38 uIU/mL (0.358-3.740)
[2022-09-19] MEDS: INSULIN -REGULAR HUMAN 50 UNIT/0.5 ML ML SQ SCH ×4 (07:30→21:00)
--- NOTE | 2022-09-19 08:19 | P.PN ---
Subjective Date of Service: 09/19/22 Chief Complaint: AMS, Fall Subjective: Improving Patient lying in bed with at the bedside. No major event upon examination Physical Examination - Vital Signs Temperature: 97.1 F Blood Pressure: 126/49 Pulse: 60 Respirations: 20 Pulse Ox (%): 95 - Physical Exam General: Alert, In no apparent distress, Oriented x3 Respiratory: Clear to auscultation bilaterally Cardiovascular: No edema, Normal S1 S2 Gastrointestinal: Hypoactive Musculoskeletal: Other (stasis dermatitis) Integumentary: Other (stasis dermatitis) Neurological: Normal speech, Normal tone, Normal affect - Studies Acetaminophen (Acetaminophen 500 Mg Tab) 500 mg PO Q6H PRN PRN Reason: Pain scale 2-4 (Mild) Last Admin: 09/18/22 21:30 Dose: 500 mg Albuterol Sulfate (Albuterol 2.5 Mg/3 Ml Neb Martha) 2.5 mg NEB [id number] PRN PRN Reason: WHEEZING Last Admin: 09/17/22 05:45 Dose: 2.5 mg Amino Acids (Amino Acids/Protein Hydrolys 30 Ml Liquid.Pkt) 30 ml PO BID [facility] Last Admin: 09/18/22 21:00 Dose: Not Given Apixaban (Apixaban 5 Mg Tablet) 5 mg PO BID [facility] Last Admin: 09/18/22 21:25 Dose: 5 mg Aspirin (Aspirin Ec 81 Mg Tab) 81 mg PO DAILY [facility] Last Admin: 09/18/22 09:42 Dose: 81 mg Cholecalciferol (Vitamin D 1000 Unit Tab) 4,000 unit PO DAILY [facility] Last Admin: 09/18/22 09:41 Dose: 4,000 unit Escitalopram Oxalate (Escitalopram 20 Mg Tab) 10 mg PO DAILY [facility] Last Admin: 09/18/22 09:40 Dose: 10 mg Famotidine (Famotidine 20 Mg Tab) 20 mg PO BID [facility]; Protocol Last Admin: 09/18/22 21:25 Dose: 20 mg Gabapentin (Gabapentin 100 Mg Cap) 100 mg PO BID [facility] Last Admin: 09/18/22 21:25 Dose: 100 mg Glucagon (Glucagon 1 Mg/Vial) 1 mg IM 1X PRN; Protocol PRN Reason: HYPOGLYCEMIA Home Med (Fluticasone/Umeclidin/Vilanter [Trelegy Ellipta 100-62.5-25]) 1 puff IH DAILY [facility] Last Admin: 09/18/22 09:00 Dose: Not Given Hydralazine HCl (Hydralazine Hcl 25 Mg Tablet) 50 mg PO BID [facility] Last Admin: 09/18/22 21:26 Dose: 50 mg Dextrose (Dextrose 10% Water Iv Soln.) 125 mls @ 0 mls/hr IV PRN PRN; Protocol PRN Reason: HYPOGLYCEMIA Insulin Human Regular (Insulin -Regular Human 50 Unit/0.5 Ml Ml) 0 unit SQ ACHS [facility]; Protocol Last Admin: 09/18/22 21:00 Dose: Not Given Ketoconazole (Ketoconazole Cream 15 Gm Tube) 1 appl TOP BID [facility] Last Admin: 09/18/22 21:00 Dose: 1 appl Metoprolol Tartrate (Metoprolol Tar 25 Mg Tab) 25 mg PO BID [facility] Last Admin: 09/18/22:24 Dose: 25 mg Quetiapine Fumarate (Quetiapine 100mg Tab) 150 mg PO BEDTIME [facility] Last Admin: 09/18/22 21:25 Dose: 150 mg Sodium Chloride (Flush Normal Saline 10 Ml) 10 ml IV BID [facility] Last Admin: 09/18/22 21:26 Dose: 10 ml Tramadol HCl (Tramadol Hcl 50 Mg Tab) 100 mg PO Q8H PRN PRN Reason: Pain scale 5-7 (Moderate) Last Admin: 09/18/22 17:31 Dose: 100 mg Assessment And Plan - Current Problems (Diagnosis) (1) Shingles Current Visit: Yes Status: Acute Plan: Shingle of LLE: Managed by primary team with steroid (2) Diffuse lymphadenopathy Current Visit: Yes Status: Acute Plan: Unclear etiology and concern for malignancy / lymphoma. Pending for biopsy. Managed by primary team. 09/18 Biopsy performed by Glenys Christensen Pending for result ID team would provide recommendations of antibiotic when needed. - Plan Generalized weakess, falls Diffuse lymphadenopathy, unclear etiology: Biopsy done, 09/18 Shingles - LLE Stasis dermatitis Bilateral intertrigo chronic wounds h/o afib NAV on CKD3 NIDDM2 HTN Hx LA Gout COPD CHF ABD pain ID will closely monitoring the signs of infection with fever and WBC trends Case has been discussed with Dr. Sanchez N
[2022-09-19] MEDS: Fluticasone/Umeclidin/Vilanter (Trelegy Ellipta) 100-62.5-25 Blst.W.Dev IH SCH (09:00)
[2022-09-19] MEDS: KETOCONAZOLE CREAM 15 GM TUBE TOP SCH ×2 (09:00→21:00)
[2022-09-19] MEDS: AMINO ACIDS/PROTEIN HYDROLYS 30 ML LIQUID.PKT PO SCH ×2 (09:00→21:00)
[2022-09-19] MEDS: GABAPENTIN 100 MG CAP PO SCH ×2 (09:01→21:09)
[2022-09-19] MEDS: VITAMIN D 1000 UNIT TAB PO SCH (09:01)
[2022-09-19] MEDS: FAMOTIDINE 20 MG TAB PO SCH ×2 (09:01→21:08)
[2022-09-19] MEDS: APIXABAN 5 MG TABLET PO SCH ×2 (09:01→21:08)
[2022-09-19 09:02] LABS: Rheumatoid Factor R (NEG); Rheumatoid Factor Titer 1:1 (8 RF IU/mL)
[2022-09-19] MEDS: ESCITALOPRAM 20 MG TAB PO SCH (09:02)
[2022-09-19] MEDS: METOPROLOL TAR 25 MG TAB PO SCH ×2 (09:02→21:08)
[2022-09-19] MEDS: HYDRALAZINE HCL 25 MG TABLET PO SCH ×2 (09:02→21:08)
[2022-09-19] MEDS: ASPIRIN EC 81 MG TAB PO SCH (09:02)
--- NOTE | 2022-09-19 12:00 | PN ---
Date of Progress Note: 09/19/2022 Subjective: The patient was admitted with acute kidney injury, cardiorenal syndrome. The patient allen d been found to have lymphadenopathy, status post lymph node biopsy yesterday. The patient still has some poor intake. Physical Examination: Vital Signs: Blood pressure 126/49, pulse of 60, afebrile. The patient had good urine output of 600 . Chest: Decreased entry bilateral base. Heart: S1, S2. Regular. Abdomen: Soft, nontender, morbidly obese. Extremity: +1 edema. Neurologic: Alert. No focality. Laboratory Data: Hemoglobin 8. Sodium 135, potassium 4.6, bicarb 23, BUN 53, creatinine 2.4, calciu m 7.9, phosphorus 4.4. Iron saturation 39, albumin 1.8. Corrected calcium is 9.5. TSH 2.3. PTH 38 . Serology is still pending. Current Medications: The patient on include; 1.Aspirin. 2.Albuterol. 3.Eliquis. 4.Metoprolol 25 b.i.d. 5.Gabapentin. 6.Seroquel. 7.Pepcid. 8.Tramadol. 9.Ketoconazole. Assessment And Plan: 1.Acute kidney injury, possible secondary to prerenal. I am going to go ahead and start the patient on IV fluid and we will monitor the response for the patient. 2.Hypertension, controlled, optimal. Continue current treatment. Continue beta-clarisse. Keep hold ing the diuresis. 3.Lymphadenopathy, status post biopsy. We will follow up with primary and Surgery. 4.Anemia of chronic kidney disease. Serum protein electrophoresis is still pending. 5.Congestive heart failure, currently looked to be slightly on the dry side. We will start IV fluid . MA/MODL Voice ID: [id number] Report ID: [id number]
[2022-09-19] MEDS: NA CHLORIDE 0.9% 1,000 ML IV SCH (12:25)
--- NOTE | 2022-09-19 12:59 | P.PN ---
Date of Service: 09/19/[address] Bx. Patient with expected degree of pain/tenderness. Up to Chair and eating lunch. NAD. Mild increased rate of breathing. Submental incision C/D/I with steri- strips, mild tenderness. No ecchymosis. A: diffuse LAD, path pending. P: No specific incision care is needed. Steri-strips should come off or can be removed in 1-2 weeks. Will FU in office PRN. MD will contact patient/family once path report available.
--- NOTE | 2022-09-19 13:54 | RAD REPORT ---
EXAM DESCRIPTION: RAD - Chest Single View - 09/19/2022 1:43 pm CLINICAL HISTORY: COPD Chest pain. COMPARISON: Chest Single View dated 09/18/2022; Abdomen 1 View (KUB) dated 09/15/2022; Chest Single Vi ew dated 09/15/2022; Chest Single View dated 06/21/2021 FINDINGS: Portable technique limits examination quality. The lungs are underinflated which results in vascular crowding. The lungs are grossly clear. The hear t is normal in size. No displaced fractures. IMPRESSION: No acute intrathoracic process suspected.
--- NOTE | 2022-09-19 16:14 | P.PN ---
Subjective Date of Service: 09/19/22 Chief Complaint: AMS, Fall Patient was seen sitting in a chair. He was able to stand with PT today. He has no new complain. Physical Examination - Vital Signs Temperature: 97.0 F Blood Pressure: 132/56 Pulse: 69 Respirations: 16 Pulse Ox (%): 97 Assessment And Plan - Plan Physical exam GEN: Alert, oriented, 3 HEENT: Normal conjunctiva, sclera anicteric CV: Regular rate and rhythm, b/l lower extremity edema Pulm: mild labored respirations on O2, diminished bilaterally ABD: Soft, nontender, nondistended Integumentary: LLE: Blisters and few crusted lesions on the left thigh. Neuro: Normal speech, normal affect, globally weak. Problem List Generalized weakess, falls diffuse lymphadenopathy, unclear etiology Shingles - LLE b/l intertrigo chronic wounds h/o afib Shingles to LLE NAV on CKD3 NIDDM2 HTN Hx [place] Gout COPD CHF ABD pain Weakness/fall, felt to be secondary to drug use - recently prescribed gabapentin (300mg TID) and steroids for shingles shingles improving pt reported increased burning / neuropathic pain, on steroids; gabapentin restarted at 100mg BID, uptitrate based on symptoms/side effects UA clear. Nursing staff report urinary retention. Bladder scan revealed 400 mL of retained urine. Patient declined Gibson catheter insertion. Continue to monitor Diffuse lymphadenopathy unclear etiology diffuse, bulky concern for malignancy / lymphoma blood smear sent to path. Status post lymph node biopsy by ENT. Continue Eliquis. Cardiology input appreciated. Atrial fibrillation: Stable Continue metoprolol and Eliquis. LLE shingles - improving Supportive measures Intertrigo On ketoconazole chronic wounds wound care following. NAV on CKD 3: Nephrology input appreciated. Uric acid level elevated suggesting dehydration. Patient started on IV fluid per nephrology. Continue to monitor renal function. NIDDM2 - sliding scale / accucheks HTN Hx [place] COPD confirm home med, continue Trelegy Bronchodilators as needed. Code: full Continue PT
[2022-09-19] MEDS: TRAMADOL HCL 50 MG TAB PO PRN (16:32)
[2022-09-19] MEDS: QUETIAPINE 100MG TAB PO SCH (21:09)
[2022-09-20 04:26] LABS: Hematocrit 23.4 % (39.6-49.0); Lymphocytes % 18.2 % (15.3-44.8); MCV 91.6 fL (80-100); RBC Red Blood Cell Count 2.55 M/uL (4.33-5.43)
[2022-09-20 04:39] LABS: Potassium 4.4 mmol/L (3.5-5.1)
[2022-09-20 04:40] LABS: Albumin 1.7 g/dL (3.4-5.0); Phosphorus 4.1 mg/dL (2.5-4.9)
[2022-09-20] MEDS: INSULIN -REGULAR HUMAN 50 UNIT/0.5 ML ML SQ SCH ×4 (07:30→20:33)
[2022-09-20] MEDS: NA CHLORIDE 0.9% 1,000 ML IV SCH (08:00)
--- NOTE | 2022-09-20 08:11 | P.PN ---
Subjective Date of Service: 09/20/22 Chief Complaint: AMS, Fall Patient lying in bed sleeping with at the bedside. No major event upon examination Physical Examination - Vital Signs Temperature: 97.4 F Blood Pressure: 140/57 Pulse: 86 Respirations: 18 Pulse Ox (%): 94 - Physical Exam General: In no apparent distress Respiratory: Expiratory wheezes (KELIN) Cardiovascular: Normal S1 S2 Gastrointestinal: Normal bowel sounds Musculoskeletal: Other (stasis dermatitis) Integumentary: Skin lesion (shingles), Tenderness/swelling, Erythema, Warmth, Other (stasis dermatitis) Neurological: Normal speech, Normal tone, Normal affect - Studies Acetaminophen (Acetaminophen 500 Mg Tab) 500 mg PO Q6H PRN PRN Reason: Pain scale 2-4 (Mild) Last Admin: 09/18/22 21:30 Dose: 500 mg Albuterol Sulfate (Albuterol 2.5 Mg/3 Ml Neb Martha) 2.5 mg NEB [id number] PRN PRN Reason: WHEEZING Last Admin: 09/17/22 05:45 Dose: 2.5 mg Amino Acids (Amino Acids/Protein Hydrolys 30 Ml Liquid.Pkt) 30 ml PO BID [facility] Last Admin: 09/19/22 21:00 Dose: 30 ml Apixaban (Apixaban 5 Mg Tablet) 5 mg PO BID [facility] Last Admin: 09/19/22 21:08 Dose: 5 mg Aspirin (Aspirin Ec 81 Mg Tab) 81 mg PO DAILY [facility] Last Admin: 09/19/22 09:02 Dose: 81 mg Cholecalciferol (Vitamin D 1000 Unit Tab) 4,000 unit PO DAILY [facility] Last Admin: 09/19/22 09:01 Dose: 4,000 unit Escitalopram Oxalate (Escitalopram 20 Mg Tab) 10 mg PO DAILY [facility] Last Admin: 09/19/22 09:02 Dose: 10 mg Famotidine (Famotidine 20 Mg Tab) 20 mg PO BID [facility]; Protocol Last Admin: 09/19/22 21:08 Dose: 20 mg Gabapentin (Gabapentin 100 Mg Cap) 100 mg PO BID [facility] Last Admin: 09/19/22 21:09 Dose: 100 mg Glucagon (Glucagon 1 Mg/Vial) 1 mg IM 1X PRN; Protocol PRN Reason: HYPOGLYCEMIA Home Med (Fluticasone/Umeclidin/Vilanter [Trelegy Ellipta 100-62.5-25]) 1 puff IH DAILY [facility] Last Admin: 09/19/22 09:00 Dose: Not Given Hydralazine HCl (Hydralazine Hcl 25 Mg Tablet) 50 mg PO BID [facility] Last Admin: 09/19/22 21:08 Dose: 50 mg Dextrose (Dextrose 10% Water Iv Soln.) 125 mls @ 0 mls/hr IV PRN PRN; Protocol PRN Reason: HYPOGLYCEMIA Sodium Chloride (Ns 1000 Ml Ivbag) 1,000 mls @ 50 mls/hr IV .Q20H [facility] Last Admin: 09/19/22 12:25 Dose: 1,000 mls Insulin Human Regular (Insulin -Regular Human 50 Unit/0.5 Ml Ml) 0 unit SQ ACHS CAMPOS; Protocol Last Admin: 09/19/22 21:00 Dose: Not Given Ketoconazole (Ketoconazole Cream 15 Gm Tube) 1 appl TOP BID [facility] Last Admin: 09/19/22 21:00 Dose: 1 appl Metoprolol Tartrate (Metoprolol Tar 25 Mg Tab) 25 mg PO BID [facility] Last Admin: 09/19/22 21:08 Dose: 25 mg Quetiapine Fumarate (Quetiapine 100mg Tab) 150 mg PO BEDTIME [facility] Last Admin: 09/19/22 21:09 Dose: 150 mg Sodium Chloride (Flush Normal Saline 10 Ml) 10 ml IV BID [facility] Last Admin: 09/19/22 21:09 Dose: 10 ml Tramadol HCl (Tramadol Hcl 50 Mg Tab) 100 mg PO Q8H PRN PRN Reason: Pain scale 5-7 (Moderate) Last Admin: 09/19/22 16:32 Dose: 100 mg Assessment And Plan - Current Problems (Diagnosis) (1) Shingles Current Visit: Yes Status: Acute Plan: Shingle of LLE: Managed by primary team with steroid (2) Diffuse lymphadenopathy Current Visit: Yes Status: Acute Plan: Unclear etiology and concern for malignancy / lymphoma. Pending for biopsy. Managed by primary team. 09/18 Biopsy performed by Glenys Christensen Pending for result ID team would provide recommendations of antibiotic when needed. - Plan Generalized weakess, falls Diffuse lymphadenopathy, unclear etiology: Biopsy done, 09/18, pending for result Shingles - LLE Stasis dermatitis Bilateral intertrigo chronic wounds h/o afib NAV on CKD3 NIDDM2 HTN Hx [place] Gout COPD CHF ABD pain ID will closely monitoring the signs of infection with fever and WBC trends Case has been discussed with Dr. Sanchez N
[2022-09-20] MEDS: AMINO ACIDS/PROTEIN HYDROLYS 30 ML LIQUID.PKT PO SCH ×3 (09:00→20:57)
[2022-09-20] MEDS: Fluticasone/Umeclidin/Vilanter (Trelegy Ellipta) 100-62.5-25 Blst.W.Dev IH SCH (09:00)
[2022-09-20] MEDS: ASPIRIN EC 81 MG TAB PO SCH (09:12)
[2022-09-20] MEDS: ESCITALOPRAM 20 MG TAB PO SCH (09:12)
[2022-09-20] MEDS: APIXABAN 5 MG TABLET PO SCH ×2 (09:12→20:31)
[2022-09-20] MEDS: HYDRALAZINE HCL 25 MG TABLET PO SCH ×2 (09:12→20:31)
[2022-09-20] MEDS: METOPROLOL TAR 25 MG TAB PO SCH ×2 (09:13→20:31)
[2022-09-20] MEDS: GABAPENTIN 100 MG CAP PO SCH ×2 (09:13→20:32)
[2022-09-20] MEDS: FAMOTIDINE 20 MG TAB PO SCH ×2 (09:13→20:31)
[2022-09-20] MEDS: VITAMIN D 1000 UNIT TAB PO SCH (09:14)
[2022-09-20] MEDS: KETOCONAZOLE CREAM 15 GM TUBE TOP SCH ×2 (09:15→20:33)
[2022-09-20] MEDS ORDERED: EPOETIN ALFA-EPBX 10,000 UNIT/ML VIAL SQ SCH (11:00)
--- NOTE | 2022-09-20 11:13 | PN ---
Date of Progress Note: 09/20/2022 Subjective: The patient was admitted with weakness and anasarca. The patient had lymphadenopathy. The patient had lymph node biopsy. Yesterday, we gave IV fluid. The patient feeling slightly better , participating in physical therapy today. Physical Examination: Vital Signs: Blood pressure 130/47, pulse of 86, afebrile. Chest: Decreased entry bilateral base. Heart: S1, S2. Systolic murmur. Abdomen: Morbidly obese. Could not appreciate any organomegaly. Extremities: Venous stasis change plus edema. 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 Neurologic: Alert. No focality. Laboratory Data: Chest x-ray, cardiomegaly with congestion, but looks better than before. Hemoglobi n 7.6. Sodium 136, potassium 4.4, bicarb 23, BUN 56, creatinine 1.9, calcium 8, phosphorus 4.1, albu min 1.7. Corrected calcium is 10. PTH 38. Current Medications: The patient on include; 1.Aspirin. 2.Albuterol. 3.Metoprolol. 4.Hydralazine 50 b.i.d. 5.Gabapentin 100 b.i.d. 6.Tylenol. 7.Pepcid. 8.IV fluid. The patient received almost 800 mL from yesterday. 9.Cholecalciferol. Assessment And Plan: 1.Acute kidney injury secondary to prerenal, recovered, close to baseline. I am going to discontinu e IV fluid and we will continue to monitor. Continue liberal oral diet. 2.Hypertension, controlled, optimal. Continue current medication. Please keep avoiding any ALIX inh ibitor or ARB holding diuresis. 3.Lymphadenopathy, status post biopsy. We will follow up with Surgery and Primary. 4.Anemia of chronic kidney disease. Serum protein electrophoresis is still pending. Iron deficienc y anemia has been ruled out. I am going to give the patient FREDERICK and we will follow up. 5.Vitamin D deficiency. Continue supplement. 6.Hyponatremia, depletional, on the recovery. ERICA/GWENDOLYN Voice ID: [id number] Report ID: [id number]
--- NOTE | 2022-09-20 11:47 | P.PN ---
Subjective Date of Service: 09/20/22 Chief Complaint: AMS, Fall Patient has no new complain. He denies shortness of breath. Serum creatinine is improved slightly from yesterday. Physical Examination - Vital Signs Temperature: 97.4 F Blood Pressure: 130/47 Pulse: 86 Respirations: 18 Pulse Ox (%): 94 Assessment And Plan - Plan Physical exam GEN: Alert, oriented, 3 HEENT: Normal conjunctiva, sclera anicteric CV: Regular rate and rhythm, b/l lower extremity edema Pulm: mild labored respirations on O2, diminished bilaterally ABD: Soft, nontender, nondistended Integumentary: LLE: Blisters and few crusted lesions on the left thigh. Neuro: Normal speech, normal affect, globally weak. Problem List Generalized weakess, falls diffuse lymphadenopathy, unclear etiology Shingles - LLE b/l intertrigo chronic wounds h/o afib Shingles to LLE NAV on CKD3 NIDDM2 HTN Hx [place] Gout COPD CHF ABD pain Weakness/fall, felt to be secondary to drug use - recently prescribed gabapentin (300mg TID) and steroids for shingles shingles improving pt reported increased burning / neuropathic pain, on steroids; gabapentin restarted at 100mg BID, uptitrate based on symptoms/side effects UA clear. Nursing staff report urinary retention. Bladder scan revealed 400 mL of retained urine. Patient declined Gibson catheter insertion. Patient is voiding Diffuse lymphadenopathy unclear etiology diffuse, bulky concern for malignancy / lymphoma blood smear sent to path. Status post lymph node biopsy by ENT. Continue Eliquis. Cardiology input appreciated. Atrial fibrillation: Stable Continue metoprolol and Eliquis. LLE shingles - improving Supportive measures Intertrigo On ketoconazole chronic wounds wound care following. NAV on CKD 3: Nephrology input appreciated. Uric acid level elevated suggested dehydration. Patient hydrated with IV fluid per nephrology. Continue to monitor renal function. SHAVONNE positive. Other autoimmune screen tests pending. Nephrology to follow. NIDDM2 - sliding scale / accucheks HTN Hx OR COPD confirm home med, continue Trelegy Bronchodilators as needed. Code: full Continue PT. Patient may be a candidate for acute rehab. Will discuss with family whether they would want to explore inpatient rehab.
[2022-09-20] MEDS: LACTOSE-REDUCED FOOD 330 ML LIQUID PO SCH (16:23)
[2022-09-20] MEDS: TRAMADOL HCL 50 MG TAB PO PRN (20:28)
[2022-09-20] MEDS: QUETIAPINE 100MG TAB PO SCH (20:32)
--- NOTE | 2022-09-21 05:05 | P.PN ---
Date of Service: 09/21/22 Patient is a HIGH fall risk. I received a call that he tried to ambulate on his own and sustained a mechanical fall. He fell onto his side. He denies any acute pain or injury. No bruising/abrasions noted. Patient is moving all 4 extremities and acting appropriately. He was instructed not to get out of bed on his own. I was later notified that his rhythm has been fluctuating, from NSR to 1st degree block to 2nd degree type 1. EKG was obtained which showed a 1st degree block with rate of 77. Will consult cardiology.
[2022-09-21 06:30] LABS: Albumin 1.7 g/dL (3.4-5.0); Phosphorus 3.8 mg/dL (2.5-4.9); Potassium 4.2 mmol/L (3.5-5.1)
[2022-09-21 06:50] LABS: Hematocrit 22.4 % (39.6-49.0); Lymphocytes % 24.7 % (15.3-44.8); MCV 93.1 fL (80-100)
[2022-09-21] MEDS: INSULIN -REGULAR HUMAN 50 UNIT/0.5 ML ML SQ SCH ×4 (07:30→21:00)
[2022-09-21] MEDS: AMINO ACIDS/PROTEIN HYDROLYS 30 ML LIQUID.PKT PO SCH ×2 (09:00→21:26)
[2022-09-21] MEDS: Fluticasone/Umeclidin/Vilanter (Trelegy Ellipta) 100-62.5-25 Blst.W.Dev IH SCH (09:00)
[2022-09-21] MEDS: FAMOTIDINE 20 MG TAB PO SCH ×2 (09:48→21:24)
[2022-09-21] MEDS: APIXABAN 5 MG TABLET PO SCH ×2 (09:48→21:23)
[2022-09-21] MEDS: ASPIRIN EC 81 MG TAB PO SCH (09:48)
[2022-09-21] MEDS: VITAMIN D 1000 UNIT TAB PO SCH (09:48)
[2022-09-21] MEDS: GABAPENTIN 100 MG CAP PO SCH ×2 (09:49→21:24)
[2022-09-21] MEDS: METOPROLOL TAR 25 MG TAB PO SCH ×2 (09:49→21:25)
[2022-09-21] MEDS: ESCITALOPRAM 20 MG TAB PO SCH (09:49)
[2022-09-21] MEDS: HYDRALAZINE HCL 25 MG TABLET PO SCH ×2 (09:49→21:23)
[2022-09-21] MEDS: KETOCONAZOLE CREAM 15 GM TUBE TOP SCH ×2 (09:52→21:25)
[2022-09-21] MEDS: ACETAMINOPHEN 500 MG TAB PO PRN (10:01)
[2022-09-21] MEDS: LACTOSE-REDUCED FOOD 330 ML LIQUID PO SCH ×2 (12:13→15:19)
--- NOTE | 2022-09-21 12:36 | P.PN ---
Subjective Date of Service: 09/21/22 Chief Complaint: AMS, Fall Subjective: No new changes Physical Examination - Vital Signs Temperature: 97.9 F Blood Pressure: 144/54 Pulse: 82 Respirations: 16 Pulse Ox (%): 97 - Physical Exam General: Other (appears as his stated age) HEENT: Atraumatic, Normocephalic Neck: Supple Respiratory: Other (symmetric chest expansion) Cardiovascular: No rubs, No murmurs Gastrointestinal: Soft and benign, No guarding Musculoskeletal: No clubbing Integumentary: No warmth Neurological: Normal tone Urinary: Other (No bladder distention) External genitalia: Deferred Rectal: Deferred Assessment And Plan - Plan 1. Acute kidney injury secondary to prerenal state. Resolving. Encourage po fluid intake. 2. Hypertension, controlled, optimal. Continue current medication. 3. Diffuse lymphadenopathy, status post biopsy. We will follow up with Surgery and Primary. 4. Anemia of chronic kidney disease. Received FREDERICK. Monitor H/H. 5. Vitamin D deficiency. Continue supplement.
[2022-09-21] MEDS: TRAMADOL HCL 50 MG TAB PO PRN ×2 (14:05→21:24)
--- NOTE | 2022-09-21 15:41 | CON ---
Date of Consultation: 09/21/2022 Reason For Consultation: First-degree AV block, possible second-degree AV block noted on telemetry. History Of Present Illness: This is a middle-aged male with past medical history of. DICTATION ENDS HERE. /GWENDOLYN Voice ID: [id number] Report ID: [id number]
--- NOTE | 2022-09-21 18:16 | P.PN ---
Subjective Date of Service: 09/21/22 Chief Complaint: AMS, Fall Patient has no new complain. He denies shortness of breath. Spouse report poor oral intake. His renal function continues to improve. Physical Examination - Vital Signs Temperature: 97.3 F Blood Pressure: 153/64 Pulse: 78 Respirations: 16 Pulse Ox (%): 95 Assessment And Plan - Plan Physical exam GEN: Alert, oriented, 3 HEENT: Normal conjunctiva, sclera anicteric CV: Regular rate and rhythm, b/l lower extremity edema Pulm: mild labored respirations on O2, diminished bilaterally ABD: Soft, nontender, nondistended Integumentary: LLE: Blisters and few crusted lesions on the left thigh. Neuro: Normal speech, normal affect, globally weak. Problem List Generalized weakess, falls diffuse lymphadenopathy, unclear etiology Shingles - LLE b/l intertrigo chronic wounds h/o afib Shingles to LLE NAV on CKD3 NIDDM2 HTN Hx [place] Gout COPD CHF ABD pain Weakness/fall, felt to be secondary to drug use - recently prescribed gabapentin (300mg TID) and steroids for shingles shingles improving pt reported increased burning / neuropathic pain, on steroids; gabapentin restarted at 100mg BID, uptitrate based on symptoms/side effects UA clear. Nursing staff report urinary retention. Bladder scan revealed 400 mL of retained urine. Patient declined Gibson catheter insertion. Patient is voiding Diffuse lymphadenopathy unclear etiology diffuse, bulky concern for malignancy / lymphoma blood smear sent to path. Status post lymph node biopsy by ENT. Continue Eliquis. Follow-up lymph node pathology. Atrial fibrillation: Stable Continue metoprolol and Eliquis. LLE shingles - improving Supportive measures Intertrigo On ketoconazole chronic wounds wound care following. NAV on CKD 3: Nephrology is following. Patient was some degree of dehydration. Patient hydrated with IV fluid per nephrology. Renal function has improved with IV hydration. IV fluid discontinued by nephrology. continue to monitor renal function. SHAVONNE positive. Other autoimmune screen tests pending. Nephrology to follow. NIDDM2 - sliding scale / accucheks. Blood glucose readings within acceptable range. Bronchodilators as needed. Continue Trelegy. Monitor H&H and transfuse as needed for hemoglobin less than 7. Code: full Disposition: Acute rehab.
--- NOTE | 2022-09-21 18:32 | PN ---
Date of Progress Note: 09/21/2022 Reason For Reconsultation: First versus second-degree AV block. Review of Systems: There is no chest pain, shortness of breath, orthopnea, cough. No nausea, vomiting, diarrhea. All o ther systems reviewed and they were negative. Physical Examination: Vital Signs: Temperature is 97.8, pulse 82, breathing at 16, blood pressure 144/54, saturating 97%. General: Pleasant elderly male, in no apparent distress. Head and Neck: Pupils are equal, reactive to light. Intact eye movements. No JVD. No cervical lym phadenopathy. Neck is supple. Thyroid is not enlarged. Lungs: Clear to auscultation bilaterally. No rhonchi, wheezing, or crackles. No accessory muscle u se. Heart: Irregular. No extra sounds. Abdomen: Soft, nontender. Bowel sounds positive. No organomegaly. No masses or hernia. No rigidi ty or rebound. Extremities: No clubbing or cyanosis. Intact pulses. Skin: No rash. Neurologic: Alert, awake. No acute focal deficits appreciated. Investigations: BUN 52, creatinine 0.73, and potassium 4.2. Assessment And Recommendations: First-degree AV block by EKG and on telemetry it was noted that he h as second-degree type 1 av block. At any rate, the patient is maintaining a good heart rate and has very good blood pressure, no symptoms. No further workup is recommended as the heart block is not a significant. At this point, continue to keep the patient on equipment monitor phototypesetting. We will observe the patient and plan accordingly. Thank you for reconsultation. /GWENDOLYN Voice ID: [id number] Report ID: [id number]
--- NOTE | 2022-09-21 20:25 | PN ---
Subjective: The patient is somnolent, not in any acute distress. Denies any chest pain, abdominal p ain, constipation, or diarrhea. Objective: Vital Signs: Reviewed. Lungs: Basal crackles. Heart: S1, S2 regular. Abdomen: Soft, nontender. Bowel sounds present. Extremities: Trace edema. Wounds and lesions noted. Laboratory Data: WBC 4.1, hemoglobin 7.3, and platelets 148. BUN 56 and creatinine 1.7. Medications: The patient is off antibiotic. Assessment And Plan: Shingles, lesions are improving and dry. Diffuse lymphadenopathy. Continue duarte pportive care and monitor signs for infection. Diabetes mellitus, morbid obesity, chronic obstructiv e pulmonary disease, and congestive heart failure. We will follow the patient as needed. NF/MODL Voice ID: [id number] Report ID: [id number]
[2022-09-21] MEDS: QUETIAPINE 100MG TAB PO SCH (21:23)
[2022-09-22 04:58] LABS: HIV AG/AB 4TH GEN Non-reactive (Non-reactive)
[2022-09-22 05:00] LABS: UR PROTEIN 64.4 mg/dL (<11.9); Urine Protein/Creatinine Ratio 0.85 ratio (<0.15)
[2022-09-22 05:20] LABS: Specific Gravity 1.014 (1.005-1.030); Urine Bacteria <20 /HPF (<20); Urine Bilirubin NEGATIVE (Negative); Urine Blood Trace (Negative); Urine Clarity Clear (Clear); Urine Color Light-Yellow (Yellow); Urine Glucose NEGATIVE (Negative); Urine Protein 1+ (Negative); Urine Urobilinogen Normal (Normal); Urine pH 5.5 (5.0-7.0)
[2022-09-22 06:24] LABS: Absolute Lymphocytes (CBC) 0.9 K/uL (0.7-4.9); Lymphocytes % 15.5 % (15.3-44.8); MCV 92.6 fL (80-100); MPV 6.6 fL (7.6-11.3); RBC Red Blood Cell Count 2.48 M/uL (4.33-5.43)
[2022-09-22 06:34] LABS: Albumin 1.8 g/dL (3.4-5.0); Phosphorus 3.3 mg/dL (2.5-4.9); Potassium 4.3 mmol/L (3.5-5.1)
[2022-09-22] MEDS: INSULIN -REGULAR HUMAN 50 UNIT/0.5 ML ML SQ SCH ×4 (07:30→21:00)
[2022-09-22] MEDS: APIXABAN 5 MG TABLET PO SCH ×2 (08:30→21:01)
[2022-09-22] MEDS: GABAPENTIN 100 MG CAP PO SCH ×2 (08:30→21:10)
[2022-09-22] MEDS: VITAMIN D 1000 UNIT TAB PO SCH (08:30)
[2022-09-22] MEDS: FAMOTIDINE 20 MG TAB PO SCH ×2 (08:30→20:57)
[2022-09-22] MEDS: METOPROLOL TAR 25 MG TAB PO SCH ×2 (08:31→21:00)
[2022-09-22] MEDS: ASPIRIN EC 81 MG TAB PO SCH (08:31)
[2022-09-22] MEDS: ESCITALOPRAM 20 MG TAB PO SCH (08:31)
[2022-09-22] MEDS: Fluticasone/Umeclidin/Vilanter (Trelegy Ellipta) 100-62.5-25 Blst.W.Dev IH SCH (08:32)
[2022-09-22] MEDS: AMINO ACIDS/PROTEIN HYDROLYS 30 ML LIQUID.PKT PO SCH ×2 (08:33→21:00)
[2022-09-22] MEDS: TRAMADOL HCL 50 MG TAB PO PRN ×2 (08:34→15:29)
[2022-09-22] MEDS: HYDRALAZINE HCL 25 MG TABLET PO SCH ×2 (08:34→21:01)
[2022-09-22] MEDS: KETOCONAZOLE CREAM 15 GM TUBE TOP SCH ×2 (08:37→21:00)
[2022-09-22 09:03] LABS: Hepatitis C Virus RNA (PCR)log <1.18 log IU/mL
[2022-09-22] MEDS: LACTOSE-REDUCED FOOD 330 ML LIQUID PO SCH ×2 (12:00→17:00)
--- NOTE | 2022-09-22 12:16 | P.PN ---
Subjective Date of Service: 09/22/22 Chief Complaint: AMS, Fall Patient reports shortness of breath at rest and with exertion His renal function continues to improve. Oral intake remain poor. Physical Examination - Vital Signs Temperature: 97.4 F Blood Pressure: 154/58 Pulse: 83 Respirations: 24 Pulse Ox (%): 95 Assessment And Plan - Plan Physical exam GEN: Alert, oriented x 3, looks pale. HEENT: Normal conjunctiva, sclera anicteric CV: Regular rate and rhythm, b/l lower extremity edema Pulm: mild labored respirations, diminished bilateral breath sounds ABD: Obese abdomen, soft, nontender, nondistended Integumentary: LLE: crusted lesions on the left thigh. Blister noted on the s hin on the left leg. Neuro: Normal speech, normal affect, globally weak. Problem List Generalized weakess, falls diffuse lymphadenopathy, unclear etiology Shingles - LLE b/l intertrigo chronic wounds h/o afib Shingles to LLE NAV on CKD3 NIDDM2 HTN Hx [place] Gout COPD CHF ABD pain Symptomatic anemia Weakness/fall secondary to generalized illness, made worse with gabapentin shingles improving Gabapentin restarted for leg neuropathy UA clear. Nursing staff report urinary retention. Bladder scan revealed 400 mL of retained urine. Patient declined Gibson catheter insertion. Patient is voiding without difficulty. Diffuse lymphadenopathy unclear etiology diffuse, bulky concern for malignancy / lymphoma blood smear: Normocytic, normochromic anemia Status post lymph node biopsy by ENT. Continue Eliquis. Follow-up lymph node pathology. Atrial fibrillation: Stable Continue metoprolol and Eliquis. LLE shingles - improving Supportive measures Intertrigo On ketoconazole chronic wounds wound care following. NAV on CKD 3: Nephrology is following. Patient was some degree of dehydration. Patient hydrated with IV fluid per nephrology. Renal function has improved with IV hydration. IV fluid discontinued by nephrology. continue to monitor renal function. SHAVONNE positive. Rheumatoid factor negative, antiproteinase 3 negative, other autoimmune screen tests pending. Nephrology to follow. NIDDM2 - sliding scale / accucheks. Blood glucose readings within acceptable range. Bronchodilators as needed. Continue Trelegy. Transfuse 1 unit PRBC for symptomatic anemia. Monitor H&H and transfuse as needed for hemoglobin less than 7. Code: full Disposition: Acute rehab.
[2022-09-22] MEDS ORDERED: NA CHLORIDE 0.9% 250 ML IV SCH (13:00)
--- NOTE | 2022-09-22 14:18 | P.PN ---
Subjective Date of Service: 09/22/22 Chief Complaint: AMS, Fall Subjective: No new changes Physical Examination - Vital Signs Temperature: 97.4 F Blood Pressure: 154/58 Pulse: 83 Respirations: 24 Pulse Ox (%): 95 - Physical Exam General: Other (appears as his stated age) HEENT: Atraumatic, Normocephalic Neck: Supple Respiratory: Other (symmetric chest expansion) Cardiovascular: No rubs, No murmurs Gastrointestinal: Soft and benign, No guarding Musculoskeletal: No clubbing Integumentary: No warmth Urinary: Other (no bladder distention) External genitalia: Deferred Rectal: Deferred Assessment And Plan - Plan 1. Acute kidney injury secondary to prerenal state. Resolving. SCr improved to 1.6. Encourage po fluid intake. 2. Hypertension, controlled, optimal. Continue current medication. 3. Diffuse lymphadenopathy, status post biopsy. We will follow up with Surgery and Primary. 4. Anemia of chronic kidney disease. Received FREDERICK. Monitor H/H. 5. Vitamin D deficiency. Continue supplement.
[2022-09-22 19:13] LABS: Urine Bence (Immunoelectr)24hr REPORT
[2022-09-22] MEDS: QUETIAPINE 100MG TAB PO SCH (20:58)
[2022-09-22] MEDS ORDERED: NA CHLORIDE 0.9% 250 ML ONE (21:42)
[2022-09-23 03:16] LABS: Absolute Lymphocytes (CBC) 1.4 K/uL (0.7-4.9); Hematocrit 23.1 % (39.6-49.0); Lymphocytes % 19.8 % (15.3-44.8); MCV 91.9 fL (80-100); MPV 6.9 fL (7.6-11.3); RBC Red Blood Cell Count 2.51 M/uL (4.33-5.43)
[2022-09-23 03:30] LABS: Albumin 1.6 g/dL (3.4-5.0); Potassium 4.1 mmol/L (3.5-5.1)
[2022-09-23 03:37] VITALS: O2SAT 95
[2022-09-23] MEDS: INSULIN -REGULAR HUMAN 50 UNIT/0.5 ML ML SQ SCH ×2 (07:30→11:30)
[2022-09-23] MEDS: HYDRALAZINE HCL 25 MG TABLET PO SCH (09:00)
[2022-09-23] MEDS: AMINO ACIDS/PROTEIN HYDROLYS 30 ML LIQUID.PKT PO SCH (09:00)
[2022-09-23] MEDS: KETOCONAZOLE CREAM 15 GM TUBE TOP SCH (09:00)
[2022-09-23] MEDS: Fluticasone/Umeclidin/Vilanter (Trelegy Ellipta) 100-62.5-25 Blst.W.Dev IH SCH (09:00)
[2022-09-23] MEDS: METOPROLOL TAR 25 MG TAB PO SCH (09:45)
[2022-09-23] MEDS: ESCITALOPRAM 20 MG TAB PO SCH (09:46)
[2022-09-23] MEDS: FAMOTIDINE 20 MG TAB PO SCH (09:46)
[2022-09-23] MEDS: VITAMIN D 1000 UNIT TAB PO SCH (09:46)
[2022-09-23] MEDS: ASPIRIN EC 81 MG TAB PO SCH (09:47)
[2022-09-23] MEDS: GABAPENTIN 100 MG CAP PO SCH (09:47)
--- NOTE | 2022-09-23 10:01 | P.DS ---
Admission Date: 09/17/22 Discharge Date: 09/23/22 Disposition: TRANSFER TO INPATIENT REHAB Discharge Condition: FAIR Reason for Admission: AMS, Fall Brief History of Present Illness: Patient is a 67-year-old male with a past medical history significant for CHF, COPD, DM2, GERD, hypertension, gout, SD, PE who presented with complaint of fall, AMS and left leg shingle. Patient was evaluated in the ER, with at bedside. Patient very lethargic, and slow to respond. Per , patient developed shingles to his left lower extremity, and was prescribed gabapentin to help with the pain. stated that patient's confusion started after he started taking his gabapentin He was also prescribed steroids, tramadol and Tylenol. He became progressively weak with associated dizziness. He had difficulty getting up from the commode after using it due to weakness. The and the son attempted to get him up but he slid down on the floor. He ambulate with the aid of a walker. She also reported loss between 75 to 100 pounds last year due to decreased appetite. CT traumogram did not show any injury but significantly report innumerable variably sized mesenteric lymph nodes and large bulky periaortic/pericaval lymph nodes. Large confluent mass of lymph nodes noted along each inguinal chain in the pelvismeasuring approximately 13 x 6 cm on the right and 12 x 5 cm on the left. Numerous bulky inguinal lymph nodes are present as well. Patient was hospitalized for further management. Hospital Course: Diagnosis Generalized weakness Impaired mobility falls diffuse lymphadenopathy. Shingles - LLE b/l intertrigo chronic wounds h/o afib NAV on CKD3 NIDDM2 HTN Hx SD Gout COPD Chronic diastolic heart failure Symptomatic anemia Patient admitted to the medical floor and the following medical problems addressed; Weakness/fall secondary to generalized illness, made worse with gabapentin Gabapentin restarted for leg neuropathy but at a lower dose UA clear. No evidence of UTI Patient seen by PT, continues PT recommended. He has been accepted to inpatient rehab. Clinical condition is optimal for transfer to inpatient rehab. Diffuse lymphadenopathy unclear etiology diffuse, bulky concern for malignancy / lymphoma blood smear: Normocytic, normochromic anemia ENT consulted, status post lymph node biopsy by ENT. Lymph node pathology is pending. Continue Eliquis. Follow-up lymph node pathology. Atrial fibrillation: was stable Continued metoprolol and Eliquis. LLE shingles - improved. Lesions crusted. Supportive measures Intertrigo On topical ketoconazole chronic wounds wound care team assisted with treatment NAV on CKD 3: Seen by nephrology, patient had some degree of dehydration. He was on Lasix which was held and patient hydrated with IV fluid per nephrology. Renal function has improved with IV hydration. IV fluid now discontinued by nephrology. Renal function has been stable SHAVONNE positive. Rheumatoid factor negative, antiproteinase 3 negative, other autoimmune screen tests pending. Nephrology to follow. NIDDM2 - sliding scale / accucheks. Blood glucose readings within acceptable range. COPD: Was stable Bronchodilators as needed. Continued Trelegy. Symptomatic anemia: Transfused 1 unit PRBC for symptomatic anemia. Posttransfusion hemoglobin is 7.7. No evidence of active bleeding so Eliquis and aspirin were continued. Iron and vitamin C supplementation. Vital Signs/Physical Exam: Temp Pulse Resp BP Pulse Ox 97.4 F 83 24 H 154/58 H 95 09/23/22 08:14 09/23/22 09:45 09/23/22 08:14 09/23/22 09:45 09/23/22 08:14 General: Alert, In no apparent distress, Obese Neck: JVD not distended Respiratory: Diminished (Bilateral, otherwise clear) Cardiovascular: Normal S1 S2, Edema (1+ bilateral lower extremity edema), Irregular heart rate/rhythm Gastrointestinal: Soft and benign, Non-distended, No tenderness Integumentary: Other (Crusted herpes zoster rash on the left knee and thigh, bilateral venous stasis dermatitis of legs) Neurological: Other (Globally weak, no focal motor deficit) Laboratory Data at Discharge: WBC 7.30 K/uL (4.3-10.9) 09/23/22 03:02 Hgb 7.7 g/dL (13.6-17.9) L 09/23/22 03:02 Hct 23.1 % (39.6-49.0) L 09/23/22 03:02 Plt Count 158 K/uL (152-406) 09/23/22 03:02 Sodium 140 mmol/L (136-145) 09/23/22 03:02 Potassium 4.1 mmol/L (3.5-5.1) 09/23/22 03:02 BUN 49 mg/dL (7-18) H 09/23/22 03:02 Creatinine 1.58 mg/dL (0.70-1.30) H 09/23/22 03:02 Glucose 153 mg/dL (74-106) H 09/23/22 03:02 Uric Acid 9.2 mg/dL (3.5-7.2) H 09/18/22 03:39 Phosphorus 3.0 mg/dL (2.5-4.9) 09/23/22 03:02 Magnesium 1.9 mg/dL (1.6-2.4) 09/16/22 05:26 Total Bilirubin 0.4 mg/dL (0.2-1.0) 09/15/22 19:46 AST 23 U/L (15-37) 09/15/22 19:46 ALT 12 U/L (16-61) L 09/15/22 19:46 Alkaline Phosphatase 55 U/L (45-117) 09/15/22 19:46 Triglycerides 96 mg/dL (<150) 09/16/22 05:26 Cholesterol 77 mg/dL (<200) 09/16/22 05:26 HDL Cholesterol 19 mg/dL (40-60) L 09/16/22 05:26 Cholesterol/HDL Ratio 4.05 09/16/22 05:26 Home Medications: Allopurinol 1 tab PO DAILY 09/16/22 Apixaban [Eliquis] 5 mg PO BID 09/16/22 Cholecalciferol (Vitamin D3) [Vitamin D3] 100 mcg PO DAILY 09/16/22 Escitalopram [Lexapro*] 10 mg PO DAILY 09/16/22 Fluticasone/Umeclidin/Vilanter [Trelegy Ellipta 100-62.5-25] 1 puff IN DAILY 09/16/22 Hydralazine HCl 50 mg PO BID 09/16/22 Mecobalamin [B12 Active] 500 mcg PO DAILY 09/16/22 Metoprolol Tartrate 50 mg PO BID 09/16/22 Pantoprazole Sodium 40 mg PO DAILY 09/16/22 Quetiapine Fumarate [Seroquel] 150 mg PO BEDTIME 09/16/22 Vitamin B Complex [B-Complex] 1 tab PO DAILY 09/16/22 Albuterol Neb [Proventil 0.083% Neb Soln] 2.5 mg NEB [id number] PRN amp 09/23/22 Amino Acids/Protein Hydrolys [Prosource No Carb Liquid Pkt] 30 ml PO BID packet 09/23/22 Ascorbic Acid 1,000 mg PO BID #120 tab 09/23/22 Aspirin [Aspirin EC 81 MG] 81 mg PO DAILY #30 tab 09/23/22 Docusate [Colace Cap] 100 mg PO DAILY #30 cap 09/23/22 Famotidine [Pepcid*] 20 mg PO BID tab 09/23/22 Ferrous Sulfate [Ferrous Sulfate Elixir] 5 ml PO BID #473 osyr 09/23/22 Gabapentin [Neurontin*] 100 mg PO BID cap 09/23/22 Insulin -Regular Human [Novolin -R*] See Protocol SQ ACHS ml 09/23/22 Ketoconazole [Nizoral Cream*] 1 appl TOP BID tube 09/23/22 Lactose-Reduced Food [Ensure Max Protein] 330 ml PO 1200,1700 can 09/23/22 traMADol HCL [Ultram*] 100 mg PO Q8H PRN tab 09/23/22 New Medications: Ascorbic Acid 1,000 mg PO BID #120 tab Aspirin [Aspirin EC 81 MG] 81 mg PO DAILY #30 tab Docusate [Colace Cap] 100 mg PO DAILY #30 cap Ferrous Sulfate [Ferrous Sulfate Elixir] 5 ml PO BID #473 osyr Diet: Low sodium Activity: Fall precautions Followup: NONE,NONE [Primary Care Provider] - Time spent managing pt's care (in minutes): 40
[2022-09-23] MEDS: LACTOSE-REDUCED FOOD 330 ML LIQUID PO SCH (11:33)
[2022-09-23 12:24] VITALS: BP 132/54; TEMP 97.2
[2022-09-25 10:58] LABS: Kappa Lambda Comment REPORT
== END 2022-09-23 15:24 | DRG 823 ==
LOC: ER 06:42 → ERHOLD 12:26 → 2ND 13:11 → OBSVTOIN 09-17 13:59
PROVIDERS: ADMIT Hospitalist; ATTEND Internal Medicine
PROC: 07B10ZX Excision of Right Neck Lymphatic, Open Approach, Diagnostic (ICD-10-PCS; 2022-09-18)
PROC: 07B20ZX Excision of Left Neck Lymphatic, Open Approach, Diagnostic (ICD-10-PCS; principal; 2022-09-18 07:00)
PROC: 30233N1 Transfusion of Nonautologous Red Blood Cells into Peripheral Vein, Percutaneous Approach (ICD-10-PCS; 2022-09-23)
DX: C83.05 Small cell B-cell lymphoma, lymph nodes of inguinal region and lower limb (principal); I50.33 Acute on chronic diastolic (congestive) heart failure; I13.0 Hypertensive heart and chronic kidney disease with heart failure and stage 1 through stage 4 chronic kidney disease, or unspecified chronic kidney disease; L03.115 Cellulitis of right lower limb; N17.9 Acute kidney failure, unspecified; L03.116 Cellulitis of left lower limb; E87.1 Hypo-osmolality and hyponatremia; Z68.42 Body mass index [BMI] 45.0-49.9, adult; N18.30 Chronic kidney disease, stage 3 unspecified; E11.22 Type 2 diabetes mellitus with diabetic chronic kidney disease; D63.1 Anemia in chronic kidney disease; E86.0 Dehydration; K21.9 Gastro-esophageal reflux disease without esophagitis; E11.40 Type 2 diabetes mellitus with diabetic neuropathy, unspecified; J44.9 Chronic obstructive pulmonary disease, unspecified; L30.4 Erythema intertrigo; M10.9 Gout, unspecified; I48.91 Unspecified atrial fibrillation; B02.9 Zoster without complications; E55.9 Vitamin D deficiency, unspecified; I44.1 Atrioventricular block, second degree; E66.01 Morbid (severe) obesity due to excess calories; S61.412A Laceration without foreign body of left hand, initial encounter; T38.0X5A Adverse effect of glucocorticoids and synthetic analogues, initial encounter; T42.6X5A Adverse effect of other antiepileptic and sedative-hypnotic drugs, initial encounter; I25.2 Old myocardial infarction; R33.9 Retention of urine, unspecified; Z88.1 Allergy status to other antibiotic agents; Z88.8 Allergy status to other drugs, medicaments and biological substances; Z79.01 Long term (current) use of anticoagulants; Z74.09 Other reduced mobility; Z86.14 Personal history of Methicillin resistant Staphylococcus aureus infection; Z90.49 Acquired absence of other specified parts of digestive tract; Z79.899 Other long term (current) drug therapy; Z86.718 Personal history of other venous thrombosis and embolism; Z86.711 Personal history of pulmonary embolism; Z20.822 Contact with and (suspected) exposure to COVID-19; W18.11XA Fall from or off toilet without subsequent striking against object, initial encounter; Y92.091 Bathroom in other non-institutional residence as the place of occurrence of the external cause; Y93.9 Activity, unspecified
CPT/HCPCS: 36415; 70450; 71045; 71250; 72125; 74018; 76770; 80048; 80053; 80061; 80069; 80076; 81001; 81003; 82140; 82378; 82550; 82570; 82607; 82728; 82947; 83540; 83735; 83880; 83883; 83970; 84100; 84156; 84443; 84466; 84484; 84550; 85025; 85044; 86021; 86038; 86140; 86160; 86225; 86335; 86430; 86850; 86900; 86901; 87389; 87522; 87811; 88305; 88307; 93005; 93306; 93970; 96361; 96374; 96375; 97110; 97161; 97165; 97530; 99285; A4216; G0378; J0171; J0330; J1815; J2001; J2250; J2370; J2550; J2704; J2710; J3010; J7030; J7040; J7042; J7050; J7613; P9016; Q0164; Q5106; U0003

== ENCOUNTER 2022-09-22 16:05 | Inpatient (IN) | payer OTHER ==
--- OUTSIDE RECORDS SUMMARY | 2022-09-23 15:25 | XMS REPORT | Continuity of Care Document ---
:1955 Author Organization [facility] t Address [address] [place] [address] Care Team Providers Name Role Phone UNKNOWN, REFFERING Primary Care Physician Unavailable Ry Sanches Attending Clinician Unavailable Magdalena Prajapati Attending Clinician Unavailable Randall Attending Clinician Unavailable Matthew Cherry Attending Clinician [phone] DR LÓPEZ VERONICA Attending Clinician Unavailable Luiz Attending Clinician Unavailable LILLIANA CARRERO Attending Clinician Unavailable Physician, No Primary or Family Admitting Clinician Unavaila jena Pereira Admitting Clinician Unavailable DR ÓLPEZ VERONICA Admitting Clinician Unavailable Luiz Admitting Clinician Unavailable LILLIANA CARRERO Admitting Clinician Unavailable Payers Payer Name Policy Type Policy Number Effective Date Expiration Date S ourlilia [facility] [id number] REG[facility] ([facility]) [id number] [place]ICARE B[place]: [id number] 2014 Virtual Call Center 00:00:00 [facility] - [id number] 2015 OPTIONS 00:00:00 Problems Condition Condition Condition Status Onset Resolution Last Treating Co mments Source Name Details Category Date Date Treatment Clinician Date Urinary Urinary Problem Active [place] incontinen Incontinen 8 Me tro ce ce 00:00: Urology 00 Microscopi Microscopi Problem Active 2020- [place] c c 6-24 [place] hematuria Hematuria 00:00: Urol ogy 00 Allergies, Adverse Reactions, Alerts Allergy Allergy Status Severity Reaction(s) Onset Inactive Treating Comm ents Source Name Type Date Date Clinician Sulfa DA Active SV RASH 0 [facility] (Sulfona 08-31 Clear mide 00:00: [place] Antibiot 00 [facility] erythrom DA Active SV RASH [facility] ycin 08-31 Clear base 00:00: [place] 00 [facility] simvasta DA Active U SYNCOPE [facility] tin 08-31 Clear 00:00: [place] 00 [facility] ondanset DA Active MO RASH [facility] kleber 08-31 Clear 00:00: [place] [address] [facility] Ondanset DA Active Unknown 0 [facility] kleber 09-06 Medical 00:00: [place] 00 Sulfa DA Active Unknown 0 [facility] (Sulfona 09-06 Medical mides) 00:00: [place] 00 Hmg-Coa DA Active Unknown [facility] Reductas 09-06 Medical e 00:00: [place] Inhibito 00 rs (Statins ) Erythrom DA Active Unknown 0 [facility] ycin 09-06 Medical Base 00:00: [place] 00 Biaxin Allergy Active [place] to [facility] substanc Urology e Erythrom Allergy Active [facility] to [facility] Base substanc Urology e Zocor Allergy Active [place] to [facility] substanc Urology e Zofran Allergy Active [place] [facility] e Social History Smoking Status Start Date Stop Date Source Never Smoker [facility] Ur ology Medications Ordered Filled Start Stop Current Ordering Indication Dosage Frequency Signature Comments Components Source Medication Medication Date Date Medication? Clinician (SIG) Name Name allopurinol allopurinol No 1 Q1D allopurino [place] 100 mg 100 mg l 100 mg [place] tablet Take tablet Take tablet Urology 1 tablet 1 tablet Take 1 every day every day tablet by oral by oral every day route. route. by oral route. cholecalcif cholecalcif No cholecalci [place] keesha keesha ferol [place] (vitamin (vitamin (vitamin [...] route. oral route. ergocalcife ergocalcife No ergocalcif [place] rol rol keesha [facility] (vitamin (vitamin (vitamin Uro logy D2) D2) D2) furosemide furosemide No 1 Q1D furosemide [place] 40 mg 40 mg 40 mg [facility] tablet Take tablet Take tablet Urology 1 tablet 1 tablet Take 1 every day every day tablet by oral by oral every day route. route. by oral route. metoprolol metoprolol No 1 BID metoprolol [place] tartrate tartrate tartrate Met ro 100 mg 100 mg 100 mg Urology tablet Take tablet Take tablet 1 tablet 1 tablet Take 1 twice a day twice a day tablet by oral by oral twice a route. route. day by oral route. nifedipine nifedipine No 1 Q1D nifedipine [place] ER 90 mg ER 90 mg ER 90 mg Met ro tablet,exte tablet,exte tablet,ext Urology nded nded ended release release release Take 1 Take 1 Take 1 tablet tablet tablet every day every day every day by oral by oral by oral route. route. route. omeprazole omeprazole [facility] quetiapine quetiapine No 1 BID quetiapine [place] 100 mg 100 mg 100 mg [place] tablet Take tablet Take tablet Urology 1 tablet 1 tablet Take 1 twice a day twice a day tablet by oral by oral twice a route. route. day by oral route. tramadol 50 tramadol 50 No 1 Q6H tramadol [place] mg tablet mg tablet 50 mg Metr o Take 1 Take 1 tablet Urology tablet tablet Take 1 every 6 every 6 tablet hours by hours by every 6 oral route. oral route. hours by oral route. vitamin B vitamin B No vitamin B [place] complex complex complex [facility] Vitamin B12 Vitamin B12 No Vitamin [place] B12 [facility] allopurinol allopurinol No 1 Q1D allopurino [place] 100 mg 100 mg l 100 mg [place] tablet Take tablet Take tablet Urology 1 tablet 1 tablet Take 1 every day every day tablet by oral by oral every day route. route. by oral route. cholecalcif cholecalcif No cholecalci [place] keesha keesha ferol [place] (vitamin (vitamin (vitamin [...] route. oral route. ergocalcife ergocalcife No ergocalcif [place] rol rol keesha [facility] (vitamin (vitamin (vitamin Uro logy D2) D2) D2) furosemide furosemide No 1 Q1D furosemide [place] 40 mg 40 mg 40 mg [place] tablet Take tablet Take tablet Urology 1 tablet 1 tablet Take 1 every day every day tablet by oral by oral every day route. route. by oral route. [place] 75 [place] 75 No 1 Q1D [place] 75 [facility] tablet mg tablet mg tablet [place] Take 1 Take 1 Take 1 Urology tablet tablet tablet every day every day every day by oral by oral by oral route. route. route. metoprolol metoprolol No 1 BID metoprolol [place] tartrate tartrate tartrate Met ro 100 mg 100 mg 100 mg Urology tablet Take tablet Take tablet 1 tablet 1 tablet Take 1 twice a day twice a day tablet by oral by oral twice a route. route. day by oral route. nifedipine nifedipine No 1 Q1D nifedipine [place] ER 90 mg ER 90 mg ER 90 mg Met ro tablet,exte tablet,exte tablet,ext Urology nded nded ended release release release Take 1 Take 1 Take 1 tablet tablet tablet every day every day every day by oral by oral by oral route. route. route. omeprazole omeprazole No omeprazole [place] [facility] quetiapine quetiapine No 1 BID quetiapine [place] 100 mg 100 mg 100 mg [facility] tablet Take tablet Take tablet Urology 1 tablet 1 tablet Take 1 twice a day twice a day tablet by oral by oral twice a route. route. day by oral route. tramadol 50 tramadol 50 No 1 Q6H tramadol [place] mg tablet mg tablet 50 mg Metr o Take 1 Take 1 tablet Urology tablet tablet Take 1 every 6 every 6 tablet hours by hours by every 6 oral route. oral route. hours by oral route. vitamin B vitamin B No vitamin B [place] complex complex complex [facility] Vitamin B12 Vitamin B12 No Vitamin [place] B12 [facility] Vital Signs Vital Name Observation Time Observation Value Comments Source BP Diastolic 2021-04-25 00:00:00 79 mm[Hg] [facility] Urology Height 2021-04-25 00:00:00 72 [in_i] [facility] U[facility] BMI (Body Mass 2021-04-25 00:00:00 56 kg/m2 [place] [facility] Index) Urology BP Systolic 2021-04-25 00:00:00 132 mm[Hg] [facility] Body Weight 2021-04-25 00:00:00 413 [lb_av] [facility] Urology BP Diastolic 2021-02-16 00:00:00 79 mm[Hg] [facility] U[facility] Height 2021-02-16 00:00:00 72 [in_i] [facility] Urology BMI (Body Mass 2021-02-16 00:00:00 56 kg/m2 [place] [facility] Index) Urology BP Systolic 2021-02-16 00:00:00 133 mm[Hg] [facility] Urology Body Weight 2021-02-16 00:00:00 413 [lb_av] [facility] Height 2020-09-06 13:06:00 182.88 CM Weight 2020-09-06 13:06:00 199.58 KG Procedures Procedure Date / Time Performing Clinician Source Performed EXCISION OF LEFT 2020-09-07 00:00:00 [facility] METATARSAL OPEN Center RPL LT FT SKN NAUTO SB 2020-09-07 00:00:[address] [facility] FULL THK EXT Center [facility] HEENT- Cataract Surgery [facility] Urology - Circumcision [facility] Urology Cholecystectomy [facility]rolog Plan of Care Planned Activity Planned Date Details Comments Source Diagnostic Test 2021-02-16 culture, urine + [facility] Pending 00:00:00 sensitivity [code = Urology culture, urine + sensitivity] Encounters Start End Encounter Admission Attending Care Care Encounter Source Date/Time Date/Time Type Type Clinicians Facility Department ID 2022-04-26 Inpatient EL Kocurek, HCAM[facility]YP [id number] [facility] 00:07:00 [facility] 43 [facility] 2021-10-24 Inpatient EL Kocurek, [facility] [id number] [facility] 10:01:00 [facility] 53 [facility] 2022-04-12 2022-04-25 Outpatient EL Kocurek, [facility] [id number] [facility] 09:00:00 00:00:00 [facility] 77 [facility] 2022-03-08 2022-03-25 Outpatient EL Kocurek, [facility] [id number] [facility] 09:30:00 00:00:00 [facility] 49 [facility] 2022-02-15 2022-02-22 Outpatient EL Kocurek, [facility] [id number] [facility] 09:00:00 00:00:00 [facility] 28 [facility] 2022-01-18 2022-01-23 Outpatient EL Kocurek, [facility]N [facility]YP [id number] [facility] 09:00:00 00:00:00 [facility] 29 [facility] 2022-01-04 2022-01-04 Outpatient Kocurek, HCACL LABO [id number] [facility] 14:42:00 14:42:00 [facility] 97 [facility] 2021-12-21 2021-12-21 Outpatient EL Kocurek, [facility]N [facility]YP [id number] [facility] 09:00:00 09:00:00 [facility] 86 [facility] 2021-10-19 2021-10-23 Inpatient EL Kocurek, [facility]N [facility] [id number] [facility] 09:12:00 00:00:00 [facility] 38 [facility] 2021-09-07 2021-09-25 Inpatient EL Kocurek, [facility] [id number] [facility] 09:00:00 00:00:00 [facility] 28 [facility] 2021-09-05 2021-09-05 Inpatient Magdalena Mane [facility] ENDO [id number] [facility] 12:53:00 12:53:00 92 [facility] [place] 2021-08-22 2021-08-25 Inpatient EL Kocurek, [facility]N [facility] [id number] [facility] 09:48:00 00:00:00 Ry 82 [facility] 2021-07-25 2021-07-25 Inpatient EL Kocurek, [facility]N MHYP [id number] [facility] 09:00:00 00:00:00 Ry 80 [facility] 2021-06-13 2021-06-25 Inpatient EL Kocurek, [facility] [id number] [facility] 09:30:00 00:00:00 Freddie 31 [facility] 2021-05-18 2021-05-25 Inpatient EL Brendencurek, HC[facility]N MHYP [id number] [facility] 14:29:00 00:00:00 Freddie 70 [facility] 2021-04-26 2021-04-26 Outpatient Ogletree_C HMU HMU [id number] [place] 01:53:00 01:53:00 [id number] [facility] 2021-04-25 2021-04-25 Outpatient Ogletree_C HMU HMU [id number] [place] 02:33:00 02:33:00 [id number] [facility] 2021-04-25 2021-04-25 Outpatient Dilip, HMU HMU [id number] 00:00:00 00:00:00 Matthew Woodruff [id number] 2021-04-25 2021-04-25 Matthew [facility] [place] - [id number] [facility] 00:00:00 00:00:00 Isabel Juárez Urolog y : [id number] [address] , Ph. 2021-04-10 2021-04-10 Outpatient Ogletree_C HMU HMU [id number] [place] 11:54:00 11:54:00 [id number] [facility] 2021-02-28 2021-02-28 Outpatient Ogletree_C HMU HMU [id number] [place] 10:46:00 10:46:00 [id number] [facility] 2021-02-18 2021-02-18 Outpatient Ogletree_C HMU U [id number] [place] 03:25:00 03:25:00 [id number] [facility] 2021-02-16 2021-02-16 Outpatient Ogletree_C HMU HMU [id number] [place] 12:23:00 12:23:00 [id number] [facility] 2021-02-16 2021-02-16 Outpatient Dilip, HMU [id number] 00:00:00 00:00:00 Matthew Woodruff [id number] 2021-02-16 2021-02-16 Matthew [facility] [place] - [id number] [facility] 00:00:00 00:00:00 Ranjan Leon Isabel Auguste Urolog y MD: [id number] [address] , Ph. 2021-02-15 2021-02-15 Outpatient Ogletree_C HMU U [id number] [place] 02:05:00 02:05:00 [id number] [facility] 2021-01-27 2021-01-27 Outpatient Ogletree_C HMU U [id number] [place] 11:40:00 11:40:00 [id number] [facility] 2020-09-07 2020-09-07 Outpatient [place] VERONICA MUSCOGEE WWACU [id number] [facility] 08:08:00 13:45:00 [facility] 2018-03-11 2018-03-11 Outpatient YarelisDonald MMG MMG [id number] [place] 04:07:00 04:07:00 0[facility] [...] 88 Units/L 50.0-136 .0 N CBC W/AUTO [id number] 11:26:00 Test Item Value Reference Range Interpretation [...] X10 3uL 0.00-0.01 N NRBC#) GLUCOSE BEDSIDE [id number] 13:40:00 Test Item Value Reference Range Interpretation Comments GLUCOSE BEDSIDE TESTING (test code 157 mg/dL 70-110 H = GLUBED) COVID 19 INHOUSE [id number] 10:38:00 Test Item Value Reference Range Interpretation Comments COVID 19 INHOUSE AG NEGATIVE Negative Per manu facturer, (test code = negative result s should [id number]) be treated aspr esumptive and, if inconsi [...] symptoms co nsistent with COVID-19. BASIC METABOLIC [id number] 10:35:00 Test Item Value Reference Range Interpretation [...] = CA) 8.9 MG/DL 8.5-10.1 N PROTHROMBIN [id number] 10:34:00 Test Item Value Reference Range Interpretation [...] (to prevent recurrent infar ct). THROMBOPLASTIN TIME [id number] 10:34:00 Test Item Value Reference Range Interpretation Comments THROMBOPLASTIN TIME PARTIAL 43.6 SECONDS 26-35 H (test code = PTT) CBC W/AUTO [id number] 10:23:00 Test Item Value Reference Range Interpretation [...] CRITERIA = MDIFF) - XR CALCANEUS 2+V [id number] 11:30:00 [facility] : 1955 Sex: M FAX: Freddie Martin [phone] [place]: EM St: REG Name: LUIS MENDOZA [facility] : 1955 Age/S: 66/M [address] [facility] [employer] Unit #: [id number] Loc: [place], [place] Phys: [place] [id number] Acct: [id number] Dis Date: Status: REG RCR PHONE #: [phone] Exam Date: 06/13/20211120 FAX #: [phone] Reason: PAIN EXAMS: CPT CODE: [id number] XR CALCANEUS 2+[place] [id number] REASON FOR EXAM: Wound care, calcaneal pain. [...] CC: Freddie Sanches MD Technologist: CHANCE ASTUDILLO Trnwird Date/Time/By: 06/13/2021 (1130) : By: [email or web address] PAGE 1 Signed Report FAX: Neville Martin [phone] [place]: St: REG Name: LUIS MENDOZA [facility] : 1955 Age/S: 66/M [address] [facility] Unit #: [id number] Loc: [place], [place]: [place] [id number] Acct: [id number] Dis Date: Status: REG RCR PHONE #: [phone] Exam Date: 06/13/20211120 FAX #: [phone] Reason: PAIN EXAMS: CPT CODE: [id number] XR CALCANEUS 2+V RT [id number] (Continued) Orig Print D/T: S: 06/13/2021 (1133) PAGE 2 Signed [id number] 09:53:00 Test Item Value Reference Range Interpretation Comments GLUBED (test code = GLUBED) 109 mg/dL 70-110 N [id number] 10:50:00 Test Item Value Reference Range Interpretation Comments GLUBED (test code = GLUBED) 73 mg/dL 70-110 N WOUND/SKIN/ABS.&GRAMSTAIN [id number] 10:27:00 Test Item Value Reference Range Interpretation Comments Culture Observations NO GROWTH AFTER 5 (test code = COB1) DAYS Direct Exam (test code = RARE WHITE BLOOD DE1) CELLS SEEN Direct Exam (test code = NO ORGANISMS SEEN DE2) ANAEROBIC [id number] 08:20:00 Test Item Value Reference Range Interpretation Comments Culture Observations NO ANAEROBES ISOLATED (test code = COB1) AT 5 DAYS. CULTURE HELD FOR 5 DAYS ANAEROBIC [id number] 08:19:00 Test Item Value Reference Range Interpretation Comments Culture Observations NO ANAEROBES ISOLATED (test code = COB1) AT 5 DAYS. CULTURE HELD FOR 5 DAYS WOUND/SKIN/ABS.&GRAMSTAIN [id number] 09:20:00 Test Item Value Reference Range Interpretation [...] the FDA and the [employer] the [place] [employer] (CAP) are more stringent than those required for this test. Therefore, the result should be interpreted with caution and close attention to other clinical and epidemiological data GLUCOMETER GLUCOSE- LAB USE [id number] 09:00:00 Test Item Value Reference Range Interpretation Comments GLUCOMETER (test code = 135 mg/dL 70-100 H Mete r ID: GMG) [id number] tor: [id number] SUBI AZEB FRAGOSO POC Glucose, [id number] 08:04:00 Test Item Value Reference Range Interpretation Comments POC Glucose (test 119 mg/dL 70-115 H Notify RN or MDIf you code = POCGLUC) consider you r patient critically ill, the [employer] Accu-Chek InformII metershould not be used for Glucose determinations. Draw a venous Glucose and send to the Main Lab for Analysis.
[2022-09-23] MEDS ORDERED: DOCUSATE NA 100 MG CAP PO PRN (16:21)
[2022-09-23] MEDS ORDERED: D50W 25 GM/50 ML SYRINGE IV PRN (16:24)
[2022-09-23] MEDS ORDERED: GLUCAGON 1 MG/VIAL IM PRN (16:24)
[2022-09-23] MEDS: INSULIN -REGULAR HUMAN 50 UNIT/0.5 ML ML SQ SCH ×2 (16:30→20:38)
[2022-09-23] MEDS ORDERED: ACETAMINOPHEN 500 MG TAB PO PRN (16:38)
[2022-09-23] MEDS ORDERED: D10W 125 ML IV PRN (16:52)
[2022-09-23] MEDS: ENSURE MAX PROTEIN 330 ML LIQUID PO SCH (17:00)
[2022-09-23 17:21] VITALS: BMI 44.1
[2022-09-23] MEDS: TRAMADOL HCL 50 MG TAB PO PRN (18:20)
[2022-09-23] MEDS: AMINO ACIDS/PROTEIN HYDROLYS 30 ML LIQUID.PKT PO SCH (20:00)
[2022-09-23] MEDS: QUETIAPINE 100MG TAB PO SCH (20:40)
[2022-09-23] MEDS: ASCORBIC ACID 500 MG TABLET PO SCH (20:40)
[2022-09-23] MEDS: FAMOTIDINE 20 MG TAB PO SCH (20:40)
[2022-09-23] MEDS: HYDRALAZINE HCL 25 MG TABLET PO SCH (20:40)
[2022-09-23] MEDS: METOPROLOL TAR 50 MG TAB PO SCH (20:40)
[2022-09-23] MEDS: APIXABAN 5 MG TABLET PO SCH (20:40)
[2022-09-23] MEDS: GABAPENTIN 100 MG CAP PO SCH (20:41)
[2022-09-24] MEDS: ALBUTEROL 2.5 MG/3 ML NEB SOL NEB PRN (02:35)
[2022-09-24 04:56] LABS: Absolute Lymphocytes (CBC) 0.9 K/uL (0.7-4.9); Lymphocytes % 13.3 % (15.3-44.8); MCV 92.5 fL (80-100); MPV 6.9 fL (7.6-11.3)
[2022-09-24 05:23] LABS: Albumin 1.6 g/dL (3.4-5.0); Potassium 4.1 mmol/L (3.5-5.1); Prealbumin 5.2 mg/dL (20-40)
[2022-09-24] MEDS: INSULIN -REGULAR HUMAN 50 UNIT/0.5 ML ML SQ SCH ×4 (07:30→20:30)
[2022-09-24] MEDS: TRAMADOL HCL 50 MG TAB PO PRN (07:54)
[2022-09-24] MEDS: METOPROLOL TAR 50 MG TAB PO SCH ×2 (07:55→20:30)
[2022-09-24] MEDS: GABAPENTIN 100 MG CAP PO SCH (07:56)
[2022-09-24] MEDS: CYANOCOBALAMIN 1,000 MCG TAB PO SCH (07:56)
[2022-09-24] MEDS: HYDRALAZINE HCL 25 MG TABLET PO SCH ×2 (07:56→20:30)
[2022-09-24] MEDS: VITAMIN D 1000 UNIT TAB PO SCH (07:56)
[2022-09-24] MEDS: ASCORBIC ACID 500 MG TABLET PO SCH ×2 (07:56→20:29)
[2022-09-24] MEDS: VITAMIN B COMPLEX 1 CAP PO SCH (07:56)
[2022-09-24] MEDS: APIXABAN 5 MG TABLET PO SCH ×2 (07:57→20:29)
[2022-09-24] MEDS: FAMOTIDINE 20 MG TAB PO SCH ×2 (07:57→20:29)
[2022-09-24] MEDS: ESCITALOPRAM 20 MG TAB PO SCH (07:57)
[2022-09-24] MEDS: ASPIRIN EC 81 MG TAB PO SCH (07:59)
[2022-09-24] MEDS: AMINO ACIDS/PROTEIN HYDROLYS 30 ML LIQUID.PKT PO SCH ×2 (07:59→20:00)
[2022-09-24] MEDS: MECOBALAMIN PO SCH (08:00)
[2022-09-24] MEDS: TRELEGY IH SCH (08:00)
[2022-09-24] MEDS ORDERED: TRELEGY IH SCH (08:00)
[2022-09-24] MEDS ORDERED: allopurinoL 300 MG TAB PO SCH (08:00)
--- NOTE | 2022-09-24 08:42 | RAD REPORT ---
EXAM DESCRIPTION: RAD - Chest Single View - 09/24/2022 5:57 am CLINICAL HISTORY: tachypnea Chest pain. COMPARISON: Chest Single View dated 09/19/2022; Chest Single View dated 09/18/2022; Abdomen 1 View ([facility]) dated 09/15/2022; Chest Single View dated 09/15/2022 FINDINGS: Portable technique limits examination quality. Since 09/19/2022, mild increase in the degree of bilateral pulmonary opacities seen. This likely repr esents pulmonary edema. The heart is mildly enlarged in size. No displaced fractures. IMPRESSION: Mild CHF.
[2022-09-24] MEDS: GUAIFENESIN/DM 5 ML UCUP PO PRN (09:26)
[2022-09-24] MEDS: KETOCONAZOLE CREAM 15 GM TUBE TOP SCH ×2 (09:27→20:29)
[2022-09-24 10:30] LABS: Arterial Blood Carboxyhemoglob 2.4 % (0-1.5); Blood Gas Oxyhemoglobin 91.7 % (94-97); Blood O2 Saturation 95.2 % (92-98.5)
[2022-09-24] MEDS: ENSURE MAX PROTEIN 330 ML LIQUID PO SCH ×2 (12:00→17:00)
--- NOTE | 2022-09-24 19:10 | HP ---
Date of Admission: 09/23/2022 Time of tjky-wh-awdr visit on 09/24/2022 at 9 a.m. Chief Complaint: Left leg pain from shingles. History Of Present Illness: Mr. Dos Santos is a 67-year-old right-handed patient with congestiv e heart failure, COPD, diabetes mellitus type 2, gastroesophageal reflux disease, hypertension, gout, myocardial infarction, and history of pulmonary embolus symptoms who comes to [facility] on of this year after falling and confused with left leg shingles. The patient developed shingles of the left lower extremity over several days with severe pain and did receive gabapentin, which did help his pain somewhat. However, after beginning gabapentin, he became confused and disoriented. I n addition, he had received steroids, tramadol, and Tylenol and over that time has become significant ly weaker and has had difficulty standing and ambulating. It should be noted he has a very elevated BMI with class 3-4 obesity and is difficult to get off the floor. He did go to the bathroom and was unable to get off the toilet and as he was helped by his and son, the patient actually slid to t he floor and has had at least 3 separate falls with his inability to maintain his weight. His workup did demonstrate the shingles on left lower extremity, bilateral lower extremity cellulitis, diffuse lymphadenopathy, urinary retention, dehydration, and atrial fibrillation. He did receive wound care with culture and gabapentin was decreased from 300 mg a day to 100 mg daily and put on telemetry. As a result of the patient's significant pain and comorbid conditions, he has become debilitated and is therefore found to be an appropriate candidate for aggressive inpatient rehabilitation. Due to his comorbidities, he is less likely to benefit from longterm as the degree of medical attention i s at a higher level than his accommodated by longterm. He is therefore admitted to the on license of [facility] rehabilitation for aggressive physical and occupational therapy. Past Medical History: As noted above, myocardial infarction, MRSA, chronic kidney disease, DVT, pulm onary embolus, COPD, congestive heart failure, and diabetes mellitus type 2. Past Surgical History: IVC filter placement, cholecystectomy, and left foot surgery. Family History: Diabetes in mother. Cancer in sister. Allergies: ERYTHROMYCIN, ZOFRAN, SIMVASTATIN, SULFAMETHOXAZOLE, AND TRIMETHOPRIM. Medications: At home are Eliquis 5 mg twice daily, metoprolol 100 mg twice daily, omeprazole 20 mg d aily, Seroquel 100 mg at bedtime, Ultram 50 mg daily, vitamin D3 50 mcg daily, apresoline 50 mg twice daily, Novolin 50 units subcutaneously twice daily, nifedipine 90 mg daily, Kenalog 0.1% cream appli ed topically daily, vitamin B complex 1 daily, Aldactone 25 mg daily, and Lasix 60 mg daily. Social History: No alcohol, tobacco, or IV drug use. The patient lives at home with and son. He does drink caffeinated beverages. No alcohol or IV drug use. Review of Systems: He has had diffuse weakness, shortness of breath, cough, and pain in the left lower extremity. Some problems with urinary retention, disorientation, and confusion, but no fevers, no chills and the rash is noted in the left lower extremity. Physical Examination: Vital Signs: Blood pressure 150/64, pulse is 80, respiratory rate 16, temperature 97.2, and oxygen s aturation 91%. General: The patient has an elevated BMI of 44, his weight is 326 pounds and height is 6 feet. HEENT: He is normocephalic, atraumatic. His sclerae are anicteric. Oropharynx is moist. Neck: Supple. Chest: Some rhonchi. Heart: Irregularly irregular. Abdomen: Obese. Extremities: Significant obesity in the legs. He has the shingles rash noted in the left thigh and leg. Neurologic: In terms of his cranial nerves, he has no focal deficits. Motor: He is diffusely 4/5 i n the upper and lower extremities. No focal findings. Sensory: Stocking-glove loss. Reflexes abse nt. Gait: He does need maximal assistance to stand and attempt to ambulate. Laboratory Studies: White blood cell count 6.7, hemoglobin 8.0, hematocrit 24.0, and platelets 157. He has a pending arterial blood gas. Sodium 139, potassium 4.1, chloride 109, carbon dioxide 26, BU N 47, creatinine 1.61, glucose ranged from 144 to 166, calcium 8.2, magnesium 2.0, prealbumin is very low at 5.2, albumin is low at 1.6. X-ray/imaging: A chest x-ray was done today and the study identified mild increase in the degree of bilateral pulmonary airspace disease seen, likely represents pulmonary edema. Heart is mildly enlarg ed with overall finding of mild CHF. Current Level Of Functioning: Bed mobility requires moderate assistance for rolling from left-to-rig ht in addition to supine to sit with moderate assistance. Maximal assistance to ambulate just 1 foot . Rehabilitation And Medical Assessment And Plan: Mr. Dos Santos is a 67-year-old patient admitted to the [facility] rehabilitation unit with shingles and debility. His rehabilitation impairment category is 2 0 miscellaneous. His impairment group is code 16. Debility, noncardiac from pulmonary. Active ayo rbidities are atrial fibrillation, cellulitis, congestive heart failure, chronic obstructive pulmonar y disease, diabetes mellitus type 2, essential hypertension, recurrent falls, and gout. His risk of clinical complications include heart and respiratory failure, falls, injuries, bleeding, sepsis, wors ening deep vein thrombosis, stroke, infection, and . The patient will have physical and occupat ional therapy 3 hours a day, 5 of 7 days. He will have the comorbid conditions addressed, which incl ude his hypertension with hypertensives as indicated. He will have diuretics for congestive heart fa ilure and increased fluid in the lung. Diabetes mellitus, managed by insulin and sliding scale as no darlyn. For his cough, Robitussin is used and breathing treatments will be applied as noted including i pratropium and Atrovent. He does have shingles and his medications will continue including gabapenti n 100 mg twice daily. For his deep vein thrombosis, he will be on Eliquis 5 mg twice daily along wit h aspirin 81 mg daily for gout and allopurinol 300 mg daily. For gastroesophageal reflux, he is on P epcid 20 mg twice daily, Seroquel 150 mg at night for insomnia. He will have Senokot-S 2 at night fo r constipation. Impact Of Former Comorbid Conditions: He does have significant obesity and is going to require a lot of help as he is debilitated; however, he is motivated and the bariatric walker will be used in jin tion to large size wheelchairs to accommodate the patient. Note, the patient does have a good unders tanding of his reason for admission to the inpatient unit and he has a potential to make significant improvement in his physical limitations with physical and occupational therapy. He will have access to Respiratory Service and Nutrition Service as he is significantly malnourished and Wound Care for h is shingles and if need be, Psychiatric Service if he does have evidence of depression. His complex medical condition and risk of further medical complications along with his rehabilitation needs make it less safe for him to be admitted to a lower level facility such as longterm. Barriers To Discharge: He has morbid obesity and significant pain from shingles in addition to COPD with increased fluid in the lungs requiring diuresis and he is debilitated; however, he is motivated to work hard. Length Of Stay: 2 weeks. Disposition: Expected to be able to go home. Prognosis: Fair. Rehabilitation Goals: 1.To become independent with transfers from bed, to toilet, to shower, and bed mobilization. 2.To be able to independently perform showers. 3.Independently ambulate household distance of 350 feet with a rolling walker. 4.Up and down at least 5 steps independently using hand rails. I acknowledge that I have personally performed a full physical examination on Mr. Dos Santos within 24 clari rs of his admission to the rehabilitation unit to determine that he is able to tolerate the above cou rse of treatment at an intensive level for the time outlined. A detailed individualized plan of care for him will be completed by hospital day 4, based on his pre-admission screen, admission history an d physical, and therapeutic evaluations. ALIE Voice ID: [id number]
[2022-09-24] MEDS: NYSTATIN PWDR 100000 UNIT/GM TOP PRN (20:29)
[2022-09-24] MEDS: QUETIAPINE 100MG TAB PO SCH (20:29)
[2022-09-24] MEDS ORDERED: DOCUSATE NA/SENNA CONC 1 TAB PO SCH (21:00)
[2022-09-24 21:49] LABS: Specific Gravity 1.015 (1.005-1.030); Urine Bacteria <20 /HPF (<20); Urine Bilirubin NEGATIVE (Negative); Urine Blood 2+ (Negative); Urine Clarity Clear (Clear); Urine Color Light-Yellow (Yellow); Urine Glucose NEGATIVE (Negative); Urine Mucus Slight /HPF (None Seen); Urine Protein 1+ (Negative); Urine Urobilinogen Normal (Normal); Urine pH 5.5 (5.0-7.0)
[2022-09-25] MEDS: GUAIFENESIN/DM 5 ML UCUP PO PRN ×3 (03:52→20:40)
[2022-09-25] MEDS: INSULIN -REGULAR HUMAN 50 UNIT/0.5 ML ML SQ SCH ×4 (07:30→21:00)
[2022-09-25] MEDS ORDERED: NIFEDIPINE XL 60 MG TABLET PO SCH (08:00)
[2022-09-25] MEDS: TRELEGY IH SCH ×2 (08:00→12:00)
[2022-09-25] MEDS: MECOBALAMIN PO SCH (08:00)
[2022-09-25] MEDS: AMINO ACIDS/PROTEIN HYDROLYS 30 ML LIQUID.PKT PO SCH ×2 (08:00→20:00)
[2022-09-25] MEDS: ASCORBIC ACID 500 MG TABLET PO SCH ×2 (08:01→12:00)
[2022-09-25] MEDS: FAMOTIDINE 20 MG TAB PO SCH (08:02)
[2022-09-25] MEDS: VITAMIN D 1000 UNIT TAB PO SCH ×2 (08:02→12:00)
[2022-09-25] MEDS: HYDRALAZINE HCL 25 MG TABLET PO SCH ×2 (08:02→20:41)
[2022-09-25] MEDS: ASPIRIN EC 81 MG TAB PO SCH (08:02)
[2022-09-25] MEDS: VITAMIN B COMPLEX 1 CAP PO SCH ×3 (08:02→12:00)
[2022-09-25] MEDS: CYANOCOBALAMIN 1,000 MCG TAB PO SCH ×2 (08:03→12:00)
[2022-09-25] MEDS: allopurinoL 100 MG TAB PO SCH (08:04)
[2022-09-25] MEDS: ESCITALOPRAM 20 MG TAB PO SCH (08:04)
[2022-09-25] MEDS: METOPROLOL TAR 50 MG TAB PO SCH ×2 (08:04→20:40)
[2022-09-25] MEDS: FUROSEMIDE 40 MG TABLET PO SCH (08:05)
[2022-09-25] MEDS: APIXABAN 5 MG TABLET PO SCH ×2 (08:05→20:40)
[2022-09-25] MEDS: KETOCONAZOLE CREAM 15 GM TUBE TOP SCH ×2 (09:16→20:40)
[2022-09-25] MEDS: ENSURE MAX PROTEIN 330 ML LIQUID PO SCH ×2 (12:00→17:00)
[2022-09-25] MEDS ORDERED: DOCUSATE NA/SENNA CONC 1 TAB PO PRN (14:16)
--- NOTE | 2022-09-25 17:11 | EKG ---
Test Date: 2022-09-21 Test Time: 04:31:00 Passenger Car Cleaning Supervisor: OLVIN MEASUREMENT RESULTS: Intervals: Rate: 77 GA: 368 QRSD: 86 QT: 384 QTc: 434 Tucker: P: GA: 368 QRS: 3 T: 53 INTERPRETIVE STATEMENTS: Sinus rhythm with 1st degree AV block Cannot rule out Inferior infarct, age undetermined Cannot rule out Anterior infarct, age undetermined Abnormal ECG Compared to ECG 09/17/2022 04:16:43 First degree AV block now present Myocardial infarct finding now present Right-axis deviation no longer present ST (T wave) deviation no longer present Electronically Signed On 09-25-22 17:01:00 DROP FORGER HELPER by Shailesh Chand
[2022-09-25] MEDS: NYSTATIN PWDR 100000 UNIT/GM TOP PRN (20:40)
[2022-09-25] MEDS: QUETIAPINE 100MG TAB PO SCH (20:40)
[2022-09-25] MEDS: TRAMADOL HCL 50 MG TAB PO PRN (20:41)
[2022-09-26] MEDS: GUAIFENESIN/DM 5 ML UCUP PO PRN ×2 (04:49→13:35)
[2022-09-26 05:38] LABS: Hematocrit 25.5 % (39.6-49.0); Lymphocytes % 20.5 % (15.3-44.8); MCV 92.7 fL (80-100); RBC Red Blood Cell Count 2.76 M/uL (4.33-5.43)
[2022-09-26] MEDS ORDERED: PANTOPRAZOLE 40MG TABLET PO SCH (07:30)
[2022-09-26] MEDS: INSULIN -REGULAR HUMAN 50 UNIT/0.5 ML ML SQ SCH ×4 (07:30→20:05)
[2022-09-26] MEDS: AMINO ACIDS/PROTEIN HYDROLYS 30 ML LIQUID.PKT PO SCH ×2 (08:00→20:04)
[2022-09-26] MEDS: MECOBALAMIN PO SCH (08:00)
[2022-09-26] MEDS: APIXABAN 5 MG TABLET PO SCH ×2 (08:16→20:02)
[2022-09-26] MEDS: METOPROLOL TAR 50 MG TAB PO SCH ×2 (08:17→20:02)
[2022-09-26] MEDS: FUROSEMIDE 40 MG TABLET PO SCH (08:17)
[2022-09-26] MEDS: ESCITALOPRAM 20 MG TAB PO SCH (08:18)
[2022-09-26] MEDS: ASPIRIN EC 81 MG TAB PO SCH (08:18)
[2022-09-26] MEDS: allopurinoL 100 MG TAB PO SCH (08:18)
[2022-09-26] MEDS: KETOCONAZOLE CREAM 15 GM TUBE TOP SCH ×2 (08:23→20:03)
[2022-09-26] MEDS: NYSTATIN PWDR 100000 UNIT/GM TOP PRN (08:23)
[2022-09-26] MEDS: HYDRALAZINE HCL 25 MG TABLET PO SCH ×2 (10:00→20:01)
[2022-09-26 11:21] LABS: Anisocytosis 1+; Blood Morphology Comment NOTED (NOT SEEN); Platelet Estimate ADEQ
[2022-09-26] MEDS: TRELEGY IH SCH (12:00)
[2022-09-26] MEDS: ENSURE MAX PROTEIN 330 ML LIQUID PO SCH ×2 (12:00→17:00)
[2022-09-26] MEDS: CYANOCOBALAMIN 1,000 MCG TAB PO SCH (12:26)
[2022-09-26] MEDS: VITAMIN B COMPLEX 1 CAP PO SCH (12:26)
[2022-09-26] MEDS: VITAMIN D 1000 UNIT TAB PO SCH (12:26)
[2022-09-26] MEDS: ASCORBIC ACID 500 MG TABLET PO SCH (12:27)
--- NOTE | 2022-09-26 13:02 | PN ---
Date of Progress Note: 09/25/2022 Time Of Service: 1:00 p.m. Subjective: Mr. Jamison is resting in bed. He is becoming more alert and interactive. He does have mild pain in the legs where he has shingles, some difficulty in terms of mobilizing in bed or rolling over. Otherwise, no additional complaints. Review of Systems: He has no nausea or vomiting, myalgias, arthralgias. Does have healing rash from shingles on the lower extremities and no active gastrointestinal or genitourinary issues. Physical Examination: Vital Signs: Blood pressure 137/54, pulse 75, respiratory rate of 16, temperature 97.8, oxygen saturation 94%. Weight 326 pounds, height 6 feet, BMI 44.2. General: Mr. Dos Santos is resting in bed. He is somewhat sleepy, but arousable and does follow instructions and answer questions appropriately. Lungs: He does have good air movement. Abdomen: He has obese abdomen. Extremities: Obese. He does have healing scars from his shingles infection. He has a stage II ulcer on the right big toe and Wound Care is involved. Laboratory Studies: White blood cell count 6.7, hemoglobin 8.0, platelets 157. Arterial blood gas: The pH 7.4, pCO2 of 38.3, pO2 of 75.7. Oxyhemoglobin slightly low at 91.7. Chemistries: Sodium 139, potassium 4.1, chloride 109, carbon dioxide 26, BUN 46, creatinine 1.61, glucose ranged from 127 to 163, calcium 8.2. Magnesium 2.0. Albumin 1.6, prealbumin 5.2. Urinalysis shows 2+ blood, 11-20 red blood cells, 1+ protein, and is otherwise negative. X-ray Imaging: Chest x-ray showed mild CHF pattern. Medications: Extra strength Tylenol 500 mg every 6 hours, albuterol nebulizer 2.5 mg every 6 hours, allopurinol 100 mg daily, ProSource amino acids 30 mL twice daily, Eliquis 5 mg twice daily, vitamin C 1000 mg at noon, aspirin 81 mg daily, vitamin D 4000 units at noon, B12 500 mcg at noon, Lexapro 10 mg daily, ferrous sulfate 325 mg daily, Lasix 40 mg daily, Apresoline 50 mg twice daily, ketoconazole apply topically twice daily, metoprolol 50 mg twice daily, nifedipine 60 mg at bedtime, Protonix 40 mg daily, Nystatin powder apply to the rash daily, Seroquel 150 mg at bedtime, Ultram 100 mg every 8 hours as needed, B complex 1 capsule at noon. Current Functional Status: With speech therapy, patient demonstrated no difficulty with swallowing such as dysphagia or aspiration. He does cough and not eating or drinking. Voice is hoarse. Does have poor appetite. In terms of his cognition, he did recall 2 of 3 unrelated pictures after 15 seconds and 1 minute with minimum assistance. Also, he is able to sustain attention for 36 seconds with 60% accuracy. In terms of bed mobilization, he is at moderate assistance level for supine to sit transfers. He did sit on the edge of bed and did 8 feet mobilization. [id number] was with maximum assistance. He did do stand and pivot transfer at edge of bed, wheelchair with minimum assistance. He did upper body exercises with 2 pound dowel tiesha to improve strength. Progress Towards Rehabilitation Goals: At this point, he is making slow progress towards his goals of minimum assistance to supervision for bed mobilization, transfers, and sit to stand. In addition to minimal assistance for ambulating with a rolling walker and these are short-term goals with longer- term goals of becoming modified independence with transfers and mobilization including walker and wheelchair. Assessment: Mr. Dos Santos is a 67-year-old patient with shingles of the lower extremities and debility. Also, has atrial fibrillation, cellulitis of the foot, a stage II breakdown on the right great toe, congestive heart failure, chronic obstructive pulmonary disease, diabetes mellitus type 2, essential hypertension, in addition to recurrent falls. Plan: 1. Continue aggressive physical, occupational, and speech therapy. 2. Wound Care will evaluate and help manage the stage II ulcer in the right toe. 3. Medications will be continued as noted above to manage his hypertension, gout, atrial fibrillation, GE reflux, and his shingles pain. Comorbidities That Continue To Impact Rehabilitation Process: At this point, he does have severe malnutrition with a pre-albumin of 5.2. However, he does have morbid obesity with BMI 44.2. He is on protein supplementation, but that is a limiting factor because of worsening edema in the lower extremities. Therefore, the high protein supplementation will help with that. In addition, he does pose significant challenges in terms of being out of bed and ambulating because of his BMI and that is being worked on aggressively. His is very involved in his care and is helpful in terms of medication management as well as she would manage his medicines prior to him being admitted to hospital. JESSEE/GWENDOLYN Voice ID: [id number] Report ID: [id number] ALMAS
--- NOTE | 2022-09-26 15:04 | RAD REPORT ---
EXAM DESCRIPTION: Estephania Single View09/26/2022 2:30 pm CLINICAL HISTORY: Cough COMPARISON: September 24, 2022 FINDINGS: Mild bilateral pulmonary opacities. Heart is mildly enlarged. IMPRESSION: Mild CHF without significant change from prior exam
[2022-09-26] MEDS: CETIRIZINE HCL 5 MG TABLET PO PRN (17:08)
[2022-09-26] MEDS: ACETAMINOPHEN 500 MG TAB PO PRN (17:28)
--- NOTE | 2022-09-26 18:32 | PN ---
Date of Progress Note: 09/26/2022 Gwlr-[id number]-[id number] Progress Note Visit Time Of Service: 1 p.m. Subjective: Mr. Dos Santos reports more coughing today, although it is nonproductive. After discussion w ith his , Robitussin had been cut back and then discontinued, and subsequently he has had more co ughing. That will be reinstituted as needed. Also, a chest x-ray will be ordered and if need be, ne bulizers will be utilized in the breathing treatments. Review of Systems: As noted more dry cough without fever, chills, myalgias, or arthralgias. He does have some improving pain in the areas of shingles in the lower extremities. There is also some edema noted in the lower extremities and he is on Lasix. His gabapentin has been discontinued. He is actually more alert an d awake and interactive. Physical Examination: Vital Signs: Blood pressure 137/54, pulse 75, respiratory rate 16, temperature 97.8, oxygen saturati on 94%. Weight 326 pounds, height 6 feet, BMI 44.2. General: Mr. Dos Santos is sitting in a chair beside the bed. He does have some coughing as noted and wi ll get Robitussin. HEENT: Otherwise, he is normocephalic, atraumatic. His sclerae are anicteric. His oropharynx appea r pink and moist. Neck: Supple. Radiologic Data: It should be noted that his chest x-ray from did show a mild CHF pattern and h e is on diuretics. This one will be repeated and that chest x-ray did not show evidence of an infect ion such as pneumonia. No new x-ray imaging. Please note that Mr. Dos Santos had bilateral venous Doppler studies done on 09/15/2022 that showed no ga ntifiable deep vein thrombus on either lower extremities. He will have a repeat done today to look a t the extremities. Laboratory Studies: White blood cell count 4.9, hemoglobin 8.3, platelets 174. Blood sugars ranged from 123 to 151. Sodium 139, potassium 4.1, chloride 109, carbon dioxide 26, BUN 47, creatinine 1.61 , prealbumin low at 5.2, albumin low at 1.6. Medications: Medications have not changed and are listed as in his last note. He does have Eliquis 5 mg twice daily and he has had a history of a deep vein thrombus and that is ongoing. Current Level Of Functioning: Currently, Mr. Dos Santos did require verbal cues for participation to stay awake and that was at a maximal level. He did plwrhr-jh-pui transfers with moderate assistance. Si tting balance needed moderate assistance. He did sit at the edge of the bed for about 8 minutes and also did sit to stand at maximum assistance level, needed some verbal cuing to continue. With speech therapy, he did show coughing during his meals that he was at 45 degrees and did self feeding. He d id have trials of thin liquids and regular texture with no further coughing during meals and the [facility] pathologist did provide education for him as well. The patient's did have education provided to her as well. Progress Towards Rehabilitation Goals: So far, Mr. Dos Santos is making [id number] progress towards his goals, which at this point would still require some level of perhaps minimal assistance with bed tra nsfers, with upper and lower body dressing, with mobilization using a wheelchair and at this point, h karen is actually not able to do any ambulation and that will be a goal to at least do short distances an d may end up being less than household distances and is possible also to begin to attempt stairs like ly those will be at maximum assistance level within the next week at least. Assessment And Plan: Mr. Dos Santos is a 67-year-old patient in the rehabilitation unit with shingles inv olving lower extremity, debility, class 3 obesity, atrial fibrillation, right foot stage II ulcer in the great toe, cellulitis, congestive heart failure, chronic obstructive pulmonary disease, diabetes mellitus type 2, hypertension, and recurrent falls. Plan: 1.Aggressive physical, occupational, and speech therapy. 2.Wound Care will address his right toe stage II ulcer. He has poor nutritional status with a pre-a lbumin of 5 addressed with protein supplementation, encouraging healthy meals. He does have an eleva darlyn BMI of 44 and the inspector and mender will have him address his diet along with his , who helped wit h his diet. His hypertension, diabetes, and pulmonary obstructive disease will be managed with medic ations as noted above. Comorbidities That Continue To Impact Rehabilitation: His class 3 obesity is a challenge, but he is working on that. He has significant debility as well and he does have an ongoing cough. He will hav e repeat chest x-ray and a repeat Doppler study of lower extremities to rule out any involvement of e ither DVT or pneumonia. LB/MODL Voice ID: [id number] Report ID: [id number]
[2022-09-26] MEDS: QUETIAPINE 100MG TAB PO SCH (20:01)
[2022-09-26] MEDS: NIFEDIPINE XL 60 MG TABLET PO SCH (20:02)
[2022-09-26] MEDS: DULERA 100/5 (MOMETASONE/FORMOTEROL) INHALER IH SCH (20:03)
[2022-09-26] MEDS: FERROUS SULFATE 325 MG TAB PO SCH (20:05)
[2022-09-27 05:48] LABS: Absolute Lymphocytes (CBC) 1.2 K/uL (0.7-4.9); Hematocrit 22.9 % (39.6-49.0); Lymphocytes % 26.7 % (15.3-44.8); MCV 92.8 fL (80-100); RBC Red Blood Cell Count 2.47 M/uL (4.33-5.43)
[2022-09-27 06:08] LABS: Albumin 1.5 g/dL (3.4-5.0); Prealbumin 4.4 mg/dL (20-40)
[2022-09-27] MEDS: INSULIN -REGULAR HUMAN 50 UNIT/0.5 ML ML SQ SCH ×4 (07:30→20:35)
--- NOTE | 2022-09-27 07:30 | RAD REPORT ---
EXAM DESCRIPTION: US - Extrem Venous W Compress Reji - 09/27/2022 12:47 am CLINICAL HISTORY: increase swelling COMPARISON: None. TECHNIQUE: Real-time sonographic evaluation of the bilateral lower extremity common femoral, superfi cial femoral, popliteal and posterior tibial veins was performed. FINDINGS: Normal compressibility, flow augmentation, phasic flow and spontaneous flow are identified in the left and right lower extremity common femoral, superficial femoral, popliteal and posterior t ibial veins. No intraluminal filling defects seen. Exam technically limited due to large body habitu s. IMPRESSION: No DVT in either lower extremity.
[2022-09-27] MEDS: APIXABAN 5 MG TABLET PO SCH ×2 (07:46→20:34)
[2022-09-27] MEDS: ASPIRIN EC 81 MG TAB PO SCH (07:47)
[2022-09-27] MEDS: FUROSEMIDE 40 MG TABLET PO SCH (07:47)
[2022-09-27] MEDS: METOPROLOL TAR 50 MG TAB PO SCH ×2 (07:47→20:33)
[2022-09-27] MEDS: allopurinoL 100 MG TAB PO SCH (07:47)
[2022-09-27] MEDS: ESCITALOPRAM 20 MG TAB PO SCH (07:48)
[2022-09-27] MEDS: AMINO ACIDS/PROTEIN HYDROLYS 30 ML LIQUID.PKT PO SCH ×2 (08:00→20:35)
--- NOTE | 2022-09-27 08:44 | P.RH.PN ---
Estimated Length of Stay: 15 Expected Discharge Date: 10/08/22 Discharge Disposition Plan: Home Family Support: Yes Intermediate Goal: Mobility, Transfers, Self Care Vital Signs: Last Vital Signs Temp 97.4 F 09/27/22 07:09 Pulse 83 09/27/22 07:47 Resp 20 09/27/22 07:09 BP 154/51 H 09/27/22 07:47 Pulse Ox 92 09/27/22 07:09 Laboratory: Laboratory Last Values WBC 4.50 K/uL (4.3-10.9) 09/27/22 05:12 RBC 2.47 M/uL (4.33-5.43) L 09/27/22 05:12 Hgb 7.6 g/dL (13.6-17.9) L D 09/27/22 05:12 Hct 22.9 % (39.6-49.0) L 09/27/22 05:12 MCV 92.8 fL (80-100) 09/27/22 05:12 MCH 30.7 pg (27.0-35.0) 09/27/22 05:12 MCHC 33.1 g/dL (32.0-36.0) 09/27/22 05:12 RDW 17.5 % (12.1-15.2) H 09/27/22 05:12 Plt Count 160 K/uL (152-406) 09/27/22 05:12 MPV 7.0 fL (7.6-11.3) L 09/27/22 05:12 Neutrophils % 49.6 % (41.7-73.7) 09/27/22 05:12 Lymphocytes % 26.7 % (15.3-44.8) 09/27/22 05:12 Monocytes % 15.4 % (3.3-12.3) H 09/27/22 05:12 Eosinophils % 7.2 % (0-4.4) H 09/27/22 05:12 Basophils % 1.1 % (0-1.3) 09/27/22 05:12 Absolute Neutrophils 2.2 K/uL (1.8-8.0) 09/27/22 05:12 Segmented Neutrophils 61 % (40-80) 09/26/22 05:20 Band Neutrophils 4 % (0-1) H 09/26/22 05:20 Absolute Lymphocytes 1.2 K/uL (0.7-4.9) 09/27/22 05:12 Lymphocytes 12 % (15-42) L 09/26/22 05:20 Monocytes 9 % (0-10) 09/26/22 05:20 Absolute Monocytes 0.7 K/uL (0.1-1.3) 09/27/22 05:12 Absolute Eosinophils 0.3 K/uL (0-0.5) 09/27/22 05:12 Absolute Basophils 0.1 K/uL (0-0.5) 09/27/22 05:12 Atypical Lymphocytes 2 % 09/26/22 05:20 Reactive Lymphocytes 1 % 09/26/22 05:20 Platelet Estimate Adeq 09/26/22 05:20 Anisocytosis 1+ 09/26/22 05:20 Morphology Comment Noted (NOT SEEN) 09/26/22 05:20 pH 7.41 (7.35-7.45) 09/24/22 10:07 pCO2 38.3 mmHG (35-45) 09/24/22 10:07 pO2 75.7 mmHG (75-100) 09/24/22 10:07 HCO3 23.7 mmol/L (22-28) 09/24/22 10:07 Base Excess -0.4 mmol/L 09/24/22 10:07 Oxyhemoglobin 91.7 % (94-97) L 09/24/22 10:07 ABG O2 Sat (Measured) 95.2 % (92-98.5) 09/24/22 10:07 ABG Carboxyhemoglobin 2.4 % (0-1.5) H 09/24/22 10:07 ABG Methemoglobin 1.3 % (0-1.5) 09/24/22 10:07 Other Total Hgb 8.8 g/dl (12-18) L 09/24/22 10:07 Inspired O2 21.0 % 09/24/22 10:07 Sodium 139 mmol/L (136-145) 09/27/22 05:12 Potassium 4.0 mmol/L (3.5-5.1) 09/27/22 05:12 Chloride 108 mmol/L (98-107) H 09/27/22 05:12 Carbon Dioxide 24 mmol/L (21-32) 09/27/22 05:12 Anion Gap 11.0 mEq/L (5.0-15.0) 09/27/22 05:12 BUN 50 mg/dL (7-18) H 09/27/22 05:12 Creatinine 1.77 mg/dL (0.70-1.30) H 09/27/22 05:12 Est GFR (CKD-EPI) 41 ml/min (=/>90) L 09/27/22 05:12 Glucose 120 mg/dL (74-106) H 09/27/22 05:12 POC Glucose 140 mg/dL (65-120) H 09/26/22 19:05 Calcium 8.1 mg/dL (8.5-10.1) L 09/27/22 05:12 Magnesium 2.0 mg/dL (1.6-2.4) 09/27/22 05:12 Albumin 1.5 g/dL (3.4-5.0) L 09/27/22 05:12 Prealbumin 4.4 mg/dL (20-40) L 09/27/22 05:12 Urine Color Light-yellow (Yellow) 09/24/22 21:20 Urine Clarity Clear (Clear) 09/24/22 21:20 Urine pH 5.5 (5.0-7.0) 09/24/22 21:20 Ur Specific Mathews 1.015 (1.005-1.030) 09/24/22 21:20 Glucose (UA)(Auto) Negative (Negative) 09/24/22 21:20 Urine Ketones Negative (Negative) 09/24/22 21:20 Urine Blood 2+ (Negative) H 09/24/22 21:20 Urine Nitrite Negative (Negative) 09/24/22 21:20 Urine Bilirubin Negative (Negative) 09/24/22 21:20 Urine Urobilinogen Normal (Normal) 09/24/22 21:20 Ur Leukocyte Esterase Negative Elena/uL (Negative) 09/24/22 21:20 Urine RBC 11-20 /HPF (None Seen) H 09/24/22 21:20 Urine WBC <5 /HPF (<5) 09/24/22 21:20 Ur Squamous Epith Cells None seen /HPF (None Seen) 09/24/22 21:20 Urine Bacteria <20 /HPF (<20) 09/24/22 21:20 Urine Mucus Slight /HPF (None Seen) 09/24/22 21:20 Urine Culture Reflexed Not needed 09/24/22 21:20 Urine Total Protein 1+ (Negative) H 09/24/22 21:20 Weight: 326 lb Wound Present: No Closed Surgical Incision Present: No Negative Pressure Wound Therapy Present: No Physician Update: Still disoriented and not able to tell where he is now. Very flat affect and not able engage. Will do a CT without contrast to r/o MFTS bleeding. Able to stand for 45 seconds at a time with moderate assistance. Walked one step, wheelchair 150' with mod assistance. Easly fatigue once he does a little bit of exercise. Goal of stand and pivot transfers with min assistance. He has a diabetic right big toe ulcer. Max assistance with shower transfers. Summary: Patient's care plan and termination clerk goals have been reviewed and revised as necessary. Please see the Rehabilitation Signature page for all necessary signatures.
[2022-09-27] MEDS: FERROUS SULFATE 325 MG TAB PO SCH ×2 (09:15→20:34)
[2022-09-27] MEDS: KETOCONAZOLE CREAM 15 GM TUBE TOP SCH ×2 (09:16→20:35)
[2022-09-27] MEDS: DULERA 100/5 (MOMETASONE/FORMOTEROL) INHALER IH SCH ×2 (09:17→20:31)
[2022-09-27] MEDS: HYDRALAZINE HCL 25 MG TABLET PO SCH ×2 (09:20→20:31)
[2022-09-27] MEDS: TRAMADOL HCL 50 MG TAB PO PRN ×2 (10:20→18:09)
[2022-09-27] MEDS: CETIRIZINE HCL 5 MG TABLET PO PRN (10:21)
[2022-09-27] MEDS: VITAMIN D 1000 UNIT TAB PO SCH (11:57)
[2022-09-27] MEDS: CYANOCOBALAMIN 1,000 MCG TAB PO SCH (11:57)
[2022-09-27] MEDS: PANTOPRAZOLE 40MG TABLET PO SCH (11:58)
[2022-09-27] MEDS: VITAMIN B COMPLEX 1 CAP PO SCH (11:58)
[2022-09-27] MEDS: ASCORBIC ACID 500 MG TABLET PO SCH (11:58)
[2022-09-27] MEDS: ACETAMINOPHEN 500 MG TAB PO PRN ×2 (11:58→16:29)
[2022-09-27] MEDS: ENSURE MAX PROTEIN 330 ML LIQUID PO SCH ×3 (12:00→20:36)
--- NOTE | 2022-09-27 14:27 | RAD REPORT ---
EXAM DESCRIPTION: CT - Head Brain Wo Cont - 09/27/2022 2:17 pm CLINICAL HISTORY: confussion Headache, drowsiness COMPARISON: Head Brain Wo Cont dated 06/21/2021; Head C Spine Cap Wo Con dated 09/15/2022 TECHNIQUE: All CT scans are performed using dose optimization technique as appropriate and may inclu de automated exposure control or mA/KV adjustment according to patient size. FINDINGS: No intracranial hemorrhage, hydrocephalus or extra-axial fluid collection.Mild diffuse bra in atrophy.No areas of brain edema or evidence of midline shift. The paranasal sinuses and mastoids are clear. The calvarium is intact. IMPRESSION: No acute intracranial abnormality.
[2022-09-27] MEDS: MEGESTROL 40 MG TAB PO SCH (20:00)
[2022-09-27] MEDS: NIFEDIPINE XL 60 MG TABLET PO SCH (20:33)
[2022-09-27] MEDS: QUETIAPINE 100MG TAB PO SCH (20:34)
[2022-09-27] MEDS: NYSTATIN PWDR 100000 UNIT/GM TOP PRN (20:35)
[2022-09-28] MEDS: INSULIN -REGULAR HUMAN 50 UNIT/0.5 ML ML SQ SCH ×4 (07:30→20:06)
[2022-09-28] MEDS: KETOCONAZOLE CREAM 15 GM TUBE TOP SCH ×2 (08:00→20:05)
[2022-09-28] MEDS: AMINO ACIDS/PROTEIN HYDROLYS 30 ML LIQUID.PKT PO SCH ×3 (08:00→20:00)
[2022-09-28] MEDS: MEGESTROL 40 MG TAB PO SCH (08:25)
[2022-09-28] MEDS: FE SULF/FA/VIT B COMP & C TAB PO SCH (08:26)
[2022-09-28] MEDS: CETIRIZINE HCL 5 MG TABLET PO SCH (08:26)
[2022-09-28] MEDS: APIXABAN 5 MG TABLET PO SCH ×2 (08:26→20:04)
[2022-09-28] MEDS: FERROUS SULFATE 325 MG TAB PO SCH ×2 (08:26→20:05)
[2022-09-28] MEDS: ASPIRIN EC 81 MG TAB PO SCH (08:26)
[2022-09-28] MEDS: ESCITALOPRAM 20 MG TAB PO SCH (08:27)
[2022-09-28] MEDS: HYDRALAZINE HCL 25 MG TABLET PO SCH ×2 (08:27→20:03)
[2022-09-28] MEDS: FUROSEMIDE 40 MG TABLET PO SCH (08:27)
[2022-09-28] MEDS: METOPROLOL TAR 50 MG TAB PO SCH ×2 (08:28→20:05)
[2022-09-28] MEDS: allopurinoL 100 MG TAB PO SCH (08:29)
[2022-09-28] MEDS: TRAMADOL HCL 50 MG TAB PO PRN (10:16)
[2022-09-28] MEDS: ENSURE MAX PROTEIN 330 ML LIQUID PO SCH ×4 (12:00→21:00)
[2022-09-28] MEDS: ACETAMINOPHEN 500 MG TAB PO PRN (12:17)
[2022-09-28] MEDS: DULERA 100/5 (MOMETASONE/FORMOTEROL) INHALER IH SCH ×2 (12:31→20:04)
[2022-09-28] MEDS: MEDIHONEY 44 ML TOPICAL TUBE TOP SCH (12:32)
[2022-09-28] MEDS: VITAMIN D 1000 UNIT TAB PO SCH (12:36)
[2022-09-28] MEDS: CYANOCOBALAMIN 1,000 MCG TAB PO SCH (12:36)
[2022-09-28] MEDS: ASCORBIC ACID 500 MG TABLET PO SCH (12:37)
[2022-09-28] MEDS: PANTOPRAZOLE 40MG TABLET PO SCH (12:37)
[2022-09-28] MEDS: VITAMIN B COMPLEX 1 CAP PO SCH (12:37)
[2022-09-28] MEDS: NIFEDIPINE XL 60 MG TABLET PO SCH (21:00)
[2022-09-28] MEDS: QUETIAPINE 100MG TAB PO SCH (21:00)
[2022-09-28] MEDS: ALBUTEROL 2.5 MG/3 ML NEB SOL NEB PRN (22:15)
[2022-09-29 05:49] LABS: Absolute Lymphocytes (CBC) 1.2 K/uL (0.7-4.9); Hematocrit 23.7 % (39.6-49.0); MCV 92.5 fL (80-100); RBC Red Blood Cell Count 2.57 M/uL (4.33-5.43)
[2022-09-29] MEDS: INSULIN -REGULAR HUMAN 50 UNIT/0.5 ML ML SQ SCH ×4 (07:30→19:31)
[2022-09-29] MEDS: AMINO ACIDS/PROTEIN HYDROLYS 30 ML LIQUID.PKT PO SCH ×2 (08:00→19:44)
[2022-09-29] MEDS: HYDRALAZINE HCL 25 MG TABLET PO SCH ×2 (08:00→19:43)
[2022-09-29] MEDS: TRAMADOL HCL 50 MG TAB PO PRN (08:37)
[2022-09-29] MEDS: FE SULF/FA/VIT B COMP & C TAB PO SCH (08:38)
[2022-09-29] MEDS: ESCITALOPRAM 20 MG TAB PO SCH (08:38)
[2022-09-29] MEDS: VITAMIN D 1000 UNIT TAB PO SCH (08:38)
[2022-09-29] MEDS: METOPROLOL TAR 50 MG TAB PO SCH ×2 (08:39→19:43)
[2022-09-29] MEDS: CETIRIZINE HCL 5 MG TABLET PO SCH (08:39)
[2022-09-29] MEDS: FERROUS SULFATE 325 MG TAB PO SCH ×2 (08:39→19:43)
[2022-09-29] MEDS: FUROSEMIDE 40 MG TABLET PO SCH (08:39)
[2022-09-29] MEDS: ASPIRIN EC 81 MG TAB PO SCH (08:39)
[2022-09-29] MEDS: allopurinoL 100 MG TAB PO SCH (08:39)
[2022-09-29] MEDS: DULERA 100/5 (MOMETASONE/FORMOTEROL) INHALER IH SCH ×2 (08:40→19:44)
[2022-09-29] MEDS: APIXABAN 5 MG TABLET PO SCH ×2 (08:40→19:43)
[2022-09-29] MEDS: MEDIHONEY 44 ML TOPICAL TUBE TOP SCH (08:41)
[2022-09-29] MEDS: KETOCONAZOLE CREAM 15 GM TUBE TOP SCH ×2 (08:42→19:44)
[2022-09-29] MEDS: ENSURE MAX PROTEIN 330 ML LIQUID PO SCH ×3 (12:00→19:43)
[2022-09-29] MEDS: ASCORBIC ACID 500 MG TABLET PO SCH (12:22)
[2022-09-29] MEDS: VITAMIN B COMPLEX 1 CAP PO SCH (12:26)
[2022-09-29] MEDS: PANTOPRAZOLE 40MG TABLET PO SCH (12:26)
[2022-09-29] MEDS: CYANOCOBALAMIN 1,000 MCG TAB PO SCH (12:26)
[2022-09-29 18:32] LABS: SARS-COV-2 RT PCR NEGATIVE (NEGATIVE)
--- NOTE | 2022-09-29 18:59 | P.PN ---
Chief Complaint: Left leg pain from shingles. History Of Present Illness: Mr. Dos Santos is a 67-year-old right-handed patient with congestive heart failure, COPD, diabetes mellitus type 2, gastroesophageal reflux disease, hypertension, gout, myocardial infarction, and history of pulmonary embolus symptoms who comes to [facility] on of this year after falling and confused with left leg shingles. The patient developed shingles of the left lower extremity over several days with severe pain and [facility]. However, after beginning gabapentin, he became confused and disoriented. In addition, he had received steroids, tramadol, and Tylenol and over that time has become significantly weaker and has had difficulty standing and ambulating. It should be noted he has a very elevated BMI with class 3-4 obesity and is difficult to get off the floor. He did go to the bathroom and was unable to get off the toilet and as he was helped by his and son, the patient actually slid to the floor and has had at least 3 separate falls with his inability to maintain his weight. His workup did demonstrate the shingles on left lower extremity, bilateral lower extremity cellulitis, diffuse lymphadenopathy, urinary retention, dehydration, and atrial fibrillation. He did receive wound care with culture and gabapentin was decreased from 300 mg a day to 100 mg daily and put on telemetry. As a result of the patient's significant pain and comorbid conditions, he has become debilit ated and is therefore found to be an appropriate candidate for aggressive inpatient rehabilitation. Due to his comorbidities, he is less likely to benefit from long-term as the degree of medical attention is at a higher level than his accommodated by long-term. He is therefore admitted to the inpatient rehabilitation for aggressive physical and occupational therapy. Past Medical History: Past Surgical History: Family History: Allergies: Medications: Social History: No alcohol, tobacco, or IV drug use. The patient lives at home with and son. He does drink caffeinated beverages. No alcohol or IV drug use. Review of Systems: He has had diffuse weakness, shortness of breath, cough, and pain in the left lower extremity. Some problems with urinary retention, disorientation, and confusion, but no fevers, no chills and the rash is noted in the left lower extremity. Physical Examination: Vital Signs: Blood pressure 150/64, pulse is 80, respiratory rate 16, temperature 97.2, and oxygen saturation 91%. General: The patient has an elevated BMI of 44, his weight is 326 pounds and height is 6 feet. HEENT: He is normocephalic, atraumatic. His sclerae are anicteric. Oropharynx is moist. Neck: Supple. Chest: Some rhonchi. Heart: Irregularly irregular. Abdomen: Obese. Extremities: Significant obesity in the legs. He has the shingles rash noted in the left thigh and leg. Neurologic: In terms of his cranial nerves, he has no focal deficits. Motor: He is diffusely 4/5 in the upper and lower extremities. No focal findings. Sensory: Stocking-glove loss. Reflexes absent. Gait: He does need maximal assistance to stand and attempt to ambulate. Laboratory Studies: White blood cell count 6.7, hemoglobin 8.0, hematocrit 24.0, and platelets 157. He has a pending arterial blood gas. Sodium 139, potassium 4.1, chloride 109, carbon dioxide 26, BUN 47, creatinine 1.61, glucose ranged from 144 to 166, calcium 8.2, magnesium 2.0, prealbumin is very low at 5.2, albumin is low at 1.6. X-ray/imaging: A chest x-ray was done today and the study identified mild i ncrease in the degree of bilateral pulmonary airspace disease seen, likely represents pulmonary edema. Heart is mildly enlarged with overall finding of mild CHF. Current Level Of Functioning: Bed mobility requires moderate assistance for rolling from hrfm-gv-veguv in addition to supine to sit with moderate assistance. Maximal assistance to ambulate just 1 foot. Rehabilitation And Medical Assessment And Plan: Mr. Dos Santos is a 67-year-old patient admitted to the inpatient rehabilitation unit with shingles and debility. His rehabilitation impairment category is 20 miscellaneous. His impairment group is code 16. Debility, noncardiac from pulmonary. Active comorbidities are atrial fibrillation, cellulitis, congestive heart failure, chronic obstructive pulmonary disease, diabetes mellitus type 2, essential hypertension, recurrent falls, and gout. His risk of clinical complications include heart and respiratory failure, falls, injuries, bleeding, sepsis, worsening deep vein thrombosis, stroke, infection, and . The patient will have physical and occupational therapy 3 hours a day, 5 of 7 days. He will have the comorbid conditions addressed, which include his hypertension with hyperten sives as indicated. He will have diuretics for congestive heart failure and increased fluid in the lung. Diabetes mellitus, managed by insulin and sliding scale as noted. For his cough, Robitussin is used and breathing treatments will be applied as noted including ipratropium and Atrovent. He does have
[2022-09-29] MEDS: QUETIAPINE 100MG TAB PO SCH (19:43)
[2022-09-29] MEDS: NIFEDIPINE XL 60 MG TABLET PO SCH (19:44)
[2022-09-29] MEDS: BENZONATATE 100 MG CAP PO PRN (23:07)
[2022-09-30] MEDS: INSULIN -REGULAR HUMAN 50 UNIT/0.5 ML ML SQ SCH ×4 (07:30→19:27)
[2022-09-30] MEDS: AMINO ACIDS/PROTEIN HYDROLYS 30 ML LIQUID.PKT PO SCH ×2 (08:00→19:27)
[2022-09-30] MEDS: MEDIHONEY 44 ML TOPICAL TUBE TOP SCH (08:00)
[2022-09-30] MEDS: DULERA 100/5 (MOMETASONE/FORMOTEROL) INHALER IH SCH ×2 (08:43→19:25)
[2022-09-30] MEDS: NYSTATIN PWDR 100000 UNIT/GM TOP PRN (08:43)
[2022-09-30] MEDS: VITAMIN D 1000 UNIT TAB PO SCH (08:44)
[2022-09-30] MEDS: CETIRIZINE HCL 5 MG TABLET PO SCH (08:44)
[2022-09-30] MEDS: KETOCONAZOLE CREAM 15 GM TUBE TOP SCH ×2 (08:44→19:25)
[2022-09-30] MEDS: allopurinoL 100 MG TAB PO SCH (08:45)
[2022-09-30] MEDS: APIXABAN 5 MG TABLET PO SCH ×2 (08:45→19:26)
[2022-09-30] MEDS: FUROSEMIDE 40 MG TABLET PO SCH (08:45)
[2022-09-30] MEDS: FE SULF/FA/VIT B COMP & C TAB PO SCH (08:46)
[2022-09-30] MEDS: METOPROLOL TAR 50 MG TAB PO SCH ×2 (08:46→19:26)
[2022-09-30] MEDS: ASPIRIN EC 81 MG TAB PO SCH (08:47)
[2022-09-30] MEDS: FERROUS SULFATE 325 MG TAB PO SCH ×2 (08:47→19:26)
[2022-09-30] MEDS: ESCITALOPRAM 20 MG TAB PO SCH (08:59)
[2022-09-30] MEDS: HYDRALAZINE HCL 25 MG TABLET PO SCH ×2 (09:00→19:26)
[2022-09-30] MEDS: ENSURE MAX PROTEIN 330 ML LIQUID PO SCH ×3 (12:00→19:27)
[2022-09-30] MEDS: ASCORBIC ACID 500 MG TABLET PO SCH (12:13)
[2022-09-30] MEDS: VITAMIN B COMPLEX 1 CAP PO SCH (12:13)
[2022-09-30] MEDS: PANTOPRAZOLE 40MG TABLET PO SCH (12:13)
[2022-09-30] MEDS: CYANOCOBALAMIN 1,000 MCG TAB PO SCH (12:14)
[2022-09-30] MEDS: TRAMADOL HCL 50 MG TAB PO PRN ×2 (12:45→21:03)
[2022-09-30] MEDS: NIFEDIPINE XL 60 MG TABLET PO SCH (19:26)
[2022-09-30] MEDS: QUETIAPINE 100MG TAB PO SCH (19:26)
[2022-09-30] MEDS: BENZONATATE 100 MG CAP PO PRN (21:03)
[2022-10-01] MEDS: BENZONATATE 100 MG CAP PO PRN (04:30)
[2022-10-01] MEDS: TRAMADOL HCL 50 MG TAB PO PRN ×2 (04:30→12:25)
[2022-10-01] MEDS: INSULIN -REGULAR HUMAN 50 UNIT/0.5 ML ML SQ SCH ×4 (07:00→20:20)
[2022-10-01] MEDS: AMINO ACIDS/PROTEIN HYDROLYS 30 ML LIQUID.PKT PO SCH (08:00)
[2022-10-01] MEDS: VITAMIN D 1000 UNIT TAB PO SCH (08:21)
[2022-10-01] MEDS: CETIRIZINE HCL 5 MG TABLET PO SCH ×2 (08:22→20:21)
[2022-10-01] MEDS: FUROSEMIDE 40 MG TABLET PO SCH (08:22)
[2022-10-01] MEDS: APIXABAN 5 MG TABLET PO SCH ×2 (08:22→20:22)
[2022-10-01] MEDS: METOPROLOL TAR 50 MG TAB PO SCH ×2 (08:23→20:22)
[2022-10-01] MEDS: allopurinoL 100 MG TAB PO SCH (08:23)
[2022-10-01] MEDS: ESCITALOPRAM 20 MG TAB PO SCH (08:23)
[2022-10-01] MEDS: FERROUS SULFATE 325 MG TAB PO SCH ×2 (08:23→20:22)
[2022-10-01] MEDS: FE SULF/FA/VIT B COMP & C TAB PO SCH (08:24)
[2022-10-01] MEDS: DULERA 100/5 (MOMETASONE/FORMOTEROL) INHALER IH SCH ×2 (08:27→20:00)
[2022-10-01] MEDS: NYSTATIN PWDR 100000 UNIT/GM TOP PRN (08:27)
[2022-10-01] MEDS: MEDIHONEY 44 ML TOPICAL TUBE TOP SCH (08:28)
[2022-10-01] MEDS: ASPIRIN EC 81 MG TAB PO SCH (08:30)
[2022-10-01] MEDS: KETOCONAZOLE CREAM 15 GM TUBE TOP SCH ×2 (08:30→20:23)
[2022-10-01] MEDS: HYDRALAZINE HCL 25 MG TABLET PO SCH ×2 (09:27→20:21)
[2022-10-01] MEDS: ACETAMINOPHEN 500 MG TAB PO PRN (10:39)
[2022-10-01] MEDS: ENSURE MAX PROTEIN 330 ML LIQUID PO SCH ×2 (12:00→20:00)
[2022-10-01] MEDS: VITAMIN B COMPLEX 1 CAP PO SCH (12:24)
[2022-10-01] MEDS: PANTOPRAZOLE 40MG TABLET PO SCH (12:24)
[2022-10-01] MEDS: CYANOCOBALAMIN 1,000 MCG TAB PO SCH (12:24)
[2022-10-01] MEDS: ASCORBIC ACID 500 MG TABLET PO SCH (12:24)
[2022-10-01] MEDS: QUETIAPINE 100MG TAB PO SCH (20:22)
[2022-10-01] MEDS: NIFEDIPINE XL 60 MG TABLET PO SCH (20:22)
[2022-10-01] MEDS: NYSTATIN PWDR 100000 UNIT/GM TOP SCH (20:25)
--- NOTE | 2022-10-02 01:17 | PN ---
Date of Progress Note: 10/01/2022 Ovce-Dc-Hkex Visit Time Of Service: 12 p.m. Subjective: Mr. Dos Santos is sitting in a chair. He is more alert, interactive, but still says he has n ot been feeling his best. He is coughing much less and Robitussin which has helped and use of nebuli zer treatments. Review of Systems: Much less coughing. No fevers, chills, myalgias, or arthralgias. No headache. No psychiatric issue s. He has healing wounds from chicken pox in the lower extremities and diabetic ulcer in the right t oe and on the butt cheeks he has pressure ulcers stage II, which are managed by Wound Care and Nursin g. He did have some mild increase in swelling in the lower extremities and his Lasix dosage was adju sted to 40 mg in the morning and 20 mg at noon. Physical Examination: Vital Signs: Blood pressure 126/59, pulse is 83, respiratory rate 16 to 20, temperature 97.1, and ox ygen saturation 92%. Weight 360, height 6 feet, BMI 48.8. General: Mr. Dos Santos is sitting in a chair at the side of bed. He is in no acute distress. He does h ave a garcia, which he has maintained throughout. HEENT: He is normocephalic, atraumatic. His sclerae are anicteric. Oropharynx moist. Neck: Supple. Chest: Clear. Abdomen: Obese. Extremities: Some przu-bn-ipkecuin edema and healing scars from the chickenpox. Diabetic ulcer note d on the right great toe. Laboratory Studies: On the 4th, white blood cell count 5.1, hemoglobin was 7.8 and on the 2nd it was 7.6. He is on iron and protein supplementation. Blood glucose ranged from 133 to 172. X-ray/imaging: No new x-ray or imaging. Medications: Unchanged except the Lasix was adjusted to 40 mg in the morning and 20 mg at noon. He continues on B12, Ultram, Senokot, Seroquel, Protonix, Procardia, Lopressor, hydralazine, ferrous sul fate, vitamin B12, Zyrtec, aspirin, vitamin C, and albuterol sulfate nebulizer. Current Functional Status: Currently, Mr. Dos Santos was able to mobilize a wheelchair 125 feet twice wit h standby assistance. He is using his upper extremities with assistance to mobilize the wheelchair a nd that is much improved compared to what he did just a week ago. He also did sit to stand 5 repetit ions with about 45 seconds of standing total time. He performed bilateral supine lower extremity exe rcises x25 repetitions and bilateral seated lower extremity exercises 25 repetitions. He was from, i n terms of bed mobility, supine to sit requires moderate assistance for lower extremity support. Sit ting balance was independent. With speech therapy, he was attentive and cooperative throughout the t herapy. Oriented to time and to place with minimum assistance and external memory aids were needed. He did sustain attention for more than a minute with structured tasks and did mental tasks with 85% accuracy. He did recall 3 of 3 unrelated pieces of information at 10 minutes with minimum assistance . He did have improved appetite and ate at least 50% of his lunch. Progress Towards Rehabilitation Goals: Mr. Dos Santos is making improved progress towards his goals, whic h include transfers from bed to chair with modified independence, to clothe and shower also with karl fied independence, to mobilize a wheelchair at least 500 feet with modified independence and to ambul ate short distances, which perhaps are around 25 feet with minimum assistance with help of his von t this point. Not able to do any ambulation, just able to stand at a total of about 45 seconds befor e having to sit. Assessment: Mr. Dos Santos is a -cueh-hjl patient in the rehabilitation unit with shingles invo lving lower extremities. He has a right diabetic foot ulcer and 2 decubital ulcers in the buttocks r egion. He has atrial fibrillation, class 3 obesity, congestive heart failure, chronic obstructive pu lmonary disease, diabetes type 2, and hypertension. Plan: 1.Continue physical, occupational, and speech therapy. 2.Wound Care is managing the diabetic ulcer and dependent ulcers he has. 3.For diabetes, hypertension, and congestive heart failure, his medications are continued as noted. For atrial fibrillation, he is on anticoagulation. Comorbidities That Continue To Impact Rehabilitation Process: At this point, given his weight it is difficult for him to maintain any upright position for a prolonged period and to begin ambulating. H owever, he is improving and compared to last week, he has done much better this week. He did have so me evidence of fluid retention in the lower extremities and his diabetic dosage was increased by 50%. When the patient goes home, he does reportedly have 2 caregivers and his who can attend to him ; however, it is difficult to get up from the floor due to his weight and will require at least 2, pe rhaps 3 people for assistance and potentially that could be a challenge as he goes home when there is only 1 person or himself around. JESSEE/GWENDOLYN Voice ID: [id number] Report ID: [id number]
[2022-10-02 04:47] LABS: Absolute Lymphocytes (CBC) 1.1 K/uL (0.7-4.9); Hematocrit 21.3 % (39.6-49.0); Lymphocytes % 22.3 % (15.3-44.8); MCV 91.8 fL (80-100); MPV 6.7 fL (7.6-11.3); RBC Red Blood Cell Count 2.31 M/uL (4.33-5.43)
[2022-10-02 05:01] LABS: Potassium 3.9 mmol/L (3.5-5.1)
[2022-10-02 05:31] LABS: Blood Morphology Comment NOT SEEN (NOT SEEN); Platelet Estimate ADEQ
[2022-10-02] MEDS: INSULIN -REGULAR HUMAN 50 UNIT/0.5 ML ML SQ SCH ×4 (07:30→20:33)
[2022-10-02] MEDS: DULERA 100/5 (MOMETASONE/FORMOTEROL) INHALER IH SCH ×2 (08:00→20:33)
[2022-10-02] MEDS: ENSURE MAX PROTEIN 330 ML LIQUID PO SCH ×2 (08:00→20:00)
[2022-10-02] MEDS: CETIRIZINE HCL 5 MG TABLET PO SCH ×2 (08:18→20:31)
[2022-10-02] MEDS: VITAMIN D 1000 UNIT TAB PO SCH (08:19)
[2022-10-02] MEDS: ESCITALOPRAM 20 MG TAB PO SCH (08:20)
[2022-10-02] MEDS: METOPROLOL TAR 50 MG TAB PO SCH ×2 (08:21→20:32)
[2022-10-02] MEDS: FE SULF/FA/VIT B COMP & C TAB PO SCH (08:21)
[2022-10-02] MEDS: FERROUS SULFATE 325 MG TAB PO SCH ×2 (08:21→20:32)
[2022-10-02] MEDS: ASPIRIN EC 81 MG TAB PO SCH (08:22)
[2022-10-02] MEDS: APIXABAN 5 MG TABLET PO SCH ×2 (08:23→20:32)
[2022-10-02] MEDS: allopurinoL 100 MG TAB PO SCH (08:23)
[2022-10-02] MEDS: FUROSEMIDE 40 MG TABLET PO SCH (08:23)
[2022-10-02] MEDS: NYSTATIN PWDR 100000 UNIT/GM TOP SCH ×2 (08:35→20:29)
[2022-10-02] MEDS: MEDIHONEY 44 ML TOPICAL TUBE TOP SCH (08:36)
[2022-10-02] MEDS: KETOCONAZOLE CREAM 15 GM TUBE TOP SCH ×2 (08:36→20:29)
[2022-10-02] MEDS: HYDRALAZINE HCL 25 MG TABLET PO SCH ×2 (09:16→20:32)
[2022-10-02] MEDS ORDERED: NA CHLORIDE 0.9% 250 ML IV SCH (11:00)
[2022-10-02] MEDS: VITAMIN B COMPLEX 1 CAP PO SCH (12:15)
[2022-10-02] MEDS: ASCORBIC ACID 500 MG TABLET PO SCH (12:15)
[2022-10-02] MEDS: FUROSEMIDE 20 MG TABLET PO SCH (12:16)
[2022-10-02] MEDS: CYANOCOBALAMIN 1,000 MCG TAB PO SCH (12:16)
[2022-10-02] MEDS: PANTOPRAZOLE 40MG TABLET PO SCH (12:16)
[2022-10-02] MEDS: MAGNESIUM HYDROXIDE 8% 30 ML PO SCH (16:55)
[2022-10-02 19:45] LABS: Hematocrit 25.7 % (39.6-49.0)
[2022-10-02] MEDS: NIFEDIPINE XL 60 MG TABLET PO SCH (20:30)
[2022-10-02] MEDS: QUETIAPINE 100MG TAB PO SCH (20:30)
[2022-10-02] MEDS: DOCUSATE NA/SENNA CONC 1 TAB PO SCH (20:31)
[2022-10-03] MEDS: ACETAMINOPHEN 500 MG TAB PO PRN (04:26)
[2022-10-03] MEDS: INSULIN -REGULAR HUMAN 50 UNIT/0.5 ML ML SQ SCH ×4 (07:30→20:14)
[2022-10-03] MEDS: DULERA 100/5 (MOMETASONE/FORMOTEROL) INHALER IH SCH ×2 (07:44→20:13)
[2022-10-03] MEDS: ENSURE MAX PROTEIN 330 ML LIQUID PO SCH ×2 (08:00→20:00)
[2022-10-03] MEDS: MEDIHONEY 44 ML TOPICAL TUBE TOP SCH ×2 (08:00→08:04)
[2022-10-03] MEDS: FE SULF/FA/VIT B COMP & C TAB PO SCH (08:01)
[2022-10-03] MEDS: MAGNESIUM HYDROXIDE 8% 30 ML PO SCH (08:01)
[2022-10-03] MEDS: CETIRIZINE HCL 5 MG TABLET PO SCH ×2 (08:02→20:12)
[2022-10-03] MEDS: allopurinoL 100 MG TAB PO SCH (08:02)
[2022-10-03] MEDS: FUROSEMIDE 40 MG TABLET PO SCH (08:02)
[2022-10-03] MEDS: ESCITALOPRAM 20 MG TAB PO SCH (08:02)
[2022-10-03] MEDS: FERROUS SULFATE 325 MG TAB PO SCH ×2 (08:03→20:11)
[2022-10-03] MEDS: METOPROLOL TAR 50 MG TAB PO SCH ×2 (08:03→20:12)
[2022-10-03] MEDS: APIXABAN 5 MG TABLET PO SCH ×2 (08:03→20:11)
[2022-10-03] MEDS: NYSTATIN PWDR 100000 UNIT/GM TOP SCH ×2 (08:04→20:12)
[2022-10-03] MEDS: KETOCONAZOLE CREAM 15 GM TUBE TOP SCH ×2 (08:04→20:14)
--- NOTE | 2022-10-03 08:55 | PN ---
Date of Progress Note: 10/02/2022 Dwen-hl-Gbvy Progress Note Time Of Service: 12 p.m. Subjective: is in a chair beside his bed getting 1 unit of blood. He is actually doing w ell. He said he is intermittently standing to keep his exercise going. Denies any shortness of sergio th, any fatigue. No lightheadedness. No chest pain. Review of Systems: No fatigue, no chills, no nausea, no vomiting. No chest pain. No shortness of breath. The wounds o n his legs are healing. He does have a diabetic ulcer in the right big toe and decubital ulcers on h is buttocks region. Physical Examination: Vital Signs: Blood pressure 118/56, pulse 74, respiratory rate 18, temperature 97.2, oxygen saturati on 98% on room air. General: Mr. Dos Santos is sitting, again, in a chair beside the bed. HEENT: He is normocephalic, atraumatic. He has a garcia. Abdomen: He does have obese abdomen. Soft on examination. Extremities: Lower extremities obese. He does have healing scars from his shingles as noted. He do es have slightly pale appearing skin likely from his severe anemia. However, he has no focal neurolo gical deficits. Chest: Clear. Laboratory Studies: Today, his hemoglobin was down to 7.1, and he actually received 1 unit of blood. Following that, his hemoglobin is now 8.5. His highest hemoglobin prior to that was 8.0 on 023. His hematocrit is 25.7, white blood cell count today is 4.9, platelets 160. Sodium was 133, po tassium 3.9, chloride 103, creatinine elevated to 1.96, which is chronic. Blood sugars ranged from 1 26-182, calcium 7.7. No x-rays. Medications: His medications have not changed since his note yesterday. He still takes Eliquis 5 mg twice daily for DVT and stroke risk reduction. However, aspirin 81 mg will be discontinued at this point. Current Functional Status: Due to his severe anemia and risk of a significant complication, his phys ical therapy was held today and he did mobilization in the chair and bed. Progress In His Rehabilitation And Goals: Today, he was put on hold because of his severe anemia; delio sun, today he is making significant improvement in his ability to transfer to mobilize with a wheel chair and to begin to do omz-vp-vfmxk activities and maintaining standing for about a minute. Assessment: Mr. Dos Santos is a 67-year-old patient in the rehabilitation unit with shingles involving hi s lower extremities. He has a diabetic foot ulcer, severe anemia, received 1 unit of blood and is do ing well. He has atrial fibrillation, on Eliquis. He has class 3 obesity, congestive heart failure, chronic obstructive pulmonary disease, diabetes mellitus type 2, and hypertension. Plan: 1.Continue physical and occupational therapy along with speech therapy tomorrow as he has now had a unit of blood and is doing well. 2.Continue with wound care for diabetic ulcer and dependent ulcers on the buttocks. 3.Continue with aggressive management of diabetes, hypertension, congestive heart failure with fluid management, and for his atrial fibrillation. Comorbidities That Continue To Impact His Improvement In Rehabilitation: He does have morbid obesity that does impact his ability to maintain upright position for an extended period of time. He also h as a diabetic ulcer and decubital ulcers. He has had severe anemia and received a unit of blood, delphine put his therapy on hold for a day, and he will then resume again tomorrow and may get a therapy after that. JESSEE/GWENDOLYN Voice ID: [id number] Report ID: [id number]
[2022-10-03] MEDS: HYDRALAZINE HCL 25 MG TABLET PO SCH ×2 (09:22→20:11)
[2022-10-03] MEDS: DULOXETINE 20 MG CAP PO SCH (12:32)
[2022-10-03] MEDS: VITAMIN B COMPLEX 1 CAP PO SCH (12:33)
[2022-10-03] MEDS: VITAMIN D 1000 UNIT TAB PO SCH (12:33)
[2022-10-03] MEDS: PANTOPRAZOLE 40MG TABLET PO SCH (12:33)
[2022-10-03] MEDS: ASCORBIC ACID 500 MG TABLET PO SCH (12:33)
[2022-10-03] MEDS: CYANOCOBALAMIN 1,000 MCG TAB PO SCH (12:34)
[2022-10-03] MEDS: FUROSEMIDE 20 MG TABLET PO SCH (12:39)
[2022-10-03] MEDS: DOCUSATE NA/SENNA CONC 1 TAB PO SCH (20:11)
[2022-10-03] MEDS: QUETIAPINE 100MG TAB PO SCH (20:12)
[2022-10-03] MEDS: NIFEDIPINE XL 60 MG TABLET PO SCH (20:15)
--- NOTE | 2022-10-03 22:07 | PN ---
Date of Progress Note: 10/03/2022 Time Of Service: 1:00 p.m. Subjective: Mr. Dos Santos is sitting at the side of his bed, and he is doing well. He denies any signif icant complaints, although he does say he wants to go home. Yesterday, he got a unit of blood. He s aid he feels slightly better. He denies any shortness of breath or fatigue. Review of Systems: No fevers, chills, nausea, vomiting, myalgias or arthralgias except mild pain in the lower extremitie s where he had shingles, and he has decubital ulcer on the right foot and dependent ulcers in the but tock region. Physical Examination: Vital Signs: Blood pressure 138/60, pulse 84, respiratory rate 16, temperature 97.4. General: Mr. Dos Santos is sitting outside of bed. He is in no acute distress. He is normocephalic, atr aumatic. Sclerae nonicteric. Oropharynx pink and moist. Neck: Supple. Extremities: Show mild edema and abdomen actually is obese. He has healing scars on the legs. Neurological: He has no focal deficits. Laboratory Studies: No new blood work. Yesterday, hemoglobin increased to 8.5. His blood sugars ra nged from 159-197. X-ray Imaging: No new x-ray imaging. Medications: After discussion with the patient's and the patient, he was felt to be endorsing s ome features of depression and antidepression Cymbalta 20 mg daily was started. He continue Eliquis 5 mg twice daily for DVT prophylaxis, allopurinol 100 mg daily for gout, in addition to ferrous sulfa te for anemia. He has Lasix for lower extremity edema, Seroquel for his insomnia, and his other medi cations as noted previously are continued. Current Functional Status: Currently, he did proceed with gait training, 50 feet twice independently using a rolling walker. Demonstrated good balance and stability. Did not require any verbal cues. He did perform [id number] transfers, out of bed independent, using a rolling walker independently from wheelchair, transferred there with rolling walker independently. In terms of speech, he was ful ly oriented to place, time, and understood temporal concept using external memory aids. A sustained attention was maintained for 3-5 minutes. Progress Towards Rehabilitation Goals: Mr. Dos Santos actually is making very good progress now much bett er than he did last week toward his goals of becoming independent with at least household distances w ith his transfers, was able to get on and off the toilet, get in and out of shower, to dress himself upper and lower body, and to exhibit good judgment and memory. Assessment: Mr. Dos Santos is a 67-year-old patient in the rehabilitation unit with shingles in the lower extremities. He has a right toe diabetic ulcer. He has severe anemia. He has received a unit of b lood and has done well. He has decubital ulcers of the buttocks region. He has class 3 obesity, con gestive heart failure, chronic obstructive pulmonary disease, diabetes mellitus type 2, and hypertens ion. Plan: 1.Continue aggressive management of his comorbid conditions as noted with medications as listed. 2.He has a diabetic wound that is addressed by wound care. The dependent ulcers are offloaded in th e buttocks region. These are doing better. He does have Eliquis for atrial fibrillation. Comorbidities That Continue To Negatively Impact His Rehabilitation Process: At this point, he is ac tually making better progress, although he does endorse some features of depression. He has started antidepressant, but he has done much better today than in previous days in terms of all his therapy p guy. JESSEE/GWENDOLYN Voice ID: [id number] Report ID: [id number]
[2022-10-03] MEDS: MELATONIN 5 MG TABLET PO SCH (22:10)
[2022-10-04 05:38] LABS: Absolute Lymphocytes (CBC) 1.1 K/uL (0.7-4.9); Hematocrit 22.9 % (39.6-49.0); Lymphocytes % 19.6 % (15.3-44.8); MCV 92.2 fL (80-100); MPV 6.8 fL (7.6-11.3); RBC Red Blood Cell Count 2.49 M/uL (4.33-5.43)
[2022-10-04 05:53] LABS: Albumin 1.4 g/dL (3.4-5.0); Potassium 3.8 mmol/L (3.5-5.1); Prealbumin 4.2 mg/dL (20-40)
[2022-10-04] MEDS: INSULIN -REGULAR HUMAN 50 UNIT/0.5 ML ML SQ SCH ×4 (07:29→19:56)
[2022-10-04] MEDS ORDERED: DULOXETINE 20 MG CAP PO SCH (08:00)
[2022-10-04] MEDS: ENSURE MAX PROTEIN 330 ML LIQUID PO SCH ×2 (08:00→19:56)
[2022-10-04] MEDS: DULOXETINE 20 MG CAP PO SCH (08:22)
[2022-10-04] MEDS: MAGNESIUM HYDROXIDE 8% 30 ML PO SCH (08:22)
[2022-10-04] MEDS: FERROUS SULFATE 325 MG TAB PO SCH ×2 (08:22→19:55)
[2022-10-04] MEDS: FE SULF/FA/VIT B COMP & C TAB PO SCH (08:22)
[2022-10-04] MEDS: METOPROLOL TAR 50 MG TAB PO SCH ×2 (08:23→19:55)
[2022-10-04] MEDS: APIXABAN 5 MG TABLET PO SCH ×2 (08:23→19:56)
[2022-10-04] MEDS: ESCITALOPRAM 20 MG TAB PO SCH (08:24)
[2022-10-04] MEDS: CETIRIZINE HCL 5 MG TABLET PO SCH ×2 (08:24→19:55)
[2022-10-04] MEDS: allopurinoL 100 MG TAB PO SCH (08:24)
[2022-10-04] MEDS: FUROSEMIDE 40 MG TABLET PO SCH (08:24)
[2022-10-04] MEDS: NYSTATIN PWDR 100000 UNIT/GM TOP SCH ×2 (08:25→19:54)
[2022-10-04] MEDS: MEDIHONEY 44 ML TOPICAL TUBE TOP SCH (08:26)
[2022-10-04] MEDS: KETOCONAZOLE CREAM 15 GM TUBE TOP SCH ×2 (08:26→19:54)
[2022-10-04] MEDS: DULERA 100/5 (MOMETASONE/FORMOTEROL) INHALER IH SCH ×2 (08:31→19:54)
[2022-10-04] MEDS: HYDRALAZINE HCL 25 MG TABLET PO SCH ×2 (09:53→19:55)
[2022-10-04] MEDS: PANTOPRAZOLE 40MG TABLET PO SCH (12:04)
[2022-10-04] MEDS: FUROSEMIDE 20 MG TABLET PO SCH (12:04)
[2022-10-04] MEDS: CYANOCOBALAMIN 1,000 MCG TAB PO SCH (12:04)
[2022-10-04] MEDS: VITAMIN B COMPLEX 1 CAP PO SCH (12:04)
[2022-10-04] MEDS: ASCORBIC ACID 500 MG TABLET PO SCH (12:05)
[2022-10-04] MEDS: VITAMIN D 1000 UNIT TAB PO SCH (12:06)
[2022-10-04] MEDS: TRAMADOL HCL 50 MG TAB PO PRN (12:31)
[2022-10-04] MEDS ORDERED: NA CHLORIDE 0.9% 250 ML ONE (16:18)
[2022-10-04] MEDS: NIFEDIPINE XL 60 MG TABLET PO SCH (19:54)
[2022-10-04] MEDS: DOCUSATE NA/SENNA CONC 1 TAB PO SCH (19:55)
[2022-10-04] MEDS: QUETIAPINE 100MG TAB PO SCH (19:55)
--- NOTE | 2022-10-04 20:29 | PN ---
Date of Progress Note: 10/04/2022 Time Of Service: 1:00 p.m. Subjective: Mr. Dos Santos is sitting side of his bed. He is feeling better today. He is happy to be ab le to go home. He did receive blood yesterday and perked up. Again, he is happy to go home. His mo od has improved with antidepressants. Review of Systems: No fevers, chills. He does have some myalgias and arthralgias, but those are mild to lower extremiti es. There are shingles. The pain is fairly well managed. He does have decubital ulcers on the butto cks and a right foot diabetic ulcer on the big toe. Otherwise doing well. Physical Examination: Vital Signs: Blood pressure 136/68, pulse 68, respiratory rate 18, temperature 97.4, oxygen saturati on 94%. General: Mr. Dos Santos again is normocephalic, atraumatic. His garcia is better kept now. He has good a ir movement. Abdomen: Obese. Extremities: Obese. Some edema. He has wrapping of the legs and he has Medihoney put on the right diabetic big toe ulcer, and he is working on offloading the decubital ulcers in the buttocks region. Laboratory Studies: White blood cell count 5.5. His hemoglobin did go down from 8.5 yesterday to 7. 6. He will get a unit of blood for overnight and have a repeat hemoglobin. Also guaiac testing is d one. His platelets are normal at 158. Chemistries: Sodium 137, potassium 3.8, chloride 107, carbon dioxide 24, BUN 59, creatinine is elevated at 2.03, glucose ranged from 158 to 189, calcium 7.7, mag nesium 2.0, prealbumin 4.2 which is a very low, albumin 1.4. X-ray Imaging: None. Current Functional Status: Currently, Mr. Dos Santos was able to use a rolling walker on level surfaces w ith contact guard assistance covering 45 feet and 50 feet. Also mobilized wheelchair 125 feet twice with standby assistance. He did supine to sit with moderate assistance for lower extremity support. He was independent today with balance. Umh-tf-thinr transfers done with contact guard assistance. With speech therapy, he was oriented to time and space, concepts, and independent. Recalled 2 of 3 p ictures with 3 recall and 3 of 3 words spoken allowed with 3 recall. He does continue to need assist ance and sustained attention during structured tasks. Progress Towards Rehabilitation Goals: He did make improved progress towards his goals of becoming i ndependent with bed mobilization, transfers, upper body dressing, still needs significant upper and l ower body dressing, showering, not yet able to go full household distances, still needs significant h elp will contact guard assistance and wheelchair mobilization is improved but still these have signif icant work. At this point, the patient actually is able to go home and continue aggressive therapy v ia home health. Assessment: Mr. Dos Santos is a 67-year-old patient admitted to the rehabilitation unit with shingles inv olving lower extremities, debility, morbid obesity, right big toe diabetic ulcer, decubital ulcers in the buttocks region, severe anemia, who has had 1 unit of blood, is having a second unit. He did gu aiac with results pending. Does have diabetes, hypertension, chronic obstructive pulmonary disease, congestive heart failure with edema of lower extremities. Plan: 1.At this point, continue therapy today and tomorrow. Planned for discharge tomorrow with continued therapy by home health, physical, occupational, and speech. 2.Continue diabetes management, hypertension, chronic obstructive pulmonary disease, CHF with medica tions as listed, including diuretics, and he will have Medihoney on the right toe diabetic ulcer. El iquis for atrial fibrillation. Comorbidities That Continue To Impact Rehabilitation Process: Given the patient's weight, this is a challenge, but he is working hard to overcome the limitations there. He does have diabetic foot ulce r and decubital ulcers. Those are the challenges. He has severely low pre-albumin which is resultin g in edema in the lower extremities. Protein supplementation. Iron supplementation is helping, but that is improving very slowly. In addition, he has depressed mood. He was actually put on Lexapro a nd Cymbalta. He should only be on 1 of those because of the possibility of serotonin syndrome and so he will have Lexapro increased from 10 daily to 10 twice daily, and Cymbalta will be discontinued. The plan is for him to be discharged home. In the morning, especially if his hemoglobin and hematocr it are improved, and will have him to follow up with the GI doctor for possible repeat upper and lowe r GI which his said he had and it did not show any significant abnormalities, perhaps about a ye ar ago, and again, he will follow up with his GI doctor for that. He will also follow up with his [facility] care doctor and joinery setter out. JESSEE/GWENDOLYN Voice ID: [id number] Report ID: [id number]
[2022-10-04 20:45] VITALS: O2SAT 100
[2022-10-04] MEDS: MELATONIN 5 MG TABLET PO SCH (21:24)
[2022-10-04 23:25] LABS: Absolute Lymphocytes (CBC) 0.9 K/uL (0.7-4.9); Hematocrit 25.4 % (39.6-49.0); Lymphocytes % 12.9 % (15.3-44.8); MCV 91.8 fL (80-100); RBC Red Blood Cell Count 2.77 M/uL (4.33-5.43)
[2022-10-05 05:00] LABS: Absolute Lymphocytes (CBC) 1.1 K/uL (0.7-4.9); Hematocrit 25.6 % (39.6-49.0); Lymphocytes % 13.3 % (15.3-44.8); MPV 6.9 fL (7.6-11.3); RBC Red Blood Cell Count 2.78 M/uL (4.33-5.43)
[2022-10-05 05:12] LABS: Potassium 4.2 mmol/L (3.5-5.1)
[2022-10-05] MEDS: INSULIN -REGULAR HUMAN 50 UNIT/0.5 ML ML SQ SCH (07:30)
[2022-10-05] MEDS: ENSURE MAX PROTEIN 330 ML LIQUID PO SCH (08:00)
[2022-10-05] MEDS ORDERED: ESCITALOPRAM 20 MG TAB PO SCH (08:00)
[2022-10-05] MEDS: DULERA 100/5 (MOMETASONE/FORMOTEROL) INHALER IH SCH (08:00)
[2022-10-05] MEDS: MAGNESIUM HYDROXIDE 8% 30 ML PO SCH (08:07)
[2022-10-05] MEDS: FE SULF/FA/VIT B COMP & C TAB PO SCH (08:08)
[2022-10-05] MEDS: allopurinoL 100 MG TAB PO SCH (08:08)
[2022-10-05] MEDS: CETIRIZINE HCL 5 MG TABLET PO SCH (08:09)
[2022-10-05] MEDS: METOPROLOL TAR 50 MG TAB PO SCH (08:09)
[2022-10-05] MEDS: APIXABAN 5 MG TABLET PO SCH (08:09)
[2022-10-05] MEDS: FERROUS SULFATE 325 MG TAB PO SCH (08:09)
[2022-10-05] MEDS: NYSTATIN PWDR 100000 UNIT/GM TOP SCH (08:10)
[2022-10-05] MEDS: FUROSEMIDE 40 MG TABLET PO SCH (08:10)
[2022-10-05] MEDS: MEDIHONEY 44 ML TOPICAL TUBE TOP SCH (08:11)
[2022-10-05] MEDS: KETOCONAZOLE CREAM 15 GM TUBE TOP SCH (08:11)
[2022-10-05 08:23] VITALS: TEMP 97.6
[2022-10-05] MEDS: HYDRALAZINE HCL 25 MG TABLET PO SCH (09:07)
[2022-10-05 09:29] VITALS: BP 129/62
[2022-10-05] MEDS: TRAMADOL HCL 50 MG TAB PO PRN (10:06)
== END 2022-10-05 10:15 | disposition home health service (06) | DRG 948 ==
LOC: 5TH 09-23 15:21
PROVIDERS: ADMIT Psychiatry & Neurology Neurology with Special Qualifications in Child Neurology; ATTEND Psychiatry & Neurology Neurology with Special Qualifications in Child Neurology
PROC: 30233N1 Transfusion of Nonautologous Red Blood Cells into Peripheral Vein, Percutaneous Approach (ICD-10-PCS; 2022-10-02)
PROC: 30233N1 Transfusion of Nonautologous Red Blood Cells into Peripheral Vein, Percutaneous Approach (ICD-10-PCS; principal; 2022-10-04)
DX: R53.81 Other malaise (principal); I13.0 Hypertensive heart and chronic kidney disease with heart failure and stage 1 through stage 4 chronic kidney disease, or unspecified chronic kidney disease; Z68.42 Body mass index [BMI] 45.0-49.9, adult; L03.119 Cellulitis of unspecified part of limb; E11.621 Type 2 diabetes mellitus with foot ulcer; L89.309 Pressure ulcer of unspecified buttock, unspecified stage; K59.00 Constipation, unspecified; D64.9 Anemia, unspecified; E11.22 Type 2 diabetes mellitus with diabetic chronic kidney disease; I50.9 Heart failure, unspecified; J44.9 Chronic obstructive pulmonary disease, unspecified; E11.9 Type 2 diabetes mellitus without complications; K21.9 Gastro-esophageal reflux disease without esophagitis; M10.9 Gout, unspecified; N18.9 Chronic kidney disease, unspecified; E66.01 Morbid (severe) obesity due to excess calories; B02.9 Zoster without complications; I48.91 Unspecified atrial fibrillation; I25.2 Old myocardial infarction; Z20.822 Contact with and (suspected) exposure to COVID-19; Z86.711 Personal history of pulmonary embolism; Z86.718 Personal history of other venous thrombosis and embolism
CPT/HCPCS: 0240U; 36415; 70450; 71045; 80048; 81001; 82040; 82805; 82947; 83735; 84134; 85014; 85018; 85025; 86850; 86900; 86901; 87086; 87088; 92523; 92526; 93005; 93970; 94010; 94640; 97110; 97112; 97116; 97129; 97161; 97165; 97530; 97542; J1815; J3535; J7050; J7613; P9016; U0003